=== PATIENT | female | born 1985 | race Caucasian/White ===

== ENCOUNTER 2018-01-10 09:37 | Emergency (ER) | payer BC ==
[~2018-01-10] VITALS: Ht 175.3 cm; Wt 72.5 kg
[~2018-01-10 09:37] MED LIST: FERR325T5 PO; PRENTAB26 PO
[2018-01-10 09:41] VITALS: TEMP 36.9; Ht 175.3 cm; Wt 72.5 kg
--- NOTE | 2018-01-10 10:13 | EMERGENCY ROOM VISIT NOTE ---
History Report prepared by Ayush: Sarkis Starr Under the Supervision of: Dr. Haile Rome D.O. First contact with patient: 09:57 Chief Complaint: HYPERTENSION Stated Complaint: HIGH BLOOD PRESSURE History of Present Illness The patient is a 32 year old female who presents to the Emergency Room with complaints of a persistent high blood pressure that was detected yesterday. She states that she went to [employer] yesterday thinking that she had strep throat , but her blood pressure was checked there, her blood pressure was noted to be elevated. The patient says that her blood pressure was measured 10 times there. 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 The patient says that she has never had this happen to her before. She does not take any daily medications other than control. The patient adds that she has had a headache but no other symptoms. She denies any chest pain, shortness of breath, trouble walking, nausea, vomiting, or leg swelling. She states that she has not been taking any other medications other than Ibuprofen 2 days ago, and cold medicine last night. The patient states that she has no family history of tumors that caused hypertension. The patient says that she has not had any recent travels. She notes no history of tobacco use, but does drink occasional alcohol. Source of History: patient Onset: Detected yesterday Position: other (global) Symptom Intensity: 170/130 Quality: other (high blood pressure) Timing: other (persistent) Associated Symptoms: + headache, + sorethroat, No chest pain, No SOB, No nausea, No vomiting Note: Denies trouble walking or leg swelling. Review of Systems See HPI for pertinent positives & negatives. A total of 10 systems reviewed and were otherwise negative. Past Medical & Surgical Medical Problems: (1) No chronic diseases present Family History Diabetes mellitus Heart disease Social History Smoking Status: Never Smoker Alcohol Use: occasionally Drug Use: none Marital Status: single Occupation Status: employed Current/Historical Medications Scheduled Amlodipine (Norvasc), 10 MG PO DAILY Enalapril Maleate (Vasotec), 1 TAB PO DAILY Ferrous Sulfate (Ferrous Sulfate), 325 MG PO DAILY Multivit/Min/Iron/Fol Ac/Pren ( Vitamin), 1 TAB PO DAILY Miscellaneous Medications Biotin (Biotin) Cyanocobalamin (Vitamin B12) Fish Oil (Otisco-3), 1 CAP PO Allergies Coded Allergies: No Known Allergies (Unverified , 01/10/18) Physical Exam Vital Signs Date Time Temp Pulse Resp B/P (MAP) Pulse Ox O2 Delivery O2 Flow Rate FiO2 01/10/18 14:18 86 16 196/137 99 01/10/18 13:46 68 20 168/109 99 Room Air 01/10/18 13:05 65 18 193/128 98 Room Air 01/10/18 11:50 67 16 199/129 97 Room Air 01/10/18 10:40 86 211/140 01/10/18 10:02 84 01/10/18 09:41 36.9 86 20 230/145 98 Room Air Physical Exam GENERAL: Patient is awake, alert, and in no acute distress. Patient is resting comfortably and showing no signs of anxiety. Patient has blood pressure of 181/ 139 in left arm and 211/140 in right arm. EYES: The conjunctivae are clear. The pupils are round and reactive. EARS, NOSE, MOUTH AND THROAT: The nose is without any evidence of any deformity. Mucous membranes are moist tongue is midline NECK: The neck is nontender and supple. RESPIRATORY: Normal respiratory effort is noted there is no evidence of wheezing rhonchi or rales CARDIOVASCULAR: Regular rate and rhythm noted there no murmurs rubs or gallops normal S1 normal S2 GASTROINTESTINAL: The abdomen is soft. Bowel sounds are present in all quadrants. Abdomen is nontender MUSCULOSKELETAL/EXTREMITIES: There is no evidence of gross deformity full range of motion is noted in the hips and shoulders SKIN: There is no obvious evidence of any rash. There are no petechiae, pallor or cyanosis noted. NEUROLOGIC: Patient is awake alert and oriented x3 strength is symmetric patellar reflexes are 2+ bilaterally Medical Decision & Procedures ER Provider Diagnostic Interpretation: Radiology results as stated below per my review and radiologist interpretation: HEAD WITHOUT CONTRAST (CT) CT DOSE: 537.48 mGy.cm HISTORY: Mental status change. Hypertension. SANDERS, elevated BP TECHNIQUE: Multiaxial CT images of the head were performed without the use of intravenous contrast. A dose lowering technique was utilized adhering to the principles of ALARA. Comparison: None. Findings: The paranasal sinuses and mastoid air cells are clear. The calvarium and skull base are intact. The ventricles and sulci are within normal limits. There is no mass, hematoma, midline shift, or acute infarct. Impression: No acute intracranial abnormality. The above report was generated using voice recognition software. It may contain grammatical, syntax or spelling errors. Electronically signed by: Sanchez Cardona M.D. 01/10/2018 10:53 AM Dictated Date/Time: 01/10/2018 10:52 AM CHEST ONE VIEW PORTABLE CLINICAL HISTORY: CHEST PAIN dyspnea COMPARISON STUDY: 06/17/2015 FINDINGS: The bones soft tissues and hemidiaphragms are normal. The cardiomediastinal silhouette is normal. The lungs are clear. The pulmonary vasculature is normal. IMPRESSION: Negative chest. The above report was generated using voice recognition software. It may contain grammatical, syntax or spelling errors. Electronically signed by: Sanchez Cardona M.D. 01/10/2018 10:46 AM Dictated Date/Time: 01/10/2018 10:43 AM Laboratory Results 01/10/18 09:50 Red Blood Count 5.17, Mean Corpuscular Volume 90.7, Mean Corpuscular Hemoglobin 32.9, Mean Corpuscular Hemoglobin Concent 36.2, Mean Platelet Volume 12.4, Neutrophils (%) (Auto) 66.9, Lymphocytes (%) (Auto) 23.8, Monocytes (%) (Auto) 6.2, Eosinophils (%) (Auto) 2.6, Basophils (%) (Auto) 0.4, Neutrophils # (Auto) 4.85, Lymphocytes # (Auto) 1.73, Monocytes # (Auto) 0.45, Eosinophils # (Auto) 0.19, Basophils # (Auto) 0.03 01/10/18 09:50 Test 01/10/18 09:50 White Blood Count 7.26 K/uL (4.8-10.8) Red Blood Count 5.17 M/uL (4.2-5.4) Hemoglobin 17.0 g/dL (12.0-16.0) Hematocrit 46.9 % (37-47) Mean Corpuscular Volume 90.7 fL (80-100) Mean Corpuscular Hemoglobin 32.9 pg (25-34) Mean Corpuscular Hemoglobin Concent 36.2 g/dl (32-36) Platelet Count 175 K/uL (130-400) Mean Platelet Volume 12.4 fL (7.4-10.4) Neutrophils (%) (Auto) 66.9 % Lymphocytes (%) (Auto) 23.8 % Monocytes (%) (Auto) 6.2 % Eosinophils (%) (Auto) 2.6 % Basophils (%) (Auto) 0.4 % Neutrophils # (Auto) 4.85 K/uL (1.4-6.5) Lymphocytes # (Auto) 1.73 K/uL (1.2-3.4) Monocytes # (Auto) 0.45 K/uL (0.11-0.59) Eosinophils # (Auto) 0.19 K/uL (0-0.5) Basophils # (Auto) 0.03 K/uL (0-0.2) RDW Standard Deviation 40.3 fL (36.4-46.3) RDW Coefficient of Variation 12.1 % (11.5-14.5) Immature Granulocyte % (Auto) 0.1 % Immature Granulocyte # (Auto) 0.01 K/uL (0.00-0.02) Prothrombin Time 9.5 SECONDS (9.0-12.0) Prothromb Time International Ratio 0.9 (0.9-1.1) Activated Partial Thromboplast Time 34.7 SECONDS (21.0-31.0) Partial Thromboplastin Ratio 1.3 Anion Gap 6.0 mmol/L (3-11) Est Creatinine Clear Calc Drug Dose 71.6 ml/min Estimated GFR () 70.4 Estimated GFR (Non- 60.8 BUN/Creatinine Ratio 10.5 (10-20) Calcium Level 9.4 mg/dl (8.5-10.1) Total Bilirubin 0.4 mg/dl (0.2-1) Direct Bilirubin 0.1 mg/dl (0-0.2) Aspartate Amino Transf (AST/SGOT) 23 U/L (15-37) Alanine Aminotransferase (ALT/SGPT) 29 U/L (12-78) Alkaline Phosphatase 73 U/L (45-117) Total Creatine Kinase 107 U/L (26-192) Creatine Kinase MB 0.8 ng/ml (0.5-3.6) Creatine Kinase MB Ratio 0.7 (0-3.0) Troponin I < 0.015 ng/ml (0-0.045) Total Protein 9.2 gm/dl (6.4-8.2) Albumin 4.3 gm/dl (3.4-5.0) Lipase 114 U/L (73-393) Human Chorionic Gonadotropin, Qual NEG (NEG) Laboratory results per my review. Medications Administered Medications (Trade) Dose Ordered Sig/Yury Route Start Time Stop Time Status Last Admin Dose Admin Amlodipine Besylate (Norvasc Tab) 10 mg NOW ONCE PO 01/10/18 11:00 01/10/18 11:01 DC 01/10/18 11:02 10 MG Enalapril Maleate (Vasotec Tab) 10 mg NOW ONCE PO 01/10/18 13:15 01/10/18 13:18 DC 01/10/18 13:39 10 MG ED Course 1004: The patient was evaluated in room B8. A complete history and physical examination were performed. 1100: Norvasc Tab 10 mg PO. 1200: I reevaluated and updated the patient. 1315: Vasotec Tab 10 mg PO. 1404: Upon reevaluation, the patient is resting and feeling good. I discussed the results and treatment plan with her. She verbalized agreement of the treatment plan. She was discharged home. Medical Decision Differential diagnosis: Etiologies such as benign hypertension, hypertensive emergency, cardiovascular pathology, pheochromocytoma, electrolyte abnormality, renal disease, endorgan damage, as well as others were entertained. Nursing notes reviewed. The patient is a 32-year-old female who presented to the emergency department for an evaluation of headache and not feeling well. She has been noticed to have an elevated blood pressure on 2 different occasions. She does not appear to have any focal neurologic deficit. She did not have meningismus. The patient's blood pressure appeared to be the primary issue. She does not have a primary care physician at this time. She was treated with antihypertensive medication and was reevaluated multiple times. On subsequent reevaluation she was feeling somewhat improved. I discussed her case with the emergency department pharmacist. He made some recommendations for blood pressure medication. She was encouraged to follow-up with a primary care physician this week. She was evaluated by the emergency department case operator and was set up with an appointment this week. I also discussed the possibility that she may need to change her control because it could be affecting her blood pressure. Otherwise she was encouraged to rest and avoid any strenuous activity. I also encouraged her to return to the emergency department immediately if symptoms change worsening the need arises. Medication Reconcilliation Current Medication List: was personally reviewed by me Blood Pressure Screening Patient's blood pressure: Elevated blood pressure Blood pressure disposition: Referred to PCP Impression Primary Impression: Hypertension Scribe Attestation The scribe's documentation has been prepared under my direction and personally reviewed by me in its entirety. I confirm that the note above accurately reflects all work, treatment, procedures, and medical decision making performed by me. Departure Information Dispostion Home / Self-Care Prescriptions Enalapril Maleate (VASOTEC) 10 Mg Tab 1 TAB PO DAILY for 30 Days, #30 TAB Prov: Haile Rome, DO 01/10/18 Amlodipine (Norvasc) 10 Mg Tab 10 MG PO DAILY, #30 TAB Prov: Haile Rome, DO 01/10/18 Referrals No Doctor, Assigned (PCP) Raul Loco M.D. (MEDICAL) Patient Instructions Hypertension Control, Hypertension Dc, My [facility] Additional Instructions Continue all medications as prescribed. Rest and avoid any strenuous activity. I would recommend switching to a progesterone only control. You may want to consider stopping her control after this cycle. Return to the emergency department immediately if symptoms change worsen or the need arises. Problem Qualifiers Primary Impression: Hypertension Hypertension type: unspecified Qualified Codes: I10 - Essential (primary) hypertension
[2018-01-10 10:22] LABS: BASO % 0.4 %; BASO ABS # 0.03 K/uL (0-0.2); EOS % 2.6 %; EOS ABS # 0.19 K/uL (0-0.5); HEMATOCRIT 46.9 % (37-47); IG# 0.01 K/uL (0.00-0.02); LYMPH % 23.8 %; LYMPH ABS # 1.73 K/uL (1.2-3.4); MEAN CELL VOLUME 90.7 fL (80-100); MEAN CORPUSCULAR HEMOGLOBIN 32.9 pg (25-34); MEAN CORPUSCULAR HGB CONC 36.2 g/dl (32-36); MEAN PLATELET VOLUME 12.4 fL (7.4-10.4); MONO % 6.2 %; MONO ABS # 0.45 K/uL (0.11-0.59); NEUT % 66.9 %; NEUT ABS # 4.85 K/uL (1.4-6.5); PLATELET COUNT 175 K/uL (130-400); RED CELL DISTRIBUTION WIDTH CV 12.1 % (11.5-14.5); RED CELL DISTRIBUTION WIDTH SD 40.3 fL (36.4-46.3); WHITE BLOOD COUNT 7.26 K/uL (4.8-10.8)
[2018-01-10 10:32] LABS: ALBUMIN 4.3 gm/dl (3.4-5.0); ALT/SGPT 29 U/L (12-78); BLOOD UREA NITROGEN 13 mg/dl (7-18); CALCIUM 9.4 mg/dl (8.5-10.1); CARBON DIOXIDE 30 mmol/L (21-32); CREATININE 1.19 mg/dl (0.60-1.20); GLUCOSE 74 mg/dl (70-99); LIPASE 114 U/L (73-393); POTASSIUM 3.3 mmol/L (3.5-5.1); SODIUM 137 mmol/L (136-145)
[2018-01-10 10:35] LABS: INR 0.9 (0.9-1.1); PTT PATIENT 34.7 SECONDS (21.0-31.0)
[2018-01-10 10:37] LABS: ALKALINE PHOSPHATASE 73 U/L (45-117); AST/SGOT 23 U/L (15-37); CKMB 0.8 ng/ml (0.5-3.6); TOTAL PROTEIN 9.2 gm/dl (6.4-8.2)
--- NOTE | 2018-01-10 10:47 | DIAGNOSTIC IMAGING REPORT ---
CHEST ONE VIEW PORTABLE CLINICAL HISTORY: CHEST PAIN dyspnea COMPARISON STUDY: 06/17/2015 FINDINGS: The bones soft tissues and hemidiaphragms are normal. The cardiomediastinal silhouette is normal. The lungs are clear. The pulmonary vasculature is normal. IMPRESSION: Negative chest. The above report was generated using voice recognition software. It may contain grammatical, syntax or spelling errors. Electronically signed by: Sanchez Cardona M.D. 01/10/2018 10:46 AM Dictated Date/Time: 01/10/2018 10:43 AM
--- NOTE | 2018-01-10 10:54 | DIAGNOSTIC IMAGING REPORT ---
HEAD WITHOUT CONTRAST (CT) CT DOSE: 537.48 mGy.cm HISTORY: Mental status change. Hypertension. SANDERS, elevated BP TECHNIQUE: Multiaxial CT images of the head were performed without the use of intravenous contrast. A dose lowering technique was utilized adhering to the principles of ALARA. Comparison: None. Findings: The paranasal sinuses and mastoid air cells are clear. The calvarium and skull base are intact. The ventricles and sulci are within normal limits. There is no mass, hematoma, midline shift, or acute infarct. Impression: No acute intracranial abnormality. The above report was generated using voice recognition software. It may contain grammatical, syntax or spelling errors. Electronically signed by: Sanchez Cardona M.D. 01/10/2018 10:53 AM Dictated Date/Time: 01/10/2018 10:52 AM
[2018-01-10] MEDS ORDERED: AMLODIPINE BESYLATE 5 MG TAB PO ONE (11:00)
[2018-01-10] MEDS ORDERED: OMEG10007 PO (11:38)
[2018-01-10] MEDS ORDERED: CYAN30003 (11:38)
[2018-01-10] MEDS ORDERED: MULT-506 PO (11:38)
[2018-01-10] MEDS ORDERED: FERR18TA2 (11:38)
[2018-01-10] MEDS ORDERED: BIOT1CAP8 (11:38)
[2018-01-10] MEDS ORDERED: AMLO-114 PO (11:53)
[2018-01-10] MEDS ORDERED: ENAL10TA PO (13:14)
[2018-01-10] MEDS ORDERED: ENALAPRIL MALEATE 10 MG TAB PO ONE (13:15)
[2018-01-10 14:18] VITALS: BP 196/137; PULSE 86; O2SAT 99
== END 2018-01-10 14:24 | disposition home or self-care (01) ==
LOC: C.EDB 09:41
DX: I10 Essential (primary) hypertension (principal); Z83.3 Family history of diabetes mellitus

== ENCOUNTER 2024-09-17 12:21 | Inpatient (IN) ==
[2024-09-17] MEDS ORDERED: OXYTOCIN 30 UNITS/NSS 30 UNITS/500 ML BAG IV PRN (13:10)
[2024-09-17] MEDS ORDERED: CALCIUM CARBONATE 500 MG CHEWABLE TAB PO PRN (13:10)
[2024-09-17] MEDS ORDERED: LIDOCAINE 1% LOCAL 20 ML VIAL INFIL PRN (13:10)
[2024-09-17] MEDS: LACTATED RINGER'S 1,000 ML IV SCH (13:36)
[2024-09-17] MEDS: LABETALOL HCL IV 5 MG/ML 20ML IV STA ×2 (13:40→13:50)
[2024-09-17] MEDS: hydrALAZINE HCL 20 MG/ML VIAL IV STA ×2 (14:01→14:24)
[2024-09-17 14:33] LABS: Creatinine Urine Random 42.4 mg/dl; Protein Creatinine Ratio Urine 0.2 (0-0.2); Total Protein Urine Random 9.3 mg/dl (0-11.9)
[2024-09-17 14:44] LABS: Hematocrit (blood only) 34.8 % (37.0-47.0); Hemoglobin 12.7 g/dl (12.0-16.0); Mean Corpuscular Hgb Conc 36.5 g/dL (32.0-36.0); Mean Corpuscular Volume 93.3 fL (80.0-100.0); Mean Platelet Volume 13.7 fL (9.4-12.4); Platelet Count 116 K/uL (130-400); RDW Coefficient of Variation 12.9 % (11.5-14.5); RDW Standard Deviation 44.3 fL (36.4-46.3); Red Blood Count 3.73 M/uL (4.20-5.40); White Blood Count 11.34 K/ul (4.8-10.8)
[2024-09-17] MEDS: miSOPROStoL 50 MCG TAB PO ONE ×2 (14:56→19:51)
[2024-09-17 14:57] LABS: Albumin Globulin Ratio 1.2 (0.9-2); Albumin Level 3.5 gm/dl (3.4-5.0); BUN Creatinine Ratio 20.7 (10-20); Bilirubin,Total 0.3 mg/dl (0.2-1.0); Calcium 8.9 mg/dl (8.6-10.3); Creatinine Clr Calc Pharmacy 105.6 ml/min; Potassium 4.1 mmol/L (3.5-5.1); Total Protein 6.5 gm/dl (6.0-8.3)
[2024-09-17] MEDS: ACETAMINOPHEN 325 MG TAB PO PRN (16:51)
[2024-09-17] MEDS: LABETALOL HCL IV 5 MG/ML 20ML IV ONE (17:00)
[2024-09-17] MEDS: hydrALAZINE HCL 20 MG/ML VIAL ONE ×2 (17:01→21:37)
[2024-09-17] MEDS: ONDANSETRON INJ 2 MG/ML 2 ML VIAL ONE (17:17)
--- NOTE | 2024-09-17 18:28 | History & Physical Report ---
Date of Service September 17, 2024 Assessment & Plan (1) Term : (2) Hypertension affecting in third trimester: (3) Head ache: Plan Control blood pressure with IV medications. Start induction with labetalol 50 mcg p.o. Admission and Anticipated Discharge Date Admission Date: September 17, 2024 History of Present Illness Chief Complaint: headache blood pressure 165/115 intrauterine 37 weeks 4 days Primary Care Provider: NO PCP Patient is a 39-year-old 2 para 1. Present has been complicated by elevated blood pressure. Which started at approximately 20 weeks gestation. This has been well dated with a first trimester ultrasound her due date is 10/04/2024. 2013 she had a live female 7 pounds 3 ounces via spontaneous vaginal delivery. Delivery was at 40 weeks and 6 days this was not complicated by elevated blood pressure. Patient's been on increasing doses of blood pressure medication. At the time of admission she was on 60 mg Procardia XL in the a.m. and 200 mg of labetalol twice daily. The was being monitored with NSTs twice a week. When she showed up for her NST she had a elevated blood pressure and headache. She was promptly sent to [facility]. When she arrived at [facility] her initial blood pressure was 165/115. IV was started and 10 mg of IV labetalol was given. 10 minutes later it had done nothing to decrease the blood pressure. Next dose was 20 mg of labetalol IV. 10 minutes later the blood pressure still had not dropped. We then switched to hydralazine 10 mg IV. 20 minutes later blood pressure still had not dropped. Second dose of of 10 mg of hydralazine was given. In about 10 to 15 minutes after the second dose her blood pressure dropped into an acceptable range of under 150 at and under 90. Once we had controlled her blood pressures. We gave her Cytotec 50 mcg p.o. to start the induction. Following this were monitoring her blood pressure every hour. For the first 2 to 3 hours they have been doing well. Allergies Allergy/AdvReac Type Severity Reaction Status Date / Time No Known Allergies Allergy Verified 09/17/24 12:46 Home Medications Medication Instructions Recorded Confirmed Type Multivit/Min/Iron/Fol Ac/Pren 1 tab PO DAILY #0 tabs 09/28/13 09/17/24 History ( Vitamin) FERROUS SULFATE 325 mg PO DAILY #60 tabs 10/01/13 09/17/24 Rx aspirin 81 mg chewable tablet 81 mg PO DAILY 09/17/24 09/17/24 History labetalol 100 mg tablet 100 mg PO BID 09/17/24 09/17/24 History nifedipine 60 mg tablet,extended 60 mg PO DAILY 09/17/24 09/17/24 History release Past Med/Surg History Problem List (Updated 09/17/24 @ 18:27 by Yossi Bourgeois MD) Head ache Hypertension affecting in third trimester Term Pneumonia (Acute) Rash (Acute) Dyspnea (Acute) Malaise (Acute) Ruptured, membranes, premature (Acute 09/28/13) Post-dates (Acute 09/28/13) Surgical History (Updated 09/17/24 @ 12:46 by Sandra Alvarez RN) No history of previous surgery Social History Smoking Status: Never smoker Hx Alcohol Use: No Hx Substance Use: No Preferred Language: Kazakh Communication Ability: Effective Bag Hanger Required: No Beliefs That Will Affect Care: None marital status: Current Living Situation: Spouse and Family Current Living Situation Comment: and daughter (11yo) Other Information That Helps Us Care for You: No Feels Safe at Home: Yes Safety Concerns: Feels Safe At This Time Physical Exam Physical Exam: Patient is a 39-year-old white female alert oriented x 3 complains of a headach e. And some nausea. Heart had a regular rhythm S1 and S2 were normal. Lungs are clear to auscultation and percussion. Trachea was midline there was no cervical adenopathy. Abdomen revealed a gravid uterus consistent with a 37 weeks gestational size . There was no CVA tenderness. There was no calf tenderness. Pelvic exam revealed the cervix to be posterior 1 cm open uneffaced vertex presentation floating. Results & Data Results & Data Vital Signs (Past 12 Hours) Vital Signs Temp Pulse Resp BP 09/17/24 17:43 82 09/17/24 17:43 133/82 09/17/24 16:32 87 09/17/24 16:32 134/92 09/17/24 15:34 86 09/17/24 15:34 142/80 H 09/17/24 14:37 85 09/17/24 14:37 138/92 09/17/24 14:18 83 09/17/24 14:18 155/110 H 09/17/24 14:06 80 09/17/24 14:06 160/108 H 09/17/24 13:56 79 09/17/24 13:56 168/111 H 09/17/24 13:46 81 09/17/24 13:46 160/111 H 09/17/24 13:40 79 164/109 H 09/17/24 13:40 79 09/17/24 13:40 164/109 H 09/17/24 12:57 80 09/17/24 12:57 163/115 H 09/17/24 12:30 36.6 C 20 09/17/24 12:28 85 165/111 H Code Status & VTE Plan VTE Prophylaxis Plan VTE Prophylaxis will be ordered: No
[2024-09-17] MEDS: hydrALAZINE HCL 20 MG/ML VIAL IV ONE (19:50)
[2024-09-17] MEDS: LABETALOL HCL 200 MG TAB PO SCH (20:47)
[2024-09-17] MEDS: ONDANSETRON INJ 2 MG/ML 2 ML VIAL IV PRN (22:19)
[2024-09-18] MEDS: miSOPROStoL 50 MCG TAB PO ONE (03:32)
--- OUTSIDE RECORDS SUMMARY | 2024-09-18 05:17 | External Medical Summary | Summary of Care ---
Author Name Unknown Organization [facility] Address [address] [place] [address] Phone [phone] Care Team Providers Care Sports Physiotherapist Name Role Phone Sanchez Pastor MD Primary Care Provider [phone] Reason for Visit * Reason Comments Outpatient Testing Encounter Details Date Type Department Care Team (Late st Contact Info) Description 09/16/2024 2:30 PM EST Laboratory Laboratory, [facility] [address] [place] [id number] [facility] [address] [place] [address] Chronic hypertension in Allergies No known active allergiesdocumented as of this encounter (statuses as of 09/16/2024) Medications 28-0.8 MG Oral Tablet Take by mouth. Active Aspirin 81 MG Oral Tablet ChewableIndicatio ns:High-risk in second trimester,Multigr avida of advanced maternal age in second trimester,Chronic hypertension in Take 1 Tablet by mouth in the morning. 100 Tablet 3 4 Active Iron-Vitamin C 65-125 MG Oral Tablet (Vitron C)Indications:Ant epartum anemia complicating Take 1 Tablet by mouth in the morning and 1 Tablet before bedtime. 60 Tablet 3 4 Active NIFEdipine ER 60 MG Oral Tablet Extended Release 24 Hour (Adalat CC)Indications:Hi gh-risk in third trimester,Chronic hypertension in Take 1 Tablet by mouth in the morning. 30 Tablet 6 4 Active Labetalol HCl 200 MG Oral Tablet (Normodyne)Indica tions:Chronic hypertension in Take 1 Tablet by mouth in the morning and 1 Tablet at noon and 1 Tablet before bedtime. 90 Tablet 1 4 Active documented as of this encounter (statuses as of 09/16/2024) Active Problems Problem Noted Date Diagnosed Date Poor growth affecting management of mother in third trimester 09/12/2024 Assessment & Plan (09/12/2024 3:38 PM EST): CONSIDERATIONS: We discussed the diagnosis of growth restriction (FGR) based on the finding of an estimated weight and/or abdominal circumference less than 10th percentile. Based on timing of initial diagnosis, FGR can be classified as early (less than 32 weeks) or late (greater than or equal to 32 weeks); severe FGR indicates EFW 3rd percentile. We discussed possible etiologies of FGR, which may include the following: Constitutional, viral infections, placental insufficiency, maternal medical conditions, smoking, aneuploidy, other genetic syndromes and incorrect dating. The increased risk of stillbirth was discussed, and the importance of daily kick counts was reinforced. RECOMMENDATIONS: Given the non-severe FGR (EFW greater than or equal to 3rd percentile) and normal Umbilical Artery (UA) Doppler velocimetry noted today we recommend: surveillance 1x per week with BPP or NST in the OB office (already in progress due to CHTN). Delivery at 38w0d to 39w0d. Encounter for medication administration 08/20/20 24 Thrombocytopenia affecting 08/13/2024 Overview (08/26/2024): CBC 08/13 showed PTL count 134. Previously WNL. BP at appointment 08/12 136/88 Repeat baseline PEC labs ordered 08/13. Per hem: Management of gestational thrombocytopenia includes weekly CBC in the final month of . As long as her platelet count remains above 75,000 no specific intervention is indicated. Decisions on epidural catheter placement we will be deferred to anesthesiology. Should there be a precipitous fall in the platelet count less than 50,000 prednisone about 1 milligram/kilogram would be appropriate. Should the platelet count falls significantly below this number IVIG can be considered along with prednisone. Finally, should bleeding be encountered with platelet count less than 20,000 platelet transfusions can be considered. Component Latest Ref Rng 08/12/2024 08/19/2024 08/26/2024 WBC 4.00 - 10.80 K/uL 10.41 Neutrophils % 40.0 - 75.0 % 79.9 (H) Lymphocytes % 18.0 - 42.0 % 11.5 (L) Monocytes % 1.0 - 11.0 % 6.3 Eosinophils % 0.0 - 6.0 % 1.3 Basophils % 0.0 - 2.0 % 0.3 Immature Granulocytes % 0.0 - 2.0 % 0.7 Absolute Neutrophils 1.80 - 7.70 K/uL 8.31 (H) Absolute Lymphocytes 1.00 - 4.80 K/ul 1.20 Absolute Monocytes 0.00 - 1.10 K/uL 0.66 Absolute Eosinophils 0.00 - 0.70 K/uL 0.14 Absolute Basophils 0.00 - 0.20 K/uL 0.03 Absolute Immature Granulocytes 0.00 - 0.20 K/uL 0.07 WBC 4.00 - 10.80 K/uL 10.41 10.11 RBC 3.85 - 5.15 M/uL 3.71 3.65 HGB 12.0 - 15.3 g/dL 12.6 12.2 HCT 36.0 - 45.2 % 36.2 35.1 (L) MCV 81.5 - 97.5 fL 97.6 96.2 MCH 27.0 - 34.0 pg 34.0 33.4 MCHC 32.0 - 36.0 g/dL 34.8 34.8 RDW 11.5 - 15.5 % 12.9 12.7 PLT 140 - 400 K/uL 134 (L) 104 (L) 110 (L) MPV 6.6 - 11.1 fL 14.2 13.9 nRBCs <=0 /100 WBCs 0 Legend: (H) High (L) Low A follow-up CBC in the convalescent phase should be completed to confirm normalization of platelet count. Antepartum anemia complicating 024 Overview (07/12/2024): Rx'd iron at 28 wks Rh negative status during 04/15/2024 Advanced maternal age in multigravida 04/10/2024 Overview (04/10/2024): Ms. Ron will be 39 years-old by BART (10/04/24). She had low-risk genetic screening. Assessment & Plan (05/17/2024 10:41 AM EDT): -low risk cffDNA Assessment & Plan (04/10/2024 2:18 PM EDT): CONSIDERATIONS: We reviewed the most pertinent aspects of the following: Advanced maternal age (AMA) refers to a woman with a nuñez who will be at the age of 35 or older at the estimated time of delivery and may be associated with increased morbidity. Prior to the appointment the patient has had genetic screening and it was reported as low-risk. Cell-free DNA (cffDNA) screening is a genetic screening option that analyzes maternal blood for DNA that is placental in origin and targets the following conditions: Trisomy 21 (Down syndrome), trisomy 18, trisomy 13, and sex chromosome abnormalities such as monosomy X (Gabriel syndrome), and sex chromosome trisomies (triple X, Klinefelter syndrome, XYY). It may also evaluate for other genetic alterations such as microdeletions, depending on the specific test. It reveals the sex of the fetus but should generally not be performed solely for this indication. The screening test can be performed after 10 weeks gestation. Results provided are NOT diagnostic, but provide a risk estimate. Offer MSAFP only (not Quad Screen) at 16-22 weeks if screening for open neural tube defects is desired. Amniocentesis for diagnosis of chromosomal abnormalities is also available. The risk of complications from the procedure and that risk is 1 in 500 (0.2%). In addition to the risk of chromosomal abnormalities, there is an increased risk of congenital/structural anomalies. RECOMMENDATIONS: Recommend MFM anatomy ultrasound at 19-20 weeks gestation. High-risk 04/10/2024 Chronic hypertension in 04/10/2024 Overview (07/11/2024): History of hypertension requiring lisinopril in the past. On 1. .Nifedipine 30 mg Extended release daily ASA 81 mg daily. BP Readings from Last 5 Encounters: 03/18/24 132/74 06/17/21 132/90 06/05/19 120/74 05/04/18 118/76 02/02/18 110/78 Baseline Preeclampsia Labs Lab Results Component Value Date/Time PLT 163 03/18/2024 10:42 AM CREATININE - [facility] 0.9 03/18/2024 10:42 AM AST - [facility] 20 03/18/2024 10:42 AM ALT - [facility] 17 03/18/2024 10:42 AM Assessment & Plan (09/12/2024 2:15 PM EST): BP Readings from Last 5 Encounters: 09/10/24 134/92 09/09/24 146/104 09/02/24 138/94 08/29/24 138/94 08/26/24 136/96 Please titrate medication to maintain goal BP < 140/90. Assessment & Plan (08/15/2024 9:09 AM EDT): BP Readings from Last 5 Encounters: 08/12/24 136/88 07/29/24 120/88 07/11/24 124/84 06/10/24 132/88 05/30/24 124/78 Please titrate medication to maintain goal BP < 140/90. Assessment & Plan (07/18/2024 1:43 PM EDT): She presents for follow-up of growth secondary to CHTN (on nifedipine) and AMA. Today's ultrasound notes the following: The estimated weight is appropriate for gestational age in the 16th percentile. The visualized anatomy is unremarkable in appearance. The YOLI is normal. Assessment & Plan (05/17/2024 11:35 AM EDT): BP Readings from Last 5 Encounters: 05/17/24 161/102 05/13/24 132/96 04/15/24 128/76 03/18/24 132/74 06/17/21 132/90 Considerations: Women with chronic hypertension during are at significantly increased risk for morbidity. Signs and symptoms of superimposed pre-eclampsia were reviewed; instructed patient to contact primary OB care provider if these symptoms occur. Pt with several elevated BP's in clinic including a severe range BP Pt sent to L&D for labs and initiation of PO anti-HTN therapy Recommendations: Daily home blood pressure monitoring, especially in the second half of the . Initiate or adjust antihypertensive medication if BP is 140/90 or greater on at least two occasions at least 4 hours apart and refer patient back to Maternal- Medicine. Titrate medication to maintain blood pressure in a goal range 120-140/70-90. Labetalol and Nifedipine are considered safe for use in and these agents are considered as first-line therapy when indicated. surveillance as follows: If being treated with anti-hypertensives: Maternal- Medicine ultrasound for growth every 4 weeks starting at 24-26 weeks surveillance weekly starting at 32 weeks gestation Delivery should be individualized based on blood pressure control and assessment of patient risk and is indicated as follows: For those with stable blood pressures not on anti-hypertensive medications: Between 38 0/7 and 39 6/7 weeks For those on anti-hypertensive medications: Between 37 0/7 and 39 6/7 weeks Assessment & Plan (04/10/2024 2:17 PM EDT): Considerations: Women with chronic hypertension during are at significantly increased risk for morbidity. Signs and symptoms of superimposed pre-eclampsia were reviewed; instructed patient to contact primary OB care provider if these symptoms occur. Recommendations: Obtain baseline lab work GELACIO (if not already done) with assessment of proteinuria (24-hour urine protein or ngdlgox-bx-idfqodktii ratio) and CBC, serum AST/ALT/creatinine. If patient has had hypertension for 10 years or more, obtain an EKG and eye exam (if not performed within the past year). Recommend initiation of aspirin (81mg) daily, from 13 weeks until delivery, to decrease the risk of superimposed preeclampsia. Daily home blood pressure monitoring, especially in the second half of the . It may be useful to have the patient validate their home device with their primary OB care provider's office. Patients with BP less than 140/90 maintained with antihypertensives should continue medication during . Discontinuation of FRANK inhibitors or angiotensin type II receptor antagonists under the guidance of the primary care physician prior to conception of or upon knowledge of . Initiate or adjust antihypertensive medication if BP is 140/90 or greater on at least two occasions at least 4 hours apart and refer patient back to Maternal- Medicine. Titrate medication to maintain blood pressure in a goal range 120-140/70-90. Labetalol and Nifedipine are considered safe for use in and these agents are considered as first-line therapy when indicated. Maternal Medicine ultrasound for anatomy at 19-20 weeks. surveillance as follows: If NOT being treated with anti-hypertensives: Maternal- Medicine ultrasound for growth between 28-30 weeks If being treated with anti-hypertensives: Maternal- Medicine ultrasound for growth every 4 weeks starting at 24-26 weeks surveillance weekly starting at 32 weeks gestation Delivery should be individualized based on blood pressure control and assessment of patient risk and is indicated as follows: For those with stable blood pressures not on anti-hypertensive medications: Between 38 0/7 and 39 6/7 weeks For those on anti-hypertensive medications: Between 37 0/7 and 39 6/7 weeks HTN, goal below 130/80 05/04/2018 Family history of thyroid disease 01/12/2018 Estimated Date of Delivery Comme nts Yes 10/04/2024 Based on Ultraso und documented as of this encounter (statuses as of 09/16/2024) Resolved Problems Problem Noted Date Diagnosed Date Resolved Date Essential hypertension with goal blood pressure less than 140/90 01/12/2018 05/04/2018 Rh negative, antepartum 03/06/201305/30 Overview (03/01/2016): Rhogam candidate- Given 07/05/2013 Suhas SINGH ICD-10 update of inactive term Supervision of normal first 02/28/2013 02/26/2016 Overview (07/18/2013): Patient received flu vaccine. 07/18/2013 Swati Josue RN 07/18/2013 Tdap Vaccine administered per clinic protocol. Pt given VIS(vaccine information sheet) Swati Josue RN documented as of this encounter (statuses as of 09/16/2024) Immunizations Name Administration Dates Next Due Seasonal Influenza, Trivalent, (IIV3), PF, (Fluz one) 07/29/2024 TDAP (age 10 and older)(Boostrix) 07/18/2013 TDAP, Age 7 and older, IM (Adacel) 07/29/2024 documented as of this encounter Social History Tobacco Use Types Packs/Day Years Used Date Smoking Tobacco: Never Smokeless Tobacco: Never Alcohol Use Standard Drinks/Week Comments Not Currently 0 (1 standard drink = 0.6 oz pur e alcohol) 1-2 drinks per week PHQ-2 Answer Date Recorded PHQ-2 Score 0 06/05/2019 Hunger Vital Sign Answer Date Recorded Within the past 12 months, y ou worried that your food would run out before you got the money to buy more. Never true 05/25/20 24 Within the past 12 months, t he food you bought just didn't last and you didn't have money to get more. Never true 05/25/2024 [place] Depression Scale Answer Date Recorded [place] Depression Scale Total 7 09/10/2024 The thought of harming myself has occurred to me . Never 09/10/2024 Childcare Answer Date Recorded Do you feel overwhelmed with taking care of a child, family member or friend? No 05/25/2024 Does your family need help f inding childcare? (Household - for ages 0-17 years) Not on file 05/25/2024 Clothing Answer Date Recorded Have you been unable to get clothing when it was really needed? No 05/25/2024 Is your family able to get c lothes or diapers when needed? (Household - for ages 0-17 years) Not on file 05/25/2024 Personal Safety Answer Date Recorded Do you feel unsafe or have concerns for your saf ety? No 05/25/2024 Do you have concerns for you r family's safety? (Household - for ages 0-17 years) Not on file 05/25/2024 Utilities Answer Date Recorded Do you have trouble paying y our heating, water, or electric bill? No 05/25/2024 Is your family able to pay t he heat, water, or electric bill? (Household - for ages 0-17 years) Not on file 05/25/2024 Does your family have access to good internet? (Household - for ages 0-17 years) Not on file 05/25/2024 Employment Status Answer Date Recorded Are you unemployed or without regular income? No 05/25/2024 Does the household have a re gular source of income? (Household - for ages 0-17 years) Not on file 05/25/2024 Social Connections Answer Date Recorded How often do you feel lonely or isolated from th ose around you? Never 05/25/2024 Financial Resource Strain Answer Date R ecorded Do you have any trouble payi ng for your medications, or do you think you might in the future? No 05/25/2024 Does your family have troubl e paying for medicine? (Household - for ages 0-17 years) Not on file 05/25/2024 Transportation Needs Answer Date Record ed READ ONLY Do you have troubl e getting a ride to medical visits or work? Never True 05/25/2024 Does your family have a hard time getting a ride to doctors visits? (Household - for ages 0-17 years) Not on file 05/25/2024 Has lack of transportation k ept you from medical appointments, meetings, work, or from getting things needed for daily living? Check all that apply. No 05/25/2024 Do you (or your family) have trouble finding or paying for a ride (transportation)? (Household - for ages 0-17 years) Not on file 05/25/2024 Housing Stability Answer Date Recorded Do you currently live in a s helter or have no steady place to sleep at night? No 05/25/2024 READ ONLY Do you think you a re at risk of becoming homeless? No 05/25/2024 Does your family worry about paying for your home or becoming homeless? (Household - for ages 0-17 years) Not on file 0 05/25/2024 Are you homeless or worried that you might be in the future? No 05/25/2024 Are you (or your family) tamika eless or worried that you might be in the future? (Household - for ages 0-17 years) Not on file Food Insecurity Answer Date Recorded Do you need food for this week? Yes 05/25/2024 Are you able to get enough f ood for your family? (Household - for ages 0-17 years) Not on file 05/25/2024 Does your family need food t his week? (Household - for ages 0-17 years) Not on file 05/25/2024 Do you always have enough fo od for your family? 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 on file Not on file Not on file documented as of this encounter Plan of Treatment Upcoming Encounters Date Type Department Care Team (Late st Contact Info) Description 09/19/2024 10:15 AM EST Office Visit Gynecology/Obstetrics [facility] [address] [place] [id number] Caity Corcoran CRNP [address] [place] [id number] [facility] [address] [place] [id number] Pending Results Name Type Priority Associated Diagnoses Date /Time AST Lab Routine Chronic hypertension in 09/16/2024 2:18 PM EST ALT Lab Routine Chronic hypertension in 09/16/2024 2:18 PM EST CREATININE Lab Routine Chronic hypertension in 09/16/2024 2:18 PM EST CBC Lab Routine Chronic hypertension in 09/16/2024 2:18 PM EST Health Maintenance Due Date Last Done Comments Hepatitis B Vaccine (1 of 3 - 19+ 3-dose series) 2005 Depression Screening 06/05/2020 06/05/2019 COVID-19 Vaccine ( season) 2024 GFR 09/09/2025 09/09/2024, 07/31, 08/19/2024, Additional history exists Pap Smear 03/18/2027 03/18/2024, 05/30, 04/25/2017, Additional history exists Diabetes Screening 08/19/2027 08/19/2024, 1 , 05/17/2024, Additional history exists Cervical Cancer Screening 03/18/2029 HPV/Co-Test 03/18/2029 03/18/2024 DTap/Tdap Vaccines (3 - Td or Tdap) 07/29/2034 07/29/2024, 07/18/2013 Influenza Vaccine (FLU shot) Completed 07/29/2024 HPV (Gardasil) Vaccine Aged Out No lo nger eligible based on patient's age to complete this topic MENINGOCOCCAL (MENACTRA/MENVEO) Aged Out No longer eligible based on patient's age to complete this topic Pneumococcal Vaccine: Pediatrics (0 to 5 Years) and At-Risk Patients (6 to 64 Years) Aged Out No longer eligible based on patient's age to complete this topic documented as of this encounter Medical Devices Not on filedocumented as of this encounter Visit Diagnoses Diagnosis Multigravida of advanced maternal age in second trimester- Primary Supervision of high-risk , second trimester Chronic hypertension in Benign essential hypertension complicating , childbirth, and the puerperium, unspecified as to episode of care Chronic hypertension in - Primary Benign essential hypertension complicating , childbirth, and the puerperium, unspecified as to episode of care Multigravida of advanced maternal age in second trimester High-risk in second trimester 20 weeks gestation of state, incidental Encounter for anatomic survey Chronic hypertension in - Primary Benign essential hypertension complicating , childbirth, and the puerperium, unspecified as to episode of care Antepartum anemia complicating Anemia, antepartum Chronic hypertension in - Primary Benign essential hypertension complicating , childbirth, and the puerperium, unspecified as to episode of care Multigravida of advanced maternal age in third trimester Ultrasound for screening for growth restriction screening for growth retardation using ultrasonics 32 weeks gestation of state, incidental Chronic hypertension in - Primary Benign essential hypertension complicating , childbirth, and the puerperium, unspecified as to episode of care Poor growth affecting management of mother in third trimester, single or unspecified fetus Ultrasound for screening for growth restriction screening for growth retardation using ultrasonics 36 weeks gestation of state, incidental Multigravida of advanced maternal age in third trimester Chronic hypertension in Benign essential hypertension complicating , childbirth, and the puerperium, unspecified as to episode of care documented in this encounter Care Teams Sports Physiotherapist Relationship Specialty Start Date End Date Sanchez Pastor MD [address] [place] [address] PCP - General Family Medicine 05/04/18 documented as of this encounter
--- OUTSIDE RECORDS SUMMARY | 2024-09-18 05:18 | External Medical Summary | Summary of Care ---
Author Name Unknown Organization [facility] Address [address] [facility] [place] [address] Phone [phone] Care Team Providers Care Consulting Business Developer Name Role Phone Sanchez Pastor MD Primary Care Provider [phone] Reason for Visit * Reason Comments Return Visit Encounter Details Date Type Department Care Team (Late st Contact Info) Description 09/10/2024 3:15 PM EST Office Visit Gynecology/Obstetric s [facility] [address] [place] [address] Ole Cruz MD [address] [place] [address] Multigravida of advanced maternal age in third trimester*; High-risk in third trimester; Chronic hypertension in ; Rh negative status during in third trimester; Antepartum anemia complicating ; Thrombocytopenia affecting (HCC) Allergies No known active allergiesdocumented as of this encounter (statuses as of 09/10/2024) Medications 28-0.8 MG Oral Tablet Take by [...] 30 Tablet 6 4 Active Labetalol HCl 100 MG Oral Tablet (Normodyne)Indica tions:Chronic hypertension in Take 1 Tablet by mouth in the morning and 1 Tablet before bedtime. 180 Tablet 1 4 Active documented as of this encounter (statuses as of 09/10/2024) Active Problems Problem Noted Date Diagnosed Date Encounter for medication administration 08/20/20 Thrombocytopenia affecting 08/13/2024 Overview (08/26/2024): CBC 08/13 [...] 17 03/18/2024 10:42 AM Assessment & Plan (08/15/2024 9:09 AM EDT): [...] assessment of proteinuria (24-hour urine protein or gfjmgmv-hh-ybeoegrvnm ratio) and CBC, serum AST/ALT/creatinine. If patient [...] as of this encounter (statuses as of 09/10/2024) Resolved Problems Problem Noted Date Diagnosed Date [...] as of this encounter (statuses as of 09/10/2024) Immunizations Name Administration Dates Next Due Seasonal [...] money to get more. Never true 05/25/2024 [place] Depression Scale Answer Date Recorded [place] Depression Scale Total 7 09/10/2024 The thought [...] No 05/25/2024 Does the household have a [facility] source [facility] income? 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 Not on file Not on file documented as of this encounter Last Filed Vital Signs Vital Sign Reading Time Taken Comments Blood Pressure 134/92 09/10/2024 3:10 PM EST Pulse - - Temperature - - Respiratory Rate - - Oxygen Saturation - - Inhaled Oxygen Concentration - - Weight - - Height 172.7 cm (5' 8") 09/10/2024 3:10 PM EST Body Mass Index - - documented in this encounter Progress Notes * Ole Cruz MD - 09/10/2024 3:42 PM EST Pt doing well Seen by AP yesterday Dong well On procardia XR 60mg and Labetalol BP stable today Seeing MFM tomorrow documented in this encounter Nursing Notes * Patricia Crowley LPN - 09/10/2024 3:10 PM EST 36w4d Pt is here for BP check documented in this encounter Plan of Treatment Upcoming Encounters Date Type Department Care Team (Late st Contact Info) Description 09/12/2024 1:00 PM EST Imaging Maternal Medicine Imaging, [facility] [address] [place] [address] 09/16/2024 1:00 PM EST Office Visit Gynecology/Obstetrics [facility] [address] [place] [address] Miesha Negro CRNP [address] [place] [address] Buck, Non Stress Tests Ronald [address] [place] [address] 09/19/2024 10:15 AM EST Office Visit Gynecology/Obstetrics [facility] [address] [place] [address] Caity Corcoran CRNP [address] [place] [address] Buck, Non Stress Tests Ronald [address] [place] [address] 09/23/2024 1:15 PM EST Office Visit Gynecology/Obstetrics [facility] [address] [place] [address] Miesha Negro CRNP [address] [place] [address] Buck, Non Stress Tests Ronald [address] [place] [address] 09/27/2024 11:00 AM EST Office Visit Gynecology/Obstetrics [facility] [address] [place] [address] BackerMiesha CRNP [address] [place] [address] Buck, Non Stress Tests Ronald [address] [place] [address] 09/30/2024 1:00 PM EST Office Visit Gynecology/Obstetrics [facility] [address] [place] [address] Backer, LEXX Sanchez [address] [place] [address] Buck Non Stress Tests Ronald [address] [place] [address] Health Maintenance Due Date Last Done Comments [...] ultrasonics 32 weeks gestation of state, incidental Multigravida of advanced maternal age in third trimester- Primary High-risk in third trimester Chronic hypertension in Benign essential hypertension complicating , childbirth, and the puerperium, unspecified as to episode of care Rh negative status during in third trimester Antepartum anemia complicating Anemia, antepartum Thrombocytopenia affecting (HCC) documented in this encounter Care Teams Consulting Business Developer Relationship Specialty Start Date End Date Sanchez Pastor MD [address] [place] [address] PCP - General Family Medicine 05/04/18 documented as of this encounter
--- OUTSIDE RECORDS SUMMARY | 2024-09-18 05:18 | External Medical Summary ---
Author Name Unknown Address Unknown Organization [id number] [address] [place] [address] Laboratory Report Ordering Provider Test Date Status DU MOSS 09/16/2024 14:18:03 Final Observation Date Value Abnormality Reference (Units ) Status ALT (Alanine aminotransferase) 09/16/2024 14:18:03 37 Above high normal 10-35 (U/L) Final Performing Location [facility] [address] [place] [address]
--- OUTSIDE RECORDS SUMMARY | 2024-09-18 05:18 | External Medical Summary | Summary of Care ---
Author Name Unknown Organization [facility] Address [address] [place] [facility] [place] [address] Phone [phone] Care Team Providers Care Mail Order Biller Name Role Phone Sanchez Pastor MD Primary Care Provider [phone] Reason for Visit * Reason Comments Outpatient Testing Encounter Details Date Type Department Care Team (Late st Contact Info) Description 09/09/2024 1:50 PM EST Laboratory Laboratory, [facility] [address] [place] [id number] [facility] [address] [place] [address] Chronic hypertension in ; Thrombocytopenia affecting (HCC) Allergies No known active allergiesdocumented as of this encounter (statuses as of 09/09/2024) Medications 28-0.8 MG Oral Tablet Take by [...] as of this encounter (statuses as of 09/09/2024) Active Problems Problem Noted Date Diagnosed Date Encounter for medication administration 08/20/20 24 Thrombocytopenia [...] assessment of proteinuria (24-hour urine protein or jngjbsy-my-rfpvvkbalj ratio) and CBC, serum AST/ALT/creatinine. If patient [...] as of this encounter (statuses as of 09/09/2024) Resolved Problems Problem Noted Date Diagnosed Date [...] as of this encounter (statuses as of 09/09/2024) Immunizations Name Administration Dates Next Due Seasonal [...] money to get more. 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 [address] [place] [phone] 09/16/2024 1:00 PM EST Office Visit Gynecology/Obstetrics [facility] [address] [place] [address] Miesha Negro CRNP [address] [place] [address] Jane, Non Stress Tests Ronald [address] [place] [address] 09/19/2024 10:15 AM EST Office Visit Gynecology/Obstetrics [facility] [address] [place] [address] Caity Corcoran CRNP [address] [place] [address] Jane, Non Stress Tests Ronald [address] [place] [address] 09/23/2024 1:15 PM EST Office Visit Gynecology/Obstetrics [facility] [address] [place] [address] BackerMiesha CRNP [address] [place] [address] Buck Non Stress Tests Ronald [address] [place] [address] 09/27/2024 11:00 AM EST Office Visit Gynecology/Obstetrics [facility] [address] [place] [address] BackerMiesha CRNP [address] [place] [address] Jane, Non Stress Tests Ronald [address] [place] [address] 09/30/2024 1:00 PM EST Office Visit Gynecology/Obstetrics [facility] [address] [place] [address] BackerMiesha CRNP [address] [place] [address] Jane, Non Stress Tests Ronald [address] [place] [address] Pending Results Name Type Priority Associated Diagnoses Date /Time AST Lab Routine Chronic hypertension in 09/09/2024 1:36 PM EST ALT Lab Routine Chronic hypertension in 09/09/2024 1:36 PM EST CREATININE Lab Routine Chronic hypertension in 09/09/2024 1:36 PM EST Health Maintenance Due Date Last Done Comments Hepatitis B Vaccine (1 of 3 - 19+ 3-dose series) 2005 Depression Screening 06/05/2020 06/05/2019 COVID-19 Vaccine ( season) 2024 GFR 08/26/2025 08/26/2024, 07/31, 08/16/2024, Additional history exists Pap Smear 03/18/2027 03/18/2024, [...] Not on filedocumented as of this encounter Procedures Procedure Name Priority Date/Time Associated Diagnosis Comments CBC Routine 09/09/2024 1:36 PM EST Chronic hypertension in Thrombocytopenia affecting (HCC) documented in this encounter Results * (ABNORMAL) CBC (09/09/2024 1:36 PM EST) WBC 11.97(H) 4.00 - 10.80 K/uL 09/09/2024 1:42 PM EST LAB[facility]ATORY [facility] [place] [facility]-10 RBC 3.81 3.85 - 5.15 M/uL 09/09/2024 1:42 PM EST LAB[facility]ORY [facility] [place] 57-10 HGB 12.9 12.0 - 15.3 g/dL 09/09/2024 1:42 PM EST LAB[facility]ORY [facility] [place] 57-10 HCT 36.7 36.0 - 45.2 % 09/09/2024 1:42 PM EST LAB[facility]ORY [facility] [place] 57-10 MCV 96.3 81.5 - 97.5 fL 09/09/2024 1:42 PM EST LAB[facility]ORY [facility] [place] 57-10 MCH 33.9 27.0 - 34.0 pg 09/09/2024 1:42 PM EST LAB[facility]ORY [facility] [place] 57-10 MCHC 35.1 32.0 - 36.0 g/dL 09/09/2024 1:42 PM EST LAB[facility]ORY [facility] [place] 57-10 RDW 12.7 11.5 - 15.5 % 09/09/2024 1:42 PM EST LAB[facility]ORY [facility] [place] 57-10 PLT 114(L) 140 - 400 K/uL 09/09/2024 1:42 PM EST [facility] [place] 57-10 MPV 13.5 6.6 - 11.1 fL 09/09/2024 1:42 PM EST [facility] [place] 57-10 Blood Venous blood specimen / Unknown Venipuncture / Unknown 09/09/2024 1:36 PM EST 09/09/2024 1:36 PM EST us Miesha HALLMAN LAB BLOOD ORDERABLE S Final Result [facility]ORY [facility] [place] [facility] [place] [address] documented in this encounter Visit Diagnoses Diagnosis Multigravida of [...] gestation of state, incidental Chronic hypertension in Benign essential hypertension complicating , childbirth, and the puerperium, unspecified as to episode of care Thrombocytopenia affecting (HCC) documented in this encounter Care Teams Mail Order Biller Relationship Specialty Start Date End Date Sanchez Pastor MD [address] [place] [address] PCP - General Family Medicine 05/04/18 documented as of this encounter
--- OUTSIDE RECORDS SUMMARY | 2024-09-18 05:18 | External Medical Summary ---
Author Name Unknown Address Unknown Organization [facility] [place] [facility] - [address] [place] [address] Laboratory Report Ordering Provider Test Date Status DU MOSS 09/16/2024 14:18:03 Final Observation Date Value Abnormality Reference (Units ) Status WBC, Total 09/16/2024 14:18:03 9.54 4.00-10.8 0 (K/uL) Final RBC 09/16/2024 14:18:03 3.66 3.85-5.15 (M/uL) Final Hemoglobin 09/16/2024 14:18:03 12.5 12.0-15.3 (g/dL) Final HCT 09/16/2024 14:18:03 35.7 Below low normal 36. 0-45.2 (%) Final MCV 09/16/2024 14:18:03 97.5 81.5-97.5 (fL) Final MCH 09/16/2024 14:18:03 34.2 27.0-34.0 (pg) Final MCHC 09/16/2024 14:18:03 35.0 32.0-36.0 (g/dL) Final RDW 09/16/2024 14:18:03 12.8 11.5-15.5 (%) Final Platelets 09/16/2024 14:18:03 100 Below low normal 140 -400 (K/uL) Final MPV 09/16/2024 14:18:03 13.9 6.6-11.1 ( fL) Final [facility]forming Location [facility] - [address] [place] [address]
--- OUTSIDE RECORDS SUMMARY | 2024-09-18 05:18 | External Medical Summary ---
Author Name Unknown Address Unknown Organization [facility] [address] [place] [address] Laboratory Report Ordering Provider Test Date Status DU MOSS 09/16/2024 14:18:03 Final Observation Date Value Abnormality Reference (Units ) Status AST (Aspartate aminotransferase) 09/16/2024 14:18:03 31 10-35 (U/L) Final Performing Location [facility] 0 - [address] [place] [address]
--- OUTSIDE RECORDS SUMMARY | 2024-09-18 05:18 | External Medical Summary ---
Author Name Unknown Address Unknown Organization [facility] [place] [address] Laboratory Report Ordering Provider Test Date Status AJAYBACKER 09/16/2024 13:55:00 Final Observation Date Value Abnormality Reference (Units ) Status Color of Urine by Auto 09/16/2024 13:55:00 Yellow Light Yellow, Yellow Final Clarity, Urine 09/16/2024 13:55:00 Clear Clear Final Glucose [Mass/volume] in Urine by Automated test strip 09/16/2024 13:55:00 Negative Negative (mg/dL) Final Bilirubin.total [Presence] in Urine by Automated test strip 09/16/2024 13:55:00 Negative Negative Final Ketones [Mass/volume] in Urine by Automated test strip 09/16/2024 13:55:00 Negative Negative (mg/dL) Final Specific gravity, Urine 09/16/2024 13:55:00 1.015 1.003-1.030 Final Hemoglobin [Presence] in Urine by Automated test strip 09/16/2024 13:55:00 Negative Negative Final pH, Urine 09/16/2024 13:55:00 7.0 5.0, 5.5, 6.0, 6.5, 7.0, 7.5 (units) Final Protein [Mass/volume] in Urine by Automated test strip 09/16/2024 13:55:00 Negative Negative (mg/dL) Final Urobilinogen, Urine 09/16/2024 13:55:00 0.2 0.2, 1.0 (mg/dL) Final Nitrite [Presence] in Urine by Automated test strip 09/16/2024 13:55:00 Negative Negative Final Leukocyte esterase [Presence] in Urine by Automated test strip 09/16/2024 13:55:00 Negative Negative Final Performing Location LAB[facility]ATORY [facility] [place] [address] 0 - [address] [place] [address]
--- OUTSIDE RECORDS SUMMARY | 2024-09-18 05:18 | External Medical Summary | Summary of Care ---
Author Name Unknown Organization [facility] Address [address] [facility] [address] Phone [phone] Care Team Providers Care Seismic Plotter Name Role Phone Sanchez Pastor MD Primary Care Provider [phone] Reason for Visit * Reason Comments Return Visit Non Stress Test Encounter Details Date Type Department Care Team (Late st Contact Info) Description 09/16/2024 1:00 PM EST Office Visit Gynecology/Obstetric s [facility] [address] [place] [address] Miesha Negro CRNP [address] [place] [address] Buck, Non Stress Tests Ronald [address] [place] [address] High-risk in third trimester*; Multigravida of advanced maternal age in third trimester; Chronic hypertension in ; Rh negative status during in third trimester; Antepartum anemia complicating ; Thrombocytopenia affecting (HCC); Poor growth affecting management of mother in third trimester, single or unspecified fetus Allergies No known active allergiesdocumented as of this encounter (statuses as of 09/16/2024) Medications 28-0.8 MG Oral Tablet Take by mouth. Active Aspirin 81 MG Oral Tablet ChewableIndicati ons:High-risk in second trimester,Multig ravida of advanced maternal age in second trimester,Chroni c hypertension in Take 1 Tablet by mouth in the morning. 100 Tablet 3 04/15/20 24 Active Iron-Vitamin C 65-125 MG Oral Tablet (Vitron C)Indications:An tepartum anemia complicating Take 1 Tablet by mouth in the morning and 1 Tablet before bedtime. 60 Tablet 3 07/12/20 24 Active NIFEdipine ER 60 MG Oral Tablet Extended Release 24 Hour (Adalat CC)Indications:H igh-risk in third trimester,Chroni c hypertension in Take 1 Tablet by mouth in the morning. 30 Tablet 6 08/26/20 24 Active Labetalol HCl 200 MG Oral Tablet (Normodyne)Indic ations:Chronic hypertension in Take 1 Tablet by mouth in the morning and 1 Tablet at noon and 1 Tablet before bedtime. 90 Tablet 1 09/16/20 24 Active Labetalol HCl 100 MG Oral Tablet (Normodyne)Indic ations:Chronic hypertension in Take 1 Tablet by mouth in the morning and 1 Tablet before bedtime. 180 Tablet 1 09/09/20 24 024 Discontinued Labetalol HCl 100 MG Oral Tablet (Normodyne)Indic ations:Chronic hypertension in Take 2 Tablets by mouth in the morning and 2 Tablets before bedtime. 180 Tablet 1 09/16/20 24 024 Discontinued documented as of this encounter (statuses as [...] to 39w0d. Encounter for medication administration 08/20/20 Thrombocytopenia affecting [...] assessment of proteinuria (24-hour urine protein or ubaearo-ki-hujuyxjzfl ratio) and CBC, serum AST/ALT/creatinine. If patient [...] money to get more. Never true 05/25/2024 [place] Depression Scale Answer Date Recorded [place] Depression Scale Total 7 09/10/2024 The thought [...] No 05/25/2024 Does the household have a [facility] source of income? 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 * Michaela Bergman CMA - 09/16/2024 1:11 PM EST 37w3d + contractions Requesting cervical check * Miesha Negro CRNP - 09/16/2024 12:54 PM EST 37w3d MFM following for newly diagnosed growth restriction; has an induction scheduled on Monday. Increased labetalol to 200 BID late last week; states home BPs are normal. Good movement. No leaking, bleeding, regular ctx. Discussed induction process. Requests cervical exam. FT/long. Reviewed importance of FKC, call with any concerns. BP up today in office; denies SANDERS, vision changes, swelling. Normal preE labs a week ago, recheck today. Labetalol increased to 200 mg TID, pt aware. Reviewed preE warning signs, call with these or with home BP systolic >/=140, diastolic >/=90. Fitness Director Documentation Provider requested janitor supervisor. Name of janitor supervisor: JULIANO Vale ASSESSMENT assessment with Non-stress Test completed on 09/16/2024 at 37.3 weeks gestation for indication of intrauterine growth restriction and chronic hypertension heart baseline: 130 bpm Variability: Moderate Decelerations: absent Accelerations: present Contractions: Present irregular NST start time: 1348 (time not changed to DST) NST stop time: 1430 NST strip reviewed, interpreted, and approved by OB provider, LEXX Hull . NST strip stored in clinic storage file LEXX Hull documented in this encounter Plan of Treatment Upcoming Encounters Date Type Department Care Team (Late st Contact Info) Description 09/16/2024 2:30 PM EST [facility] [address] [place] [phone] JaneKennedy hernandez [facility] [address] [facility] [place] [address] Chronic hypertension in 09/19/2024 10:15 AM EST Office Visit Gynecology/Obstetric s [facility] [address] [place] [address] Caity Corcoran CRNP [address] [place] [address] Jane, Non Stress Tests Ronald [address] [place] [address] Pending Results Name Type Priority Associated Diagnoses Date /Time AST Lab Routine Chronic hypertension in 09/16/2024 2:18 PM EST ALT Lab Routine Chronic hypertension in 09/16/2024 2:18 PM EST CREATININE Lab Routine Chronic hypertension in 09/16/2024 2:18 PM EST CBC Lab Routine Chronic hypertension in 09/16/2024 2:18 PM EST Scheduled Orders Name Type Priority Associated Diagnoses Orde r Schedule AST Lab Routine Chronic hypertension in Expected: 09/16/2024, Expires: 09/16/2025 ALT Lab Routine Chronic hypertension in Expected: 09/16/2024, Expires: 09/16/2025 CREATININE Lab Routine Chronic hypertension in Expected: 09/16/2024, Expires: 09/16/2025 CBC Lab Routine Chronic hypertension in Expected: 09/16/2024 (Approximate), Expires: 09/16/2025 Health Maintenance Due Date Last Done Comments [...] Procedure Name Priority Date/Time Associated Diagnosis Comments URINALYSIS OBSTETRICS, POINT OF CARE Routine 09/16/2024 1:55 PM EST High-risk in third trimester Chronic hypertension in documented in this encounter Results * URINALYSIS OBSTETRICS, POINT OF CARE (09/16/2024 1:55 PM EST) Color, Urine Yellow Light Yellow, Yellow 09/16/2024 1:58 PM EST [facility] [place] [facility] Clarity, Urine Clear Clear 09/16/2024 1:58 PM EST [facility] [place] [facility] Glucose, Urine Negative Negative mg/dL 09/16/2024 1:58 PM EST [facility] [place] [facility]10 Bilirubin, Urine Negative Negative 09/16/2024 1:58 PM EST [facility] [place] [facility]10 Ketone, Urine Negative Negative mg/dL 09/16/2024 1:58 PM EST [facility] [place] [facility]10 Specific [place], Urine 1.015 1.003 - 1.030 09/16/2024 1:58 PM EST [facility] [place] [facility] Blood, Urine Negative Negative 09/16/2024 1:58 PM EST [facility] [place] [facility] pH, Urine 7.0 5.0, 5.5, 6.0, 6.5, 7.0, 7.5 units 09/16/2024 1:58 PM EST [facility] [place] [facility]10 Protein, Urine Negative Negative mg/dL 09/16/2024 1:58 PM EST [facility] [place] [facility]10 Urobilinogen, Urine 0.2 0.2, 1.0 mg/dL 09/16/2024 1:58 PM EST [facility] [place] [facility]10 Nitrite, Urine Negative Negative 09/16/2024 1:58 PM EST [facility] [place] [facility]10 Esterase, Urine Negative Negative 09/16/2024 1:58 PM EST [facility] [place] [facility]10 Urine 09/16/2024 1:55 PM EST 09/16/2024 1:58 PM EST Miesha HALLMAN LAB POINT O F CARE TEST DOCKED DEVICE UNSOLICITED RESULTS Final Result [facility] [address] [facility] [place] [address] documented in this encounter Visit Diagnoses Diagnosis [...] of advanced maternal age in third trimester High-risk in third trimester- Primary Multigravida of advanced maternal age in third trimester Chronic hypertension in Benign essential hypertension complicating , childbirth, and the puerperium, unspecified as to episode of care Rh negative status during in third trimester Antepartum anemia complicating Anemia, antepartum Thrombocytopenia affecting (HCC) Poor growth affecting management of mother in third trimester, single or unspecified fetus Chronic hypertension in Benign essential hypertension complicating , childbirth, and the puerperium, unspecified as to episode of care documented in this encounter Care Teams Seismic Plotter Relationship Specialty Start Date End Date Sanchez Pastor MD [address] [place] [address] PCP - General Family Medicine 05/04/18 documented as of this encounter
--- OUTSIDE RECORDS SUMMARY | 2024-09-18 05:18 | External Medical Summary | Summary of Care ---
Author Name Unknown Organization [facility] Address [address] [place] [address] Phone [phone] Care Team Providers Care Mannequin Coloring Artist Name Role Phone Sanchez Pastor MD Primary Care Provider [phone] Encounter Details Date Type Department Care Team (Late st Contact Info) Description 09/12/2024 1:00 PM EST Office Visit Curriculum Development Specialist Obstetrics Maternal Medicine, [address] [place] [address] Jacqueline Fleming, DO [address] [place] [address] Chronic hypertension in *; Poor growth affecting management of mother in third trimester, single or unspecified fetus; Ultrasound for screening for growth restriction; 36 weeks gestation of ; Multigravida of advanced maternal age in third trimester Allergies No known active allergiesdocumented as of this encounter (statuses as of 09/12/2024) Medications 28-0.8 MG Oral Tablet Take by [...] as of this encounter (statuses as of 09/12/2024) Active Problems Problem Noted Date Diagnosed Date [...] assessment of proteinuria (24-hour urine protein or ulovtcx-wu-tdxfuuupkq ratio) and CBC, serum AST/ALT/creatinine. If patient [...] as of this encounter (statuses as of 09/12/2024) Resolved Problems Problem Noted Date Diagnosed Date [...] as of this encounter (statuses as of 09/12/2024) Immunizations Name Administration Dates Next Due Seasonal [...] money to get more. 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 I was not in a hospital or clinic location. After connecting through [employer], patient was verified with two unique identifiers. Patient (or authorized legal sales representative health insurance) was then informed that this was a Telemedicine visit and being conducted confidentially over secure lines. My office door was closed. No one else was in the room with me. Patient acknowledged consent and understanding of privacy and security of the Telemedicine visit, and gave permission to have atelemedicine presenter stay in the room in order to assist with the history and to conduct the examas needed. I informed the patient that I have reviewed their record in [facility] and presented the opportunity for them to ask any questions regarding the visit today. The patient agreed to participate. Vandana Ron presented today at 36w6d for an ultrasound and follow-up of her high risk . She was seen for the following indications: Problem List Items Addressed This Visit Advanced maternal age in multigravida Chronic hypertension in - Primary BP Readings from Last 5 Encounters: 09/10/24 134/92 09/09/24 146/104 09/02/24 138/94 08/29/24 138/94 08/26/24 136/96 Please titrate medication to maintain goal BP < 140/90. Poor growth affecting management of mother in third trimester CONSIDERATIONS: We discussed the diagnosis of growth [...] to CHTN). Delivery at 38w0d to 39w0d. Other Visit Diagnoses Ultrasound for screening for growth restriction 36 weeks gestation of We reviewed today's ultrasound findings. Patient presented at 36w 6d for growth assessment. Small AC noted at 6% with overall EFW of 2411 g at 7%. YOLI 16.4 cm. Umbilical artery Doppler normal. Cephalic presentation. BPP 06/06. (For full details, please refer to ultrasound report provided separately). Ms. Ron's questions were answered to her satisfaction. She was advised to contact our office or herOB provider for any additional questions regarding her . RECOMMENDATIONS: Follow up with M for ultrasound as clinically indicated. Thank you for allowing us to participate in the care of this patient. Please call with any questions. I spent a total of 25 minutes on the date of service in preparation, delivery, and documentation ofthe care provided to Vandana Ron excluding any time spent in the performance of separately billedservices. Jacqueline Fleming DO 09/12/2024 3:39 PM documented in this encounter Miscellaneous Notes * Assessment & Plan Note - Jacqueline Fleming DO - 09/12/2024 2:54 PM EST Associated Problem(s): Poor growth affecting management of mother in third trimester CONSIDERATIONS: We discussed the diagnosis of growth [...] to CHTN). Delivery at 38w0d to 39w0d. * Assessment & Plan Note - Jacqueline Fleming DO - 09/12/2024 2:15 PM EST Associated Problem(s): Chronic hypertension in BP Readings from Last 5 Encounters: 09/10/24 134/92 09/09/24 146/104 09/02/24 138/94 08/29/24 138/94 08/26/24 136/96 Please titrate medication to maintain goal BP < 140/90. documented in this encounter Plan of Treatment Upcoming Encounters Date Type Department Care Team (Late st Contact Info) Description 09/16/2024 1:00 PM EST [facility] [address] [address] Miesha Negro CRNP [address] [place] [address] Jane, Non Stress Tests Ronald [address] [place] [address] 09/19/2024 10:15 AM EST Office Visit Gynecology/Obstetrics [facility] [address] [place] [address] Caity Corcoran CRNP [address] [place] [address] Jane, Non Stress Tests Ronald [address] [place] [address] 09/23/2024 1:15 PM EST Office Visit Gynecology/Obstetrics [facility] [address] [place] [address] BackMiesha gonzales CRNP [address] [place] [address] Jane, Non Stress Tests Ronald [address] [place] [address] 09/27/2024 11:00 AM EST Office Visit Gynecology/Obstetrics [facility] [address] [place] [address] Miesha Negro CRNP [address] [place] [address] Jane, Non Stress Tests Ronald [address] [place] [address] 09/30/2024 1:00 PM EST Office Visit Gynecology/Obstetrics [facility] [address] [place] [address] BackerMiesha CRNP [address] [place] [address] Jane, Non Stress Tests Ronald [address] [place] [address] Health Maintenance Due Date Last Done Comments [...] of advanced maternal age in third trimester documented in this encounter Care Teams Mannequin Coloring Artist Relationship Specialty Start Date End Date Sanchez Pastor MD [address] [place] [address] PCP - General Family Medicine 05/04/18 documented as of this encounter
--- OUTSIDE RECORDS SUMMARY | 2024-09-18 05:18 | External Medical Summary ---
Author Name Unknown Address Unknown Organization [facility] [place] [address] [place] [id number] Laboratory Report Ordering Provider Test Date Status DU MOSS 09/16/2024 14:18:03 Final Observation Date Value Abnormality Reference (Units ) Status Creatinine 09/16/2024 14:18:03 1.0 0.5-1.0 (mg/dL) Final Glomerular filtration rate/1.73 sq M.predicted [Volume Rate/Area] in Serum, Plasma or Blood by Creatinine-based formula (CKD-EPI) 09/16/2024 14:18:03 72 >=60 (mL/min) Final eGFR is calculated based on the CKD-EPI 2020 equation. Performing Location [facility] [place] [address] [place] [id number]
--- OUTSIDE RECORDS SUMMARY | 2024-09-18 05:18 | External Medical Summary | Summary of Care ---
Author Name Unknown Organization [facility] Address [address] [place] [address] Phone [phone] Care Team Providers Care Slip Mixer Name Role Phone Sanchez Pastor MD Primary Care Provider [phone] Encounter Details Date Type Department Care Team (Late st Contact Info) Description 09/12/2024 1:00 PM EST Office Visit Associate Professor Of Archaeology Obstetrics Maternal Medicine, [address] [place] [address] Jacqueline Fleming, DO [address] [place] [address] Chronic hypertension in *; Poor growth affecting management of mother in third trimester, single or unspecified fetus; Ultrasound for screening for growth restriction; 36 weeks gestation of ; Multigravida of advanced maternal age in third trimester Allergies No known active allergiesdocumented as of this encounter (statuses as of 09/13/2024) Medications 28-0.8 MG Oral Tablet Take by [...] as of this encounter (statuses as of 09/13/2024) Active Problems Problem Noted Date Diagnosed Date [...] assessment of proteinuria (24-hour urine protein or uqmlnge-zw-qhuealntzc ratio) and CBC, serum AST/ALT/creatinine. If patient [...] as of this encounter (statuses as of 09/13/2024) Resolved Problems Problem Noted Date Diagnosed Date [...] as of this encounter (statuses as of 09/13/2024) Immunizations Name Administration Dates Next Due Seasonal [...] money to get more. 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 I was not in a hospital or clinic location. After connecting through [employer], patient was verified with two unique identifiers. Patient (or authorized legal resources representative) was then informed that this was a [...] that I have reviewed their record in [employer] and presented the opportunity for them to [...] 09/16/2024 1:00 PM EST [facility] [address] [address] Miesha Negro CRNP [address] [address] Jane, Non Stress Tests Ronald [address] [place] [address] 09/19/2024 10:15 AM EST Office Visit Gynecology/Obstetrics [facility] [address] [place] [address] Caity Corcoran CRNP [address] [place] [address] Jane, Non Stress Tests Ronald [address] [place] [address] 09/23/2024 1:15 PM EST Office Visit Gynecology/Obstetrics [facility] [address] [place] [address] BackMiesha gonzales CRNP [address] [place] [address] Jane, Non Stress Tests Ronald [address] [place] [address] 09/27/2024 11:00 AM EST Office Visit Gynecology/Obstetrics [facility] [address] [place] [address] Miesha Negro CRNP [address] [place] [address] Jane, Non Stress Tests Ronald [address] [place] [address] 09/30/2024 1:00 PM EST Office Visit Gynecology/Obstetrics [facility] [address] [place] [address] BackerMiesha CRNP [address] [place] [address] Jane, Non Stress Tests Ronald [address] [place] [address] Health Maintenance Due Date Last Done Comments [...] trimester documented in this encounter Care Teams Slip Mixer Relationship Specialty Start Date End Date Sanchez Pastor MD [address] [place] [address] PCP - General Family Medicine 05/04/18 documented as of this encounter
--- OUTSIDE RECORDS SUMMARY | 2024-09-18 05:19 | External Medical Summary ---
Author Name Unknown Address Unknown Organization [facility] [address] [place] [address] Laboratory Report Ordering Provider Test Date Status POPEYE JAUREGUI 09/02/2024 15:14:00 Final Observation Date Value Abnormality Reference (Units ) Status Color of Urine by Auto 09/02/2024 15:14:00 Yellow Light Yellow, Yellow Final Clarity, Urine 09/02/2024 15:14:00 Clear Clear Final Glucose [Mass/volume] in Urine by Automated test strip 09/02/2024 15:14:00 Negative Negative (mg/dL) Final Bilirubin.total [Presence] in Urine by Automated test strip 09/02/2024 15:14:00 Negative Negative Final Ketones [Mass/volume] in Urine by Automated test strip 09/02/2024 15:14:00 Negative Negative (mg/dL) Final Specific gravity, Urine 09/02/2024 15:14:00 1.015 1.003-1.030 Final Hemoglobin [Presence] in Urine by Automated test strip 09/02/2024 15:14:00 Negative Negative Final pH, Urine 09/02/2024 15:14:00 7.0 5.0, 5.5, 6.0, 6.5, 7.0, 7.5 (units) Final Protein [Mass/volume] in Urine by Automated test strip 09/02/2024 15:14:00 Negative Negative (mg/dL) Final Urobilinogen, Urine 09/02/2024 15:14:00 0.2 0.2, 1.0 (mg/dL) Final Nitrite [Presence] in Urine by Automated test strip 09/02/2024 15:14:00 Negative Negative Final Leukocyte esterase [Presence] in Urine by Automated test strip 09/02/2024 15:14:00 Negative Negative Final Performing Location [facility] [place] [address] [place] [address]
--- OUTSIDE RECORDS SUMMARY | 2024-09-18 05:19 | External Medical Summary ---
Author Name Unknown Address Unknown Organization K0[facility] [address] [place] [address] Laboratory Report Ordering Provider Test Date Status ROMMEL MUNROE 08/29/2024 13:26:00 Final Observation Date Value Abnormality Reference (Units ) Status Color of Urine by Auto 08/29/2024 13:26:00 Yellow Light Yellow, Yellow Final Clarity, Urine 08/29/2024 13:26:00 Clear Clear Final Glucose [Mass/volume] in Urine by Automated test strip 08/29/2024 13:26:00 Negative Negative (mg/dL) Final Bilirubin.total [Presence] in Urine by Automated test strip 08/29/2024 13:26:00 Negative Negative Final Ketones [Mass/volume] in Urine by Automated test strip 08/29/2024 13:26:00 Negative Negative (mg/dL) Final Specific gravity, Urine 08/29/2024 13:26:00 1.010 1.003-1.030 Final Hemoglobin [Presence] in Urine by Automated test strip 08/29/2024 13:26:00 Negative Negative Final pH, Urine 08/29/2024 13:26:00 7.0 5.0, 5.5, 6.0, 6.5, 7.0, 7.5 (units) Final Protein [Mass/volume] in Urine by Automated test strip 08/29/2024 13:26:00 Negative Negative (mg/dL) Final Urobilinogen, Urine 08/29/2024 13:26:00 0.2 0.2, 1.0 (mg/dL) Final Nitrite [Presence] in Urine by Automated test strip 08/29/2024 13:26:00 Negative Negative Final Leukocyte esterase [Presence] in Urine by Automated test strip 08/29/2024 13:26:00 Negative Negative Final Performing Location [facility] [place] [address]
--- OUTSIDE RECORDS SUMMARY | 2024-09-18 05:19 | External Medical Summary | Summary of Care ---
Author Name Unknown Organization [facility] Address [address] [facility] [address] Phone [phone] Care Team Providers Care Field Support Engineer Name Role Phone Sanchez Pastor MD Primary Care Provider [phone] Reason for Visit * Reason Comments Return Visit Non Stress Test Encounter Details Date Type Department Care Team (Late st Contact Info) Description 08/22/2024 10:15 AM EDT Office Visit Gynecology/Obstetric s [facility] [address] [place] [address] Caity Corcoran CRNP [address] [place] [address] Jane, Non Stress Tests Ronald [address] [place] [address] Multigravida of advanced maternal age in third trimester*; High-risk in third trimester; Chronic hypertension in ; Rh negative, antepartum; Antepartum anemia complicating ; Thrombocytopenia affecting (HCC) Allergies No known active allergiesdocumented as of this encounter (statuses as of 08/22/2024) Medications Medication Sig Dispensed Refills Start Date End Date Status 28-0.8 MG Oral Tablet Take by mouth. Active Aspirin 81 MG Oral Tablet ChewableIndications:H igh-risk in second trimester,Multigravid a of advanced maternal age in second trimester,Chronic hypertension in Take 1 Tablet by mouth in the morning. 100 Tablet 3 04/15/2024 Active NIFEdipine ER 30 MG Oral Tablet Extended Release 24 Hour (Adalat CC) Take 1 Tablet by mouth in the morning. on an empty stomach.. 30 Tablet 6 05/17/2024 Active Iron-Vitamin C 65-125 MG Oral Tablet (Vitron C)Indications:Antepar kalyan anemia complicating Take 1 Tablet by mouth in the morning and 1 Tablet before bedtime. 60 Tablet 3 07/12/2024 Active documented as of this encounter (statuses as of 08/22/2024) Active Problems Problem Noted Date Diagnosed Date Encounter for medication administration 08/20/20 Thrombocytopenia affecting 08/13/2024 Overview: CBC 08/13 showed PTL count 134. Previously WNL. BP at appointment 08/12 136/88 Repeat baseline PEC labs ordered 08/13. Antepartum anemia complicating 024 Overview: Rx'd iron at 28 wks Rh negative status during 04/15/2024 Advanced maternal age in multigravida 04/10/2024 Overview: Ms. Ron will be 39 years-old by BART (10/04/24). She had low-risk genetic screening. Last Assessment & Plan: -low risk cffDNA High-risk 04/10/2024 Chronic hypertension in 04/10/2024 Overview: History of hypertension requiring lisinopril in the past. On 1. .Nifedipine 30 mg Extended release daily ASA 81 mg daily. BP Readings from Last 5 Encounters: 03/18/24 132/74 06/17/21 132/90 06/05/19 120/74 05/04/18 118/76 02/02/18 110/78 Baseline Preeclampsia Labs Lab Results Component Value Date/Time PLT 163 03/18/2024 10:42 AM CREATININE - [facility] 0.9 03/18/2024 10:42 AM AST - [facility] 03/18/2024 10:42 AM ALT - [facility] 17 03/18/2024 10:42 AM Last Assessment & Plan: BP Readings from Last 5 Encounters: 08/12/24 136/88 07/29/24 120/88 07/11/24 124/84 06/10/24 132/88 05/30/24 124/78 Please titrate medication to maintain goal BP < 140/90. HTN, goal below 130/80 05/04/2018 Family history of thyroid disease 01/12/2018 Estimated Date of Delivery Comme nts Yes 10/04/2024 Based on Ultraso und documented as of this encounter (statuses as of 08/22/2024) Resolved Problems Problem Noted Date Diagnosed Date Resolved Date Essential hypertension with goal blood pressure less than 140/90 01/12/2018 05/04/2018 Rh negative, antepartum 03/06/201305/30 Overview: Rhogam candidate- Given 07/05/2013 Suhas SINGH ICD-10 update of inactive term Supervision of normal first 02/28/2013 02/26/2016 Overview: Patient received flu vaccine. 07/18/2013 Swati Josue RN 07/18/2013 Tdap Vaccine administered per clinic protocol. Pt given VIS(vaccine information sheet) Swati Josue RN documented as of this encounter (statuses as of 08/22/2024) Immunizations Name Administration Dates Next Due Seasonal [...] Assigned at Female 02/20/2024 8:57 AM EDT Gender Identity Female 02/20/2024 8:57 AM EDT Sexual Orientation Straight 02/20/2024 8: 57 AM EDT Job Start Date Occupation Industry Not on file Not on file Not on file documented as of this encounter Last Filed Vital Signs Vital Sign Reading Time Taken Comments Blood Pressure 138/82 08/22/2024 10:16 AM EDT Pulse - - Temperature - - Respiratory Rate - - Oxygen Saturation - - Inhaled Oxygen Concentration - - Weight 95.3 kg (210 lb 3.2 oz) 08/22/2024 10:16 AM EDT Height - - Body Mass Index 31.96 08/12/2024 10:13 AM EDT documented in this encounter Progress Notes * Caity Corcoran CRNP - 08/22/2024 10:17 AM EDT ASSESSMENT assessment with Non-stress Test completed on 08/22/2024 at 33.6weeks gestation for indicationof chronic hypertension heart baseline: 140 bpm Variability: Moderate Decelerations: absent Accelerations: present Contractions: None NST start time: 1011 NST stop time: 1037 NST strip reviewed, interpreted, and approved by OB providerCaity CRNP . NST strip stored in clinic storage file * iMchaela Bergman CMA - 08/22/2024 10:16 AM EDT 33w6d Denies any concerns. documented in this encounter Plan of Treatment Upcoming Encounters Date Type Department Care Team (Late st Contact Info) Description 08/26/2024 1:15 PM EDT Office Visit Gynecology/Obstetrics [facility] [address] [place] [address] Backer, LEXX Sanchez [address] [place] [address] Buck, Non Stress Tests Ronald [address] [place] [address] 08/29/2024 1:00 PM EDT Office Visit Gynecology/Obstetrics [facility] [address] [place] [address] Caity Corcoran CRNP [address] [place] [address] Jane, Non Stress Tests Ronald [address] [place] [address] 09/02/2024 2:30 PM EST Office Visit Gynecology/Obstetrics [facility] [address] [place] [address] Ole Cruz MD [address] [place] [address] Jane, Non Stress Tests Ronald [address] [place] [address] 09/05/2024 10:15 AM EST Office Visit Gynecology/Obstetrics [facility] [address] [place] [address] Rivka Powers PA-C [address] [place] [address] [place] [address] Jane, Non Stress Tests Ronald [address] [place] [address] 09/09/2024 1:00 PM EST Office Visit Gynecology/Obstetrics [facility] [address] [place] [address] Miesha Negro CRNP [address] [place] [address] Jane, Non Stress Tests Ronald [address] [place] [address] 09/12/2024 10:15 AM EST Office Visit Gynecology/Obstetrics [facility] [address] [place] [address] Caity Corcoran CRNP [address] [place] [address] Jane, Non Stress Tests Ronald [address] [place] [address] 09/12/2024 1:00 PM EST Imaging Maternal Medicine Imaging, [facility] [address] [place] [address] 09/16/2024 1:00 PM EST Office Visit Gynecology/Obstetrics [facility] [address] [place] [address] Miesha Negro CRNP [address] [place] [address] Buck Non Stress Tests Ronald [address] [place] [address] 09/19/2024 10:15 AM EST Office Visit Gynecology/Obstetrics [facility] [address] [place] [address] Caity Corcoran CRNP [address] [place] [address] Buck Non Stress Tests Ronald [address] [address] 09/23/2024 1:15 PM EST Office Visit Gynecology/Obstetrics [facility] [address] [place] [address] Miesha Negro CRNP [address] [place] [address] Buck Non Stress Tests Ronald [address] [place] [address] 09/27/2024 11:00 AM EST Office Visit Gynecology/Obstetrics [facility] [address] [place] [address] Miesha Negro CRNP [address] [place] [address] Buck, Non Stress Tests Ronald [address] [place] [address] 09/30/2024 1:00 PM EST Office Visit Gynecology/Obstetrics [facility] [address] [place] [address] Miesha Negro CRNP [address] [place] [address] Buck, Non Stress Tests Ronald [address] [place] [address] Health Maintenance Due Date Last Done Comments Hepatitis B Vaccine (1 of 3 - 19+ 3-dose series) 2005 Depression Screening 06/05/2020 06/05/2019 COVID-19 Vaccine (2023- season) 2024 GFR 08/19/2025 08/19/2024, 07/30, 07/11/2024, Additional history exists Pap Smear 03/18/2027 03/18/2024, [...] Diagnosis Multigravida of advanced maternal age in third trimester- Primary High-risk in third trimester Chronic hypertension in Benign essential hypertension complicating , childbirth, and the puerperium, unspecified as to episode of care Rh negative, antepartum Rhesus isoimmunization affecting management of mother, antepartum condition Antepartum anemia complicating Anemia, antepartum Thrombocytopenia affecting (HCC) documented in this encounter Care Teams Field Support Engineer Relationship Specialty Start Date End Date Sanchez Pastor MD [address] [place] [address] PCP - General Family Medicine 05/04/18 documented as of this encounter
--- OUTSIDE RECORDS SUMMARY | 2024-09-18 05:19 | External Medical Summary | Summary of Care ---
Author Name Unknown Organization [facility] Address [address] [facility] [address] Phone [phone] Care Team Providers Care Seaman Name Role Phone Sanchez Pastor MD Primary Care Provider [phone] Reason for Visit * Reason Comments Return Visit Non Stress Test Encounter Details Date Type Department Care Team (Late st Contact Info) Description 09/02/2024 2:30 PM EST Office Visit Gynecology/Obstetric s Angel'david Jane [address] [place] [address] Ole Cruz MD [address] [place] [address] Buck Non Stress Tests Ronald [address] [place] [address] Multigravida of advanced maternal age in third trimester*; High-risk in third trimester; Chronic hypertension in ; Rh negative status during in third trimester; Antepartum anemia complicating ; Thrombocytopenia affecting (HCC) Allergies No known active allergiesdocumented as of this encounter (statuses as of 09/02/2024) Medications Medication Sig Dispensed Refills Start Date End Date Status 28-0.8 MG Oral Tablet Take by mouth. Active Aspirin 81 MG Oral Tablet ChewableIndications:H igh-risk in second trimester,Multigravid a of advanced maternal age in second trimester,Chronic hypertension in Take 1 Tablet by mouth in the morning. 100 Tablet 3 04/15/2024 Active Iron-Vitamin C 65-125 MG Oral Tablet (Vitron C)Indications:Antepar kalyan anemia complicating Take 1 Tablet by mouth in the morning and 1 Tablet before bedtime. 60 Tablet 3 07/12/2024 Active NIFEdipine ER 60 MG Oral Tablet Extended Release 24 Hour (Adalat CC)Indications:High-r isk in third trimester,Chronic hypertension in Take 1 Tablet by mouth in the morning. 30 Tablet 6 08/26/2024 Active documented as of this encounter (statuses as of 09/02/2024) Active Problems Problem Noted Date Diagnosed Date [...] of platelet count. Antepartum anemia complicating 024 Overview: Rx'd iron [...] as of this encounter (statuses as of 09/02/2024) Resolved Problems Problem Noted Date Diagnosed Date [...] as of this encounter (statuses as of 09/02/2024) Immunizations Name Administration Dates Next Due Seasonal [...] Sign Reading Time Taken Comments Blood Pressure 138/94 09/02/2024 2:41 PM EST Pulse - - Temperature - - Respiratory Rate - - Oxygen Saturation - - Inhaled Oxygen Concentration - - Weight 94.3 kg (208 lb) 09/02/2024 2:41 PM EST Height 172.7 cm (5' 8") 09/02/2024 2:41 PM EST Body Mass Index 31.63 09/02/2024 2:41 PM EST documented in this encounter Progress Notes * Ole Cruz MD - 09/02/2024 3:53 PM EST ASSESSMENT assessment with Non-stress Test completed on 09/02/2024 at 35+ weeks gestation for indication of chronic hypertension heart baseline: 140 bpm Variability: Moderate Decelerations: absent Accelerations: present Contractions: None NST start time: 1548 NST stop time: 1610 NST strip reviewed, interpreted, and approved by OB provider, anya. NST strip stored in clinic storage file 32 documented in this encounter Plan of Treatment Upcoming Encounters Date Type Department Care Team (Late st Contact Info) Description 09/05/2024 10:15 AM EST Office Visit Gynecology/Obstetrics Tan Jane [address] [place] [address] Rivka Powers PA-C [address] [place] [address] Xuan Jane Stress Tests Ronald [address] [place] [address] 09/09/2024 1:00 PM EST Office Visit Gynecology/Obstetrics Tan Jane [address] [place] [address] Miesha Negro CRNP [address] [place] [address] Buck Non Stress Tests Ronald [address] [place] [address] 09/12/2024 1:00 PM EST Imaging Maternal Medicine Imaging, Ronald Jane [address] [place] [address] 09/16/2024 1:00 PM EST Office Visit Gynecology/Obstetrics Tan Tuckers [address] [place], [place] [address] Miesha Negro CRNP [address] [place] [address] Jane, Non Stress Tests Ronald [address] [place] [address] 09/19/2024 10:15 AM EST Office Visit Gynecology/Obstetrics Tan Tuckers [address] [place] [address] Caity Corcoran CRNP [address] [place] [address] Buck Non Stress Tests Ronald [address] [place] [address] 09/23/2024 1:15 PM EST Office Visit Gynecology/Obstetrics Tan Jane [address] [place] [address] Miesha Negro CRNP [address] [place] [address] Jane, Non Stress Tests Ronald [address] [place] [address] 09/27/2024 11:00 AM EST Office Visit Gynecology/Obstetrics Tan Tuckers [address] [place] [address] Miesha Negro CRNP [address] [place] [address] Buck, Non Stress Tests Ronald [address] [place] [address] 09/30/2024 1:00 PM EST Office Visit Gynecology/Obstetrics Tan Jane [address] [place] [address] Back[place], LEXX Sanchez [address] [place] [address] Buck, Non Stress Tests Ronald [address] [place] [address] Health Maintenance Due Date Last Done Comments [...] Diagnosis Comments URINALYSIS OBSTETRICS, POINT OF CARE GELACIO 09/02/2024 3:14 PM EST documented in this encounter Results * URINALYSIS OBSTETRICS, POINT OF CARE (09/02/2024 3:14 PM EST) Color, Urine Yellow Light Yellow, Yellow 09/02/2024 3:16 PM EST LAB[facility]ATORY [place] 57-10 Clarity, Urine Clear Clear 09/02/2024 3:16 PM EST LAB[facility] [place] 57-10 Glucose, Urine Negative Negative mg/dL 09/02/2024 3:16 PM EST LAB[facility] [place] 57-10 Bilirubin, Urine Negative Negative 09/02/2024 3:16 PM EST LAB[facility] [place] 57-10 Ketone, Urine Negative Negative mg/dL 09/02/2024 3:16 PM EST LAB[facility] [place] 57-10 Specific [place], Urine 1.015 1.003 - 1.030 09/02/2024 3:16 PM EST LAB[facility] [place] 57-10 Blood, Urine Negative Negative 09/02/2024 3:16 PM EST LAB[facility] [place] 57-10 pH, Urine 7.0 5.0, 5.5, 6.0, 6.5, 7.0, 7.5 units 09/02/2024 3:16 PM EST LAB[facility] [place] 57-10 Protein, Urine Negative Negative mg/dL 09/02/2024 3:16 PM EST LAB[facility] [place] 57-10 Urobilinogen, Urine 0.2 0.2, 1.0 mg/dL 09/02/2024 3:16 PM EST LAB[facility] [place] 57-10 Nitrite, Urine Negative Negative 09/02/2024 3:16 PM EST LAB[facility] [place] 57-10 Esterase, Urine Negative Negative 09/02/2024 3:16 PM EST [facility] [place] [facility]-10 Urine 09/02/2024 3:14 PM EST 09/02/2024 3:16 PM EST Ole Cruz MD LAB POINT OF CARE TE ST DOCKED DEVICE UNSOLICITED RESULTS LABORATORY [place] 57-10 [address] [place] [address] documented in this encounter Visit Diagnoses Diagnosis Multigravida of advanced maternal age in third trimester- Primary High-risk in third trimester Chronic hypertension in Benign essential hypertension complicating , childbirth, and the puerperium, unspecified as to episode of care Rh negative status during in third trimester Antepartum anemia complicating Anemia, antepartum Thrombocytopenia affecting (HCC) documented in this encounter Care Teams Seaman Relationship Specialty Start Date End Date Sanchez Pastor MD [address] [facility] [place] [address] PCP - General Family Medicine 05/04/18 documented as of this encounter
--- OUTSIDE RECORDS SUMMARY | 2024-09-18 05:19 | External Medical Summary ---
Author Name Unknown Address Unknown Organization K0G:[facility] [place] 57-10 - [address] [place] [address] Laboratory Report Ordering Provider Test Date Status DU MOSS 08/26/2024 13:56:41 Final Observation Date Value Abnormality Reference (Units ) Status AST (Aspartate aminotransferase) 08/26/2024 13:56:41 31 10-35 (U/L) Final Performing Location [facility] 0 - [address] [place] [address]
--- OUTSIDE RECORDS SUMMARY | 2024-09-18 05:19 | External Medical Summary ---
Author Name Unknown Address Unknown Organization [facility] [place] 57-10 - [address] [place] [address] Laboratory Report Ordering Provider Test Date Status DU MOSS 09/09/2024 13:36:41 Final Observation Date Value Abnormality Reference (Units ) Status AST (Aspartate aminotransferase) 09/09/2024 13:36:41 27 10-35 (U/L) Final Performing Location [facility] 0 - [address] [place] [address]
--- OUTSIDE RECORDS SUMMARY | 2024-09-18 05:19 | External Medical Summary ---
Author Name Unknown Address Unknown Organization [id number]ATORY [facility] [place] 57-10 - [address] [place] [address] Laboratory Report Ordering Provider Test Date Status DU MOSS 08/26/2024 13:56:41 Final Observation Date Value Abnormality Reference (Units ) Status Creatinine 08/26/2024 13:56:41 0.9 0.5-1.0 (mg/dL) Final Glomerular filtration rate/1.73 sq M.predicted [Volume Rate/Area] in Serum, Plasma or Blood by Creatinine-based formula (CKD-EPI) 08/26/2024 13:56:41 81 >=60 (mL/min) Final eGFR is calculated based on the CKD-EPI 2020 equation. Performing Location LABORATORY [facility] [place] 57-1 0 - [address] [place] [address]
--- OUTSIDE RECORDS SUMMARY | 2024-09-18 05:19 | External Medical Summary | Summary of Care ---
Author Name Unknown Organization [facility] Address [address] [facility] [place] [address] Phone [phone] Care Team Providers Care Tire Cord Weaver Name Role Phone Sanchez Pastor MD Primary Care Provider [phone] Reason for Visit * Reason Comments Outpatient Testing Encounter Details Date Type Department Care Team (Latest Contact Info) Description 08/26/2024 2:00 PM EDT Laboratory Laboratory, [facility] [address] [place] [id number] [facility] [address] [place] [address] Thrombocytopenia affecting (HCC); Chronic hypertension in Allergies No known active allergiesdocumented as of this encounter (statuses as of 08/26/2024) Medications Medication Sig Dispensed Refills Start Date [...] as of this encounter (statuses as of 08/26/2024) Active Problems Problem Noted Date Diagnosed Date [...] than 20,000 platelet transfusions can be considered. A follow-up CBC in the convalescent phase [...] as of this encounter (statuses as of 08/26/2024) Resolved Problems Problem Noted Date Diagnosed Date [...] as of this encounter (statuses as of 08/26/2024) Immunizations Name Administration Dates Next Due Seasonal [...] Care Team (Late st Contact Info) Description 08/29/2024 1:00 PM EDT Office Visit Gynecology/Obstetrics Tan Jane [address] [place] [address] Caity Corcoran CRNP [address] [place] [address] Xuan Jane Stress Tests Ronald [address] [place] [address] 09/02/2024 2:30 PM EST Office Visit Gynecology/Obstetrics Tan Buck [address] [place] [address] Ole Cruz MD [address] [place] [address] Xuan Jane Stress Tests Ronald [address] [place] [address] 09/05/2024 10:15 AM EST Office Visit Gynecology/Obstetrics Tan Buck [address] [place] [address] Rivka Powers PA-C [address] [place] [address] [place] [address] Xuan Jane Stress Tests Ronald [address] [place] [address] 09/09/2024 1:00 PM EST Office Visit Gynecology/Obstetrics Tan Buck [address] [place] [address] Miesha Negro CRNP [address] [place] [address] Xuan Jane Stress Tests Ronald [address] [place] [address] 09/12/2024 10:15 AM EST Office Visit Gynecology/Obstetrics Angel's Jane [address] [place] [address] Caity Corcoran CRNP [address] [place] [address] Jane, Non Stress Tests Ronald [address] [place] [address] 09/12/2024 1:00 PM EST Imaging Maternal Medicine Imaging, Ronald Jane [address] [place], [place] [id number] 09/16/2024 1:00 PM EST Office Visit Gynecology/Obstetrics Angel'david Tuckers [address] [place] [address] Miesha Negro CRNP [address] [place] [address] Jane, Non Stress Tests Ronald [address] [place] [address] 09/19/2024 10:15 AM EST Office Visit Gynecology/Obstetrics Angel's Jane [address] [place] [address] Caity Corcoran CRNP [address] [place] [address] Jane, Non Stress Tests Ronald [address] [place] [address] 09/23/2024 1:15 PM EST Office Visit Gynecology/Obstetrics Angel's Jane [address] [place] [address] BackMiesha gonzales CRNP [address] [place], [place] [address] Buck, Non Stress Tests Ronald [address] [place] [address] 09/27/2024 11:00 AM EST Office Visit Gynecology/Obstetrics Tan Jane [address] [place] [address] Miesha Negro CRNP [address] [place] [address] Jane Non Stress Tests Ronald [address] [place] [address] 09/30/2024 1:00 PM EST Office Visit Gynecology/Obstetrics Tan Jane [address] [place] [address] Miesha Negro CRNP [address] [place] [address] Jane Non Stress Tests Ronald [address] [place] [address] Pending Results Name Type Priority Associated Diagnoses Date /Time PLT Lab Routine Thrombocytopenia affecting (HCC) 08/26/2024 1:56 PM EDT CREATININE Lab Routine Chronic hypertension in 08/26/2024 1:56 PM EDT AST Lab Routine Chronic hypertension in 08/26/2024 1:56 PM EDT ALT Lab Routine Chronic hypertension in 08/26/2024 1:56 PM EDT Health Maintenance Due Date Last Done Comments [...] as of this encounter Visit Diagnoses Diagnosis Thrombocytopenia affecting (HCC) Chronic hypertension in Benign essential hypertension complicating , childbirth, and the puerperium, unspecified as to episode of care documented in this encounter Care Teams Tire Cord Weaver Relationship Specialty Start Date End Date Sanchez Pastor MD [address] [place] [address] PCP - General Family Medicine 05/04/18 documented as of this encounter
--- OUTSIDE RECORDS SUMMARY | 2024-09-18 05:19 | External Medical Summary | Summary of Care ---
Author Name Unknown Organization [facility] Address [address] [facility] [address] Phone [phone] Care Team Providers Care Second Class Welder Name Role Phone Sanchez Pastor MD Primary Care Provider [phone] Reason for Visit * Reason Comments Return Visit Non Stress Test Encounter Details Date Type Department Care Team (Late st Contact Info) Description 09/05/2024 10:15 AM EST Office Visit Gynecology/Obstetric s [facility] Buck [address] [place] [address] Rivka Powers PA-C [address] [place] [address] Buck Non Stress Tests Ronald [address] [place] [address] High-risk in third trimester*; Multigravida of advanced maternal age in third trimester; Chronic hypertension in ; Rh negative status during in third trimester; Antepartum anemia complicating ; Thrombocytopenia affecting (HCC) Allergies No known active allergiesdocumented as of this encounter (statuses as of 09/05/2024) Medications Medication Sig Dispensed Refills Start Date [...] as of this encounter (statuses as of 09/05/2024) Active Problems Problem Noted Date Diagnosed Date [...] as of this encounter (statuses as of 09/05/2024) Resolved Problems Problem Noted Date Diagnosed Date [...] as of this encounter (statuses as of 09/05/2024) Immunizations Name Administration Dates Next Due Seasonal [...] Sign Reading Time Taken Comments Blood Pressure - - Pulse - - Temperature - - Respiratory Rate - - Oxygen Saturation - - Inhaled Oxygen Concentration - - Weight 94.6 kg (208 lb 9.6 oz) 09/05/2024 10:16 AM EST Height - - Body Mass Index 31.72 09/02/2024 2:41 PM EST documented in this encounter Progress Notes * Rivka Powers PA-C - 09/05/2024 11:20 AM EST Vandana Ron is a 39 year old female here for NST at 35w6d Her Estimated Date of Delivery: 10/04/24 REVIEW OF SYSTEMS She affirms movement. Denies vaginal bleeding, LOF, regular contractions PHYSICAL EXAM Wt 94.6 kg (208 lb 9.6 oz) | LMP 01/08/2024 (Approximate) | BMI 31.72 kg/m | BSA 2.13 m ASSESSMENT assessment with Non-stress Test completed on 09/05/2024 at 35w6d weeks gestation for indication of Chronic HTN. heart baseline: 140 bpm Variability: Moderate Decelerations: absent Accelerations: present Contractions: None NST start time: 1112 NST stop time: 1140 NST strip reviewed, interpreted, and approved by OB provider, Rivka Powers PA-C. NST strip stored in clinic storage file ASSESSMENT/PLAN High-risk in third trimester (Primary) Multigravida of advanced maternal age in third trimester Chronic hypertension in Rh negative status during in third trimester Antepartum anemia complicating Thrombocytopenia affecting (HCC) Supervision of - discussed GBS and to expect swab to be complete at next visit - labor precautions and kick counts reviewed RTO 09/09 for scheduled JANIA/NST/GBS Rivka Powers PA-C 09/05/2024 * Michaela Bergman CMA - 09/05/2024 10:16 AM EST 35w6d + headache today but states has not have any caffeine yet. documented in this encounter Plan of Treatment Upcoming Encounters Date Type Department Care Team (Late st Contact Info) Description 09/09/2024 1:00 PM EST Office Visit Gynecology/Obstetrics Tan Jane [address] [place], [place] [address] Miesha Negro CRNP [address] [place] [address] Buck Non Stress Tests Ronald [place] [address] 09/12/2024 1:00 PM EST Imaging Maternal Medicine Imaging, Ronald Jane [address] [place] [address] 09/16/2024 1:00 PM EST Office Visit Gynecology/Obstetrics Tan Jane [address] [place] [address] Miesha Negro CRNP [address] [place] [address] Buck Non Stress Tests Ronald [address] [place] [address] 09/19/2024 10:15 AM EST Office Visit Gynecology/Obstetrics Tan Jane [address] [place] [address] Caity Corcoran CRNP [address] [place], [place] [address] Buck, Non Stress Tests Ronald [address] [place] [address] 09/23/2024 1:15 PM EST Office Visit Gynecology/Obstetrics Tan Jane [address] [place] [address] Miesha Negro CRNP [address] [place] [address] Xuan Jane Stress Tests Ronald [address] [place] [address] 09/27/2024 11:00 AM EST Office Visit Gynecology/Obstetrics Tan Tuckers [address] [place] [address] Miesha Negro CRNP [address] [place] [address] Xuan Jane Stress Tests Ronald [address] [place] [address] 09/30/2024 1:00 PM EST Office Visit Gynecology/Obstetrics [place] Buck [address] [place] [address] Miesha Negro CRNP [address] [place] [address] Xuan Jane Stress Tests Ronald [address] [place] [address] Health Maintenance Due Date Last Done Comments Hepatitis B Vaccine (1 of 3 - 19+ 3-dose series) 2005 Depression Screening 06/05/2020 06/05/2019 COVID-19 Vaccine (2023- season) 2024 GFR 08/26/2025 08/26/2024, 07/31, 08/16/2024, [...] as of this encounter Visit Diagnoses Diagnosis High-risk in third trimester- Primary Multigravida of advanced maternal age in third trimester Chronic hypertension in Benign essential hypertension complicating , childbirth, and the puerperium, unspecified as to episode of care Rh negative status during in third trimester Antepartum anemia complicating Anemia, antepartum Thrombocytopenia affecting (HCC) documented in this encounter Care Teams Second Class Welder Relationship Specialty Start Date End Date Sanchez Pastor MD [address] [place] [address] PCP - General Family Medicine 05/04/18 documented as of this encounter"
--- OUTSIDE RECORDS SUMMARY | 2024-09-18 05:19 | External Medical Summary ---
Author Name Unknown Address Unknown Organization [facility]:LAB[facility] [place] 57-10 - [address] [place] [address] Laboratory Report Ordering Provider Test Date Status DU MOSS 09/09/2024 13:36:41 Final Observation Date Value Abnormality Reference (Units ) Status ALT (Alanine aminotransferase) 09/09/2024 13:36:41 28 10-35 (U/L) Final Performing Location [facility] 0 - [address] [place] [address]
--- OUTSIDE RECORDS SUMMARY | 2024-09-18 05:19 | External Medical Summary ---
Author Name Unknown Address Unknown Organization K0[facility]ORY [facility] [place] 57-10 - [address] [place] [address] Laboratory Report Ordering Provider Test Date Status DU MOSS 08/26/2024 13:56:41 Final Observation Date Value Abnormality Reference (Units ) Status Platelets 08/26/2024 13:56:41 110 Below low normal 140 -400 (K/uL) Final Performing Location [facility] 0 - [address] [place] [address]
--- OUTSIDE RECORDS SUMMARY | 2024-09-18 05:19 | External Medical Summary ---
Author Name Unknown Address Unknown Organization K01:[facility]ATORY [place] [address] [place] [address] Laboratory Report Ordering Provider Test Date Status DU MOSS 09/09/2024 13:30:56 Final Observation Date Value Abnormality Reference (Units ) Status Streptococcus agalactiae DNA [Presence] in Specimen by LLOYD with probe detection 09/09/2024 13:30:56 Negative Negative Final No Group B Streptococcus det ected by culture-enhanced PCR (amplified probe). GBS GBSCT - [facility] 09/09/2024 13:30:56 0.0 Final GBS SPCCT - [facility] 09/09/2024 13:30:56 31.1 Final Performing Location [facility] [place] [address]
--- OUTSIDE RECORDS SUMMARY | 2024-09-18 05:19 | External Medical Summary ---
Author Name Unknown Address Unknown Organization [facility] - [address] [place] [address] Laboratory Report Ordering Provider Test Date Status DU MOSS 09/09/2024 13:36:41 Final Observation Date Value Abnormality Reference (Units ) Status WBC, Total 09/09/2024 13:36:41 11.97 Above high normal 4 .00-10.80 (K/uL) Final RBC 09/09/2024 13:36:41 3.81 3.85-5.15 (M/uL) Final Hemoglobin 09/09/2024 13:36:41 12.9 12.0-15.3 (g/dL) Final HCT 09/09/2024 13:36:41 36.7 36.0-45.2 (%) Final MCV 09/09/2024 13:36:41 96.3 81.5-97.5 (fL) Final MCH 09/09/2024 13:36:41 33.9 27.0-34.0 (pg) Final MCHC 09/09/2024 13:36:41 35.1 32.0-36.0 (g/dL) Final RDW 09/09/2024 13:36:41 12.7 11.5-15.5 (%) Final Platelets 09/09/2024 13:36:41 114 Below low normal 140 -400 (K/uL) Final MPV 09/09/2024 13:36:41 13.5 6.6-11.1 ( fL) Final Performing Location [facility]1 0 - [address] [place] [address]
--- OUTSIDE RECORDS SUMMARY | 2024-09-18 05:19 | External Medical Summary ---
Author Name Unknown Address Unknown Organization [facility]:LABORATORY [place] 57-[address] [place] [address] Laboratory Report Ordering Provider Test Date Status AJAYBACKER 08/26/2024 13:44:00 Final Observation Date Value Abnormality Reference (Units ) Status Color of Urine by Auto 08/26/2024 13:44:00 Yellow Light Yellow, Yellow Final Clarity, Urine 08/26/2024 13:44:00 Clear Clear Final Glucose [Mass/volume] in Urine by Automated test strip 08/26/2024 13:44:00 Negative Negative (mg/dL) Final Bilirubin.total [Presence] in Urine by Automated test strip 08/26/2024 13:44:00 Negative Negative Final Ketones [Mass/volume] in Urine by Automated test strip 08/26/2024 13:44:00 Negative Negative (mg/dL) Final Specific gravity, Urine 08/26/2024 13:44:00 1.010 1.003-1.030 Final Hemoglobin [Presence] in Urine by Automated test strip 08/26/2024 13:44:00 Negative Negative Final pH, Urine 08/26/2024 13:44:00 7.0 5.0, 5.5, 6.0, 6.5, 7.0, 7.5 (units) Final Protein [Mass/volume] in Urine by Automated test strip 08/26/2024 13:44:00 Negative Negative (mg/dL) Final Urobilinogen, Urine 08/26/2024 13:44:00 0.2 0.2, 1.0 (mg/dL) Final Nitrite [Presence] in Urine by Automated test strip 08/26/2024 13:44:00 Negative Negative Final Leukocyte esterase [Presence] in Urine by Automated test strip 08/26/2024 13:44:00 Negative Negative Final Performing Location LABORATORY [facility] [place] 57-[address] [place] [address]
--- OUTSIDE RECORDS SUMMARY | 2024-09-18 05:19 | External Medical Summary ---
Author Name Unknown Address Unknown Organization K0G:LABORATORY [place] 57-10 - [address] [place] [address] Laboratory Report Ordering Provider Test Date Status DU MOSS 08/26/2024 13:56:41 Final Observation Date Value Abnormality Reference (Units ) Status ALT (Alanine aminotransferase) 08/26/2024 13:56:41 34 10-35 (U/L) Final Performing Location [facility] 0 - [address] [place] [address]
--- OUTSIDE RECORDS SUMMARY | 2024-09-18 05:19 | External Medical Summary | Summary of Care ---
Author Name Unknown Organization [facility] Address [address] [facility] [place] [address] Phone [phone] Care Team Providers Care Cell Liner Name Role Phone Sanchez Pastor MD Primary Care Provider [phone] Reason for Visit * Reason Comments Non Stress Test Encounter Details Date Type Department Care Team (Late st Contact Info) Description 08/26/2024 1:15 PM EDT Office Visit Gynecology/Obstetric s [facility] [address] [place] [address] Miesha Negro CRNP [address] [place] [address] Jane, Non Stress Tests [facility] [address] [place] [address] High-risk in third trimester*; Multigravida of advanced [...] mouth. Active Aspirin 81 MG Oral Tablet ChewableIndication s:High-risk in second trimester,Multigra silke of advanced maternal age in second trimester,Chronic hypertension in Take 1 Tablet by mouth in the morning. 100 Tablet 3 04/15/2024 Active Iron-Vitamin C 65-125 MG Oral Tablet (Vitron C)Indications:Ante anemia complicating Take 1 Tablet by mouth in the morning and 1 Tablet before bedtime. 60 Tablet 3 07/12/2024 Active NIFEdipine ER 60 MG Oral Tablet Extended Release 24 Hour (Adalat CC)Indications:Hig h-risk in third trimester,Chronic hypertension in Take 1 Tablet by mouth in the morning. 30 Tablet 6 08/26/2024 Active NIFEdipine ER 30 MG Oral Tablet Extended Release 24 Hour (Adalat CC) Take 1 Tablet by mouth in the morning. on an empty stomach.. 30 Tablet 6 05/17/2024 4 Discontinued documented as of this encounter (statuses [...] Sign Reading Time Taken Comments Blood Pressure 136/96 08/26/2024 1:37 PM EDT Pulse - - Temperature - - Respiratory Rate - - Oxygen Saturation - - Inhaled Oxygen Concentration - - Weight 93.9 kg (207 lb) 08/26/2024 1:37 PM EDT Height - - Body Mass Index 31.47 08/12/2024 10:13 AM EDT documented in this encounter Progress Notes * Miesha Negro CRNP - 08/26/2024 1:27 PM EDT 34w3d Doing well. Good movement. No bleeding/regular ctx. No new SANDERS, vision changes, edema. Neg proteinuria. BP slightly elevated - increase nifedipine to 60 mg daily. Check BP at home, call office with persistent readings of >/=140 systolic, >/=90 diastolic. Will recheck preE labs today. U/S with MFM completed 08/15. Return in 1 week for NST. LEXX Hull ASSESSMENT assessment with Non-stress Test completed on 08/26/2024 at 34.3 weeks gestation for indication of chronic hypertension heart baseline: 140 bpm Variability: Moderate Decelerations: absent Accelerations: present Contractions: None NST start time: 1548 NST stop time: 1615 - time on monitor incorrect NST strip reviewed, interpreted, and approved by OB provider, LEXX Hull . NST strip stored in clinic storage file documented in this encounter Plan of Treatment Upcoming Encounters Date Type Department Care Team (Late st Contact Info) Description 08/29/2024 1:00 PM EDT Office Visit Gynecology/Obstetrics [facility] [address] [place] [address] Caity Corcoran CRNP [address] [place] [address] Xuan Jane Stress Tests [facility] [address] [place] [address] 09/02/2024 2:30 PM EST Office Visit Gynecology/Obstetrics [facility] [address] [place] [address] Ole Cruz MD [address] [place] [address] Xuan Jane Stress Tests [facility] [address] [place] [address] 09/05/2024 10:15 AM EST Office Visit Gynecology/Obstetrics [facility] [address] [place] [address] Rivka Powers PA-C [address] [place] [address] [place] [address] Xuan Jane Stress Tests [facility] [address] [place] [address] 09/09/2024 1:00 PM EST Office Visit Gynecology/Obstetrics [facility] [address] [place] [address] Miesha Negro CRNP [address] [place] [address] Xuan Jane Stress Tests [facility] [address] [place] [address] 09/12/2024 10:15 AM EST Office Visit Gynecology/Obstetrics [facility] [address] [place] [address] Caity Corcoran CRNP [address] [place] [address] Ajne, Non Stress Tests Ronald [address] [place] [address] 09/12/2024 1:00 PM EST Imaging Maternal Medicine Imaging, [facility] [address] [place] [address] 09/16/2024 1:00 PM EST Office Visit Gynecology/Obstetrics [facility] [address] [place] [address] Miesha Negro CRNP [address] [place] [address] Jane, Non Stress Tests Ronald [address] [place] [address] 09/19/2024 10:15 AM EST Office Visit Gynecology/Obstetrics [facility] [address] [place] [address] Caity Corcoran CRNP [address] [place] [address] Jane, Non Stress Tests Ronald [address] [place] [address] 09/23/2024 1:15 PM EST Office Visit Gynecology/Obstetrics [facility] [address] [place] [address] Miesha Negro CRNP [address] [place] [address] Buck, Non Stress Tests Ronald [address] [place] [address] 09/27/2024 11:00 AM EST Office Visit Gynecology/Obstetrics [facility] [address] [place] [address] Backer, LEXX Sanchez [address] [place] [address] Jane, Non Stress Tests Ronald [address] [place] [address] 09/30/2024 1:00 PM EST Office Visit Gynecology/Obstetrics [facility] [address] [place] [address] Backer, LEXX Sanchez [address] [place] [address] Jane Non Stress Tests [facility] [address] [place] [address] Pending Results Name Type Priority Associated Diagnoses Date /Time PLT Lab Routine Thrombocytopenia affecting (HCC) 08/26/2024 1:56 PM EDT CREATININE Lab Routine Chronic hypertension in 08/26/2024 1:56 PM EDT AST Lab Routine Chronic hypertension in 08/26/2024 1:56 PM EDT ALT Lab Routine Chronic hypertension in 08/26/2024 1:56 PM EDT Scheduled Orders Name Type Priority Associated Diagnoses Orde r Schedule PLT Lab Routine Thrombocytopenia affecting (HCC) Expected: 08/26/2024, Expires: 08/26/2025 CREATININE Lab Routine Chronic hypertension in Expected: 08/26/2024, Expires: 08/26/2025 AST Lab Routine Chronic hypertension in Expected: 08/26/2024, Expires: 08/26/2025 ALT Lab Routine Chronic hypertension in Expected: 08/26/2024, Expires: 08/26/2025 Health Maintenance Due Date Last Done Comments Hepatitis B Vaccine (1 of 3 - 19+ 3-dose series) 2005 Depression Screening 06/05/2020 06/05/2019 COVID-19 Vaccine ( season) 2024 GFR 08/19/2025 08/19/2024, 07/30, 07/11/2024, [...] Comments URINALYSIS OBSTETRICS, POINT OF CARE Routine 08/26/2024 1:44 PM EDT Multigravida of advanced maternal age in third trimester Chronic hypertension in documented in this encounter Results * URINALYSIS OBSTETRICS, POINT OF CARE (08/26/2024 1:44 PM EDT) Color, Urine Yellow Light Yellow, Yellow 08/26/2024 1:47 PM EDT [facility] [place] [facility] Clarity, Urine Clear Clear 08/26/2024 1:47 PM EDT [facility] [place] [facility] Glucose, Urine Negative Negative mg/dL 08/26/2024 1:47 PM EDT [facility] [place] [facility] Bilirubin, Urine Negative Negative 08/26/2024 1:47 PM EDT [facility] [place] [facility] Ketone, Urine Negative Negative mg/dL 08/26/2024 1:47 PM EDT [facility] [place] [facility] Specific [place], Urine 1.010 1.003 - 1.030 08/26/2024 1:47 PM EDT [facility] [place] [facility] Blood, Urine Negative Negative 08/26/2024 1:47 PM EDT [facility] [place] [facility] pH, Urine 7.0 5.0, 5.5, 6.0, 6.5, 7.0, 7.5 units 08/26/2024 1:47 PM EDT [facility] [place] [facility] Protein, Urine Negative Negative mg/dL 08/26/2024 1:47 PM EDT [facility] [place] [facility] Urobilinogen, Urine 0.2 0.2, 1.0 mg/dL 08/26/2024 1:47 PM EDT [facility] [place] [facility] Nitrite, Urine Negative Negative 08/26/2024 1:47 PM EDT [facility] [place] [facility] Esterase, Urine Negative Negative 08/26/2024 1:47 PM EDT [facility] [place] [facility] Urine 08/26/2024 1:44 PM EDT 08/26/2024 1:47 PM EDT Miesha Jung Backer LEXX LAB POINT O F CARE TEST DOCKED DEVICE UNSOLICITED RESULTS [facility] [place] [facility] [address] [place] [address] documented in this encounter Visit Diagnoses Diagnosis High-risk in third trimester- Primary Multigravida of advanced maternal age in third trimester Chronic hypertension in Benign essential hypertension complicating , childbirth, and the puerperium, unspecified as to episode of care Rh negative status during in third trimester Antepartum anemia complicating Anemia, antepartum Thrombocytopenia affecting (HCC) documented in this encounter Care Teams Cell Liner Relationship Specialty Start Date End Date Sanchez Pastor MD [address] [place] [address] PCP - General Family Medicine 05/04/18 documented as of this encounter
--- OUTSIDE RECORDS SUMMARY | 2024-09-18 05:19 | External Medical Summary ---
Author Name Unknown Address Unknown Organization [id number] [place] [facility] [place] [address] Laboratory Report Ordering Provider Test Date Status DU MOSS 09/09/2024 12:51:00 Final Observation Date Value Abnormality Reference (Units ) Status Color of Urine by Auto 09/09/2024 12:51:00 Yellow Light Yellow, Yellow Final Clarity, Urine 09/09/2024 12:51:00 Clear Clear Final Glucose [Mass/volume] in Urine by Automated test strip 09/09/2024 12:51:00 Negative Negative (mg/dL) Final Bilirubin.total [Presence] in Urine by Automated test strip 09/09/2024 12:51:00 Negative Negative Final Ketones [Mass/volume] in Urine by Automated test strip 09/09/2024 12:51:00 Negative Negative (mg/dL) Final Specific gravity, Urine 09/09/2024 12:51:00 1.015 1.003-1.030 Final Hemoglobin [Presence] in Urine by Automated test strip 09/09/2024 12:51:00 Negative Negative Final pH, Urine 09/09/2024 12:51:00 7.0 5.0, 5.5, 6.0, 6.5, 7.0, 7.5 (units) Final Protein [Mass/volume] in Urine by Automated test strip 09/09/2024 12:51:00 Negative Negative (mg/dL) Final Urobilinogen, Urine 09/09/2024 12:51:00 0.2 0.2, 1.0 (mg/dL) Final Nitrite [Presence] in Urine by Automated test strip 09/09/2024 12:51:00 Negative Negative Final Leukocyte esterase [Presence] in Urine by Automated test strip 09/09/2024 12:51:00 Negative Negative Final Performing Location [facility]ORY [facility] [place] [facility] 0 - [address] [place] [address]
--- OUTSIDE RECORDS SUMMARY | 2024-09-18 05:19 | External Medical Summary | Summary of Care ---
Author Name Unknown Organization [facility] Address [address] [facility] [address] Phone [phone] Care Team Providers Care Head Machinist Name Role Phone Sanchez Pastor MD Primary Care Provider [phone] Reason for Visit * Reason Comments Return Visit Non Stress Test Encounter Details Date Type Department Care Team (Late st Contact Info) Description 08/29/2024 1:00 PM EDT Office Visit Gynecology/Obstetric s [facility] [address] [place] [address] Caity Corcoran CRNP [address] [place] [address] Jane, Non Stress Tests Ronald [address] [place] [address] High-risk in third trimester*; Multigravida of advanced maternal age in third trimester; Chronic hypertension in ; Rh negative, antepartum; Antepartum anemia complicating ; Thrombocytopenia affecting (HCC) Allergies No known active allergiesdocumented as of this encounter (statuses as of 08/29/2024) Medications Medication Sig Dispensed Refills Start Date [...] as of this encounter (statuses as of 08/29/2024) Active Problems Problem Noted Date Diagnosed Date [...] as of this encounter (statuses as of 08/29/2024) Resolved Problems Problem Noted Date Diagnosed Date Resolved Date Essential hypertension with goal blood pressure less than 140/90 01/12/2018 05/04/2018 Rh negative, antepartum 03/06/2013 08/06/2021 Overview: Rhogam candidate- Given 07/05/2013 Suhas SINGH ICD-10 update of inactive term Supervision of normal first 02/28/2013 02/26/2016 Overview: Patient received flu vaccine. 07/18/2013 Swati Josue RN 07/18/2013 Tdap Vaccine administered per clinic protocol. Pt given VIS(vaccine information sheet) Swati Josue RN documented as of this encounter (statuses as of 08/29/2024) Immunizations Name Administration Dates Next Due Seasonal [...] Reading Time Taken Comments Blood Pressure 138/94 08/29/2024 12:51 PM EDT Pulse - - Temperature - - Respiratory Rate - - Oxygen Saturation - - Inhaled Oxygen Concentration - - Weight 94.8 kg (209 lb) 08/29/2024 12:51 PM EDT Height 172.7 cm (5' 8") 08/29/2024 12:51 PM EDT Body Mass Index 31.78 08/29/2024 12:51 PM EDT documented in this encounter Progress Notes * Caity Corcoran CRNP - 08/29/2024 1:10 PM EDT ASSESSMENT assessment with Non-stress Test completed on 08/29/2024 at 34.6weeks gestation for indicationof chronic hypertension heart baseline: 140 bpm Variability: Moderate Decelerations: absent Accelerations: present Contractions: None NST start time: 1250 NST stop time: 1312 NST strip reviewed, interpreted, and approved by OB Caity leiva CRNP. NST strip stored in clinic storage file documented in this encounter Plan of Treatment Upcoming Encounters Date Type Department Care Team (Late st Contact Info) Description 09/02/2024 2:30 PM EST Office Visit Gynecology/Obstetrics [facility] [address] [place] [address] Ole Cruz MD [address] [place] [address] Buck Non Stress Tests [facility] [place] [address] 09/05/2024 10:15 AM EST Office Visit Gynecology/Obstetrics [facility] [address] [place] [address] Rivka Powers PA-C [address] [place] [address] [place] [address] Buck Non Stress Tests Ronald [address] [place] [address] 09/09/2024 1:00 PM EST Office Visit Gynecology/Obstetrics [facility] [address] [place] [address] BackMiesha gonzales CRNP [address] [place] [address] Buck Non Stress Tests Ronald [address] [place] [address] 09/12/2024 10:15 AM EST Office Visit Gynecology/Obstetrics [facility] [address] [place] [address] Caity Corcoran CRNP [address] [place] [address] Buck Non Stress Tests Ronald [address] [place] [address] 09/12/2024 1:00 PM EST Imaging Maternal Medicine Imaging, Ronald Jane [address] [place] [address] 09/16/2024 1:00 PM EST Office Visit Gynecology/Obstetrics [facility] [address] [place] [address] Miesha Negro CRNP [address] [place] [address] Buck, Non Stress Tests Ronald [address] [place] [address] 09/19/2024 10:15 AM EST Office Visit Gynecology/Obstetrics [facility] [address] [place] [address] Caity Corcoran CRNP [address] [place] [address] Buck Non Stress Tests Ronald [address] [place] [address] 09/23/2024 1:15 PM EST Office Visit Gynecology/Obstetrics [facility] [address] [place] [address] Miesha Negro CRNP [address] [place] [address] Buck Non Stress Tests Ronald [address] [place] [address] 09/27/2024 11:00 AM EST Office Visit Gynecology/Obstetrics [facility] [address] [place] [address] Miesha Negro CRNP [address] [place] [address] Xuan Jane Stress Tests Ronald [address] [place] [address] 09/30/2024 1:00 PM EST Office Visit Gynecology/Obstetrics [facility] [address] [place] [address] Miesha Negro CRNP [address] [place] [address] Buck Non Stress Tests Ronald [address] [place] [address] Health Maintenance Due Date Last Done Comments Hepatitis B Vaccine (1 of 3 - 19+ 3-dose series) 2005 Depression Screening 06/05/2020 06/05/2019 COVID-19 Vaccine (2023-25 season) 2024 GFR 08/26/2025 08/26/2024, 07/31, 08/16/2024, [...] Comments URINALYSIS OBSTETRICS, POINT OF CARE Routine 08/29/2024 1:26 PM EDT Chronic hypertension in documented in this encounter Results * URINALYSIS OBSTETRICS, POINT OF CARE (08/29/2024 1:26 PM EDT) Color, Urine Yellow Light Yellow, Yellow 08/29/2024 1:28 PM EDT [facility] [place] [facility] Clarity, Urine Clear Clear 08/29/2024 1:28 PM EDT [facility] [place] [facility] Glucose, Urine Negative Negative mg/dL 08/29/2024 1:28 PM EDT [facility] [place] [facility] Bilirubin, Urine Negative Negative 08/29/2024 1:28 PM EDT [facility] [place] [facility] Ketone, Urine Negative Negative mg/dL 08/29/2024 1:28 PM EDT [facility] [place] [facility] Specific [place], Urine 1.010 1.003 - 1.030 08/29/2024 1:28 PM EDT [facility] [place] [facility] Blood, Urine Negative Negative 08/29/2024 1:28 PM EDT [facility] [place] [facility] pH, Urine 7.0 5.0, 5.5, 6.0, 6.5, 7.0, 7.5 units 08/29/2024 1:28 PM EDT [facility] [place] [facility] Protein, Urine Negative Negative mg/dL 08/29/2024 1:28 PM EDT [facility] [place] [facility] Urobilinogen, Urine 0.2 0.2, 1.0 mg/dL 08/29/2024 1:28 PM EDT [facility] [place] [facility] Nitrite, Urine Negative Negative 08/29/2024 1:28 PM EDT [facility] [place] [facility] Esterase, Urine Negative Negative 08/29/2024 1:28 PM EDT [facility] [place] [facility] Urine 08/29/2024 1:26 PM EDT 08/29/2024 1:28 PM EDT Caity Corcoran SWIMMING POOL CLEANER LAB POINT OF CARE TE ST DOCKED DEVICE UNSOLICITED RESULTS [facility] [place] [facility] [place] [address] documented in this encounter Visit Diagnoses Diagnosis High-risk in third trimester- Primary Multigravida of advanced maternal age in third trimester Chronic hypertension in Benign essential hypertension complicating , childbirth, and the puerperium, unspecified as to episode of care Rh negative, antepartum Rhesus isoimmunization affecting management of mother, antepartum condition Antepartum anemia complicating Anemia, antepartum Thrombocytopenia affecting (HCC) documented in this encounter Care Teams Head Machinist Relationship Specialty Start Date End Date Sanchez Pastor MD [address] [place] [address] PCP - General Family Medicine 05/04/18 documented as of this encounter
--- OUTSIDE RECORDS SUMMARY | 2024-09-18 05:19 | External Medical Summary | Summary of Care ---
Author Name Unknown Organization [facility] Address [address] [facility] [place] [address] Phone [phone] Care Team Providers Care Extension Clerk Name Role Phone Sanchez Pastor MD Primary Care Provider [phone] Reason for Visit * Reason Comments Return Visit Encounter Details Date Type Department Care Team (Late st Contact Info) Description 09/09/2024 1:00 PM EST Office Visit Gynecology/Obstetric s [facility] [address] [place] [address] Miesha Negro CRNP [address] [place] [address] Buck, Non Stress Tests Ronald [address] [place] [address] High-risk in third trimester*; Multigravida of advanced [...] assessment of proteinuria (24-hour urine protein or mapamdo-go-psbsmgiumt ratio) and CBC, serum AST/ALT/creatinine. If patient [...] No 05/25/2024 Does the household have a [facility] source of income? 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 Not on file Not on file Not on file documented as of this encounter Last Filed Vital Signs Vital Sign Reading Time Taken Comments Blood Pressure 146/104 09/09/2024 12:57 PM EST Pulse - - Temperature - - Respiratory Rate - - Oxygen Saturation - - Inhaled Oxygen Concentration - - Weight 94.8 kg (209 lb) 09/09/2024 12:57 PM EST Height - - Body Mass Index 31.78 09/02/2024 2:41 PM EST documented in this encounter Progress Notes * Miesha Negro CRNP - 09/09/2024 12:47 PM EST ASSESSMENT assessment with Non-stress Test completed on 09/09/2024 at 36.3 weeks gestation for indication of chronic hypertension heart baseline: 120 bpm Variability: Moderate Decelerations: absent Accelerations: present Contractions: Present occasionally NST start time: 1351 (time not reset for DST) NST stop time: 1422 NST strip reviewed, interpreted, and approved by OB provider, LEXX Hull . NST strip stored in clinic storage file + movement. No ctx, leaking, bleeding. GBS today. Scheduled for MFM growth scan later this week. BP elevated for last 2 visits and today. On nifedipine 60 mg daily. Neg proteinuria in office. No new SANDERS, vision changes, epigastric pain, swelling. Discussed w/Dr Cruz, who advises adding labetalolBID and rechecking preE labs today, return for BP check tomorrow. Appt made w/. Pt agreeable. Cook Chill Technician Documentation Provider requested vinyl dipper. Name of vinyl dipper: LEXX Bearden documented in this encounter Plan of Treatment Upcoming Encounters Date Type Department Care Team (Late st Contact Info) Description 09/09/2024 1:50 PM EST [facility] [address] [phone] Kennedy Jane [address] [place] [address] Chronic hypertension in ; Thrombocytopenia affecting (HCC) 09/10/2024 3:15 PM EST Office Visit Gynecology/Obstetric s [facility] [address] [place] [address] Ole Cruz MD [address] [place] [address] 09/12/2024 1:00 PM EST Imaging Maternal Medicine Imaging, [facility] [address] [place] [address] 09/16/2024 1:00 PM EST Office Visit Gynecology/Obstetric s [facility] [address] [place] [address] BackerMiesha CRNP [address] [place] [address] Jane, Non Stress Tests Ronald [address] [place] [address] 09/19/2024 10:15 AM EST Office Visit Gynecology/Obstetric s [facility] [address] [place] [address] Caity Corcoran CRNP [address] [place] [address] Jane, Non Stress Tests Ronald [address] [place] [address] 09/23/2024 1:15 PM EST Office Visit Gynecology/Obstetric s [facility] [address] [place] [address] Backer, LEXX Sanchez [address] [place] [address] Jane, Non Stress Tests Ronald [address] [place] [address] 09/27/2024 11:00 AM EST Office Visit Gynecology/Obstetric s [facility] [address] [place] [address] BackerMiesha CRNP [address] [place] [address] Jane, Non Stress Tests Ronald [address] [place] [address] 09/30/2024 1:00 PM EST Office Visit Gynecology/Obstetric s [facility] [address] [place] [address] Backer, LEXX Sanchez [address] [place] [address] Buck, Non Stress Tests Ronald [address] [place] [address] Pending Results Name Type Priority Associated Diagnoses Date /Time GROUP B STREP CULTURE/PCR Lab Routine High-risk in third trimester 09/09/2024 1:30 PM EST AST Lab Routine Chronic hypertension in 09/09/2024 1:36 PM EST ALT Lab Routine Chronic hypertension in 09/09/2024 1:36 PM EST CREATININE Lab Routine Chronic hypertension in 09/09/2024 1:36 PM EST Scheduled Orders Name Type Priority Associated Diagnoses Orde r Schedule GROUP B STREP CULTURE/PCR Lab Routine High-risk in third trimester Expected: 09/09/2024, Expires: 09/09/2025 AST Lab Routine Chronic hypertension in Expected: 09/09/2024, Expires: 09/09/2025 ALT Lab Routine Chronic hypertension in Expected: 09/09/2024, Expires: 09/09/2025 CREATININE Lab Routine Chronic hypertension in Expected: 09/09/2024, Expires: 09/09/2025 Health Maintenance Due Date Last Done Comments [...] Comments URINALYSIS OBSTETRICS, POINT OF CARE Routine 09/09/2024 12:51 PM EST High-risk in third trimester Chronic hypertension in documented in this encounter Results * (ABNORMAL) CBC (09/09/2024 1:36 PM EST) WBC 11.97(H) 4.00 - 10.80 K/uL 09/09/2024 1:42 PM EST [facility] [place] [facility] RBC 3.81 3.85 - 5.15 M/uL 09/09/2024 1:42 PM EST [facility] [place] [facility] HGB 12.9 12.0 - 15.3 g/dL 09/09/2024 1:42 PM EST [facility] [place] [facility] HCT 36.7 36.0 - 45.2 % 09/09/2024 1:42 PM EST [facility] [place] [facility] MCV 96.3 81.5 - 97.5 fL 09/09/2024 1:42 PM EST [facility] [place] [facility] MCH 33.9 27.0 - 34.0 pg 09/09/2024 1:42 PM EST [facility] [place] [facility] MCHC 35.1 32.0 - 36.0 g/dL 09/09/2024 1:42 PM EST [facility] [place] [facility] RDW 12.7 11.5 - 15.5 % 09/09/2024 1:42 PM EST [facility] [place] [facility] PLT 114(L) 140 - 400 K/uL 09/09/2024 1:42 PM EST [facility] [place] [facility] MPV 13.5 6.6 - 11.1 fL 09/09/2024 1:42 PM EST [facility] [place] [facility] Blood Venous blood specimen / Unknown Venipuncture / Unknown 09/09/2024 1:36 PM EST 09/09/2024 1:36 PM EST Miesha Jung Backer LEXX LAB BLOOD ORDERABLE S Final Result [facility] [place] [facility] [address] [facility] [address] * URINALYSIS OBSTETRICS, POINT OF CARE (09/09/2024 12:51 PM EST) Color, Urine Yellow Light Yellow, Yellow 09/09/2024 12:54 PM EST [facility] [place] [facility] Clarity, Urine Clear Clear 09/09/2024 12:54 PM EST [facility] [place] [facility] Glucose, Urine Negative Negative mg/dL 09/09/2024 12:54 PM EST [facility] [place] [facility] Bilirubin, Urine Negative Negative 09/09/2024 12:54 PM EST [facility] [place] [facility] Ketone, Urine Negative Negative mg/dL 09/09/2024 12:54 PM EST [facility] [place] [facility] Specific [place], Urine 1.015 1.003 - 1.030 09/09/2024 12:54 PM EST [facility] [place] [facility] Blood, Urine Negative Negative 09/09/2024 12:54 PM EST [facility] [place] [facility] pH, Urine 7.0 5.0, 5.5, 6.0, 6.5, 7.0, 7.5 units 09/09/2024 12:54 PM EST [facility] [place] [facility] Protein, Urine Negative Negative mg/dL 09/09/2024 12:54 PM EST [facility] [place] [facility] Urobilinogen, Urine 0.2 0.2, 1.0 mg/dL 09/09/2024 12:54 PM EST [facility] [place] [facility] Nitrite, Urine Negative Negative 09/09/2024 12:54 PM EST [facility] [place] [facility] Esterase, Urine Negative Negative 09/09/2024 12:54 PM EST [facility] [place] [facility] Urine 09/09/2024 12:5 1 PM EST 09/09/2024 12:54 PM EST Miesha Jung Backer LEXX LAB POINT O F CARE TEST DOCKED DEVICE UNSOLICITED RESULTS Final Result [facility] [place] [facility] [address] [place] [address] documented in this encounter Visit Diagnoses Diagnosis [...] ultrasonics 32 weeks gestation of state, incidental High-risk in third trimester- Primary Multigravida of advanced maternal age in third trimester Chronic hypertension in Benign essential hypertension complicating , childbirth, and the puerperium, unspecified as to episode of care Rh negative status during in third trimester Antepartum anemia complicating Anemia, antepartum Thrombocytopenia affecting (HCC) Chronic hypertension in Benign essential hypertension complicating , childbirth, and the puerperium, unspecified as to episode of care Thrombocytopenia affecting (HCC) documented in this encounter Care Teams Extension Clerk Relationship Specialty Start Date End Date Sanchez Pastor MD [address] [place] [phone] PCP - General Family Medicine 05/04/18 documented as of this encounter
--- OUTSIDE RECORDS SUMMARY | 2024-09-18 05:20 | External Medical Summary | Summary of Care ---
Author Name Unknown Organization [facility] Address [address] [facility] [facility] [address] Phone [phone] Care Team Providers Care Associate Loan Officer Name Role Phone Sanchez Pastor MD Primary Care Provider [phone] Reason for Visit * Reason Comments Outpatient Testing Encounter Details Date Type Department Care Team (Late st Contact Info) Description 08/19/2024 2:50 PM EDT Laboratory Laboratory, [facility] [address] [facility] [place] [id number] [facility] [address] [place] [address] Arrived Allergies No known active allergiesdocumented as of this encounter (statuses as of 08/19/2024) Medications Medication Sig Dispensed Refills Start Date [...] before bedtime. 60 Tablet 3 07/12/2024 Active Hospital, Clinic, or Other Facility Administered Medication Ordered Dose Route Frequency Start Date End Date Status betamethasone acet & sod phos ([facility]estone Soluspan) inj 12 mgIndications:Multigravida of advanced maternal age in third trimester,High-risk in third trimester,Chronic hypertension in 12 mg IM Q24H 08/19/2024 08/21/2024 Active documented as of this encounter (statuses as of 08/19/2024) Active Problems Problem Noted Date Diagnosed Date Thrombocytopenia affecting 08/13/2024 Overview: CBC 08/13 showed [...] as of this encounter (statuses as of 08/19/2024) Resolved Problems Problem Noted Date Diagnosed Date [...] as of this encounter (statuses as of 08/19/2024) Immunizations Name Administration Dates Next Due Seasonal [...] Care Team (Late st Contact Info) Description 08/20/2024 2:45 PM EDT Nurse Only Gynecology/Obstetrics [facility] [address] [place] [place] [address] Gw, Nurse Obgyn Injection [address] [address] 08/22/2024 10:15 AM EDT Office Visit Gynecology/Obstetrics [facility] [address] [place] [address] Caity Corcoran CRNP [address] [place] [address] Buck Non Stress Tests Ronald [address] [place] [address] 08/26/2024 1:15 PM EDT Office Visit Gynecology/Obstetrics [facility] [address] [place] [address] Miesha Negro CRNP [address] [place] [address] Buck Non Stress Tests Ronald [address] [place] [address] 08/29/2024 1:00 PM EDT Office Visit Gynecology/Obstetrics [facility] [address] [place] [address] Caity Corcoran CRNP [address] [place] [address] Buck Non Stress Tests Ronald [address] [place] [address] 09/02/2024 2:30 PM EST Office Visit Gynecology/Obstetrics [facility] [address] [place] [address] Ole Cruz MD [address] [place] [address] Buck Non Stress Tests Ronald [address] [place] [address] 09/05/2024 10:15 AM EST Office Visit Gynecology/Obstetrics [facility] [address] [place] [address] Rivka Powers PA-C [address] [place] [address] [address] [address] Jane, Non Stress Tests Ronald [address] [place], [place] [address] 09/09/2024 1:00 PM EST Office Visit Gynecology/Obstetrics [facility] [address] [place] [address] Miesha Negro CRNP [address] [place] [address] Buck Non Stress Tests Ronald [address] [place] [address] 09/12/2024 10:15 AM EST Office Visit Gynecology/Obstetrics [facility] [address] [place] [address] Caity Corcoran CRNP [address] [place] [address] Buck Non Stress Tests Ronald [address] [place] [address] 09/12/2024 1:00 PM EST Imaging Maternal Medicine Imaging, [facility] [address] [place] [id number] 09/16/2024 1:00 PM EST Office Visit Gynecology/Obstetrics [facility] [address] [place] [address] Miesha Negro CRNP [address] [place] [address] Jane, Non Stress Tests Ronald [address] [place] [address] 09/19/2024 10:15 AM EST Office Visit Gynecology/Obstetrics [facility] [address] [place] [address] Caity Corcoran CRNP [address] [place] [address] Jane, Non Stress Tests Ronald [address] [place] [address] 09/23/2024 1:15 PM EST Office Visit Gynecology/Obstetrics [facility] [address] [place] [address] Miesha Negro CRNP [address] [place] [address] Jane, Non Stress Tests Ronald [address] [place] [address] 09/27/2024 11:00 AM EST Office Visit Gynecology/Obstetrics [facility] [address] [place] [address] Miesha Negro CRNP [address] [place] [address] Jane, Non Stress Tests Ronald [address] [place] [address] 09/30/2024 1:00 PM EST Office Visit Gynecology/Obstetrics [facility] [address] [place] [address] Miesha Negro CRNP [address] [place] [address] Jane, Non Stress Tests Ronald [address] [place] [address] Health Maintenance Due Date Last Done Comments Hepatitis B Vaccine (1 of 3 - 19+ 3-dose series) 2005 Depression Screening 06/05/2020 06/05/2019 COVID-19 Vaccine (2023- season) 2024 GFR 08/16/2025 08/16/2024, 06/30, 05/17/2024, Additional history exists Pap Smear 03/18/2027 03/18/2024, 05/30, 04/25/2017, Additional history exists Diabetes Screening 08/16/2027 08/16/2024, 0 05/17/2024, 03/18/2024, Additional history exists Cervical Cancer Screening 03/18/2029 [...] Not on filedocumented as of this encounter Care Teams Associate Loan Officer Relationship Specialty Start Date End Date Sanchez Pastor MD [address] [place] [address] PCP - General Family Medicine 05/04/18 documented as of this encounter
--- OUTSIDE RECORDS SUMMARY | 2024-09-18 05:20 | External Medical Summary ---
Author Name Unknown Address Unknown Organization [facility] - [address] [place] [address] Laboratory Report Ordering Provider Test Date Status CRISTINO UMAÑA 08/19/2024 14:30:35 Final Observation Date Value Abnormality Reference (Units ) Status BUN 08/19/2024 14:30:35 8 6-20 (mg/dL) Final Creatinine 08/19/2024 14:30:35 0.9 0.5-1.0 (mg/dL) Final Glomerular filtration rate/1.73 sq M.predicted [Volume Rate/Area] in Serum, Plasma or Blood by Creatinine-based formula (CKD-EPI) 08/19/2024 14:30:35 84 >=60 (mL/min) Final eGFR is calculated based on the CKD-EPI 2020 equation. Sodium 08/19/2024 14:30:35 137 135-146 (m mol/L) Final Potassium 08/19/2024 14:30:35 4.0 3.5-5.1 (m mol/L) Final Cl 08/19/2024 14:30:35 104 98-107 (mm ol/L) Final CO2 08/19/2024 14:30:35 23 22-32 (mmo l/L) Final Anion gap 08/19/2024 14:30:35 10 7-15 (mmol /L) Final Glucose 08/19/2024 14:30:35 82 70-120 (mg /dL) Final Albumin 08/19/2024 14:30:35 3.5 Below low normal 3.8 -5.0 (g/dL) Final AST (Aspartate aminotransferase) 08/19/2024 14:30:35 35 10-35 (U/L) Fin al Alk Phos 08/19/2024 14:30:35 125 35-130 (U/ L) Final Bilirubin, Total 08/19/2024 14:30:35 0.2 <=1 .2 (mg/dL) Final Calcium 08/19/2024 14:30:35 9.1 8.4-10.2 ( mg/dL) Final Protein 08/19/2024 14:30:35 5.8 Below low normal 6.0 -8.3 (g/dL) Final ALT (Alanine aminotransferase) 08/19/2024 14:30:35 39 Above high normal 10-35 (U/L) Final Performing Location [facility] [place] [facility] - [address] [facility] [address]
--- OUTSIDE RECORDS SUMMARY | 2024-09-18 05:20 | External Medical Summary | Summary of Care ---
Author Name Unknown Organization [facility] Address [address] [facility] [place] [address] Phone [phone] Care Team Providers Care Property Claims Adjuster Name Role Phone Sanchez Pastor MD Primary Care Provider [phone] Reason for Visit * Reason Comments Return Visit Non Stress Test Encounter Details Date Type Department Care Team (Late st Contact Info) Description 08/19/2024 1:00 PM EDT Office Visit Gynecology/Obstetric s [facility] [address] [place] [address] Tamera Barrow PA-C [address] [place] [address] Buck, Non Stress Tests [facility] [address] [place] [address] Multigravida of advanced maternal age in third trimester*; High-risk in third trimester; Chronic hypertension in ; Rh negative status during in third trimester; Antepartum anemia complicating ; Thrombocytopenia affecting (HCC) Allergies No known active allergiesdocumented as of this encounter (statuses as of 08/21/2024) Medications Medication Sig Dispensed Refills Start Date [...] hypertension in 12 mg IM Q24H 08/19/2024 08/20/2024 Ended documented as of this encounter (statuses as of 08/21/2024) Active Problems Problem Noted Date Diagnosed Date Encounter for medication administration 08/20/20 24 Thrombocytopenia affecting 08/13/2024 Overview: CBC 08/13 showed [...] as of this encounter (statuses as of 08/21/2024) Resolved Problems Problem Noted Date Diagnosed Date [...] as of this encounter (statuses as of 08/21/2024) Immunizations Name Administration Dates Next Due Seasonal [...] Sign Reading Time Taken Comments Blood Pressure 138/88 08/19/2024 1:53 PM EDT Pulse - - Temperature - - Respiratory Rate - - Oxygen Saturation - - Inhaled Oxygen Concentration - - Weight 93.6 kg (206 lb 6.4 oz) 08/19/2024 1:01 P M EDT Height - - Body Mass Index 31.38 08/12/2024 10:13 AM EDT documented in this encounter Progress Notes * Michaela Bergman CMA - 08/19/2024 2:25 PM EDT Patient here for Betamethasone injection. Patient doing well no complaints. Injection given IM as ordered. Patient tolerated well. Patient to follow up as directed. Patient instructed to call if any complications. Patient verbalized understanding of instructions given and her follow up appt for tomorrow for 2nd injection. Injection site: Right Gluteus Medication Source: Dispensed stock medication * Tamera Barrow PA-C - 08/19/2024 1:47 PM EDT 33w3d First time seeing patient. CHTN on Nifedipine 30 mg takes every morning. Her BP was up last appointment. Patient without symptoms. PEC labs ordered. PLT low 134 K, ALT elevated 41. Both previously normal. AST normal. Pr-cr not completed. However UA in office negative. Upon presentation today BP 142/92, recheck 138/88. Patient reports increased swelling in legs, feels carpal tunnel a little worse. Denies headache, chest pain, SOB, RUQ pain, or epigastric pain. ASSESSMENT assessment with Non-stress Test completed on 08/19/2024 at 33.3 weeks gestation for indication of chronic hypertension on medication heart baseline: 130 bpm Variability: Moderate Decelerations: absent Accelerations: present, however no 2 15x15. She did have a second acceleration at end of strip after pt completing BPP. Contractions: None NST start time: 12:57 NST stop time: 13:39 NST strip reviewed, interpreted, and approved by OB provider, Tamera Barrow PA-C. NST strip stored in clinic storage file A/P: BPP following NST -- BPP 06/06 Repeat labs for PEC today including pr-cr ratio. Her UA was negative for proteins today. Last growth with MFM 08/15/2024. Growth 16th%ile, BPP 06/06 Reviewed labs and case and management with Dr. Cruz today in office. Advised repeat labs today. Continue NSTs, she is currently scheduled for twice weekly. Pre-eclampsia precautions reviewed with patient. He advised no needed dose change in medication at this time. He stated could offer betamethasone injection repeat in 24 hours. I discussed this with patient - she accepted steroid injection. First dose today. PEC precautions reviewed. Has BP cuff at home. Call or go to hospital if >/= 160/105 or greater or symptoms, or if persistently >/=140/90 call. Pt to return tomorrow second steroid injection Pt voiced understanding of plan Tamera Barrow PA-C * Michaela Bergman CMA - 08/19/2024 1:01 PM EDT 33w3d Denies any concerns BP elevated at beginning of appointment 142/92. Retaken before pt left, 138/88 documented in this encounter Plan of Treatment Upcoming Encounters Date Type Department Care Team (Late st Contact Info) Description 08/22/2024 10:15 AM EDT Office Visit Gynecology/Obstetrics [facility] [address] [place] [address] Caity Corcoran CRNP [address] [place] [address] Xuan Jane Stress Tests [facility] [address] [place] [address] 08/26/2024 1:15 PM EDT Office Visit Gynecology/[facility]s [facility] [address] [place] [address] Miesha Negro CRNP [address] [place] [address] Jane, Non Stress Tests [facility] [address] [place] [address] 08/29/2024 1:00 PM EDT Office Visit Gynecology/[facility]st[facility]s [facility] [address] [place] [address] Caity Corcoarn CRNP [address] [place] [address] Buck, Non Stress Tests [facility] [address] [place] [address] 09/02/2024 2:30 PM EST Office Visit Gynecology/[facility]s [facility] [address] [place] [address] Ole Cruz MD [address] [place] [address] Buck, Non Stress Tests [facility] [address] [place] [address] 09/05/2024 10:15 AM EST Office Visit Gynecology/[facility] [address] [place] [address] Rivka Powers PA-C [address] [place] [address] [place] [address] Jane, Non Stress Tests [facility] [address] [place] [address] 09/09/2024 1:00 PM EST Office Visit Gynecology/[facility] [address] [place] [address] Backer, LEXX Sanchez [address] [place] [address] Jane, Non Stress Tests [facility] [address] [place] [address] 09/12/2024 10:15 AM EST Office Visit Gynecology/[facility] [address] [place] [address] Caity Corcoran CRNP [address] [place] [address] Jane, Non Stress Tests [facility] [address] [place] [address] 09/12/2024 1:00 PM EST Imaging [facility]aternal [facility] Imaging, [facility] [address] [place] [address] 09/16/2024 1:00 PM EST Office Visit Gynecology/[facility]st[facility] [address] [place] [address] Backer, LEXX Sanchez [address] [place] [address] Jane, Non Stress Tests [facility] [address] [place] [address] 09/19/2024 10:15 AM EST Office Visit [facility]necology/[facility] [address] [place] [address] Caity Corcoran CRNP [address] [place] [address] Jane, Non Stress Tests [facility] [address] [place] [address] 09/23/2024 1:15 PM EST Office Visit Gynecology/Obstetrics [facility] [address] [place], [place] [address] BackMiesha gonzales CRNP [address] [place], [place] [address] Xuan Jane Stress Tests [facility] [address] [place] [address] 09/27/2024 11:00 AM EST Office Visit Gynecology/Obstetrics [facility] [address] [place] [address] BackMiesha gonzales CRNP [address] [place] [address] Xuan Jane Stress Tests [facility] [address] [place] [address] 09/30/2024 1:00 PM EST Office Visit Gynecology/Obstetrics [facility] [address] [place] [address] Miesha Negro CRNP [address] [place] [address] Xuan Jane Stress Tests [facility] [address] [place] [address] Health Maintenance Due Date Last Done Comments Hepatitis B Vaccine (1 of 3 - 19+ 3-dose series) 2005 Depression Screening 06/05/2020 06/05/2019 COVID-19 Vaccine ( - 2023-25 season) 2024 GFR 08/19/2025 08/19/2024, 07/30, 07/11/2024, [...] Procedure Name Priority Date/Time Associated Diagnosis Comments COMPREHENSIVE METABOLIC PANEL Routine 08/19/2024 2:30 PM EDT Chronic hypertension in CBC Routine 08/19/2024 2:30 PM EDT Chronic hypertension in PROTEIN/ CREATININE RATIO, URINE Routine 08/19/2024 2:14 PM EDT Chronic hypertension in URINALYSIS OBSTETRICS, POINT OF CARE Routine 08/19/2024 1:56 PM EDT Multigravida of advanced maternal age in third trimester Chronic hypertension in documented in this encounter Results * (ABNORMAL) COMPREHENSIVE METABOLIC PANEL (08/19/2024 2:30 PM EDT) BUN 8 6 - 20 mg/dL 08/19/2024 3:47 PM EDT [facility] [place] [facility] CREATININE 0.9 0.5 - 1.0 mg/dL 08/19/2024 3:47 PM EDT [facility] [place] [facility] EGFR 84 >=60 mL/min 08/19/2024 3:47 PM EDT [facility] [place] [facility] Comment:eGFR is calculated b ased on the CKD-EPI 2020 equation. SODIUM 137 135 - 146 mmol/L 08/19/2024 3:47 PM EDT [facility] [place] [facility] POTASSIUM 4.0 3.5 - 5.1 mmol/L 08/19/2024 3:47 PM EDT [facility] [place] [facility] CHLORIDE 104 98 - 107 mmol/L 08/19/2024 3:47 PM EDT [facility] [place] [facility] CO2 23 22 - 32 mmol/L 08/19/2024 3:47 PM EDT [facility] [place] [facility] ANION GAP 10 7 - 15 mmol/L 08/19/2024 3:47 PM EDT [facility] [place] [facility] GLUCOSE 82 70 - 120 mg/dL 08/19/2024 3:47 PM EDT [facility] [place] [facility] Albumin 3.5(L) 3.8 - 5.0 g/dL 08/19/2024 3:47 PM EDT [facility] [place] [facility] AST 35 10 - 35 U/L 08/19/2024 3:47 PM EDT [facility] [place] [facility] Alkaline Phosphatase 125 35 - 130 U/L 08/19/2024 3:47 PM EDT [facility] [place] [facility] Bilirubin, Total 0.2 <=1.2 mg/dL 08/19/2024 3:47 PM EDT [facility] [place] [facility] CALCIUM 9.1 8.4 - 10.2 mg/dL 08/19/2024 3:47 PM EDT [facility] [place] [facility] Protein 5.8(L) 6.0 - 8.3 g/dL 08/19/2024 3:47 PM EDT [facility] [place] [facility] ALT 39(H) 10 - 35 U/L 08/19/2024 3:47 PM EDT [facility] [place] [facility] Blood Venous blood specimen / Unknown Venipuncture / Unknown 08/19/2024 2:30 PM EDT 08/19/2024 2:30 PM EDT Tamera Barrow PA-C LAB BLOOD ORDERABLES [facility] [place] [facility] [address] [place] [address] * (ABNORMAL) CBC (08/19/2024 2:30 PM EDT) WBC 10.11 4.00 - 10.80 K/uL 08/19/2024 3:06 PM EDT [facility] [place] [facility] RBC 3.65 3.85 - 5.15 M/uL 08/19/2024 3:06 PM EDT [facility] [place] [facility] HGB 12.2 12.0 - 15.3 g/dL 08/19/2024 3:06 PM EDT [facility] [place] [facility] HCT 35.1(L) 36.0 - 45.2 % 08/19/2024 3:06 PM EDT [facility] [place] [facility] MCV 96.2 81.5 - 97.5 fL 08/19/2024 3:06 PM EDT [facility] [place] [facility] MCH 33.4 27.0 - 34.0 pg 08/19/2024 3:06 PM EDT [facility] [place] [facility] MCHC 34.8 32.0 - 36.0 g/dL 08/19/2024 3:06 PM EDT [facility] [place] [facility] RDW 12.7 11.5 - 15.5 % 08/19/2024 3:06 PM EDT [facility] [place] [facility] PLT 104(L) 140 - 400 K/uL 08/19/2024 3:06 PM EDT [facility] [place] [facility] MPV 13.9 6.6 - 11.1 fL 08/19/2024 3:06 PM EDT [facility] [place] [facility] Blood Venous blood specimen / Unknown Venipuncture / Unknown 08/19/2024 2:30 PM EDT 08/19/2024 2:30 PM EDT Tamera Barrow PA-C LAB BLOOD ORDERABLES [facility] [place] [facility] [address] [facility] [place] [address] * (ABNORMAL) PROTEIN/ CREATININE RATIO, URINE (08/19/2024 2:14 PM EDT) Protein/ Creatinine Ratio, Urine <158(H) <150 mg/g 08/19/2024 11:02 PM EDT [facility] Protein, Random Urine <6 mg/dL 08/19/2024 11:02 PM EDT [facility] Creatinine, Random Urine 38 mg/dL 08/19/2024 11:02 PM EDT [facility] Urine Non-blood Collection / Unknown 08/19/2024 2:14 PM EDT 08/19/2024 2:14 PM EDT Narrative [facility] - 08/19/2024 11:02 PM EDT Normal: <150 mg/g creatinine High: 150-500 mg/g creatinine Very High: >500 mg/g creatinine Nephrotic: >3000 mg/g creatinine Tamera Barrow PA-C LAB URINE ORDERABLES [facility] [address] [facility] [place] [address] * US BPP W/O NON-STRESS TEST (08/19/2024 2:09 PM EDT) Anatomical Region Laterality Modality Abdomen, Body Ultrasound 08/19/2024 2:26 PM EDT Impressions 08/19/2024 2:59 PM EDT IMPRESSION: 1. BPP score: 8 of 8. 2. Normal YOLI. 3. Vertex presentation. I have personally reviewed this examination and agree with the resident/fellow physician's interpretation. Narrative 08/19/2024 2:59 PM EDT EXAM: US BPP W/O NON-STRESS TEST - 08/19/2024 2:09 pm HISTORY: non-reactive nst TECHNIQUE: Sonographic examination performed. COMPARISON: Multiple prior pelvic ultrasounds. The most recent is dated 08/15/2024. FINDINGS: GENERAL : [place] Presentation: Vertex heart rate: 155 bpm YOLI: 21.3 cm which is between the 50th and 95th percentiles for this stage of . BIOPHYSICAL PROFILE breathing movement: 2 Gross body movement: 2 tone: 2 Qualitative AFV: 2 Total BPP score: 8 of 8. Procedure Note Stephon Yuan II, MD - 08/19/2024 EXAM: US BPP W/O NON-STRESS TEST - 08/19/2024 2:09 pm HISTORY: non-reactive nst TECHNIQUE: Sonographic examination performed. COMPARISON: Multiple prior pelvic ultrasounds. The most recent is dated 08/15/2024. FINDINGS: GENERAL : [place] Presentation: Vertex heart rate: 155 bpm YOLI: 21.3 cm which is between the 50th and 95th percentiles for this stageof . BIOPHYSICAL PROFILE breathing movement: 2 Gross body movement: 2 tone: 2 Qualitative AFV: 2 Total BPP score: 8 of 8. IMPRESSION IMPRESSION: 1. BPP score: 8 of 8. 2. Normal YOLI. 3. Vertex presentation. I have personally reviewed this examination and agree with the resident/fellow physician's interpretation. Tamera Barrow PA-C RAD ULTRASOUND * (ABNORMAL) URINALYSIS OBSTETRICS, POINT OF CARE (08/19/2024 1:56 PM EDT) Color, Urine Yellow Light Yellow, Yellow 08/19/2024 1:59 PM EDT [facility] [place] [facility] Clarity, Urine Clear Clear 08/19/2024 1:59 PM EDT [facility] [place] [facility] Glucose, Urine Negative Negative mg/dL 08/19/2024 1:59 PM EDT [facility] [place] [facility] Bilirubin, Urine Negative Negative 08/19/2024 1:59 PM EDT [facility] [place] [facility] Ketone, Urine Negative Negative mg/dL 08/19/2024 1:59 PM EDT [facility] [place] [facility] Specific [place], Urine 1.010 1.003 - 1.030 08/19/2024 1:59 PM EDT [facility] [place] [facility] Blood, Urine Negative Negative 08/19/2024 1:59 PM EDT [facility] [place] [facility] pH, Urine 7.0 5.0, 5.5, 6.0, 6.5, 7.0, 7.5 units 08/19/2024 1:59 PM EDT [facility] [place] [facility] Protein, Urine Negative Negative mg/dL 08/19/2024 1:59 PM EDT [facility] [place] [facility] Urobilinogen, Urine 0.2 0.2, 1.0 mg/dL 08/19/2024 1:59 PM EDT [facility] [place] [facility] Nitrite, Urine Negative Negative 08/19/2024 1:59 PM EDT [facility] [place] [facility] Esterase, Urine Trace(A) Negative 08/19/2024 1:59 PM EDT [facility] [place] [facility] Urine 08/19/2024 1:56 PM EDT 08/19/2024 1:59 PM EDT Tamera Barrow PA-C LAB POINT OF CARE TE ST DOCKED DEVICE UNSOLICITED RESULTS [facility] [place] [facility] [address] [facility] [place] [address] documented in this encounter Visit Diagnoses Diagnosis Multigravida of advanced maternal age in third trimester- Primary High-risk in third trimester Chronic hypertension in Benign essential hypertension complicating , childbirth, and the puerperium, unspecified as to episode of care Rh negative status during in third trimester Antepartum anemia complicating Anemia, antepartum Thrombocytopenia affecting (HCC) Advanced maternal age in multigravida Chronic hypertension in Benign essential hypertension complicating , childbirth, and the puerperium, unspecified as to episode of care documented in this encounter Administered Medications Inactive Administered Medications - up to 3 most recent administrations Medication Order MAR Action Action Date Dose Rate Site betamethasone acet & sod phos (Celestone Soluspan) inj 12 mg 12 mg, Intramuscular, Q24H, First dose on Mon08/19/24 at 1445, Last dose on Mon08/20/24 at 1445, For 2 doses Given 08/20/2024 2:44 PM EDT 12 mg Ventrogluteal Left Given 08/19/2024 2:17 PM EDT 12 mg Ve ntrogluteal Right documented in this encounter Care Teams Property Claims Adjuster Relationship Specialty Start Date End Date Sanchez Pastor MD [address] [place] [address] PCP - General Family Medicine 05/04/18 documented as of this encounter
--- OUTSIDE RECORDS SUMMARY | 2024-09-18 05:20 | External Medical Summary ---
Author Name Unknown Address Unknown Organization [facility] [place] [address] Laboratory Report Ordering Provider Test Date Status CRISTINO UMAÑA 08/19/2024 13:56:00 Final Observation Date Value Abnormality Reference (Units ) Status Color of Urine by Auto 08/19/2024 13:56:00 Yellow Light Yellow, Yellow Final Clarity, Urine 08/19/2024 13:56:00 Clear Clear Final Glucose [Mass/volume] in Urine by Automated test strip 08/19/2024 13:56:00 Negative Negative (mg/dL) Final Bilirubin.total [Presence] in Urine by Automated test strip 08/19/2024 13:56:00 Negative Negative Final Ketones [Mass/volume] in Urine by Automated test strip 08/19/2024 13:56:00 Negative Negative (mg/dL) Final Specific gravity, Urine 08/19/2024 13:56:00 1.010 1.003-1.030 Final Hemoglobin [Presence] in Urine by Automated test strip 08/19/2024 13:56:00 Negative Negative Final pH, Urine 08/19/2024 13:56:00 7.0 5.0, 5.5, 6.0, 6.5, 7.0, 7.5 (units) Final Protein [Mass/volume] in Urine by Automated test strip 08/19/2024 13:56:00 Negative Negative (mg/dL) Final Urobilinogen, Urine 08/19/2024 13:56:00 0.2 0.2, 1.0 (mg/dL) Final Nitrite [Presence] in Urine by Automated test strip 08/19/2024 13:56:00 Negative Negative Final Leukocyte esterase [Presence] in Urine by Automated test strip 08/19/2024 13:56:00 Trace Abnormal Negative Final Performing Location [facility] [address] - [address] [place] [address]
--- OUTSIDE RECORDS SUMMARY | 2024-09-18 05:20 | External Medical Summary | Summary of Care ---
Author Name Unknown Organization [facility] Address [address] [facility] [place] [address] Phone [phone] Care Team Providers Care Irrigating Pump Operator Name Role Phone Sanchez Pastor MD Primary Care Provider Reason for Visit * Reason Comments Medication Administration Encounter Details Date Type Department Care Team (Late st Contact Info) Description 08/20/2024 2:45 PM EDT Nurse Only Gynecology/Obstetric s [facility] [address] [place] [address] Gw, Nurse Obgyn Injection [address] [facility] [place] [address] Medication Administration Allergies No known active allergiesdocumented as of this encounter (statuses as of 08/20/2024) Medications Medication Sig Dispensed Refills Start Date [...] as of this encounter (statuses as of 08/20/2024) Active Problems Problem Noted Date Diagnosed Date [...] as of this encounter (statuses as of 08/20/2024) Resolved Problems Problem Noted Date Diagnosed Date [...] as of this encounter (statuses as of 08/20/2024) Immunizations Name Administration Dates Next Due Seasonal [...] No 05/25/2024 Does the household have a veterans affairs ann [facility] healthcare systemr source of income? (Household - for ages [...] as of this encounter Progress Notes * Michaela Bergman CMA - 08/20/2024 2:43 PM EDT Patient here for Betamethasone injection. Patient doing well no complaints. Injection given IM as ordered. Patient tolerated well. Patient to follow up as directed. Patient instructed to call if any complications. Patient verbalized understanding of instructions given and her follow up appt for JANIA Injection site: Left Gluteus Medication Source: Dispensed stock medication documented in this encounter Plan of Treatment Upcoming Encounters Date Type Department Care Team (Late st Contact Info) Description 08/22/2024 10:15 AM EDT Office Visit Gynecology/Obstetrics [facility] [address] [place] [address] Caity Corcoran CRNP [address] [place] [address] Jane, Non Stress Tests Ronald [address] [place] [address] 08/26/2024 1:15 PM EDT Office Visit Gynecology/Obstetrics [facility] [address] [place] [address] Miesha Negro CRNP [address] [place] [address] Jane, Non Stress Tests [facility] [address] [place] [address] 08/29/2024 1:00 PM EDT Office Visit Gynecology/Obst[facility]s [facility] [address] [place] [address] Caity Corcoran CRNP [address] [place] [address] Jane, Non Stress Tests Ronald [address] [place] [address] 09/02/2024 2:30 PM EST Office Visit Gynecology/Obstetrics [facility] [address] [place] [address] Ole Cruz MD [address] [place] [address] Jane, Non Stress Tests [facility] [address] [place] [address] 09/05/2024 10:15 AM EST Office Visit Gynecology/Obst[facility]s [facility] [address] [place] [address] Rivka Powers PA-C [address] [place] [address] [place] [address] Jane, Non Stress Tests [facility] [address] [place] [address] 09/09/2024 1:00 PM EST Office Visit Gynecology/Obstetrics [facility] [address] [place] [address] Miesha Negro CRNP [address] [place], [place] [address] Jane, Non Stress Tests [facility] [address] [place] [address] 09/12/2024 10:15 AM EST Office Visit Gynecology/Obstetrics [facility] [address] [place] [address] Caity Corcoran CRNP [address] [place] [address] Jane, Non Stress Tests Ronald [address] [place] [address] 09/12/2024 1:00 PM EST Imaging Maternal Medicine Imaging, Ronald Jane [address] [place] [id number] 09/16/2024 1:00 PM EST Office Visit Gynecology/Obstetrics [facility] [address] [place] [address] Miesha Negro CRNP [address] [place] [address] Jane, Non Stress Tests Ronald [address] [place] [address] 09/19/2024 10:15 AM EST Office Visit Gynecology/[facility]s [facility] [address] [place] [address] Caity Corcoran CRNP [address] [place] [address] Jane, Non Stress Tests Ronald [address] [place] [address] 09/23/2024 1:15 PM EST Office Visit Gynecology/[facility]st[facility] [address] [place] [address] Backer, LEXX Sanchez [address] [place] [address] Jane, Non Stress Tests Ronald [address] [place] [address] 09/27/2024 11:00 AM EST Office Visit Gynecology/Obstetrics [facility] [address] [place] [address] BackerMiesha CRNP [address] [place] [address] Jane, Non Stress Tests Ronald [address] [place] [address] 09/30/2024 1:00 PM EST Office Visit Gynecology/Obstetrics [facility] [address] [place] [address] Backer, LEXX Sanchez [address] [place] [address] Jane, Non Stress Tests Ronald [address] [place] [address] Health Maintenance Due Date Last Done Comments [...] as of this encounter Visit Diagnoses Diagnosis Encounter for medication administration- Primary documented in this encounter Administered Medications Inactive Administered Medications - up to 3 most recent administrations Medication Order MAR Action Action Date Dose Rate Site betamethasone acet & sod phos (Celestone Soluspan) inj 12 mg 12 mg, Intramuscular, Q24H, First dose on 08/19/24 at 1445, Last dose on Mon08/20/24 at 1445, For 2 doses Given 08/20/2024 2:44 PM EDT 12 mg Ventrogluteal Left Given 08/19/2024 2:17 PM EDT 12 mg Ve ntrogluteal Right documented in this encounter Care Teams Irrigating Pump Operator Relationship Specialty Start Date End Date Sanchez Pastor MD [address] [place] [address] PCP - General Family Medicine 05/04/18 documented as of this encounter
--- OUTSIDE RECORDS SUMMARY | 2024-09-18 05:20 | External Medical Summary | Summary of Care ---
Author Name Unknown Organization [facility] Address [address] [facility] [place] [address] Phone [phone] Care Team Providers Care Faculty Administrator Name Role Phone Sanchez Pastor MD Primary Care Provider [phone] Reason for Visit * Reason Comments Return Visit Non Stress Test Encounter Details Date Type Department Care Team (Late st Contact Info) Description 08/19/2024 1:00 PM EDT Office Visit Gynecology/Obstetric s [facility] [address] [place] [address] Tamera Barrow PA-C [address] [place] [address] Buck, Non Stress Tests Ronald [address] [place] [address] Multigravida of advanced maternal age in third [...] pain, SOB, RUQ pain, or epigastric pain. UA negative for proteins today. ASSESSMENT assessment with Non-stress Test completed on [...] in office. Advised repeat labs today. Continue weekly NST. Pre-eclampsia precautions. No dose change in medication at this time. Offer betamethasone injection repeat in 24 hours. Patient accepts steroid injection. First dose today. PEC precautions reviewed. Has BP cuff at home. Call or go to hospital if 160/105 or greater, or if persistently 140/90 call. Pt to return tomorrow second steroid injection RTC in 1 week for NST/JANIA * Michaela Bergman CMA - 08/19/2024 1:01 PM EDT 33w3d Denies any concerns BP elevated at beginning of appointment 142/92. Retaken before pt left, 138/88 documented in this encounter Plan of Treatment Upcoming Encounters Date Type Department Care Team (Late st Contact Info) Description 08/20/2024 2:45 PM EDT Nurse Only Gynecology/Obstetrics [facility] [address] [place] [address] Gw, Nurse Obgyn Injection [address] [place] [address] 08/22/2024 10:15 AM EDT Office Visit Gynecology/Obstetrics [facility] [address] [place] [address] Caity Corcoran CRNP [address] [place] [address] Xuan Jane Stress Tests Ronald [address] [place] [address] 08/26/2024 1:15 PM EDT Office Visit Gynecology/Obstetrics [facility] [address] [place] [address] Miesha Negro CRNP [address] [place] [address] Buck Non Stress Tests Ronald [address] [place] [address] 08/29/2024 1:00 PM EDT Office Visit Gynecology/Obstetrics [facility] [address] [place] [address] Caity Corcoran CRNP [address] [place] [address] Buck Non Stress Tests Ronald [address] [place] [address] 09/02/2024 2:30 PM EST Office Visit Gynecology/Obstetrics [facility] [address] [place] [address] Ole Cruz MD [address] [place] [address] Buck Non Stress Tests Ronald [address] [place] [address] 09/05/2024 10:15 AM EST Office Visit Gynecology/Obstetrics [facility] [address] [place] [address] Rivka Powers PA-C [address] [place] [address] [place] [address] Buck Non Stress Tests Ronald [address] [place] [address] 09/09/2024 1:00 PM EST Office Visit Gynecology/Obstetrics [facility] [address] [place], [place] [address] Miesha Negro CRNP [address] [place] [address] Jane, Non Stress Tests Ronald [address] [place] [address] 09/12/2024 10:15 AM EST Office Visit Gynecology/Obstetrics Angel[facility] Tuckers [address] [place] [address] Caity Corcoran CRNP [address] [place], [place] [address] Jane, Non Stress Tests Ronald [address] [place], [place] [address] 09/12/2024 1:00 PM EST Imaging Maternal Medicine Imaging, Ronald Jane [address] [place] [address] 09/16/2024 1:00 PM EST Office Visit Gynecology/Obstetrics [facility] [address] [place] [address] Miesha Negro CRNP [address] [place] [address] Jane, Non Stress Tests Ronald [address] [place] [address] 09/19/2024 10:15 AM EST Office Visit Gynecology/Obstetrics [facility] [address] [place], [place] [address] Caity Corcoran CRNP [address] [place] [address] Buck, Non Stress Tests Ronald [address] [place], [place] [address] 09/23/2024 1:15 PM EST Office Visit Gynecology/Obstetrics [facility] [address] [place], [place] [address] Miesha Negro CRNP [address] [place] [address] Buck, Non Stress Tests Ronald [address] [place], [place] [address] 09/27/2024 11:00 AM EST Office Visit Gynecology/Obstetrics [facility] [address] [place] [address] Miesha Negro CRNP [address] [place] [address] Buck Non Stress Tests Ronald [address] [place] [address] 09/30/2024 1:00 PM EST Office Visit Gynecology/Obstetrics [facility] [address] [place] [address] Miesha Negro CRNP [address] [place] [address] Buck, Non Stress Tests Ronald [address] [place] [address] Pending Results Name Type Priority Associated Diagnoses Date /Time CBC Lab Routine Chronic hypertension in 08/19/2024 2:30 PM EDT COMPREHENSIVE METABOLIC PANEL Lab Routine Chronic hypertension in 08/19/2024 2:30 PM EDT PROTEIN/ CREATININE RATIO, URINE Lab Routine Chronic hypertension in 08/19/2024 2:14 PM EDT Health Maintenance Due Date Last Done Comments Hepatitis B Vaccine (1 of 3 - 19+ 3-dose series) 2005 Depression Screening 06/05/2020 06/05/2019 COVID-19 Vaccine ( - season) 2024 GFR 08/16/2025 08/16/2024, 06/30, 05/17/2024, [...] Comments URINALYSIS OBSTETRICS, POINT OF CARE Routine 08/19/2024 1:56 PM EDT Multigravida of advanced maternal age in third trimester Chronic hypertension in documented in this encounter Results * US BPP W/O NON-STRESS TEST (08/19/2024 [...] PM EDT LAB[facility]AT[facility] [place] [facility]10 Specific [place], Urine 1.010 1.003 - 1.030 08/19/2024 1:59 [...] UNSOLICITED RESULTS [facility] [place] [facility] [place] [address] documented in this encounter Visit Diagnoses Diagnosis [...] care documented in this encounter Administered Medications Active Administered Medications - up to 3 most recent administrations Medication Order MAR Action Action Date Dose Rate Site betamethasone acet & sod phos (Celestone Soluspan) inj 12 mg 12 mg, Intramuscular, Q24H, First dose on Mon08/19/24 at 1445, Last dose on Mon08/20/24 at 1445, For 2 doses Given 08/19/2024 2:17 PM EDT 12 mg Ventrogluteal Right documented in this encounter Care Teams Faculty Administrator Relationship Specialty Start Date End Date Sanchez Pastor MD [address] [place], [place] [id number] PCP - General Family Medicine 05/04/18 documented as of this encounter
--- OUTSIDE RECORDS SUMMARY | 2024-09-18 05:20 | External Medical Summary ---
Author Name Unknown Address Unknown Organization [id number][place] [place] [facility] [place] [address] Laboratory Report Ordering Provider Test Date Status CHASIDYCRISTINO 08/19/2024 14:14:33 Final Normal: <150 mg/ g creatinine
High: 150-500 mg/g creatinine
Very High: >500 mg/g creatinine
Nephrotic: >3000 mg/g creatinine Observation Date Value Abnormality Reference (Units ) Status Protein/Creatinine [Ratio] in Urine 08/19/2024 14:14:33 <158 Above high normal <150 (mg/g ) Final Protein, Urine 08/19/2024 14:14:33 <6 (mg/dL) Final Creatinine, Urine 08/19/2024 14:14:33 38 (mg/dL) Final Performing Location [facility] [place] [address] [place] [address]
--- OUTSIDE RECORDS SUMMARY | 2024-09-18 05:20 | External Medical Summary | Summary of Care ---
Author Name Unknown Organization [facility] Address [address] [facility] [place] [address] Phone [phone] Care Team Providers Care Senior Contracts Manager Name Role Phone Sanchez Pastor MD Primary Care Provider [phone] Reason for Visit * Reason Comments Return Visit Non Stress Test Encounter Details Date Type Department Care Team (Late st Contact Info) Description 08/19/2024 1:00 PM EDT Office Visit Gynecology/Obstetric s [facility] [address] [place] [address] Tamera Barrow PA-C [address] [place] [address] Buck, Non Stress Tests Ronald [address] [place] [address] Multigravida of advanced maternal age in third [...] Gynecology/Obstetrics [facility] [address] [place] [address] Gw, Nurse Obgyn Injection [address] [place] [address] 08/22/2024 10:15 AM EDT Office Visit Gynecology/Obstetrics [facility] [address] [place] [address] Caity Corcoran CRNP [address] [place] [address] Xuan Jane Stress Tests Ronald [address] [place] [address] 08/26/2024 1:15 PM EDT Office Visit Gynecology/Obstetrics [facility] [address] [place] [address] Miesha Negro CRNP [address] [place] [address] Buck Non Stress Tests Ronald [address] [place] [address] 08/29/2024 1:00 PM EDT Office Visit Gynecology/Obstetrics [facility] [address] [place] [address] Caity Corcoran CRNP [address] [place] [address] Buck Non Stress Tests Ronald [address] [place] [address] 09/02/2024 2:30 PM EST Office Visit Gynecology/Obstetrics [facility] [address] [place] [address] Ole Cruz MD [address] [place] [address] Buck Non Stress Tests Ronald [address] [place] [address] 09/05/2024 10:15 AM EST Office Visit Gynecology/Obstetrics [facility] [address] [place] [address] Rivka Powers PA-C [address] [place] [address] [place] [address] Buck Non Stress Tests Ronald [address] [place] [address] 09/09/2024 1:00 PM EST Office Visit Gynecology/Obstetrics [facility] [address] [place], [place] [address] Miesha Negro CRNP [address] [place] [address] Jane, Non Stress Tests Ronald [address] [place] [address] 09/12/2024 10:15 AM EST Office Visit Gynecology/Obstetrics [facility] Tuckers [address] [place] [address] Caity Corcoran CRNP [address] [place], [place] [address] Jane, Non Stress Tests Ronald [address] [place], [place] [address] 09/12/2024 1:00 PM EST Imaging Maternal Medicine Imaging, Ronald Jane [address] [place] [id number] 09/16/2024 1:00 PM EST Office Visit Gynecology/Obstetrics [facility] [address] [place] [address] Miesha Negro CRNP [address] [place] [address] Jane, Non Stress Tests Ronald [address] [place] [address] 09/19/2024 10:15 AM EST Office Visit Gynecology/Obstetrics [facility] [address] [place], [place] [address] Caity Corcoran CRNP [address] [place] [address] Buck, Non Stress Tests Ronald [address] [place], [place] [address] 09/23/2024 1:15 PM EST Office Visit Gynecology/Obstetrics [facility] [address] [place] [address] Miesha Negro CRNP [address] [place] [address] Buck Non Stress Tests Ronald [address] [place] [address] 09/27/2024 11:00 AM EST Office Visit Gynecology/Obstetrics [facility] Jane [address] [place] [address] Miesha Negro CRNP [address] [place] [address] Buck Non Stress Tests Ronald [address] [place] [address] 09/30/2024 1:00 PM EST Office Visit Gynecology/Obstetrics Tan Jane [address] [place] [address] Miesha Negro CRNP [address] [place] [address] Buck Non Stress Tests Ronald [address] [place] [address] Pending Results Name Type Priority Associated Diagnoses Date /Time COMPREHENSIVE METABOLIC PANEL Lab Routine Chronic hypertension [...] Priority Date/Time Associated Diagnosis Comments CBC Routine 08/19/2024 2:30 PM EDT Chronic hypertension in URINALYSIS OBSTETRICS, POINT OF CARE Routine 08/19/2024 1:56 PM EDT Multigravida of advanced maternal age in third trimester Chronic hypertension in documented in this encounter Results * (ABNORMAL) CBC (08/19/2024 2:30 PM EDT) [...] Tamera Barrow PA-C LAB BLOOD ORDERABLES [facility] [place] [facility]10 [address] [place] [address] * US BPP W/O NON-STRESS TEST (08/19/2024 [...] PM EDT LABORATORY [place] [facility]-10 Specific [place], Urine 1.010 1.003 - 1.030 08/19/2024 1:59 [...] DEVICE UNSOLICITED RESULTS [facility] [place] [address] [place] [address] [place] [address] documented in this encounter Visit Diagnoses Diagnosis [...] Right documented in this encounter Care Teams Senior Contracts Manager Relationship Specialty Start Date End Date Sanchez Pastor MD [address] [place] [address] PCP - General Family Medicine 05/04/18 documented as of this encounter
--- OUTSIDE RECORDS SUMMARY | 2024-09-18 05:20 | External Medical Summary ---
Author Name Unknown Address Unknown Organization [id number]:LAB[facility]ATORY [place] [facility] - [address] [place] [address] Laboratory Report Ordering Provider Test Date Status CRIST[place] UMAÑA 08/19/2024 14:30:35 Final Observation Date Value Abnormality Reference (Units ) Status WBC, Total 08/19/2024 14:30:35 10.11 4.00-10.8 0 (K/uL) Final RBC 08/19/2024 14:30:35 3.65 3.85-5.15 (M/uL) Final Hemoglobin 08/19/2024 14:30:35 12.2 12.0-15.3 (g/dL) Final HCT 08/19/2024 14:30:35 35.1 Below low normal 36. 0-45.2 (%) Final MCV 08/19/2024 14:30:35 96.2 81.5-97.5 (fL) Final MCH 08/19/2024 14:30:35 33.4 27.0-34.0 (pg) Final MCHC 08/19/2024 14:30:35 34.8 32.0-36.0 (g/dL) Final RDW 08/19/2024 14:30:35 12.7 11.5-15.5 (%) Final Platelets 08/19/2024 14:30:35 104 Below low normal 140 -400 (K/uL) Final MPV 08/19/2024 14:30:35 13.9 6.6-11.1 ( fL) Final Per[facility] [address] [place] [address]
--- OUTSIDE RECORDS SUMMARY | 2024-09-18 05:21 | External Medical Summary | Summary of Care ---
Author Name Unknown Organization [facility] Address [address] [facility] [place] [address] Phone [phone] Care Team Providers Care Cement Handler Name Role Phone Sanchez Pastor MD Primary Care Provider [phone] Encounter Details Date Type Department Care Team (Late st Contact Info) Description 08/13/2024 Orders Only Laboratory, [facility] [address] [facility] [place] [address] Rivka Powers PA-C [address] [facility] [place] [address] Thrombocytopenia affecting (HCC)* Allergies No known active allergiesdocumented as of this encounter (statuses as of 08/13/2024) Medications Medication Sig Dispensed Refills Start Date [...] as of this encounter (statuses as of 08/13/2024) Active Problems Problem Noted Date Diagnosed Date Thrombocytopenia affecting 08/13/2024 Overview: CBC 08/13 showed PTL count 134. Previously WNL. BP at appointment 08/12 136/88 Repeat baseline PEC labs ordered 08/13. Antepartum anemia complicating 024 Overview: Rx'd iron at 28 wks Rh negative status during 04/15/2024 Elderly multigravida 04/10/2024 Overview: Ms. Ron will be [...] 03/18/2024 10:42 AM Last Assessment & Plan: She presents for follow-up of growth secondary to CHTN (on nifedipine) and AMA. Today's ultrasound notes the following: The estimated weight is appropriate for gestational age in the 16th percentile. The visualized anatomy is unremarkable in appearance. The YOLI is normal. HTN, goal below 130/80 05/04/2018 Family history of thyroid disease 01/12/2018 Estimated Date of Delivery Comme nts Yes 10/04/2024 Based on Ultraso und documented as of this encounter (statuses as of 08/13/2024) Resolved Problems Problem Noted Date Diagnosed Date [...] as of this encounter (statuses as of 08/13/2024) Immunizations Name Administration Dates Next Due Seasonal [...] No 05/25/2024 Does the household have a [facility] hospital[facility] source of income? (Household - for [...] Care Team (Late st Contact Info) Description 08/15/2024 1:00 PM EDT Imaging Maternal Medicine Imaging, Ronald Frag[address] [place] [phone] 08/15/2024 1:00 PM EDT Office Visit Agile [employer] Developer Obstetrics Maternal Medicine, Ronald Richtergail [place] [address] Jacqueline Fleming, DO [address] [place] [address] 08/19/2024 1:00 PM EDT Office Visit Gynecology/Obstetrics [facility] [address] [place] [address] Tamera Barrow PA-C [address] [place] [address] Jane, Non Stress Tests Ronald [address] [place] [address] 08/22/2024 10:15 AM EDT Office Visit Gynecology/Obstetrics [facility] [address] [place] [address] Caity Corcoran CRNP [address] [place] [address] Buck Non Stress Tests Ronald [address] [place] [address] 08/26/2024 1:15 PM EDT Office Visit Gynecology/Obstetrics [facility] [address] [place] [address] Miesha Negro CRNP [address] [place] [address] Buck Non Stress Tests Ronald [address] [place] [address] 08/29/2024 1:00 PM EDT Office Visit Gynecology/Obstetrics [facility] [address] [place] [address] Caity Corcoran CRNP [address] [place] [address] Buck, Non Stress Tests Ronald [address] [place] [address] 09/02/2024 2:30 PM EST Office Visit Gynecology/Obstetrics [facility] [address] [place] [address] Ole Cruz MD [address] [place] [address] Jane, Non Stress Tests Ronald [address] [place] [address] 09/05/2024 10:15 AM EST Office Visit Gynecology/Obstetrics [facility] [address] [place] [address] Rivka Powers PA-C [address] [place] [address] [place] [address] Buck, Non Stress Tests Ronald [address] [place] [address] 09/09/2024 1:00 PM EST Office Visit Gynecology/Obstetrics [facility] [address] [place] [address] Miesha Negro CRNP [address] [place] [address] Buck, Non Stress Tests Ronald [address] [place] [address] 09/12/2024 10:15 AM EST Office Visit Gynecology/Obstetrics [facility] [address] [place] [address] Caity Corcoran CRNP [address] [place] [address] Jane, Non Stress Tests Ronald [address] [place] [address] 09/12/2024 1:00 PM EST Imaging Maternal Medicine Imaging, Ronald Jane [address] [place] [address] 09/16/2024 1:00 PM EST Office Visit Gynecology/Obstetrics [facility] [address] [place] [address] Miesha Negro CRNP [address] [place] [address] Buck, Non Stress Tests Ronald [address] [place] [address] 09/19/2024 10:15 AM EST Office Visit Gynecology/Obstetrics [facility] Tuckers [address] [place] [address] Caity Corcoran CRNP [address] [place] [address] Buck Non Stress Tests Ronald [address] [place] [address] 09/23/2024 1:15 PM EST Office Visit Gynecology/Obstetrics Tan Tuckers [address] [place] [address] Miesha Negro CRNP [address] [place] [address] Buck Non Stress Tests Ronald [address] [place] [address] 09/27/2024 11:00 AM EST Office Visit Gynecology/Obstetrics [facility] [address] [place] [address] Miesha Negro CRNP [address] [place] [address] Buck Non Stress Tests Ronald [address] [place] [address] 09/30/2024 1:00 PM EST Office Visit Gynecology/Obstetrics Tan Jane [address] [place] [address] [place], MieshaLEXX Tid[place] [address] [place] [address] Buck, Non Stress Tests Ronald [address] [place] [address] Scheduled Orders Name Type Priority Associated Diagnoses Orde r Schedule COMPREHENSIVE METABOLIC PANEL Lab Routine Thrombocytopenia affecting (HCC) Expected: 08/13/2024, Expires: 08/13/2025 PROTEIN/ CREATININE RATIO, URINE Lab Routine Thrombocytopenia affecting (HCC) Expected: 08/13/2024 (Approximate), Expires: 08/13/2025 Health Maintenance Due Date Last Done Comments Hepatitis B Vaccine (1 of 3 - 19+ 3-dose series) 2005 Depression Screening 06/05/2020 06/05/2019 COVID-19 Vaccine ( season) 2024 GFR 07/11/2025 07/11/2024, 04/29, 03/18/2024, Additional history exists Pap Smear 03/18/2027 03/18/2024, 05/30, 04/25/2017, Additional history exists Diabetes Screening 05/17/2027 05/17/2024, 0 03/18/2024, 01/13/2018, Additional history exists Cervical Cancer Screening 03/18/2029 [...] this encounter Visit Diagnoses Diagnosis Thrombocytopenia affecting (HCC)- Primary documented in this encounter Care Teams Cement Handler Relationship Specialty Start Date End Date Sanchez Pastor MD [address] [place] [address] PCP - General Family Medicine 05/04/18 documented as of this encounter
--- OUTSIDE RECORDS SUMMARY | 2024-09-18 05:21 | External Medical Summary | Summary of Care ---
Author Name Unknown Organization [facility] Address [address] [facility] [place] [address] Phone [phone] Care Team Providers Care Press Set Up Person Name Role Phone Sanchez Pastor MD Primary Care Provider [phone] Reason for Visit * Reason Comments Return Visit Encounter Details Date Type Department Care Team (Late st Contact Info) Description 07/29/2024 10:15 AM EDT Office Visit Gynecology/Obstetric s Tan Jane [address] [place] [address] Caity Corcoran CRNP [address] [place] [address] Multigravida of advanced maternal age in third trimester*; High-risk in third trimester; Chronic hypertension in ; Rh negative, antepartum; Antepartum anemia complicating ; Need for prophylactic vaccination and inoculation against influenza; Need for prophylactic vaccination with combined ualfcaktmy-uxtglxx-jf rtussis (DTP) vaccine Allergies No known active allergiesdocumented as of this encounter (statuses as of 07/29/2024) Medications Medication Sig Dispensed Refills Start Date [...] Route Frequency Start Date End Date Status Rho D Immune Globulin (Rhophylac) inj 300 mcgIndications:Rh negative, antepartum 300 mcg IM ONCE 07/29/2024 07/29/2024 Ended documented as of this encounter (statuses as of 07/29/2024) Active Problems Problem Noted Date Diagnosed Date Antepartum anemia complicating 024 Overview: Rx'd iron [...] [facility] 03/18/2024 10:42 AM ALT - [facility] 03/18/2024 10:42 AM Last Assessment & Plan: [...] as of this encounter (statuses as of 07/29/2024) Resolved Problems Problem Noted Date Diagnosed Date [...] as of this encounter (statuses as of 07/29/2024) Immunizations Name Administration Dates Next Due Seasonal [...] No 05/25/2024 Does the household have a [facility] source of income? (Household - for ages [...] Sign Reading Time Taken Comments Blood Pressure 120/88 07/29/2024 11:52 AM EDT Pulse - - Temperature - - Respiratory Rate - - Oxygen Saturation - - Inhaled Oxygen Concentration - - Weight 90.5 kg (199 lb 9.6 oz) 07/29/2024 10:22 AM EDT Height - - Body Mass Index 30.35 06/10/2024 2:02 PM EDT documented in this encounter Progress Notes * Caity Corcoran CRNP - 07/29/2024 10:52 AM EDT 30w3d Having some numbness in fingers in the morning, hard to grasp things. Discussed carpal tunnel. BP elevated upon arrival, but rushed to get here. Repeat is at her baseline. To begin NSTs with next visit. Rhogam, TDAP, influenza vaccines today. LEXX Lemus * Michaela Bergman CMA - 07/29/2024 10:47 AM EDT Patient here for FLU vaccine injection. Patient doing well no complaints. Injection given IM as ordered. Patient tolerated well. Patient to follow up as directed. Patient instructed to call if any complications. Patient verbalized understanding of instructions given and her follow up appt for JANIA Injection site: Left Deltoid Medication Source: Dispensed stock medication Patient here for Rhogam injection. Patient doing well no complaints. Injection given IM as ordered.Patient tolerated well. Patient to follow up as directed. Patient instructed to call if any complications. Patient verbalized understanding of instructions given and her follow up appt for JANIA Injection site: Left Gluteus Medication Source: Dispensed stock medication Patient here for TDAP injection. Patient doing well no complaints. Injection given IM as ordered. Patient tolerated well. Patient to follow up as directed. Patient instructed to call if any complications. Patient verbalized understanding of instructions given and her follow up appt for JANIA Injection site: Right Deltoid Medication Source: Dispensed stock medication * Michaela Bergman CMA - 07/29/2024 10:22 AM EDT 30w3d Both hands tingling/numb when laying down at night. Hard to move in the morning when waking up. Started about 2 week ago. documented in this encounter Plan of Treatment Upcoming Encounters Date Type Department Care Team (Late st Contact Info) Description 08/12/2024 10:15 AM EDT Office Visit Gynecology/Obstetrics Tan Tuckers [address] [place] [address] Rivka Powers PA-C [address] [place] [address] [place] [address] Jane, Non Stress Tests Ronald [address] [place] [address] 08/15/2024 1:00 PM EDT Imaging Maternal Medicine Imaging, Ronald Jane [address] [place] [phone] 08/19/2024 1:00 PM EDT Office Visit Gynecology/Obstetrics Tan Tuckers [address] [place] [address] Miesha Negro CRNP [address] [place] [address] Buck, Non Stress Tests Ronald [address] [place] [address] 08/22/2024 10:15 AM EDT Office Visit Gynecology/Obstetrics Tan Tuckers [address] [place] [address] Caity Corcoran CRNP [address] [place] [address] Jane, Non Stress Tests Ronald [address] [place] [address] 08/26/2024 1:15 PM EDT Office Visit Gynecology/Obstetrics Tan Tuckers [address] [place] [address] Miesha Negro CRNP [address] [place] [address] Buck Non Stress Tests Ronald [address] [place] [address] 08/29/2024 1:00 PM EDT Office Visit Gynecology/Obstetrics Angel[facility] Jane [address] [place] [address] Caity Corcoran CRNP [address] [place] [address] Buck Non Stress Tests Ronald [address] [place] [address] 09/02/2024 2:30 PM EST Office Visit Gynecology/Obstetrics Tan T[facility]ers [address] [place] [address] Ole Cruz MD [address] [place] [address] Buck Non Stress Tests Ronald [address] [place] [address] 09/05/2024 10:15 AM EST Office Visit Gynecology/Obstetrics Tan Tuckers [address] [place] [address] Rivka Powers PA-C [address] [place] [address] [place] [address] Buck Non Stress Tests Ronald [address] [place] [address] 09/09/2024 1:00 PM EST Office Visit Gynecology/Obstetrics [facility] Jane [address] [place] [address] Miesha Negro CRNP [address] [place] [address] Jane, Non Stress Tests Ronald [address] [place] [address] 09/12/2024 10:15 AM EST Office Visit Gynecology/Obstetrics [facility] Jane [address] [place] [address] Caity Corcoran CRNP [address] [place] [address] Jane, Non Stress Tests Ronald [address] [place] [address] 09/12/2024 1:00 PM EST Imaging Maternal Medicine Imaging, Ronald Tuckers [address] [place] [address] 09/16/2024 1:00 PM EST Office Visit Gynecology/Obstetrics [facility] Jane [address] [place] [address] Miesha Negro CRNP [address] [place] [address] Jane, Non Stress Tests Ronald [address] [place] [address] 09/19/2024 10:15 AM EST Office Visit Gynecology/Obstetrics [facility] Jane [address] [place] [address] Caity Corcoran CRNP [address] [place] [address] Jane, Non Stress Tests Ronald [address] [place] [address] 09/23/2024 1:15 PM EST Office Visit Gynecology/Obstetrics [facility] [address] [place] [address] Miesha Negro CRNP [address] [place] [address] Buck Non Stress Tests Ronald [address] [place] [address] 09/27/2024 11:00 AM EST Office Visit Gynecology/Obstetrics [facility] Tuckers [address] [place] [address] Miesha Negro CRNP [address] [place] [address] Xuan Jane Stress Tests Ronald [address] [place] [address] 09/30/2024 1:00 PM EST Office Visit Gynecology/Obstetrics [facility] Buck [address] [place] [address] Miesha Negro CRNP [address] [place] [address] Xuan Jane Stress Tests Ronald [address] [place] [address] Health Maintenance Due Date Last Done Comments Hepatitis B Vaccine (1 of 3 - 19+ 3-dose series) 2005 Depression Screening 06/05/2020 06/05/2019 COVID-19 Vaccine (2023- season) 2024 GFR 07/11/2025 07/11/2024, 04/29, 03/18/2024, [...] antepartum condition Antepartum anemia complicating Anemia, antepartum Need for prophylactic vaccination and inoculation against influenza Need for prophylactic vaccination with combined ttenriupzd-okrvijr-qksnrgjnp (DTP) vaccine documented in this encounter Administered Medications Inactive Administered Medications - up to 3 most recent administrations Medication Order MAR Action Action Date Dose Rate Site Rho D Immune Globulin (Rhophylac) inj 300 mcg 300 mcg, Intramuscular, ONCE, On 07/29/24 at 1130, For 1 dose, Do not administer until type and screen has been collected! 1 MCG = 5 INTERNATIONAL UNITS Given 07/29/2024 11:01 AM EDT 300 mcg Ventrogluteal Left documented in this encounter Care Teams Press Set Up Person Relationship Specialty Start Date End Date Sanchez Pastor MD [address], [place] [id number] PCP - General Family Medicine 05/04/18 documented as of this encounter
--- OUTSIDE RECORDS SUMMARY | 2024-09-18 05:21 | External Medical Summary ---
Author Name Unknown Address Unknown Organization K0G:[facility] [place] [address] Laboratory Report Ordering Provider Test Date Status MARY KAY SIMPSON 08/12/2024 10:58:00 Final Observation Date Value Abnormality Reference (Units ) Status Color of Urine by Auto 08/12/2024 10:58:00 Yellow Light Yellow, Yellow Final Clarity, Urine 08/12/2024 10:58:00 Clear Clear Final Glucose [Mass/volume] in Urine by Automated test strip 08/12/2024 10:58:00 Negative Negative (mg/dL) Final Bilirubin.total [Presence] in Urine by Automated test strip 08/12/2024 10:58:00 Negative Negative Final Ketones [Mass/volume] in Urine by Automated test strip 08/12/2024 10:58:00 Negative Negative (mg/dL) Final Specific gravity, Urine 08/12/2024 10:58:00 1.015 1.003-1.030 Final Hemoglobin [Presence] in Urine by Automated test strip 08/12/2024 10:58:00 Negative Negative Final pH, Urine 08/12/2024 10:58:00 7.0 5.0, 5.5, 6.0, 6.5, 7.0, 7.5 (units) Final Protein [Mass/volume] in Urine by Automated test strip 08/12/2024 10:58:00 Negative Negative (mg/dL) Final Urobilinogen, Urine 08/12/2024 10:58:00 0.2 0.2, 1.0 (mg/dL) Final Nitrite [Presence] in Urine by Automated test strip 08/12/2024 10:58:00 Negative Negative Final Leukocyte esterase [Presence] in Urine by Automated test strip 08/12/2024 10:58:00 Trace Abnormal Negative Final Performing Location [facility] 0 - [address] [place] [address]
--- OUTSIDE RECORDS SUMMARY | 2024-09-18 05:21 | External Medical Summary ---
Author Name Unknown Address Unknown Organization K01:[facility] - [address] [facility] [place] [address] Laboratory Report Ordering Provider Test Date Status MARIAN STEVENS 08/12/2024 11:21:47 Final Observation Date Value Abnormality Reference (Units ) Status MYCODE SPECIMEN-SST 08/12/2024 11:21:47 Freezing of extracted DNA, whole blood and/or serum. Final Performing Location [facility] - [address] [facility] [address]
--- OUTSIDE RECORDS SUMMARY | 2024-09-18 05:21 | External Medical Summary ---
Author Name Unknown Address Unknown Organization K01:[facility] [place] - [address] [facility] [place] [address] Laboratory Report Ordering Provider Test Date Status MARIAN STEVENS 08/12/2024 11:21:47 Final Observation Date Value Abnormality Reference (Units ) Status MYCODE SPECIMEN-SST 08/12/2024 11:21:47 Freezing of extracted DNA, whole blood and/or serum. Final Performing Location [facility] [place] - [address] [facility] [address]
--- OUTSIDE RECORDS SUMMARY | 2024-09-18 05:21 | External Medical Summary ---
Author Name Unknown Address Unknown Organization K0G:[facility] [place] [address] - [address] [place] [address] Laboratory Report Ordering Provider Test Date Status MARY KAY SIMPSON 08/16/2024 11:17:56 Final Observation Date Value Abnormality Reference (Units ) Status BUN 08/16/2024 11:17:56 11 6-20 (mg/dL) Final Creatinine 08/16/2024 11:17:56 0.9 0.5-1.0 (mg/dL) Final Glomerular filtration rate/1.73 sq M.predicted [Volume Rate/Area] in Serum, Plasma or Blood by Creatinine-based formula (CKD-EPI) 08/16/2024 11:17:56 83 >=60 (mL/min) Final eGFR is calculated based on the CKD-EPI 2020 equation. Sodium 08/16/2024 11:17:56 137 135-146 (m mol/L) Final Potassium 08/16/2024 11:17:56 4.1 3.5-5.1 (m mol/L) Final Cl 08/16/2024 11:17:56 103 98-107 (mm ol/L) Final CO2 08/16/2024 11:17:56 24 22-32 (mmo l/L) Final Anion gap 08/16/2024 11:17:56 10 7-15 (mmol /L) Final Glucose 08/16/2024 11:17:56 77 70-120 (mg /dL) Final Albumin 08/16/2024 11:17:56 3.5 Below low normal 3.8 -5.0 (g/dL) Final AST (Aspartate aminotransferase) 08/16/2024 11:17:56 34 10-35 (U/L) Fin al Alk Phos 08/16/2024 11:17:56 119 35-130 (U/ L) Final Bilirubin, Total 08/16/2024 11:17:56 0.2 <=1 .2 (mg/dL) Final Calcium 08/16/2024 11:17:56 9.4 8.4-10.2 ( mg/dL) Final Protein 08/16/2024 11:17:56 5.8 Below low normal 6.0 -8.3 (g/dL) Final ALT (Alanine aminotransferase) 08/16/2024 11:17:56 41 Above high normal 10-35 (U/L) Final Performing Location [facility] [address] - [address] [facility] [place] [address]
--- OUTSIDE RECORDS SUMMARY | 2024-09-18 05:21 | External Medical Summary | Summary of Care ---
Author Name Unknown Organization [facility] Address [address] [facility] [place] [address] Phone [phone] Care Team Providers Care Wool Puller Name Role Phone Sanchez Pastor MD Primary Care Provider [phone] Encounter Details Date Type Department Care Team (Late st Contact Info) Description 05/14/2024 Telephone Gynecology/Obstetrics [facility] [address] [place] [address] Rivka Powers PA-C [address] [place] [address] Allergies No known active allergiesdocumented as of this encounter (statuses as of 08/13/2024) Medications Medication Sig Dispensed Refills Start Date End Date Status 28-0.8 MG Oral Tablet Take by mouth. Active Aspirin 81 MG Oral Tablet ChewableIndications:Hi gh-risk in second trimester,Multigravida of advanced maternal age in second trimester,Chronic hypertension in Take 1 Tablet by mouth in the morning. 100 Tablet 3 04/15/2024 Active documented as of this encounter (statuses [...] 08/13/2024) Immunizations Name Administration Dates Next Due TDAP (age 10 and older)(Boostrix) 07/18/2013 documented as of this encounter Social History [...] on file documented as of this encounter Miscellaneous Notes * Telephone Encounter - Patricia Crowley LPN - 05/14/2024 9:40 AM EDT Called pt lm to return call * Telephone Encounter - Patricia Crowley LPN - 05/14/2024 9:40 AM EDT ----- Message from Rivka Powers sent at 05/14/2024 8:22 AM EDT ----- Please let patient know her PCR was normal. Thanks! Rivka Powers PA-C documented in this encounter Plan of Treatment Upcoming Encounters Date Type Department Care Team (Late st Contact Info) Description 08/15/2024 1:00 PM EDT Imaging Maternal Medicine Imaging, [place] [address] [address] [place] [phone] 08/15/2024 1:00 PM EDT Office Visit [facility] Obstetrics Maternal Medicine, [address] [place] [address] Jacqueline Fleming, DO [address] [place], [place] [address] 08/19/2024 1:00 PM EDT Office Visit Gynecology/Obstetrics [facility] [address] [place] [address] Tamera Barrow PA-C [address] [place] [address] Buck Non Stress Tests Ronald [address] [place] [address] 08/22/2024 10:15 AM EDT Office Visit Gynecology/Obstetrics [facility] [address] [place] [address] Caity Corcoran CRNP [address] [place] [address] Buck Non Stress Tests Ronald [address] [place] [address] 08/26/2024 1:15 PM EDT Office Visit Gynecology/Obstetrics [facility] [address] [place] [address] Miesha Negro CRNP [address] [place] [address] Buck Non Stress Tests Ronald [address] [place] [address] 08/29/2024 1:00 PM EDT Office Visit Gynecology/Obstetrics [facility] [address] [place] [address] Caity Corcoran CRNP [address] [place] [address] Buck Non Stress Tests Ronald [address] [place] [address] 09/02/2024 2:30 PM EST Office Visit Gynecology/Obstetrics Tan Jane [address] [place] [address] Ole Cruz MD [address] [place] [address] Jane, Non Stress Tests Ronald [address] [place] [address] 09/05/2024 10:15 AM EST Office Visit Gynecology/Obstetrics Tan Jane [address] [place] [address] Rivka Powers PA-C [address] [place] [address] [place] [address] Xuan Jane Stress Tests Ronald [address] [place] [address] 09/09/2024 1:00 PM EST Office Visit Gynecology/Obstetrics Tan Jane [address] [place] [address] Miesha Negro CRNP [address] [place] [address] Buck Non Stress Tests Ronald [address] [place] [address] 09/12/2024 10:15 AM EST Office Visit Gynecology/Obstetrics Tan Jane [address] [place] [address] Caity Corcoran CRNP [address] [place] [address] Buck Non Stress Tests Ronald [address] [place] [address] 09/12/2024 1:00 PM EST Imaging Maternal Medicine Imaging, Ronald Jane [address] [place] [address] 09/16/2024 1:00 PM EST Office Visit Gynecology/Obstetrics Tan Jane [address] [place] [address] Miesha Negro CRNP [address] [place] [address] Buck Non Stress Tests Ronald [address] [place] [address] 09/19/2024 10:15 AM EST Office Visit Gynecology/Obstetrics Tan Jane [address] [place] [address] Caity Corcoran CRNP [address] [place] [address] Buck Non Stress Tests Ronald [address] [place] [address] 09/23/2024 1:15 PM EST Office Visit Gynecology/Obstetrics Tan Jane [address] [place] [address] Miesha Negro CRNP [address] [place] [address] Buck Non Stress Tests Ronald [address] [place] [address] 09/27/2024 11:00 AM EST Office Visit Gynecology/Obstetrics Tan Jane [address] [place] [address] Miesha Negro CRNP [address] [place] [address] Buck, Non Stress Tests Ronald [address] [place] [address] 09/30/2024 1:00 PM EST Office Visit Gynecology/Obstetrics Tan Jane [address] [place] [address] [place], LEXX Sanchez [address] [place] [address] Buck, Non Stress Tests Ronald [address] [place] [address] Health Maintenance Due Date Last Done Comments Hepatitis B Vaccine (1 of 3 - 19+ 3-dose series) 2005 Depression Screening 06/05/2020 06/05/2019 COVID-19 Vaccine (2023-25 season) 2024 GFR 07/11/2025 07/11/2024, 04/29, 03/18/2024, [...] filedocumented as of this encounter Care Teams Wool Puller Relationship Specialty Start Date End Date Sanchez Pastor MD [address] [place] [address] PCP - General Family Medicine 05/04/18 documented as of this encounter
--- OUTSIDE RECORDS SUMMARY | 2024-09-18 05:21 | External Medical Summary | Summary of Care ---
Author Name Unknown Organization [facility] Address [address] [facility] [place] [address] Phone [phone] Care Team Providers Care Brick Washer Name Role Phone Sanchez Pastor MD Primary Care Provider [phone] Encounter Details Date Type Department Care Team (Late st Contact Info) Description 08/15/2024 Orders Only PATIENT PORTAL DO NOT DELETE THIS DEPT USED BY [place] MULT[place] [id number] Allergies No known active allergiesdocumented as of this encounter (statuses as of 08/15/2024) Medications Medication Sig Dispensed Refills Start Date [...] as of this encounter (statuses as of 08/15/2024) Active Problems Problem Noted Date Diagnosed Date [...] as of this encounter (statuses as of 08/15/2024) Resolved Problems Problem Noted Date Diagnosed Date [...] as of this encounter (statuses as of 08/15/2024) Immunizations Name Administration Dates Next Due Seasonal [...] 05/25/2024 Does the household have a re lar source of income? (Household - for ages [...] 1:00 PM EDT Imaging Maternal Medicine Imaging, [address] [place] [phone] 08/15/2024 1:00 PM EDT Office Visit [facility] Obstetrics Maternal Medicine, [address] [place] [address] Jacqueline Fleming, DO [address] [place] [address] 08/19/2024 1:00 PM EDT [facility] [place] [address] Tamera Barrow PA-C [address] [place] [address] Jane, Non Stress Tests Ronald [address] [place] [address] 08/22/2024 10:15 AM EDT Office Visit Gynecology/Obstetrics [facility] [address] [place] [address] Caity Corcoran CRNP [address] [place] [address] Jane, Non Stress Tests Ronald [address] [place] [address] 08/26/2024 1:15 PM EDT Office Visit Gynecology/Obstetrics [facility] [address] [place] [address] Miesha Negro CRNP [address] [place] [address] Jane Non Stress Tests Ronald [address] [place] [address] 08/29/2024 1:00 PM EDT Office Visit Gynecology/Obstetrics [facility] [address] [place] [address] Caity Corcoran CRNP [address] [place] [address] Jane, Non Stress Tests Ronald [address] [place] [address] 09/02/2024 2:30 PM EST Office Visit Gynecology/Obstetrics [facility] [address] [place] [address] Ole Cruz MD [address] [place] [address] Jane, Non Stress Tests Ronald [address] [place] [address] 09/05/2024 10:15 AM EST Office Visit Gynecology/Obstetrics Tan Tuckers [address] [place] [address] Rivka Powers PA-C [address] [place] [address] [place] [address] Jane, Non Stress Tests Ronald [address] [place] [address] 09/09/2024 1:00 PM EST Office Visit Gynecology/Obstetrics Tan Jane [address] [place] [address] Miesha Negro CRNP [address] [place] [address] Buck Non Stress Tests Ronald [address] [place] [address] 09/12/2024 10:15 AM EST Office Visit Gynecology/Obstetrics Tan Jane [address] [place] [address] Caity Corcoran CRNP [address] [place] [address] Jane, Non Stress Tests Ronald [address] [place] [address] 09/12/2024 1:00 PM EST Imaging Maternal Medicine Imaging, Ronald Jane [address] [place] [phone] 09/16/2024 1:00 PM EST Office Visit Gynecology/Obstetrics Tan Jane [address] [place] [address] Miesha Negro CRNP [address] [place] [address] Buck, Non Stress Tests Ronald [address] [place] [address] 09/19/2024 10:15 AM EST Office Visit Gynecology/Obstetrics [facility] [address] [place] [address] Caity Corcoran CRNP [address] [place] [address] Buck Non Stress Tests Ronald [address] [place] [address] 09/23/2024 1:15 PM EST Office Visit Gynecology/Obstetrics [facility] [address] [place] [address] Miesha Negro CRNP [address] [place] [address] Buck Non Stress Tests Ronald [address] [place] [address] 09/27/2024 11:00 AM EST Office Visit Gynecology/Obstetrics [facility] [address] [place] [address] Miesha Negro CRNP [address] [place] [address] Buck, Non Stress Tests Ronald [address] [place] [address] 09/30/2024 1:00 PM EST Office Visit Gynecology/Obstetrics [facility] [address] [place] [address] Miesha Negro CRNP [address] [place] [address] Jane, Non Stress Tests Ronald [address] [place] [address] Health Maintenance Due Date Last Done Comments [...] filedocumented as of this encounter Care Teams Brick Washer Relationship Specialty Start Date End Date Sanchez Pastor MD [address] [facility] [place] [address] PCP - General Family Medicine 05/04/18 documented as of this encounter
--- OUTSIDE RECORDS SUMMARY | 2024-09-18 05:21 | External Medical Summary | Summary of Care ---
Author Name Unknown Organization [facility] Address [address] [place] [facility] [place] [facility] [place] [address] Phone [phone] Care Team Providers Care Telecommunication Systems Designer Name Role Phone Sanchez Pastor MD Primary Care Provider [phone] Reason for Visit * Reason Comments Return Visit Non Stress Test Encounter Details Date Type Department Care Team (Late st Contact Info) Description 08/12/2024 10:15 AM EDT Office Visit Gynecology/Obstetric s [facility] [address] [place] [address] Rivka Powers PA-C [address] [place] [address] [place], [place] [id number] Buck, Non Stress Tests Ronald [address] [place] [address] High-risk in third trimester*; Multigravida of advanced maternal age in third trimester; Chronic hypertension in ; Antepartum anemia complicating ; Rh negative, antepartum Allergies No known active allergiesdocumented as of this encounter (statuses as of 08/12/2024) Medications Medication Sig Dispensed Refills Start Date [...] as of this encounter (statuses as of 08/12/2024) Active Problems Problem Noted Date Diagnosed Date [...] as of this encounter (statuses as of 08/12/2024) Resolved Problems Problem Noted Date Diagnosed Date [...] as of this encounter (statuses as of 08/12/2024) Immunizations Name Administration Dates Next Due Seasonal [...] No 05/25/2024 Does the household have a lovelace rehabilitation hospitallar source of income? (Household - for ages [...] Sign Reading Time Taken Comments Blood Pressure 136/88 08/12/2024 10:13 AM EDT Pulse - - Temperature - - Respiratory Rate - - Oxygen Saturation - - Inhaled Oxygen Concentration - - Weight 93 kg (205 lb) 08/12/2024 10:13 AM EDT Height 172.7 cm (5' 8") 08/12/2024 10:13 AM EDT Body Mass Index 31.17 08/12/2024 10:13 AM EDT documented in this encounter Progress Notes * Rivka Powers PA-C - 08/12/2024 10:32 AM EDT Vandana Ron is a 39 year old female here for her routine OB appointment at 32w3d Her Estimated Date of Delivery: 10/04/24 She is reporting some intermittent BH contractions, but nothing regular. REVIEW OF SYSTEMS She affirms movement. Denies vaginal bleeding, LOF, regular contractions, N/V, headaches, vision changes, chest pain, RUQpain. PHYSICAL EXAM Filed Vitals: 08/12/24 1013 BP: 136/88 Weight: 93 kg (205 lb) Height: 1.727 m (5' 8") ASSESSMENT assessment with Non-stress Test completed on 08/12/2024 at 32w3d weeks gestation for indication of chronic hypertension heart baseline: 140s bpm Variability: Moderate Decelerations: absent Accelerations: present Contractions: None NST start time: 1030 NST stop time: 1107 NST strip reviewed, interpreted, and approved by OB provider, Rivka Powers PA-C. NST strip stored in clinic storage file ASSESSMENT/PLAN High-risk in third trimester (Primary) Multigravida of advanced maternal age in third trimester Chronic hypertension in - URINALYSIS OBSTETRICS, POINT OF CARE - Of note, BP today 136/88. To continue monitoring BP at home. To call with any readings > 140/90. ED/preeclampsia warning signs given. Antepartum anemia complicating - CBC WITH WBC DIFFERENTIAL AND ANEMIA REFLEX WORKUP; Future; Expected date: 08/12/2024 Rh negative, antepartum - Received Rhogam 07/29 Supervision of - recommended flu vaccine - patient received prior. - discussed RSV vaccine and patient is interested. Information given and patient to check with insurance regarding coverage. - labor precautions and kick counts reviewed RTO in 1 week for NST and in 2 weeks for JANIA/NST Rivka Powers PA-C 08/12/2024 documented in this encounter Nursing Notes * Loan Maharaj LPN - 08/12/2024 10:35 AM EDT 32w3d NST, JANIA documented in this encounter Plan of Treatment Upcoming Encounters Date Type Department Care Team (Late st Contact Info) Description 08/12/2024 11:40 AM EDT [facility] [address] [place] [phone] [facility] [place] [address] [employer] Other*[id number]; Antepartum anemia complicating 08/15/2024 1:00 PM EDT Imaging Maternal Medicine Imaging, [facility] [address] [place] [phone] 08/15/2024 1:00 PM EDT Office Visit Security Officer Supervisor Obstetrics Maternal Medicine, [facility] [address] [place] [address] Jacqueline Fleming, DO [address] [place] [address] 08/19/2024 1:00 PM EDT Office Visit Gynecology/Obstetric s [facility] [address] [facility] [place] [address] Tamera Barrow PA-C [address] [place] [address] Buck Non Stress Tests Ronald [address] [place] [address] 08/22/2024 10:15 AM EDT Office Visit Gynecology/Obstetric s [facility] [address] [place] [address] Caity Corcoran CRNP [address] [place] [address] Buck Non Stress Tests Ronald [address] [place] [address] 08/26/2024 1:15 PM EDT Office Visit Gynecology/Obstetric s [facility] [address] [place] [address] Miesha Negro CRNP [address] [place] [address] Buck Non Stress Tests Ronald [address] [place] [address] 08/29/2024 1:00 PM EDT Office Visit Gynecology/Obstetric s [facility] [address] [place] [address] Caity Corcoran CRNP [address] [place] [address] Buck Non Stress Tests Ronald [address] [place] [address] 09/02/2024 2:30 PM EST Office Visit Gynecology/Obstetric s [facility] [address] [place] [address] Ole Cruz MD [address] [place] [address] Buck Non Stress Tests Ronald [address] [place] [address] 09/05/2024 10:15 AM EST Office Visit Gynecology/Obstetric s [facility] [address] [place] [address] Rivka Powers PA-C [address] [place] [address] [place] [address] Jane, Non Stress Tests Ronald [address] [place] [address] 09/09/2024 1:00 PM EST Office Visit Gynecology/Obstetric s [facility] [address] [place] [address] Backer, LEXX Sanchez [address] [place] [address] Jane, Non Stress Tests [facility] [address] [place] [address] 09/12/2024 10:15 AM EST Office Visit Gynecology/Obstetric s [facility] [address] [place] [address] Caity Corcoran CRNP [address] [place] [address] Jane, Non Stress Tests [facility] [address] [place] [address] 09/12/2024 1:00 PM EST Imaging Maternal Medicine Imaging, [facility] [address] [place] [address] 09/16/2024 1:00 PM EST Office Visit Gynecology/Obstetric s [facility] [address] [place] [address] Backer, LEXX Sanchez [address] [place] [address] Jane, Non Stress Tests [facility] [address] [place] [address] 09/19/2024 10:15 AM EST Office Visit Gynecology/Obstetric s [facility] [address] [place] [address] Caity Corcoran CRNP [address] [place] [address] Buck Non Stress Tests Ronald [address] [place] [address] 09/23/2024 1:15 PM EST Office Visit Gynecology/Obstetric s [facility] [address] [place] [address] Miesha Negro CRNP [address] [place] [address] Buck Non Stress Tests Ronald [address] [place] [address] 09/27/2024 11:00 AM EST Office Visit Gynecology/Obstetric s [facility] [address] [place] [address] Miesha Negro CRNP [address] [place] [address] Buck Non Stress Tests Ronald [address] [place] [address] 09/30/2024 1:00 PM EST Office Visit Gynecology/Obstetric s [facility] [address] [place] [address] Miesha Negro CRNP [address] [place] [address] Buck Non Stress Tests Ronald [address] [place] [address] Pending Results Name Type Priority Associated Diagnoses Date /Time CBC WITH WBC DIFFERENTIAL AND ANEMIA REFLEX WORKUP Lab Routine Antepartum anemia complicating 08/12/2024 11:21 AM EDT Scheduled Orders Name Type Priority Associated Diagnoses Orde r Schedule CBC WITH WBC DIFFERENTIAL AND ANEMIA REFLEX WORKUP Lab Routine Antepartum anemia complicating Expected: 08/12/2024, Expires: 08/12/2025 Health Maintenance Due Date Last Done Comments [...] Comments URINALYSIS OBSTETRICS, POINT OF CARE Routine 08/12/2024 10:58 AM EDT Chronic hypertension in documented in this encounter Results * (ABNORMAL) URINALYSIS OBSTETRICS, POINT OF CARE (08/12/2024 10:58 AM EDT) Color, Urine Yellow Light Yellow, Yellow 08/12/2024 11:01 AM EDT [facility] [place] [facility] Clarity, Urine Clear Clear 08/12/2024 11:01 AM EDT [facility] [place] [facility] Glucose, Urine Negative Negative mg/dL 08/12/2024 11:01 AM EDT [facility] [place] [facility] Bilirubin, Urine Negative Negative 08/12/2024 11:01 AM EDT [facility] [place] [facility] Ketone, Urine Negative Negative mg/dL 08/12/2024 11:01 AM EDT [facility] [place] [facility] Specific Crescent, Urine 1.015 1.003 - 1.030 08/12/2024 11:01 AM EDT [facility] [place] [facility] Blood, Urine Negative Negative 08/12/2024 11:01 AM EDT [facility] [place] [facility] pH, Urine 7.0 5.0, 5.5, 6.0, 6.5, 7.0, 7.5 units 08/12/2024 11:01 AM EDT [facility] [place] [facility] Protein, Urine Negative Negative mg/dL 08/12/2024 11:01 AM EDT [facility] [place] [facility] Urobilinogen, Urine 0.2 0.2, 1.0 mg/dL 08/12/2024 11:01 AM EDT [facility] [place] [facility] Nitrite, Urine Negative Negative 08/12/2024 11:01 AM EDT [facility] [place] [facility] Esterase, Urine Trace(A) Negative 08/12/2024 11:01 AM EDT [facility] [place] [facility] Urine 08/12/2024 10:5 8 AM EDT 08/12/2024 11:01 AM EDT Rivka Powers PA-C LAB POINT OF CARE TEST DOCKED DEVICE UNSOLICITED RESULTS [facility] [place] [facility] [address] [place] [address] documented in this encounter Visit Diagnoses Diagnosis High-risk in third trimester- Primary Multigravida of advanced maternal age in third trimester Chronic hypertension in Benign essential hypertension complicating , childbirth, and the puerperium, unspecified as to episode of care Antepartum anemia complicating Anemia, antepartum Rh negative, antepartum Rhesus isoimmunization affecting management of mother, antepartum condition [employer] Other*[id number] Antepartum anemia complicating Anemia, antepartum documented in this encounter Care Teams Telecommunication Systems Designer Relationship Specialty Start Date End Date Sanchez Pastor MD [address] [place] [address] PCP - General Family Medicine 05/04/18 documented as of this encounter
--- OUTSIDE RECORDS SUMMARY | 2024-09-18 05:21 | External Medical Summary ---
Author Name Unknown Address Unknown Organization K01:[facility] [place] [address] [place] [address] Laboratory Report Ordering Provider Test Date Status MARY KAY SIMPSON 08/12/2024 11:21:47 Final Observation Date Value Abnormality Reference (Units ) Status WBC, Total 08/12/2024 11:21:47 10.41 4.00-10.8 0 (K/uL) Final RBC 08/12/2024 11:21:47 3.71 3.85-5.15 (M/uL) Final Hemoglobin 08/12/2024 11:21:47 12.6 12.0-15.3 (g/dL) Final Anemia reflex testing trigge rs on a HGB < 12.0 for Females and HGB < 13.0 for Males in accordance with the WHO Anemia Guidelines HCT 08/12/2024 11:21:47 36.2 36.0-45.2 (%) Final MCV 08/12/2024 11:21:47 97.6 81.5-97.5 (fL) Final MCH 08/12/2024 11:21:47 34.0 27.0-34.0 (pg) Final MCHC 08/12/2024 11:21:47 34.8 32.0-36.0 (g/dL) Final RDW 08/12/2024 11:21:47 12.9 11.5-15.5 (%) Final Platelets 08/12/2024 11:21:47 134 Below low normal 140 -400 (K/uL) Final MPV 08/12/2024 11:21:47 14.2 6.6-11.1 ( fL) Final Nucleated erythrocytes/100 leukocytes [Ratio] in Blood by Automated count 08/12/2024 11:21:47 0 <=0 (/100 WBCs) Final Performing Location [facility] [place] [address] [place] [address]
--- OUTSIDE RECORDS SUMMARY | 2024-09-18 05:21 | External Medical Summary | Summary of Care ---
Author Name Unknown Organization [facility] Address [address] [facility] [place] [address] Phone [phone] Care Team Providers Care Buyer Agent Name Role Phone Sanchez Pastor MD Primary Care Provider [phone] Reason for Visit * Reason Onset Date Comments Test Results 08/13/2024 Encounter Details Date Type Department Care Team (Late st Contact Info) Description 08/13/2024 Telephone Gynecology/Obstetrics [facility] [address] [facility] [place] [phone] Rivka Powers PA-C [address] [facility] [place] [address] Test Results Allergies No known active allergiesdocumented as of [...] No 05/25/2024 Does the household have a hawthorn centerr source of income? (Household - for ages [...] encounter Miscellaneous Notes * Telephone Encounter - Machelle Sharpe LPN - 08/13/2024 8:52 AM EDT Patient notified, she will have it done when she is in for her NST * Telephone Encounter - Regina Sherman RN - 08/13/2024 8:16 AM EDT left message for patient to call office * Telephone Encounter - Machelle Sharpe LPN - 08/13/2024 8:05 AM EDT ----- Message from Rivka Powers sent at 08/13/2024 8:04 AM EDT ----- Please inform patient her recent CBC shows her anemia has improved. Please have her continue takingPNV and iron as she has been. Her CBC did show low platelets. I would like to follow-up on this with additional lab work. I have placed the orders and she may complete these at her earliest convenience. Please encourage her to complete today or tomorrow if she can. Thanks! Rivka Powers PA-C documented in this encounter Plan of Treatment Upcoming Encounters Date Type Department Care Team (Late st Contact Info) Description 08/15/2024 1:00 PM EDT Imaging Maternal Medicine Imaging, [facility] [address] [place] [phone] 08/15/2024 1:00 PM EDT Office Visit Research Specialist Obstetrics Maternal Medicine, Ronald [facility] [address] [place] [address] Jacqueline Fleming, DO [address] [facility] [address] 08/19/2024 1:00 PM EDT Office Visit Gynecology/Obstetrics [facility] [address] [place] [address] Tamera Barrow PA-C [address] [place] [address] Buck Non Stress Tests Ronald [address] [place] [address] 08/22/2024 10:15 AM EDT Office Visit Gynecology/Obstetrics [facility] [address] [place] [address] Caity Corcoran CRNP [address] [place] [address] Buck Non Stress Tests Ronald [address] [place] [address] 08/26/2024 1:15 PM EDT Office Visit Gynecology/Obstetrics [facility] [address] [place] [address] Miesha Negro CRNP [address] [place] [address] Buck Non Stress Tests Ronald [address] [place] [address] 08/29/2024 1:00 PM EDT Office Visit Gynecology/Obstetrics [facility] [address] [place] [address] Caity Corcoran CRNP [address] [place] [address] Buck Non Stress Tests Ronald [address] [place] [address] 09/02/2024 2:30 PM EST Office Visit Gynecology/Obstetrics [facility] [address] [place] [address] Ole Cruz MD [address] [place] [address] Buck Non Stress Tests Ronald [address] [place] [address] 09/05/2024 10:15 AM EST Office Visit Gynecology/Obstetrics [facility] [address] [place] [address] Rivka Powers PA-C [address] [place] [address] Jane, Non Stress Tests Ronald [address] [place], [place] [address] 09/09/2024 1:00 PM EST Office Visit Gynecology/Obstetrics [facility] [address] [place], [place] [address] Miesha Negro CRNP [address] [place] [address] Buck, Non Stress Tests Ronald [address] [place] [address] 09/12/2024 10:15 AM EST Office Visit Gynecology/Obstetrics [facility] [address] [place] [address] Caity Corcoran CRNP [address] [place], [place] [address] Buck, Non Stress Tests Ronald [address] [place], [place] [address] 09/12/2024 1:00 PM EST Imaging Maternal Medicine Imaging, Ronald [address] [place] [address] 09/16/2024 1:00 PM EST Office Visit Gynecology/Obstetrics [facility] [address] [place] [address] Miesha Negro CRNP [address] [place] [address] Buck, Non Stress Tests Ronald [address] [place] [address] 09/19/2024 10:15 AM EST Office Visit Gynecology/Obstetrics [facility] [address] [place] [address] Caity Corcoran CRNP [address] [place] [address] Jane, Non Stress Tests Ronald [address] [place] [address] 09/23/2024 1:15 PM EST Office Visit Gynecology/Obstetrics [facility] [address] [place] [address] Miesha Negro CRNP [address] [place] [address] Buck, Non Stress Tests Ronald [address] [place] [address] 09/27/2024 11:00 AM EST Office Visit Gynecology/Obstetrics [facility] [address] [place] [address] Miesha Negro CRNP [address] [place] [address] Jane, Non Stress Tests Ronald [address] [place] [address] 09/30/2024 1:00 PM EST Office Visit Gynecology/Obstetrics [facility] [address] [place] [address] BackerMiesha CRNP [address] [place] [address] Jane, Non Stress Tests Ronald [address] [place] [address] Health Maintenance Due Date Last Done Comments Hepatitis B Vaccine (1 of 3 - 19+ 3-dose series) 2005 Depression Screening 06/05/2020 06/05/2019 COVID-19 Vaccine ( - 2023- season) 2024 GFR 07/11/2025 07/11/2024, 04/29, 03/18/2024, [...] filedocumented as of this encounter Care Teams Buyer Agent Relationship Specialty Start Date End Date Sanchez Pastor MD [address] [place] [address] PCP - General Family Medicine 05/04/18 documented as of this encounter
--- OUTSIDE RECORDS SUMMARY | 2024-09-18 05:21 | External Medical Summary | Summary of Care ---
Author Name Unknown Organization [facility] Address [address] [facility] [address] Phone [phone] Care Team Providers Care Medical Office Technology Instructor Name Role Phone Sanchez Pastor MD Primary Care Provider [phone] Reason for Visit * Reason Comments Outpatient Testing Encounter Details Date Type Department Care Team (Late st Contact Info) Description 08/12/2024 11:40 AM EDT Laboratory Laboratory, [facility] [address] [place] [id number] [facility] [address] [place] [address] [employer] Other*[id number]; Antepartum anemia complicating Allergies No known active allergiesdocumented as of [...] Imaging, [facility] [address] [place] [phone] 08/15/2024 1:00 PM EDT Office Visit Business Liaison Officer Obstetrics Maternal Medicine, Ronald Jane [address] [place] [address] Jacqueline Fleming, DO [address] [facility] [place] [address] 08/19/2024 1:00 PM EDT Office Visit Gynecology/Obstetrics [facility] Buck [address] [place] [address] Tamera Barrow PA-C [address] [place] [address] Jane, Non Stress Tests Ronald [address] [place] [address] 08/22/2024 10:15 AM EDT Office Visit Gynecology/Obstetrics [facility] [address] [place] [address] Caity Corcoran CRNP [address] [place] [address] Buck Non Stress Tests Ronald [address] [place] [address] 08/26/2024 1:15 PM EDT Office Visit Gynecology/Obstetrics [facility] [address] [place] [address] Miesha Negro CRNP [address] [place] [address] Buck Non Stress Tests Ronald [address] [place] [address] 08/29/2024 1:00 PM EDT Office Visit Gynecology/Obstetrics [facility] [address] [place] [address] Caity Corcoran CRNP [address] [place] [address] Jane, Non Stress Tests Ronald [address] [place] [address] 09/02/2024 2:30 PM EST Office Visit Gynecology/Obstetrics [facility] [address] [place] [address] Ole Cruz MD [address] [place] [address] Jane, Non Stress Tests Ronald [address] [place] [address] 09/05/2024 10:15 AM EST Office Visit Gynecology/Obstetrics [facility] [address] [place] [address] Rivka Powers PA-C [address] [place] [address] [place] [address] Jane, Non Stress Tests Ronald [address] [place] [address] 09/09/2024 1:00 PM EST Office Visit Gynecology/Obstetrics [facility] [address] [place] [address] Miesha Negro CRNP [address] [place] [address] Jane, Non Stress Tests Ronald [address] [place] [address] 09/12/2024 10:15 AM EST Office Visit Gynecology/Obstetrics [facility] [address] [place] [address] Caity Corcoran CRNP [address] [place] [address] Jane, Non Stress Tests Ronald [address] [place] [address] 09/12/2024 1:00 PM EST Imaging Maternal Medicine Imaging, Ronald Jane [address] [place] [address] 09/16/2024 1:00 PM EST Office Visit Gynecology/Obstetrics [facility] [address] [place] [address] BackerMiesha CRNP [address] [place] [address] Jane, Non Stress Tests Ronald [address] [place] [address] 09/19/2024 10:15 AM EST Office Visit Gynecology/Obstetrics [facility] [address] [place] [address] Caity Corcoran CRNP [address] [place] [address] Jane, Non Stress Tests Ronald [address] [place] [address] 09/23/2024 1:15 PM EST Office Visit Gynecology/Obstetrics [facility] [address] [place] [address] Backer, LEXX Snachez [address] [place] [address] Jane, Non Stress Tests Ronald [address] [place] [address] 09/27/2024 11:00 AM EST Office Visit Gynecology/Obstetrics [facility] [address] [place] [address] Backer, LEXX Sanchez [address] [place] [address] Jane, Non Stress Tests Ronald [address] [place] [address] 09/30/2024 1:00 PM EST Office Visit Gynecology/Obstetrics [facility] [address] [place] [address] Backer, Miesha Jung, PIPE FOREMAN [address] [place] [address] Jane, Non Stress Tests Ronald [address] [place] [address] Pending Results Name Type Priority Associated Diagnoses Date /Time MYCODE SUBSEQUENT ADULT Lab Routine [employer] Other*[id number] 08/12/2024 11:21 AM EDT CBC WITH WBC DIFFERENTIAL AND ANEMIA REFLEX WORKUP Lab Routine Antepartum anemia complicating 08/12/2024 11:21 AM EDT MYCODE SST1 Lab Routine [employer] Other*[id number] 08/12/2024 11:21 AM EDT MYCODE SST2 Lab Routine [employer] Other*[id number] 08/12/2024 11:21 AM EDT ANEMIA CBC Lab Routine Antepartum anemia complicating 08/12/2024 11:21 AM EDT DIFFERENTIAL, AUTOMATED Lab Routine Antepartum anemia complicating 08/12/2024 11:21 AM EDT ANEMIA REFLEX CHEMISTRY HOLD Lab Routine Antepartum anemia complicating 08/12/2024 11:21 AM EDT Health Maintenance Due Date Last Done [...] as of this encounter Visit Diagnoses Diagnosis [employer] Other*[id number] Antepartum anemia complicating Anemia, antepartum documented in this encounter Care Teams Medical Office Technology Instructor Relationship Specialty Start Date End Date Sanchez Pastor MD [address] [place] [address] PCP - General Family Medicine 05/04/18 documented as of this encounter
--- OUTSIDE RECORDS SUMMARY | 2024-09-18 05:21 | External Medical Summary | Summary of Care ---
Author Name Unknown Organization [facility] Address [address] [place] [address] Phone [phone] Care Team Providers Care Adult Education Teacher Name Role Phone Sanchez Pastor MD Primary Care Provider [phone] Encounter Details Date Type Department Care Team (Late st Contact Info) Description 08/15/2024 1:00 PM EDT Office Visit Log [facility] Obstetrics Maternal Medicine, [address] [place] [address] Jacqueline Fleming, DO [address] [place] [address] Chronic hypertension in *; Multigravida of advanced maternal age in third trimester; Ultrasound for screening for growth restriction; 32 weeks gestation of Allergies No known active allergiesdocumented as of this encounter (statuses as of 08/16/2024) Medications Medication Sig Dispensed Refills Start Date [...] as of this encounter (statuses as of 08/16/2024) Active Problems Problem Noted Date Diagnosed Date [...] as of this encounter (statuses as of 08/16/2024) Resolved Problems Problem Noted Date Diagnosed Date [...] as of this encounter (statuses as of 08/16/2024) Immunizations Name Administration Dates Next Due Seasonal [...] No 05/25/2024 Does the household have a [facility] source of income? (Household - for ages [...] as of this encounter Progress Notes * Jacqueline Fleming, DO - 08/15/2024 3:20 PM EDT Vandana presented today at 32w6d for an ultrasound for the following indications: Chronic hypertension in Assessment & Plan: BP Readings from Last 5 Encounters: 08/12/24 136/88 07/29/24 120/88 07/11/24 124/84 06/10/24 132/88 05/30/24 124/78 Please titrate medication to maintain goal BP < 140/90. Multigravida of advanced maternal age in third trimester Ultrasound for screening for growth restriction 32 weeks gestation of Ultrasound summary: Patient presented at 32w 6d for growth assessment. Normal growth with EFW 1845 g at 16%ile. Normal YOLI at 14.7 cm. Cephalic presentation. BPP /. I reviewed the ultrasound images. Vandana was given the opportunity to meet with me if she had any questions. Please refer to the ultrasound report for additional details about today's ultrasound examination. RECOMMENDATIONS: Recommend follow up ultrasound with MFM in 4-6 weeks for growth secondary to above indications. See prior formal MFM consultation note. Thank you for allowing us to participate in the care of this patient. Please call with any questions. Jacqueline Fleming DO 08/15/2024 3:20 PM documented in this encounter Miscellaneous Notes * Assessment & Plan Note - Jacqueline Fleming DO - 08/15/2024 9:09 AM EDT Associated Problem(s): Chronic hypertension in BP Readings from Last 5 Encounters: 08/12/24 136/88 07/29/24 120/88 07/11/24 124/84 06/10/24 132/88 05/30/24 124/78 Please titrate medication to maintain goal BP < 140/90. documented in this encounter Plan of Treatment Upcoming Encounters Date Type Department Care Team (Late st Contact Info) Description 08/19/2024 1:00 PM EDT Office Visit Gynecology/Obstetrics Tan Jane [address] [place] [address] Tamera Barrow PA-C [address] [place] [address] Xuan Jane Stress Tests Ronald [address] [place] [address] 08/22/2024 10:15 AM EDT Office Visit Gynecology/Obstetrics [facility] Jane [address] [place] [address] Caity Corcoran CRNP [address] [place] [address] Jane, Non Stress Tests Ronald [address] [place] [address] 08/26/2024 1:15 PM EDT Office Visit Gynecology/Obstetrics [facility] [address] [place] [address] Miesha Negro CRNP [address] [place] [address] Jane, Non Stress Tests Ronald [address] [place] [address] 08/29/2024 1:00 PM EDT Office Visit Gynecology/Obstetrics [facility] [address] [place] [address] Caity Corcoran CRNP [address] [place] [address] Jane, Non Stress Tests Ronald [address] [place] [address] 09/02/2024 2:30 PM EST Office Visit Gynecology/Obstetrics [facility] [address] [place] [address] Ole Cruz MD [address] [place] [address] Jane, Non Stress Tests Ronald [address] [place] [address] 09/05/2024 10:15 AM EST Office Visit Gynecology/Obstetrics [facility] [address] [place] [address] Rivka Powers PA-C [address] [place] [address] [place] [address] Jane, Non Stress Tests Ronald [address] [place] [address] 09/09/2024 1:00 PM EST Office Visit Gynecology/Obstetrics Angel's Jane [address] [place] [address] Miesha Negro CRNP [address] [place] [address] Jane, Non Stress Tests Ronald [place] [address] 09/12/2024 10:15 AM EST Office Visit Gynecology/Obstetrics Tan Jane [address] [place] [address] Caity Corcoran CRNP [address] [place] [address] Jane, Non Stress Tests [place] [address] 09/12/2024 1:00 PM EST Imaging Maternal Medicine Imaging, Ronald Jane [address] [place] [address] 09/16/2024 1:00 PM EST Office Visit Gynecology/Obstetrics [facility] Jane [address] [place] [address] Miesha Negro CRNP [address] [place] [address] Jane, Non Stress Tests Ronald [address] [place] [address] 09/19/2024 10:15 AM EST Office Visit Gynecology/Obstetrics Angel[facility] Jane [address] [place] [address] Caity Corcoran CRNP [address] [place] [address] Buck Non Stress Tests Ronald [address] [place] [address] 09/23/2024 1:15 PM EST Office Visit Gynecology/Obstetrics Tan Tuckers [address] [place], [place] [address] Miesha Negro CRNP [address] [place], [place] [address] Buck Non Stress Tests Ronald [address] [place] [address] 09/27/2024 11:00 AM EST Office Visit Gynecology/Obstetrics Tan Tuckers [address] [place], [place] [address] Miesha Negro CRNP [address] [place] [address] Buck Non Stress Tests Ronald [address] [place] [address] 09/30/2024 1:00 PM EST Office Visit Gynecology/Obstetrics [facility] Jane [address] [place] [address] Miesha Negro CRNP [address] [place], [place] [address] Buck Non Stress Tests Ronald [address] [place] [address] Health Maintenance Due Date Last Done Comments Hepatitis B Vaccine (1 of 3 - 19+ 3-dose series) 2005 Depression Screening 06/05/2020 06/05/2019 COVID-19 Vaccine ( - 2023- season) 2024 GFR 08/16/2025 08/16/2024, 06/30, 05/17/2024, [...] as of this encounter Visit Diagnoses Diagnosis Chronic hypertension in - Primary Benign essential hypertension complicating , childbirth, and the puerperium, unspecified as to episode of care Multigravida of advanced maternal age in third trimester Ultrasound for screening for growth restriction screening for growth retardation using ultrasonics 32 weeks gestation of state, incidental documented in this encounter Care Teams Adult Education Teacher Relationship Specialty Start Date End Date Sanchez Pastor MD [address] [place] [address] PCP - General Family Medicine 05/04/18 documented as of this encounter
--- OUTSIDE RECORDS SUMMARY | 2024-09-18 05:21 | External Medical Summary | Summary of Care ---
Author Name Unknown Organization [facility] Address [address] [place] [facility] [place] [address] Phone [phone] Care Team Providers Care Gardener Name Role Phone Sanchez Pastor MD Primary Care Provider [phone] Reason for Visit * Reason Comments Outpatient Testing Encounter Details Date Type Department Care Team (Latest Contact Info) Description 08/16/2024 11:20 AM EDT Laboratory Laboratory, [facility] [address] [facility] [place] [phone] [facility] [address] [facility] [place] [address] Thrombocytopenia affecting (HCC) Allergies No known active [...] C 65-125 MG Oral Tablet (Vitron C)Indications:Antepar klayan anemia complicating Take 1 Tablet by mouth [...] No 05/25/2024 Does the [facility] have a [facility] source [facility]? (Household - for [...] Gynecology/Obstetrics Tan Jane [address] [place] [address] Tamera Barrow PA-C [address] [place] [address] Xuan Jane Stress Tests Ronald [address] [place] [address] 08/22/2024 10:15 AM EDT Office Visit Gynecology/Obstetrics [facility] [address] [place] [address] Caity Corcoran CRNP [address] [place] [address] Jane, Non Stress Tests Ronald [address] [place] [address] 08/26/2024 1:15 PM EDT Office Visit Gynecology/Obstetrics [facility] [address] [place] [address] Miesha Negro CRNP [address] [place] [address] Jane, Non Stress Tests Ronald [address] [place] [address] 08/29/2024 1:00 PM EDT Office Visit Gynecology/Obstetrics [facility] Jane [address] [place] [address] Caity Corcoran CRNP [address] [place] [address] Jane, Non Stress Tests Ronald [address] [place] [address] 09/02/2024 2:30 PM EST Office Visit Gynecology/Obstetrics [facility] [address] [place] [address] Ole Cruz MD [address] [place] [address] Jane, Non Stress Tests Ronald [address] [place] [address] 09/05/2024 10:15 AM EST Office Visit Gynecology/Obstetrics [facility] [address] [place] [address] Rivka Powers PA-C [address] [place] [address] [place] [address] Jane, Non Stress Tests Ronald [address] [place] [address] 09/09/2024 1:00 PM EST Office Visit Gynecology/Obstetrics Angel[facility] Jane [address] [place] [address] Miesha Negro CRNP [address] [place] [address] Jane, Non Stress Tests Ronald [address] [place] [address] 09/12/2024 10:15 AM EST Office Visit Gynecology/Obstetrics Rogers Jane [address] [place] [address] Caity Corcoran CRNP [address] [place] [address] Jane, Non Stress Tests Ronald [address] [place] [address] 09/12/2024 1:00 PM EST Imaging Maternal Medicine Imaging, Ronald Jane [address] [place] [address] 09/16/2024 1:00 PM EST Office Visit Gynecology/Obstetrics Angel[facility] Jane [address] [place] [address] Miesha Negro CRNP [address] [place] [address] Jane, Non Stress Tests Ronald [address] [place] [address] 09/19/2024 10:15 AM EST Office Visit Gynecology/Obstetrics Angel[facility] Jane [address] [place] [address] Caity Corcoran CRNP [address] [place] [address] Buck Non Stress Tests Ronald [address] [place] [address] 09/23/2024 1:15 PM EST Office Visit Gynecology/Obstetrics Angel[facility] Jane [address] [place] [address] BackerMiesha CRNP [address] [place] [address] Buck Non Stress Tests Ronald [address] [place] [address] 09/27/2024 11:00 AM EST Office Visit Gynecology/Obstetrics Rogers Jane [address] [place] [address] BackerMiesha CRNP [address] [place] [address] Buck Non Stress Tests Ronald [address] [place] [address] 09/30/2024 1:00 PM EST Office Visit Gynecology/Obstetrics Angel[facility] Jane [address] [place] [address] BackerMiesha CRNP [address] [place] [address] Buck Non Stress Tests Ronald [address] [place] [address] Pending Results Name Type Priority Associated Diagnoses Date /Time COMPREHENSIVE METABOLIC PANEL Lab Routine Thrombocytopenia affecting (HCC) 08/16/2024 11:17 AM EDT Health Maintenance Due Date Last [...] encounter Visit Diagnoses Diagnosis Thrombocytopenia affecting (HCC) documented in this encounter Care Teams Gardener Relationship Specialty Start Date End Date Sanchez Pastor MD [address] [place] [address] PCP - General Family Medicine 05/04/18 documented as of this encounter
--- OUTSIDE RECORDS SUMMARY | 2024-09-18 05:21 | External Medical Summary ---
Author Name Unknown Address Unknown Organization K01:[facility] [place] [address] [place] [address] Laboratory Report Ordering Provider Test Date Status MARY KAY SIMPSON 08/12/2024 11:21:47 Final Observation Date Value Abnormality Reference (Units ) Status SYNC LEUKOCYTES IN BLOOD BY AUTOMATED COUNT 08/12/2024 11:21:47 10.41 4.00-10.80 (K/uL) Final Segs 08/12/2024 11:21:47 79.9 Above high normal 40.0-75.0 (%) Final Lymphs % 08/12/2024 11:21:47 11.5 Below low normal 18.0-42.0 (%) Final Monos 08/12/2024 11:21:47 6.3 1.0-11.0 (%) Final Eosinophils 08/12/2024 11:21:47 1.3 0.0-6.0 (%) Final Basos 08/12/2024 11:21:47 0.3 0.0-2.0 (%) Final Immature Granulocyte, Percent 08/12/2024 11:21:47 0.7 0.0-2.0 (%) Final Absolute Segs 08/12/2024 11:21:47 8.31 Above high normal 1.80-7.70 (K/uL) Final Lymphs, absolute 08/12/2024 11:21:47 1.20 1.00-4.80 (K/ul) Final Monos, Abs 08/12/2024 11:21:47 0.66 0.00-1.10 (K/uL) Final Eos, Abs 08/12/2024 11:21:47 0.14 0.00-0.70 (K/uL) Final Basos, Abs 08/12/2024 11:21:47 0.03 0.00-0.20 (K/uL) Final Immature Granulocytes, Number 08/12/2024 11:21:47 0.07 0.00-0.20 (K/uL) Final Performing Location [facility] [address] [facility] [address]
--- OUTSIDE RECORDS SUMMARY | 2024-09-18 05:21 | External Medical Summary | Summary of Care ---
Author Name Unknown Organization [facility] Address [address] [place] [address] Phone [phone] Care Team Providers Care Showroom Sales Assistant Name Role Phone Sanchez Pastor MD Primary Care Provider [phone] Encounter Details Date Type Department Care Team (Late st Contact Info) Description 08/15/2024 1:00 PM EDT Office Visit Medical Records Technician Obstetrics Maternal Medicine, [address] [place] [address] Jacqueline Fleming, DO [address] [place] [address] Chronic hypertension in *; Multigravida [...] No 05/25/2024 Does the household have a [facility] source of income? (Household - for [...] YOLI at 14.7 cm. Cephalic presentation. BPP 06/06. I reviewed the ultrasound images. Vandana was [...] Care Team (Late st Contact Info) Description 08/16/2024 11:20 AM EDT Laboratory Laboratory, [facility] [address] [place] [phone] JaneKennedy hernandezs [address] [place] [address] 08/19/2024 1:00 PM EDT Office Visit Gynecology/Obstetrics Tan Tuckers [address] [place] [address] Tamera Barrow PA-C [address] [place] [address] Jane, Non Stress Tests Ronald [address] [place] [address] 08/22/2024 10:15 AM EDT Office Visit Gynecology/Obstetrics [facility] Jane [address] [place] [address] Caity Corcoran CRNP [address] [place] [address] Buck Non Stress Tests Ronald [address] [place] [address] 08/26/2024 1:15 PM EDT Office Visit Gynecology/Obstetrics [facility] Jane [address] [place] [address] Miesha Negro CRNP [address] [place] [address] Buck Non Stress Tests Ronald [address] [place] [address] 08/29/2024 1:00 PM EDT Office Visit Gynecology/Obstetrics Angel's Jane [address] [place] [address] Caity Corcoran CRNP [address] [place] [address] Jane, Non Stress Tests Ronald [address] [place] [address] 09/02/2024 2:30 PM EST Office Visit Gynecology/Obstetrics [facility] Jane [address] [place] [address] Ole Cruz MD [address] [place] [address] Jane, Non Stress Tests Ronald [address] [place] [address] 09/05/2024 10:15 AM EST Office Visit Gynecology/Obstetrics Angel's Jane [address] [place] [address] Rivka Powers PA-C [address] [place] [address] [place] [address] Jane, Non Stress Tests Ronald [address] [place] [address] 09/09/2024 1:00 PM EST Office Visit Gynecology/Obstetrics Angel's Jane [address] [place] [address] Miesha Negro CRNP [address] [place] [address] Jane, Non Stress Tests Ronald [address] [place] [address] 09/12/2024 10:15 AM EST Office Visit Gynecology/Obstetrics Angel's Jane [address] [place] [address] Caity Corcoran CRNP [address] [place] [address] Jane, Non Stress Tests Ronald [address] [place] [address] 09/12/2024 1:00 PM EST Imaging Maternal Medicine Imaging, Ronald Jane [address] [place] [phone] 09/16/2024 1:00 PM EST Office Visit Gynecology/Obstetrics [facility] Jane [address] [place] [address] Backer, LEXX Sanchez [address] [place] [address] Jane, Non Stress Tests Ronald [address] [place] [address] 09/19/2024 10:15 AM EST Office Visit Gynecology/Obstetrics [facility] Jane [address] [place] [address] Caity Corcoran CRNP [address] [place] [address] Jane, Non Stress Tests Ronald [address] [place] [address] 09/23/2024 1:15 PM EST Office Visit Gynecology/Obstetrics [facility]iz[facility] Jane [address] [place] [address] Backer, LEXX Sanchez [address] [place] [address] Jane, Non Stress Tests Ronald [address] [place] [address] 09/27/2024 11:00 AM EST Office Visit Gynecology/Obstetrics [facility] Jane [address] [place] [address] BackerMiesha CRNP [address] [place] [address] Jane, Non Stress Tests Ronald [address] [place] [address] 09/30/2024 1:00 PM EST Office Visit Gynecology/Obstetrics [facility] Jane [address] [place] [address] Backer, Miesha Jung, SUPERVISOR BOILER REPAIR [address] [place] [address] Jane, Non Stress Tests Ronald [address] [place] [address] Health Maintenance Due Date Last Done Comments [...] incidental documented in this encounter Care Teams Showroom Sales Assistant Relationship Specialty Start Date End Date Sanchez Pastor MD [address] [place] [place] [address] PCP - General Family Medicine 05/04/18 documented as of this encounter
--- OUTSIDE RECORDS SUMMARY | 2024-09-18 05:22 | External Medical Summary ---
Author Name Unknown Address Unknown Organization K01:[facility] [place] [address] [place] [address] Laboratory Report Ordering Provider Test Date Status DANY MOSSCARLOS 07/11/2024 14:34:44 Final Observation Date Value Abnormality Reference (Units ) Status Ferritin 07/11/2024 14:34:44 33 13-150 (ng /mL) Final Performing Location LABORATORY [facility] - [address] [place] [address]
--- OUTSIDE RECORDS SUMMARY | 2024-09-18 05:22 | External Medical Summary | Summary of Care ---
Author Name Unknown Organization [facility] Address [address] [place] [address] Phone [phone] Care Team Providers Care Office Messenger Helper Name Role Phone Sanchez Pastor MD Primary Care Provider [phone] Encounter Details Date Type Department Care Team (Late st Contact Info) Description 05/21/2024 Telephone [employer] Farmworker Obstetrics Maternal Medicine, [place] [address], [place] [id number] [place], Nurse [employer] Ii Farmworker [facility] [address] [place] [address] Allergies No known active allergiesdocumented as of this encounter (statuses as of 06/28/2024) Medications Medication Sig Dispensed Refills Start Date [...] empty stomach.. 30 Tablet 6 05/17/2024 Active documented as of this encounter (statuses as of 06/28/2024) Active Problems Problem Noted Date Diagnosed Date Rh negative status during 04/15/2024 Elderly multigravida 04/10/2024 Overview: Ms. Ron will be 39 years-old by BART (10/04/24). She had low-risk genetic screening. Last Assessment & Plan: -low risk cffDNA High-risk 04/10/2024 Chronic hypertension in 04/10/2024 Overview: History of hypertension requiring lisinopril in the past. Currently stable without medication. Recommend bASA 81 mg daily. BP Readings from Last 5 Encounters: 03/18/24 132/74 06/17/21 132/90 06/05/19 120/74 05/04/18 118/76 02/02/18 110/78 Baseline Preeclampsia Labs Lab Results Component Value Date/Time PLT 163 03/18/2024 10:42 AM CREATININE - [facility] 0.9 03/18/2024 10:42 AM AST - [facility] 20 03/18/2024 10:42 AM ALT - [facility] 17 03/18/2024 10:42 AM Last Assessment & Plan: BP Readings from Last 5 Encounters: 05/17/24 [...] as of this encounter (statuses as of 06/28/2024) Resolved Problems Problem Noted Date Diagnosed Date [...] as of this encounter (statuses as of 06/28/2024) Immunizations Name Administration Dates Next Due TDAP [...] 05/25/2024 Does the household have a [facility] source of income? (Household - for [...] encounter Miscellaneous Notes * Telephone Encounter - Lauryn Chase OSA - 05/23/2024 8:24 AM EDT Phone call to patient. Left message on [employer]'s voice mail. Encouraged patient to return call to [facility] to assist with scheduling. * Telephone Encounter - Lauryn Chase OSA - 05/21/2024 12:31 PM EDT Phone call to patient. Left message on [employer] voice mail. Encouraged patient to return call to [facility] to assist with scheduling. Sent MyG * Telephone Encounter - Lauryn Chase OSA - 05/21/2024 12:31 PM EDT ----- Message from Maurizio Seay DO sent at 05/21/2024 11:34 AM EDT ----- Regarding: RE: Follow-up scans It looks like she did get started on meds, so she will need more frequent follow-up. Ideally every 4 weeks or so, but if we have to fudge by a week to get her into [facility] I'd be OK with that. Thanks! Maurizio ----- Message ----- From: Lauryn Chase OSA Sent: 05/17/2024 1:08 PM EDT To: Maurizio Seay DO Subject: RE: Follow-up scans Vanda Seay, This patient is still in L&D. Please let us know if/or she will need a follow up in 4 weeks andwe will reach out to the patient to schedule. Thank you, Lauryn Chase ----- Message ----- From: Maurizio Seay DO Sent: 05/17/2024 1:04 PM EDT To: [facility] Referral Scheduling Pool/Class Subject: Follow-up scans Vanda, This patient went to L&D following her visit on 05/17. If she gets started on meds for BP, she will need serial growth checks every 4 weeks or so. I think when she left she scheduled a 10 week follow-up (based on not being on meds), but it is likely she'll be started on something. Happy to review, just didn't want it to get missed. Thanks! Maurizio documented in this encounter Plan of Treatment Upcoming Encounters Date Type Department Care Team (Late st Contact Info) Description 07/08/2024 11:30 AM EDT Office Visit Gynecology/Obstetrics Tan Jane [address] [place] [address] Tamera Barrow PA-C [address] [place] [address] 07/08/2024 11:30 AM EDT Laboratory Laboratory, [place] [address] [address] [place] [phone] [facility] [place] [address] 07/18/2024 1:00 PM EDT Office Visit D[employer] Ii Farmworker Obstetrics Maternal Medicine, [address] [place] [address] Bakari Sanchez MD [address] [place] [address] 07/18/2024 1:00 PM EDT Imaging Maternal Medicine Imaging, Ronald [place] [phone] 07/18/2024 1:45 PM EDT Office Visit [employer] Ii Farmworker Obstetrics Maternal Medicine, [place] [address] [place] [address] Maurizio Seay DO [address] [place] [address] 07/18/2024 1:45 PM EDT Imaging Radiology [facility] [address] [place] [address] 08/15/2024 1:00 PM EDT Imaging Maternal Medicine Imaging, Ronald [address] [place] [phone] 09/12/2024 1:00 PM EST Imaging Maternal Medicine Imaging, Ronald [address] [place] [phone] Health Maintenance Due Date Last Done Comments Hepatitis B Vaccine (1 of 3 - 19+ 3-dose series) 2005 Depression Screening 06/05/2020 06/05/2019 COVID-19 Vaccine (1 - 2022-24 season) 2023 DTap/Tdap Vaccines (2 - Td or Tdap) 07/18/2023 07/18/2013 Influenza Vaccine (FLU shot) (#1) 2024 GFR 05/17/2025 05/17/2024, 02/28, 01/13/2018, Additional history exists Pap Smear 03/18/2027 03/18/2024, 05/30, 04/25/2017, Additional history exists Diabetes Screening 05/17/2027 05/17/2024, 0 03/18/2024, 01/13/2018, Additional history exists Cervical Cancer Screening 03/18/2029 HPV/Co-Test 03/18/2029 03/18/2024 HPV (Gardasil) Vaccine Aged Out No lo [...] filedocumented as of this encounter Care Teams Office Messenger Helper Relationship Specialty Start Date End Date Sanchez Pastor MD [address] [place] [address] PCP - General Family Medicine 05/04/18 documented as of this encounter
--- OUTSIDE RECORDS SUMMARY | 2024-09-18 05:22 | External Medical Summary | Summary of Care ---
Author Name Unknown Organization [facility] Address [address] [place] [address] Phone [phone] Care Team Providers Care Naphthalene Still Operator Name Role Phone Sanchez Pastor MD Primary Care Provider [phone] Encounter Details Date Type Department Care Team (Late st Contact Info) Description 06/20/2024 1:00 PM EDT Office Visit Hall Coordinator Obstetrics Maternal Medicine, [address] [place] [address] Jacqueline Fleming, DO [address] [place] [address] Chronic hypertension in *; Ultrasound for screening for growth restriction; 24 weeks gestation of Allergies No known active allergiesdocumented as of this encounter (statuses as of 06/20/2024) Medications Medication Sig Dispensed Refills Start Date [...] as of this encounter (statuses as of 06/20/2024) Active Problems Problem Noted Date Diagnosed Date [...] as of this encounter (statuses as of 06/20/2024) Resolved Problems Problem Noted Date Diagnosed Date [...] as of this encounter (statuses as of 06/20/2024) Immunizations Name Administration Dates Next Due TDAP [...] this encounter Progress Notes * Jacqueline Fleming, - 06/20/2024 1:59 PM EDT Vandana presented today at 24w6d for an ultrasound for the following indications: Chronic hypertension in Ultrasound for screening for growth restriction 24 weeks gestation of Ultrasound summary: Patient presented at 24w 6d for growth assessment. Normal growth with EFW 673 g at 17%ile. Normal YOLI at 13.4 cm. Breech presentation. I reviewed the ultrasound images. Vandana was [...] call with any questions. Jacqueline Fleming DO 06/20/2024 1:59 PM documented in this encounter Plan of Treatment Upcoming Encounters Date Type Department Care Team (Late st Contact Info) Description 07/08/2024 11:30 AM EDT Office Visit Gynecology/Obstetrics [facility] [address] [facility] [place] [address] Tamera Barrow PA-C 132 [facility] [place] [address] 07/08/2024 11:30 AM EDT Laboratory Laboratory, [facility] [address] [facility] [place] [phone] [facility] [address] [facility] [place] [address] 07/18/2024 1:00 PM EDT Office Visit Hall Coordinator Obstetrics Maternal Medicine, [facility] [address] [facility] [place] [address] Bakari Sanchez MD [address] [place], [place] [id number] 07/18/2024 1:00 PM EDT Imaging Maternal Medicine Imaging, [facility] [address] [facility] [place] [address] 07/18/2024 1:45 PM EDT Office Visit Hall Coordinator Obstetrics Maternal Medicine, [place] [address] [place] [address] Maurizio Seay, DO [address] [place] [address] 07/18/2024 1:45 PM EDT Imaging Radiology [facility] [address] [place] [address] 08/15/2024 1:00 PM EDT Imaging Maternal Medicine Imaging, Ronald Jane [address] [facility] [place] [address] 09/12/2024 1:00 PM EST Imaging Maternal Medicine Imaging, [facility] [address] [place] [phone] Health Maintenance Due Date Last Done Comments Hepatitis B Vaccine (1 of 3 - 19+ 3-dose series) 2005 Depression Screening 06/05/2020 06/05/2019 COVID-19 Vaccine (2022- season) 2023 DTaP,Tdap,and Td Vaccines (2 - Td or Tdap) 07/18/2023 [...] puerperium, unspecified as to episode of care Ultrasound for screening for growth restriction screening for growth retardation using ultrasonics 24 weeks gestation of state, incidental documented in this encounter Care Teams Naphthalene Still Operator Relationship Specialty Start Date End Date Sanchez Pastor MD [address] [place] [address] PCP - General Family Medicine 05/04/18 documented as of this encounter
--- OUTSIDE RECORDS SUMMARY | 2024-09-18 05:22 | External Medical Summary ---
Author Name Unknown Address Unknown Organization [id number]:LABORATORY [facility] [place] - [address] [facility] [address] Laboratory Report Ordering Provider Test Date Status DU MOSS 07/11/2024 14:34:44 Final Observation Date Value Abnormality Reference (Units ) Status SYNC LEUKOCYTES IN BLOOD BY AUTOMATED COUNT 07/11/2024 14:34:44 12.58 Above high normal 4.00-10.80 (K/uL) Final Segs 07/11/2024 14:34:44 80.2 Above high normal 40.0-75.0 (%) Final Lymphs % 07/11/2024 14:34:44 12.1 Below low normal 18.0-42.0 (%) Final Monos 07/11/2024 14:34:44 5.6 1.0-11.0 (%) Final Eosinophils 07/11/2024 14:34:44 1.3 0.0-6.0 (%) Final Basos 07/11/2024 14:34:44 0.2 0.0-2.0 (%) Final Immature Granulocyte, Percent 07/11/2024 14:34:44 0.6 0.0-2.0 (%) Final Absolute Segs 07/11/2024 14:34:44 10.11 Above high normal 1.80-7.70 (K/uL) Final Lymphs, absolute 07/11/2024 14:34:44 1.52 1.00-4.80 (K/ul) Final Monos, Abs 07/11/2024 14:34:44 0.70 0.00-1.10 (K/uL) Final Eos, Abs 07/11/2024 14:34:44 0.16 0.00-0.70 (K/uL) Final Basos, Abs 07/11/2024 14:34:44 0.02 0.00-0.20 (K/uL) Final Immature Granulocytes, Number 07/11/2024 14:34:44 0.07 0.00-0.20 (K/uL) Final Performing Location LABORATORY [facility] - [facility] [place][note 2] [place] [address]
--- OUTSIDE RECORDS SUMMARY | 2024-09-18 05:22 | External Medical Summary | Summary of Care ---
Author Name Unknown Organization [facility] Address [address] [facility] [place] [address] Phone [phone] Care Team Providers Care Icing Coater Name Role Phone Sanchez Pastor MD Primary Care Provider [phone] Reason for Visit * Reason Comments Outpatient Testing Encounter Details Date Type Department Care Team (Late st Contact Info) Description 07/11/2024 1:40 PM EDT Laboratory Laboratory, [facility] [address] [place] [phone] [facility] [address] [place] [address] High-risk in second trimester Allergies No known active allergiesdocumented as of this encounter (statuses as of 07/11/2024) Medications Medication Sig Dispensed Refills Start Date [...] as of this encounter (statuses as of 07/11/2024) Active Problems Problem Noted Date Diagnosed Date [...] as of this encounter (statuses as of 07/11/2024) Resolved Problems Problem Noted Date Diagnosed Date [...] as of this encounter (statuses as of 07/11/2024) Immunizations Name Administration Dates Next Due TDAP [...] Care Team (Late st Contact Info) Description 07/18/2024 1:00 PM EDT Office Visit Concrete Engineering Technician Obstetrics Maternal Medicine, [facility] 132 [facility] [place] [address] Bakari Sanchez MD [address] [facility] [place] [address] 07/18/2024 1:00 PM EDT Imaging Maternal Medicine Imaging, Ronald Shahid [place] [phone] 07/24/2024 1:45 PM EDT Office Visit Gynecology/Obstetrics Tan SHAHID [place] [address] [address], LEXX Sanchez [address] [place] [address] 08/15/2024 1:00 PM EDT Imaging Maternal Medicine Imaging, Ronald Davis [place] [phone] 09/12/2024 1:00 PM EST Imaging Maternal Medicine Imaging, Ronald Shahid [place] [phone] Pending Results Name Type Priority Associated Diagnoses Date /Time 50-G GESTATIONAL GLUCOSE, 1 HOUR Lab Routine High-risk in second trimester 07/11/2024 2:34 PM EDT CBC WITH WBC DIFFERENTIAL AND ANEMIA REFLEX WORKUP Lab Routine High-risk in second trimester 07/11/2024 2:34 PM EDT SYPHILIS ANTIBODY SCREEN WITH REFLEX TO RPR Lab Routine High-risk in second trimester 07/11/2024 2:34 PM EDT TYPE AND SCREEN Lab Routine High-risk in second trimester 07/11/2024 2:34 PM EDT ANEMIA CBC Lab Routine High-risk in second trimester 07/11/2024 2:34 PM EDT DIFFERENTIAL, AUTOMATED Lab Routine High-risk in second trimester 07/11/2024 2:34 PM EDT ANEMIA REFLEX CHEMISTRY HOLD Lab Routine High-risk in second trimester 07/11/2024 2:34 PM EDT SYPHILIS ANTIBODY SCREEN Lab Routine High-risk in second trimester 07/11/2024 2:34 PM EDT Health Maintenance Due Date Last Done Comments Hepatitis B Vaccine (1 of 3 - 19+ 3-dose series) 2005 Depression Screening 06/05/2020 06/05/2019 DTap/Tdap Vaccines (2 - Td or Tdap) 07/18/2023 07/18/2013 COVID-19 Vaccine ( season) 2024 Influenza Vaccine (FLU shot) (#1) 2024 GFR [...] this encounter Visit Diagnoses Diagnosis High-risk in second trimester documented in this encounter Care Teams Icing Coater Relationship Specialty Start Date End Date Sanchez Pastor MD [address] [place] [address] PCP - General Family Medicine 05/04/18 documented as of this encounter
--- OUTSIDE RECORDS SUMMARY | 2024-09-18 05:22 | External Medical Summary | Summary of Care ---
Author Name Unknown Organization [facility] Address [address] [facility] [address] Phone [phone] Care Team Providers Care Store Administrator Name Role Phone Sanchez Pastor MD Primary Care Provider [phone] Encounter Details Date Type Department Care Team (Late st Contact Info) Description 07/15/2024 Orders Only Outcomes Research Department [address] [place] [facility] [place] [address] Tanesha Davis [employer]RA [employer] Research Other*[id number] Allergies No known active allergiesdocumented as of this encounter (statuses as of 07/15/2024) Medications Medication Sig Dispensed Refills Start Date [...] as of this encounter (statuses as of 07/15/2024) Active Problems Problem Noted Date Diagnosed Date [...] as of this encounter (statuses as of 07/15/2024) Resolved Problems Problem Noted Date Diagnosed Date [...] as of this encounter (statuses as of 07/15/2024) Immunizations Name Administration Dates Next Due TDAP [...] Description 07/18/2024 1:00 PM EDT Office Visit Supervisor Production Managing Obstetrics Maternal Medicine, [address] [place] [address] Maurizio Seay, DO [address] [place] [facility] [place] [address] 07/18/2024 1:00 PM EDT Imaging Maternal Medicine Imaging, Ronald Jane [address] [place] [phone] 07/24/2024 1:45 PM EDT Office Visit Gynecology/Obstetrics Tan Richtergail Ryan [facility] [place] [address] BackerMiesha CRNP [address] [place] [address] 08/15/2024 1:00 PM EDT Imaging Maternal Medicine Imaging, Ronald SandersonCR[place] [phone] 09/12/2024 1:00 PM EST Imaging Maternal Medicine Imaging, Ronald RicheyCRIST[place] [phone] Scheduled Orders Name Type Priority Associated Diagnoses Orde r Schedule MYCODE SUBSEQUENT ADULT Lab Routine [employer] Other*[id number] Every 6 Months for 2 Occurrences starting 07/15/2024 until 08/04/2025 Health Maintenance Due Date Last Done Comments Hepatitis B Vaccine (1 of 3 - 19+ 3-dose series) 2005 Depression Screening 06/05/2020 06/05/2019 DTap/Tdap Vaccines (2 - Td or Tdap) 07/18/2023 07/18/2013 COVID-19 Vaccine ( season) 2024 Influenza Vaccine (FLU shot) (#1) 2024 GFR 07/11/2025 07/11/2024, 04/29, 03/18/2024, Additional [...] this encounter Visit Diagnoses Diagnosis [employer] Other*[id number] documented in this encounter Care Teams Store Administrator Relationship Specialty Start Date End Date Sanchez Pastor MD [address] [place] [address] PCP - General Family Medicine 05/04/18 documented as of this encounter
--- OUTSIDE RECORDS SUMMARY | 2024-09-18 05:22 | External Medical Summary | Summary of Care ---
Author Name Unknown Organization [facility] Address [address] [place] [address] Phone [phone] Care Team Providers Care Day Spa Manager Name Role Phone Sanchez Pastor MD Primary Care Provider [phone] Encounter Details Date Type Department Care Team (Late st Contact Info) Description 03/29/2024 Telephone Public Speaker Obstetrics Maternal Medicine, [place] [address] [place], [place] [phone] Ola, Nurse Public Speaker [facility] [address] [place], [place] [phone] Allergies No known active allergiesdocumented as of this encounter (statuses as of 06/28/2024) Medications Medication Sig Dispensed Refills Start Date End Date Status 28-0.8 MG Oral Tablet Take by mouth. Active documented as of this encounter (statuses [...] No 05/25/2024 Does the household have a unm hospitallar source of income? (Household - for [...] Telephone Encounter - Lauryn Chase OSA - 03/29/2024 2:15 PM EDT Spoke with Vandana. Appointment scheduled. Patient aware of date, time and location of Maternal Medicine appointment. * Telephone Encounter - Lauryn Chase OSA - 03/29/2024 2:10 PM EDT Called patient because she left a VM to call her back to reschedule her AIRCRAFT ARMORER video consult. The phonerang once and than it was silent and nobody answered. Sent MyG documented in this encounter Plan of Treatment Upcoming Encounters Date Type Department Care Team (Late st Contact Info) Description 07/08/2024 11:30 AM EDT Office Visit Gynecology/Obstetrics Tan Jane [address] [place] [address] Tamera Barrow PA-C [address] [place] [address] 07/08/2024 11:30 AM EDT [facility] [place] [phone] [facility] Ronald [place] [address] 07/18/2024 1:00 PM EDT Office Visit Public Speaker Obstetrics Maternal Medicine, Ronald [place]KE [place] [address] Bakari Sanchez MD [address] [place] [address] 07/18/2024 1:00 PM EDT Imaging Maternal Medicine Imaging, Ronald KovacsCR[place] [phone] 07/18/2024 1:45 PM EDT Office Visit Public Speaker Obstetrics Maternal Medicine, [place] [address] [place] [address] Maurizio Seay, [address] [place] [address] 07/18/2024 1:45 PM EDT Imaging Radiology [facility] [address] [place] [address] 08/15/2024 1:00 PM EDT Imaging Maternal Medicine Imaging, Ronald Davis [place] [phone] 09/12/2024 1:00 PM EST Imaging Maternal Medicine Imaging, Ronald Davis [place] [phone] Health Maintenance Due Date Last Done Comments Hepatitis B Vaccine (1 3 - 19+ 3-dose series) 2005 Depression [...] filedocumented as of this encounter Care Teams Day Spa Manager Relationship Specialty Start Date End Date Sanchez Pastor MD [address] [place] [address] PCP - General Family Medicine 05/04/18 documented as of this encounter
--- OUTSIDE RECORDS SUMMARY | 2024-09-18 05:22 | External Medical Summary ---
Author Name Unknown Address Unknown Organization K01:[place] [place] [address] [place] [address] Laboratory Report Ordering Provider Test Date Status DANY MOSSCARLOS 07/11/2024 14:34:44 Final Observation Date Value Abnormality Reference (Units ) Status Vitamin B12 07/11/2024 14:34:44 005 259-5179 (pg/mL) Final Performing Location LABORATORY [facility] - [address] [place] [address]
--- OUTSIDE RECORDS SUMMARY | 2024-09-18 05:22 | External Medical Summary ---
Author Name Unknown Address Unknown Organization K01:[facility] [place] [address] [place] [address] Laboratory Report Ordering Provider Test Date Status DU MOSS 07/11/2024 14:34:44 Final Observation Date Value Abnormality Reference (Units ) Status TSH 07/11/2024 14:34:44 1.61 0.27-4.20 (uIU/mL) Final Performing Location LABORATORY [facility] - [address] [place] [address]
--- OUTSIDE RECORDS SUMMARY | 2024-09-18 05:22 | External Medical Summary ---
Author Name Unknown Address Unknown Organization K01:LABORATORY [facility] [place] [facility] - [address] [place] [address] Laboratory Report Ordering Provider Test Date Status DU MOSS 07/11/2024 14:34:44 Final Observation Date Value Abnormality Reference (Units ) Status ABO 07/11/2024 14:34:44 O Final RH 07/11/2024 14:34:44 Negative Final RED BLOOD CELL ANTIBODY SCREEN 07/11/2024 14:34:44 Negative Final SPECIMEN EXPIRATION DATE 07/11/2024 14:34:44 07/14/2024 23:59 Final Performing Location LABORATORY [facility] - [address] [place] [address]
--- OUTSIDE RECORDS SUMMARY | 2024-09-18 05:22 | External Medical Summary | Summary of Care ---
Author Name Unknown Organization [facility] Address [address] [facility] [place] [address] Phone [phone] Care Team Providers Care Director Of Campus Recreation Name Role Phone Sanchez Pastor MD Primary Care Provider [phone] Reason for Visit * Reason Comments Return Visit Encounter Details Date Type Department Care Team (Late st Contact Info) Description 07/29/2024 10:15 AM EDT Office Visit Gynecology/Obstetric s Tan Jane [address] [place] [address] Caity Corcoran CRNP [address] [place] [address] Multigravida of advanced maternal age in third trimester*; High-risk in third trimester; Chronic hypertension in ; Rh negative, antepartum; Antepartum anemia complicating ; Need for prophylactic vaccination and inoculation against influenza; Need for prophylactic vaccination with combined skncostrvw-noooanc-np rtussis (DTP) vaccine Allergies No known active [...] antepartum 03/06/201305/30 Overview: Rhogam candidate- Given 07/05/2013 Suahs SINGH ICD-10 update of inactive term Supervision [...] 05/25/2024 Does the household have a lovelace medical centerlar source of income? (Household - [...] Sign Reading Time Taken Comments Blood Pressure 128/98 07/29/2024 10:22 AM EDT Pulse - - Temperature - [...] Tuckers [address] [place] [address] Rivka Powers PA-C [address] [place] [address] [place] [address] Jane, Non Stress Tests Ronald [address] [place] [address] 08/15/2024 1:00 PM EDT Imaging Maternal Medicine Imaging, Ronald Jane [address] [place] [phone] 08/19/2024 1:00 PM EDT Office Visit Gynecology/Obstetrics Tan Tuckers [address] [place] [address] Miesha Negro CRNP [address] [place] [address] Buck, Non Stress Tests Ronald [address] [place] [address] 08/22/2024 10:15 AM EDT Office Visit Gynecology/Obstetrics Tan Tuckers [address] [place] [address] Caity Corcoran CRNP [address] [place] [address] Jane, Non Stress Tests Ronald [address] [place] [address] 08/26/2024 1:15 PM EDT Office Visit Gynecology/Obstetrics Tan Tuckers [address] [place] [address] Miesha Negro CRNP [address] [place] [address] Buck Non Stress Tests Ronald [address] [place] [address] 08/29/2024 1:00 PM EDT Office Visit Gynecology/Obstetrics Angel's Jane [address] [place] [address] Caity Corcoran CRNP [address] [place] [address] Buck Non Stress Tests Ronald [address] [place] [address] 09/02/2024 2:30 PM EST Office Visit Gynecology/Obstetrics Tan Tuckers [address] [place] [address] Ole Cruz MD [address] [place] [address] Buck Non Stress Tests Ronald [address] [place] [address] 09/05/2024 10:15 AM EST Office Visit Gynecology/Obstetrics Tan Tuckers [address] [place] [address] Rivka Powers PA-C [address] [place] [address] [place] [address] Buck Non Stress Tests Ronald [address] [place] [address] 09/09/2024 1:00 PM EST Office Visit Gynecology/Obstetrics Angel's Jane [address] [place] [address] Miesha Negro CRNP [address] [place] [address] Jane, Non Stress Tests Ronald [address] [place] [address] 09/12/2024 10:15 AM EST Office Visit Gynecology/Obstetrics Angel's Jane [address] [place] [address] Caity Corcoran CRNP [address] [place] [address] Jane, Non Stress Tests Ronald [address] [place] [address] 09/12/2024 1:00 PM EST Imaging Maternal Medicine Imaging, Ronald Tuckers [address] [place] [address] 09/16/2024 1:00 PM EST Office Visit Gynecology/Obstetrics Angel's Jane [address] [place] [address] Miesha Negro CRNP [address] [place] [address] Jane, Non Stress Tests Ronald [address] [place] [address] 09/19/2024 10:15 AM EST Office Visit Gynecology/Obstetrics Angel's Jane [address] [place] [address] Caity Corcoran CRNP [address] [place] [address] Jane, Non Stress Tests Ronald [address] [place] [address] 09/23/2024 1:15 PM EST Office Visit Gynecology/Obstetrics [facility] Jane [address] [place] [address] Miesha Negro CRNP [address] [place] [address] Buck Non Stress Tests Ronald [address] [place] [address] 09/27/2024 11:00 AM EST Office Visit Gynecology/Obstetrics Ortizbull Tuckers [address] [place] [address] Miesha Negro CRNP [address] [place] [address] Xuan Jane Stress Tests Ronald [address] [place] [address] 09/30/2024 1:00 PM EST Office Visit Gynecology/Obstetrics Angelbull Buck [address] [place] [address] Miesha Negro CRNP [address] [place] [address] Xuan Jane Stress Tests Ronald [address] [place] [address] Health Maintenance Due Date Last Done Comments [...] influenza Need for prophylactic vaccination with combined zsowslhawj-hcnoyhe-qtsgeyfzv (DTP) vaccine documented in this encounter Administered [...] Left documented in this encounter Care Teams Director Of Campus Recreation Relationship Specialty Start Date End Date Sanchez Pastor MD [address] [place], [place] [phone] PCP - General Family Medicine 05/04/18 documented as of this encounter
--- OUTSIDE RECORDS SUMMARY | 2024-09-18 05:22 | External Medical Summary | Summary of Care ---
Author Name Unknown Organization [facility] Address [address] [place] [address] Phone [phone] Care Team Providers Care Emergency Veterinary Assistant Name Role Phone Sanchez Pastor MD Primary Care Provider [phone] Encounter Details Date Type Department Care Team (Late st Contact Info) Description 07/18/2024 1:00 PM EDT Office Visit Retail Loan Officer Obstetrics Maternal Medicine, [address] [place] [address] Maurizio Seay, DO [address] [place] [address] Chronic hypertension in *; Antepartum anemia complicating Allergies No known active allergiesdocumented as of this encounter (statuses as of 07/18/2024) Medications Medication Sig Dispensed Refills Start Date [...] as of this encounter (statuses as of 07/18/2024) Active Problems Problem Noted Date Diagnosed Date [...] as of this encounter (statuses as of 07/18/2024) Resolved Problems Problem Noted Date Diagnosed Date [...] as of this encounter (statuses as of 07/18/2024) Immunizations Name Administration Dates Next Due TDAP [...] as of this encounter Progress Notes * Maurizio Seay DO - 07/18/2024 2:02 PM EDT MATERNAL MEDICINE VISIT Vandana Ron presented today at 28w6d to [facility] for an ultrasound. She is being seen today by Maternal- Medicine for the following reasons: Problem List Items Addressed This Visit Chronic hypertension in - Primary She presents for follow-up of growth secondary to CHTN (on nifedipine) and AMA. Today's ultrasound notes the following: The estimated weight is appropriate for gestational age in the 16th percentile. The visualized anatomy is unremarkable in appearance. The YOLI is normal. Antepartum anemia complicating I reviewed the ultrasound images. Vandana Ron was given the opportunity to meet with me if she had any questions. Please refer to the ultrasound report for additional details about today's ultrasound examination. RECOMMENDATIONS: Recommend surveillance starting at 32 weeks secondary to CHTN on medications. Recommend follow up ultrasound with [facility] in 4 weeks for growth. Thank you for allowing us to participate in the care of this patient. Please call with any questions. Maurizio Seay DO 07/18/2024 2:03 PM documented in this encounter Miscellaneous Notes * Assessment & Plan Note - Maurizio Seay DO - 07/18/2024 1:22 PM EDT Associated Problem(s): Chronic hypertension in She presents for follow-up of growth secondary to CHTN (on nifedipine) and AMA. Today's ultrasound notes the following: The estimated weight is appropriate for gestational age in the 16th percentile. The visualized anatomy is unremarkable in appearance. The YOLI is normal. documented in this encounter Plan of Treatment Upcoming Encounters Date Type Department Care Team (Late st Contact Info) Description 07/24/2024 1:45 PM EDT Office Visit Gynecology/Obstetrics [facility] [address] [place] [address] [place], [place] Sanchez [address] [place] [address] 08/15/2024 1:00 PM EDT Imaging Maternal Medicine Imaging, [place] [address] [place] [address] 09/12/2024 1:00 PM EST Imaging Maternal Medicine Imaging, [place] [address] [place] [phone] Health Maintenance Due Date Last Done Comments Hepatitis B Vaccine (1 of 3 - 19+ 3-dose series) 2005 Depression Screening 06/05/2020 06/05/2019 DTap/Tdap Vaccines (2 - Td or Tdap) 07/18/2023 07/18/2013 COVID-19 Vaccine ( - season) 2024 Influenza Vaccine (FLU shot) (#1) [...] of care Antepartum anemia complicating Anemia, antepartum documented in this encounter Care Teams Emergency Veterinary Assistant Relationship Specialty Start Date End Date Sanchez Pastor MD [address] [place] [facility] [place] [address] PCP - General Family Medicine 05/04/18 documented as of this encounter
--- OUTSIDE RECORDS SUMMARY | 2024-09-18 05:22 | External Medical Summary | Summary of Care ---
Author Name Unknown Organization [facility] Address [address] [facility] [address] Phone [phone] Care Team Providers Care Final Inspector Truck Trailer Name Role Phone Sanchez Pastor MD Primary Care Provider [phone] Reason for Visit * Reason Comments Return Visit Encounter Details Date Type Department Care Team (Late st Contact Info) Description 07/11/2024 2:00 PM EDT Office Visit Gynecology/Obstetric s [facility] [address] [place] [address] Ole Cruz MD [address] [place] [address] Multigravida of advanced maternal age in third trimester*; High-risk in third trimester; Chronic hypertension in ; Rh negative status during in third trimester Allergies No known active [...] Sign Reading Time Taken Comments Blood Pressure 124/84 07/11/2024 2:02 PM EDT Pulse - - Temperature - - Respiratory Rate - - Oxygen Saturation - - Inhaled Oxygen Concentration - - Weight 89.4 kg (197 lb) 07/11/2024 2:02 PM EDT Height - - Body Mass Index 29.95 06/10/2024 2:02 PM EDT documented in this encounter Progress Notes * Ole Cruz MD - 07/11/2024 2:09 PM EDT Pt doing well No complaints today CHTN on Procardia 30 XL and Asprin 81 mg daily Seeing MFM Q monthly GTT pending * Nicky Mercer LPN - 07/11/2024 2:03 PM EDT 27w6d Denies vaginal bleeding/rom + movement Gtt today Declines tdap today documented in this encounter Plan of Treatment Upcoming Encounters Date Type Department Care Team (Late st Contact Info) Description 07/18/2024 1:00 PM EDT Office Visit Assistant Health Educator Obstetrics Maternal Medicine, [place] [address] [place] [address] Bakari Sanchez MD [address] [place] [address] 07/18/2024 1:00 PM EDT Imaging Maternal Medicine Imaging, [place] [address] [place] [phone] 07/24/2024 1:45 PM EDT Office Visit Gynecology/Obstetrics [place] [address] [place] [address] [place], [place]EXX Sanchez [address] [place] [address] 08/15/2024 1:00 PM EDT Imaging Maternal Medicine Imaging, [place] [address] [place] [phone] 09/12/2024 1:00 PM EST Imaging Maternal Medicine Imaging, [facility] [place] [address] [place] [address] Health Maintenance Due Date Last Done Comments Hepatitis B Vaccine (1 of 3 - 19+ 3-dose series) 2005 Depression Screening 06/05/2020 06/05/2019 DTap/Tdap Vaccines (2 - Td or Tdap) 07/18/2023 07/18/2013 COVID-19 Vaccine (1 - season) 2024 Influenza Vaccine (FLU shot) [...] Rh negative status during in third trimester documented in this encounter Care Teams Final Inspector Truck Trailer Relationship Specialty Start Date End Date Sanchez Pastor MD [address] [place] [address] PCP - General Family Medicine 05/04/18 documented as of this encounter
--- OUTSIDE RECORDS SUMMARY | 2024-09-18 05:22 | External Medical Summary ---
Author Name Unknown Address Unknown Organization [id number][place] [place] [facility] [address] [facility] [address] Laboratory Report Ordering Provider Test Date Status DU MOSS 07/11/2024 14:34:44 Final Observation Date Value Abnormality Reference (Units ) Status Retic, % (auto) 07/11/2024 14:34:44 2.46 Above high normal 0.80-1.90 (%) Final Reticulocytes, Absolute 07/11/2024 14:34:44 84.6 31.3-100.1 (K/uL) Final Reticulocyte fraction, immature 07/11/2024 14:34:44 12.5 2.5-20.6 (%) Final Reticulocyte HGB 07/11/2024 14:34:44 37.0 29.7-37.4 (pg) Final Performing Location [facility] [place] [facility] [place] [address]
--- OUTSIDE RECORDS SUMMARY | 2024-09-18 05:22 | External Medical Summary ---
Author Name Unknown Address Unknown Organization [id number]:[facility]ORY [facility] [place] - [address] [place] [address] Laboratory Report Ordering Provider Test Date Status DU MOSS 07/11/2024 14:34:44 Final Observation Date Value Abnormality Reference (Units ) Status Iron 07/11/2024 14:34:44 106 33-151 (ug /dL) Final Iron-binding capacity 07/11/2024 14:34:44 363 250-425 (ug/dL) Final Transferrin Sat % 07/11/2024 14:34:44 29 15 -55 (%) Final Performing Location [facility]ORY [facility] [place] - [address] [place] [address]
--- OUTSIDE RECORDS SUMMARY | 2024-09-18 05:22 | External Medical Summary ---
Author Name Unknown Address Unknown Organization [id number]:LABORATORY [facility] [place] - [address] [place] [address] Laboratory Report Ordering Provider Test Date Status DU MOSS 07/11/2024 14:34:44 Final Observation Date Value Abnormality Reference (Units ) Status Creatinine 07/11/2024 14:34:44 0.8 0.5-1.0 (mg/dL) Final Glomerular filtration rate/1.73 sq M.predicted [Volume Rate/Area] in Serum, Plasma or Blood by Creatinine-based formula (CKD-EPI) 07/11/2024 14:34:44 >90 >=60 (mL/min) Final eGFR is calculated based on the CKD-EPI 2020 equation. Performing Location LABORATORY [facility] [place] - [address] [place] [address]
--- OUTSIDE RECORDS SUMMARY | 2024-09-18 05:22 | External Medical Summary ---
Author Name Unknown Address Unknown Organization [id number] [address] [place] [address] Laboratory Report Ordering Provider Test Date Status DANY MOSSCARLOS 07/11/2024 14:34:44 Final Observation Date Value Abnormality Reference (Units ) Status Glucose [Moles/volume] in Serum or Plasma --1 hour post 50 g glucose PO 07/11/2024 14:34:44 119 70-129 (mg/dL) Final Performing Location [facility] - [address] [place] [address]
--- OUTSIDE RECORDS SUMMARY | 2024-09-18 05:22 | External Medical Summary ---
Author Name Unknown Address Unknown Organization [id number]:[facility]ORY [facility] [place] - [address] [facility] [address] Laboratory Report Ordering Provider Test Date Status DU MOSS 07/11/2024 14:34:44 Final Observation Date Value Abnormality Reference (Units ) Status WBC, Total 07/11/2024 14:34:44 12.58 Above high normal 4 .00-10.80 (K/uL) Final RBC 07/11/2024 14:34:44 3.41 3.85-5.15 (M/uL) Final Hemoglobin 07/11/2024 14:34:44 11.5 Below low normal 12 .0-15.3 (g/dL) Final Anemia reflex testing trigge rs on a HGB < 12.0 for Females and HGB < 13.0 for Males in accordance with the WHO Anemia Guidelines HCT 07/11/2024 14:34:44 33.4 Below low normal 36. 0-45.2 (%) Final MCV 07/11/2024 14:34:44 97.9 81.5-97.5 (fL) Final MCH 07/11/2024 14:34:44 33.7 27.0-34.0 (pg) Final MCHC 07/11/2024 14:34:44 34.4 32.0-36.0 (g/dL) Final RDW 07/11/2024 14:34:44 12.5 11.5-15.5 (%) Final Platelets 07/11/2024 14:34:44 153 140-400 (K /uL) Final MPV 07/11/2024 14:34:44 14.1 6.6-11.1 ( fL) Final Nucleated erythrocytes/100 leukocytes [Ratio] in Blood by Automated count 07/11/2024 14:34:44 0 <=0 (/100 WBCs) Final Performing Location LABORATORY [facility] [place] - [address] [place] [address]
--- OUTSIDE RECORDS SUMMARY | 2024-09-18 05:22 | External Medical Summary ---
Author Name Unknown Address Unknown Organization [id number][place] [place] [address] [place] [address] Laboratory Report Ordering Provider Test Date Status DU MOSS 07/11/2024 14:34:44 Final Observation Date Value Abnormality Reference (Units ) Status Folic Acid 07/11/2024 14:34:44 >20.0 >4.5 (ng/ mL) Final Performing Location LABORATORY C - [address] [place] [address]
--- OUTSIDE RECORDS SUMMARY | 2024-09-18 05:22 | External Medical Summary ---
Author Name Unknown Address Unknown Organization [id number][place] [place] [address] [facility] [address] Laboratory Report Ordering Provider Test Date Status DU MOSS 07/11/2024 14:34:44 Final Observation Date Value Abnormality Reference (Units ) Status Treponema pallidum Ab [Presence] in Serum by Immunoassay 07/11/2024 14:34:44 Nonreactive Nonreactive Final No serologic evidence of syp hilis. No additional testing clinicially indicated at this time. Consider repeat testing in 2-4 weeks if acute or primary syphilis is suspected. Performing Location [facility] [place] [address] [place] [address]
--- OUTSIDE RECORDS SUMMARY | 2024-09-18 05:22 | External Medical Summary | Summary of Care ---
Author Name Unknown Organization [facility] Address [address] [place] [address] Phone [phone] Care Team Providers Care Integration Manager Name Role Phone Sanchez Pastor MD Primary Care Provider [phone] Encounter Details Date Type Department Care Team (Late st Contact Info) Description 07/18/2024 1:00 PM EDT Office Visit Machine Set Up Technician Obstetrics Maternal Medicine, [address] [place] [address] Maurizio Seay, DO [address] [place] [address] Chronic hypertension in *; Antepartum anemia complicating Allergies No known active allergiesdocumented as of this encounter (statuses as of 07/19/2024) Medications Medication Sig Dispensed Refills Start Date [...] as of this encounter (statuses as of 07/19/2024) Active Problems Problem Noted Date Diagnosed Date [...] as of this encounter (statuses as of 07/19/2024) Resolved Problems Problem Noted Date Diagnosed Date Resolved Date Essential hypertension with goal blood pressure less than 140/90 01/12/2018 05/04/2018 Rh negative, antepartum 03/06/201305/30 Overview: Rhogam candidate- Given 07/05/2013 Suhas SINGH ICD-10 update of inactive term Supervision of normal first 02/28/2013 02/26/2016 Overview: Patient received flu vaccine. 07/18/2013 Swati oJsue RN 07/18/2013 Tdap Vaccine administered per clinic protocol. Pt given VIS(vaccine information sheet) Swati Josue RN documented as of this encounter (statuses as of 07/19/2024) Immunizations Name Administration Dates Next Due TDAP [...] Vandana Ron presented today at 28w6d to [facility] for an ultrasound. She is being [...] on medications. Recommend follow up ultrasound with [facility] in 4 weeks for growth. Thank [...] Gynecology/Obstetrics [facility] [place] [address] [place] [address] [place], [place] Sanchez [address] [place] [address] 08/15/2024 1:00 PM EDT Imaging Maternal Medicine Imaging, [place] [address] [place] [address] 09/12/2024 1:00 PM EST Imaging Maternal Medicine Imaging, [place] [address] [place] [address] Health Maintenance Due Date Last Done Comments [...] antepartum documented in this encounter Care Teams Integration Manager Relationship Specialty Start Date End Date Sanchez Pastor MD [address] [place] [facility] [facility] [place] [address] PCP - General Family Medicine 05/04/18 documented as of this encounter
--- OUTSIDE RECORDS SUMMARY | 2024-09-18 05:22 | External Medical Summary | Summary of Care ---
Author Name Unknown Organization [facility] Address [address] [place] [address] Phone [phone] Care Team Providers Care Mule Rider Name Role Phone Sanchez Pastor MD Primary Care Provider [phone] Encounter Details Date Type Department Care Team (Late st Contact Info) Description 06/20/2024 1:00 PM EDT Office Visit Test Specialist Obstetrics Maternal Medicine, [address] [place] [address] Jacqueline Fleming, DO [address] [place] [address] Chronic hypertension in *; Ultrasound [...] 07/08/2024 11:30 AM EDT Office Visit Gynecology/Obstetrics [facility] [address] [facility] [place] [address] Tamera Barrow PA-C [address] [facility] [place] [address] 07/08/2024 11:30 AM EDT Laboratory [facility], [facility] [address] [facility] [place] [phone] [facility] [address] [facility] [place] [address] 07/18/2024 1:00 PM EDT Office Visit Test Specialist Obstetrics Maternal Medicine, [facility] [address] [facility] [place] [address] Bakari Sanchez MD [address] [place], [place] [address] 07/18/2024 1:00 PM EDT Imaging Maternal Medicine Imaging, [facility] [address] [facility] [place] [phone] 07/18/2024 1:45 PM EDT Office Visit Test Specialist Obstetrics Maternal Medicine, [place] [address] [place] [address] Maurizio eSay, DO [address] [place] [address] 07/18/2024 1:45 PM EDT Imaging Radiology [facility] [address] [place] [address] 08/15/2024 1:00 PM EDT Imaging Maternal Medicine Imaging, [facility] [address] [facility] [place] [address] 09/12/2024 1:00 PM EST Imaging Maternal Medicine Imaging, [facility] [address] [place] [address] Health Maintenance Due Date [...] incidental documented in this encounter Care Teams Mule Rider Relationship Specialty Start Date End Date Sanchez Pastor MD [address] [place] [address] PCP - General Family Medicine 05/04/18 documented as of this encounter
--- OUTSIDE RECORDS SUMMARY | 2024-09-18 05:23 | External Medical Summary | Summary of Care ---
Author Name Unknown Organization [facility] Address [address] [facility] [place] [address] Phone [phone] Care Team Providers Care Powder And Primer Canning Leader Name Role Phone Sanchez Pastor MD Primary Care Provider [phone] Encounter Details Date Type Department Care Team (Late st Contact Info) Description 05/24/2024 Telephone Gynecology/Obstetrics [facility] [address] [place] [address] Eber Eduardo MD [address] [place] [address] Allergies No known active allergiesdocumented as of this encounter (statuses as of 05/24/2024) Medications Medication Sig Dispensed Refills Start Date [...] as of this encounter (statuses as of 05/24/2024) Active Problems Problem Noted Date Diagnosed Date [...] as of this encounter (statuses as of 05/24/2024) Resolved Problems Problem Noted Date Diagnosed Date [...] as of this encounter (statuses as of 05/24/2024) Immunizations Name Administration Dates Next Due TDAP [...] the money to buy more. Never true 05/23/20 24 Within the past 12 months, t he food you bought just didn't last and you didn't have money to get more. Never true 05/23/2024 Childcare Answer Date Recorded Do you feel overwhelmed with taking care of a child, family member or friend? No 05/23/2024 Does your family need help f inding childcare? (Household - for ages 0-17 years) Not on file 05/23/2024 Clothing Answer Date Recorded Have you been unable to get clothing when it was really needed? No 05/23/2024 Is your family able to get c lothes or diapers when needed? (Household - for ages 0-17 years) Not on file 05/23/2024 Personal Safety Answer Date Recorded Do you feel unsafe or have concerns for your saf ety? No 05/23/2024 Do you have concerns for you r family's safety? (Household - for ages 0-17 years) Not on file 05/23/2024 Utilities Answer Date Recorded Do you have trouble paying y our heating, water, or electric bill? No 05/23/2024 Is your family able to pay t he heat, water, or electric bill? (Household - for ages 0-17 years) Not on file 05/23/2024 Does your family have access to good internet? (Household - for ages 0-17 years) Not on file 05/23/2024 Employment Status Answer Date Recorded Are you unemployed or without regular income? No 05/23/2024 Does the household have a re lar source of income? (Household - for ages 0-17 years) Not on file 05/23/2024 Social Connections Answer Date Recorded How often do you feel lonely or isolated from th ose around you? Never 05/23/2024 Financial Resource Strain Answer Date R ecorded Do you have any trouble payi ng for your medications, or do you think you might in the future? No 05/23/2024 Does your family have troubl e paying for medicine? (Household - for ages 0-17 years) Not on file 05/23/2024 Transportation Needs Answer Date Record ed READ ONLY Do you have troubl e getting a ride to medical visits or work? Never True 05/23/2024 Does your family have a hard time getting a ride to doctors visits? (Household - for ages 0-17 years) Not on file 05/23/2024 Has lack of transportation k ept you from medical appointments, meetings, work, or from getting things needed for daily living? Check all that apply. No 05/23/2024 Do you (or your family) have trouble finding or paying for a ride (transportation)? (Household - for ages 0-17 years) Not on file 05/23/2024 Housing Stability Answer Date Recorded Do you currently live in a s helter or have no steady place to sleep at night? No 05/23/2024 READ ONLY Do you think you a re at risk of becoming homeless? No 05/23/2024 Does your family worry about paying for your home or becoming homeless? (Household - for ages 0-17 years) Not on file 0 05/23/2024 Are you homeless or worried that you might be in the future? No 05/23/2024 Are you (or your family) tamika eless or worried that you might be in the future? (Household - for ages 0-17 years) Not on file Food Insecurity Answer Date Recorded Do you need food for this week? Yes 05/23/2024 Are you able to get enough f ood for your family? (Household - for ages 0-17 years) Not on file 05/23/2024 Does your family need food t his week? (Household - for ages 0-17 years) Not on file 05/23/2024 Do you always have enough fo od for your family? (Household - for ages 0-17 years) Not on file 05/23/2024 Estimated Date of Delivery Comme nts Yes [...] encounter Miscellaneous Notes * Telephone Encounter - Michaela Bergman MED ASSIST - 05/24/2024 1:33 PM EDT LMOM for pt to call back and schedule 1 week BP check. * Telephone Encounter - Eber Eduardo MD - 05/24/2024 9:52 AM EDT Thank you Recommend to f/u in a week for BP * Telephone Encounter - Michaela Bergman MED ASSIST - 05/24/2024 9:23 AM EDT Patient presented to office today for BP check per [facility]. Pt had elevated BP at [facility] appointment and was transferred to L&D. Taking Nifedipine 30 mg daily. Denies headache or vision changes. BP today in office 120/82. documented in this encounter Plan of Treatment Upcoming Encounters Date Type Department Care Team (Late st Contact Info) Description 06/10/2024 2:15 PM EDT Office Visit Gynecology/Obstetrics [place] [address] [place] [address] Miesha Negro CRNP [address] [place] [address] 06/20/2024 1:00 PM EDT Imaging Maternal Medicine Imaging, [facility] [place] [address] [place] [phone] 07/18/2024 1:45 PM EDT Office Visit Tear Down Matcher Obstetrics Maternal Medicine, [place] [address] [place] [address] Maurizio Seay, [address] [place] [address] 07/18/2024 1:45 PM EDT Imaging [facility] [place] [address] [place] [address] 08/15/2024 1:00 PM EDT Imaging Maternal Medicine Imaging, [place] [address] [place] [address] 09/12/2024 1:00 PM EST Imaging Maternal Medicine Imaging, [place] [address] [place] [phone] Health Maintenance Due Date Last Done Comments Hepatitis B Vaccine (1 of 3 - 19+ 3-dose series) 2005 Depression Screening 06/05/2020 06/05/2019 COVID-19 Vaccine (1 - 2022-24 season) 2023 DTaP,Tdap,and Td Vaccines (2 - [...] filedocumented as of this encounter Care Teams Powder And Primer Canning Leader Relationship Specialty Start Date End Date Sanchez Pastor MD [address] [place] [address] PCP - General Family Medicine 05/04/18 documented as of this encounter
--- OUTSIDE RECORDS SUMMARY | 2024-09-18 05:23 | External Medical Summary | Summary of Care ---
Author Name Unknown Organization [facility] Address [address] [facility] [place] [address] Phone [phone] Care Team Providers Care Chocolate Coater Name Role Phone Sanchez Pastor MD Primary Care Provider [phone] Encounter Details Date Type Department Care Team (Late st Contact Info) Description 05/24/2024 Telephone Gynecology/Obstetrics [facility] [address] [place] [address] Eber Eduardo MD [address] [place] [address] Allergies No known active allergiesdocumented as of [...] encounter Miscellaneous Notes * Telephone Encounter - Eber Eduardo MD - 05/24/2024 9:52 AM EDT Thank you Recommend to f/u in a week for BP * Telephone Encounter - Michaela Bergman, MED ASSIST - 05/24/2024 9:23 AM EDT Patient presented to office today for BP check per [facility]. Pt had elevated BP at [facility] appointment and was transferred to L&D. Taking Nifedipine 30 mg daily. Denies headache or vision changes. BP today in office 120/82. documented in this encounter Plan of Treatment Upcoming Encounters Date Type Department Care Team (Late st Contact Info) Description 06/10/2024 2:15 PM EDT Office Visit Gynecology/Obstetrics [facility] [address] [place] [address] BackerMiesha CRNP [address] [place] [address] 06/20/2024 1:00 PM EDT Imaging Maternal Medicine Imaging, [place] [phone] 07/18/2024 1:45 PM EDT Office Visit Tape Recorder Mechanic Obstetrics Maternal Medicine, [place] [address] [place] [address] Maurizio Seay, [address] [place] [address] 07/18/2024 1:45 PM EDT Imaging Radiology [facility] [place], [place] [address] [place] [address] 08/15/2024 1:00 PM EDT Imaging Maternal Medicine Imaging, [place] [address] [place] [phone] 09/12/2024 1:00 PM EST Imaging Maternal Medicine Imaging, Ronald [place] [phone] Health Maintenance Due Date Last Done Comments Hepatitis B Vaccine (1 of 3 - 19+ 3-dose series) 2005 Depression Screening 06/05/2020 06/05/2019 COVID-19 Vaccine (2022-24 season) 2023 DTaP,Tdap,and Td Vaccines (2 - [...] filedocumented as of this encounter Care Teams Chocolate Coater Relationship Specialty Start Date End Date Sanchez Pastor MD [address] [place] [address] PCP - General Family Medicine 05/04/18 documented as of this encounter
--- OUTSIDE RECORDS SUMMARY | 2024-09-18 05:23 | External Medical Summary | Summary of Care ---
Author Name Unknown Organization [facility] Address [address] [facility] [place] [address] Phone [phone] Care Team Providers Care Justice Professor Name Role Phone Sanchez Pastor MD Primary Care Provider [phone] Encounter Details Date Type Department Care Team (Late st Contact Info) Description 05/24/2024 Telephone Gynecology/Obstetrics [facility] [address] [place] [address] Eber Eduardo MD [address] [place] [address] Allergies No known active allergiesdocumented as of [...] encounter Miscellaneous Notes * Telephone Encounter - Nicky Mercer LPN - 05/24/2024 1:39 PM EDT Pt calling back and appointment scheduled. * Telephone Encounter - Michaela Bergman MED [...] to office today for BP check per [facility]. Pt had elevated BP at [facility] appointment and was transferred to L&D. Taking Nifedipine 30 mg daily. Denies headache or vision changes. BP today in office 120/82. documented in this encounter Plan of Treatment Upcoming Encounters Date Type Department Care Team (Late st Contact Info) Description 05/30/2024 10:00 AM EDT Nurse Only Gynecology/Obstetrics [facility] [place] [address] [place] [address] Gw, Nurse Obgyn Injection [address] [place] [address] 06/10/2024 2:15 PM EDT Office Visit Gynecology/Obstetrics [facility] [place] [address] [place] [address] Backer, LEXX Sanchez [address] [place] [address] 06/20/2024 1:00 PM EDT Imaging Maternal Medicine Imaging, [place] [address] [place] [phone] 07/18/2024 1:45 PM EDT Office Visit Brand Activation Manager Obstetrics Maternal Medicine, [address] [place] [address] Maurizio Seay, DO [address] [place] [address] 07/18/2024 1:45 PM EDT Imaging Radiology [facility] [address] [place] [address] 08/15/2024 1:00 PM EDT Imaging Maternal Medicine Imaging, Ronald Jane [address] [place] [address] 09/12/2024 1:00 PM EST Imaging Maternal Medicine Imaging, [facility] [address] [place] [address] Health Maintenance Due Date Last Done [...] filedocumented as of this encounter Care Teams Justice Professor Relationship Specialty Start Date End Date Sanchez Pastor MD [address] [facility] [id number] PCP - General Family Medicine 05/04/18 documented as of this encounter
--- OUTSIDE RECORDS SUMMARY | 2024-09-18 05:23 | External Medical Summary | Summary of Care ---
Author Name Unknown Organization [facility] Address [address] [facility] [address] Phone [phone] Care Team Providers Care Nuclear Process Engineer Name Role Phone Sanchez Pastor MD Primary Care Provider [phone] Reason for Visit * Reason Comments Return Visit Encounter Details Date Type Department Care Team (Late st Contact Info) Description 06/10/2024 2:15 PM EDT Office Visit Gynecology/Obstetric s [facility] [address] [place] [address] BackMiesha gonzales CRNP [address] [place] [address] High-risk in second trimester*; Multigravida of advanced maternal age in second trimester; Chronic hypertension in ; Rh negative status during in second trimester Allergies No known active allergiesdocumented as of this encounter (statuses as of 06/10/2024) Medications Medication Sig Dispensed Refills Start Date [...] as of this encounter (statuses as of 06/10/2024) Active Problems Problem Noted Date Diagnosed Date [...] as of this encounter (statuses as of 06/10/2024) Resolved Problems Problem Noted Date Diagnosed Date [...] as of this encounter (statuses as of 06/10/2024) Immunizations Name Administration Dates Next Due TDAP [...] Sign Reading Time Taken Comments Blood Pressure 132/88 06/10/2024 2:02 PM EDT Pulse - - Temperature - - Respiratory Rate - - Oxygen Saturation - - Inhaled Oxygen Concentration - - Weight 85.7 kg (189 lb) 06/10/2024 2:02 PM EDT Height 172.7 cm (5' 8") 06/10/2024 2:02 PM EDT Body Mass Index 28.74 06/10/2024 2:02 PM EDT documented in this encounter Progress Notes * Miesha Negro CRNP - 06/10/2024 2:07 PM EDT 23w3d No concerns, baby moving. No pelvic pain or LOF/bleeding. Scheduled for growth scan with [facility] next week. BP stable on nifidepine. 3rd trimester labs with next visit. No new SANDERS, vision changes. She is regularly checking BP at home - call with persistent systolic >/=140, diastolic >/=90. 4 week return LEXX Hull documented in this encounter Nursing Notes * Loan Maharaj LPN - 06/10/2024 2:05 PM EDT 23w3d Denies concerns documented in this encounter Plan of Treatment Upcoming Encounters Date Type Department Care Team (Late st Contact Info) Description 06/20/2024 1:00 PM EDT Imaging Maternal Medicine Imaging, Ronald Jane [address] [place] [phone] 07/08/2024 11:30 AM EDT Office Visit Gynecology/Obstetrics [place] [address] [place] [address] Tamera Barrow PA-C [address] [place] [address] 07/08/2024 11:30 AM EDT [facility] [address] [place] [phone] Kennedy Jane [address] [place] [address] 07/18/2024 1:45 PM EDT Office Visit Customer Advisor Obstetrics Maternal Medicine, [place] [address] [place] [address] Maurizio Seay, [address] [place] [address] 07/18/2024 1:45 PM EDT Imaging [facility]iology [facility], [place] [address] [place] [address] 08/15/2024 1:00 PM EDT Imaging Maternal Medicine Imaging, [facility] [address] [place] [phone] 09/12/2024 1:00 PM EST Imaging Maternal Medicine Imaging, [facility] [address] [place] [phone] Scheduled Orders Name Type Priority Associated Diagnoses Orde r Schedule 50-G GESTATIONAL GLUCOSE, 1 HOUR Lab Routine High-risk in second trimester Expected: 07/11/2024 (Approximate), Expires: 06/10/2025 CBC WITH WBC DIFFERENTIAL AND ANEMIA REFLEX WORKUP Lab Routine High-risk in second trimester Expected: 07/11/2024 (Approximate), Expires: 06/10/2025 SYPHILIS ANTIBODY SCREEN WITH REFLEX TO RPR Lab Routine High-risk in second trimester Expected: 07/11/2024 (Approximate), Expires: 06/10/2025 TYPE AND SCREEN Lab Routine High-risk in second trimester Expected: 07/11/2024 (Approximate), Expires: 07/11/2025 URINALYSIS OBSTETRICS, POINT OF CARE Point of Care Testing - Unsolicited Results Routine High-risk in second trimester Chronic hypertension in Ordered: 06/10/2024 Health Maintenance Due Date Last Done Comments Hepatitis B Vaccine (1 of 3 - 19+ 3-dose series) 2005 Depression Screening 06/05/2020 06/05/2019 COVID-19 Vaccine (1 - 2022-24 season) 2023 DTaP,Tdap,and Td Vaccines (2 - Td or Tdap) 07/18/2023 07/18/2013 Influenza Vaccine (FLU shot) (#1) 2024 GFR 05/17/2025 05/17/2024, 02/28, 01/13/2018, Additional history exists Pap Smear 03/18/2027 03/18/2024, 0806/2021, 04/25/2017, Additional history exists Diabetes Screening 05/17/2027 [...] encounter Visit Diagnoses Diagnosis High-risk in second trimester- Primary Multigravida of advanced maternal age in second trimester Chronic hypertension in Benign essential hypertension complicating , childbirth, and the puerperium, unspecified as to episode of care Rh negative status during in second trimester documented in this encounter Care Teams Nuclear Process Engineer Relationship Specialty Start Date End Date Sanchez Pastor MD [address] [place] [address] PCP - General Family Medicine 05/04/18 documented as of this encounter
--- OUTSIDE RECORDS SUMMARY | 2024-09-18 05:23 | External Medical Summary | Summary of Care ---
Author Name Unknown Organization [facility] Address [address] [facility] [address] Phone [phone] Care Team Providers Care Senior Military Analyst Name Role Phone Sanchez Pastor MD Primary Care Provider [phone] Reason for Visit * Reason Comments Return Visit Encounter Details Date Type Department Care Team (Late st Contact Info) Description 06/10/2024 2:15 PM EDT Office Visit Gynecology/Obstetric s [facility] [address] [place] [address] BackMiesha gonzales CRNP [address] [place] [address] High-risk in second trimester*; Multigravida of advanced [...] or LOF/bleeding. Scheduled for growth scan with [facility] next week. BP stable on nifidepine. [...] Imaging, Ronald Jane [address] [place] [phone] 07/08/2024 11:30 AM EDT Office Visit Gynecology/Obstetrics [facility] [place] [address] [place] [address] Tamera Barrow PA-C [address] [place] [address] 07/08/2024 11:30 AM EDT [facility] [address] [place] [phone] Kennedy Jane [address] [place] [address] 07/18/2024 1:45 PM EDT Office Visit Pet House Sitter Obstetrics Maternal Medicine, [place] [address] [place] [address] Maurizio Seay, [address] [place] [address] 07/18/2024 1:45 PM EDT Imaging [facility]iology [facility], [place] [address] [place] [address] 08/15/2024 1:00 PM EDT Imaging Maternal Medicine Imaging, [facility] [address] [place] [phone] 09/12/2024 1:00 PM EST Imaging Maternal Medicine Imaging, [facility] [address] [place] [phone] Scheduled Orders Name Type Priority Associated Diagnoses [...] trimester documented in this encounter Care Teams Senior Military Analyst Relationship Specialty Start Date End Date Sanchez Pastor MD [address] [place] [address] PCP - General Family Medicine 05/04/18 documented as of this encounter
--- OUTSIDE RECORDS SUMMARY | 2024-09-18 05:23 | External Medical Summary | Summary of Care ---
Author Name Unknown Organization [facility] Address [address] [facility] [place] [address] Phone [phone] Care Team Providers Care Laborer Rags Name Role Phone Sanchez Pastor MD Primary Care Provider [phone] Encounter Details Date Type Department Care Team (Late st Contact Info) Description 05/30/2024 10:00 AM EDT Nurse Only Gynecology/Obstetrics [facility] [address] [facility] [place] [address] Gw, Nurse Obgyn Injection [address] [facility] [place] [address] Allergies No known active allergiesdocumented as of this encounter (statuses as of 05/30/2024) Medications Medication Sig Dispensed Refills Start Date [...] as of this encounter (statuses as of 05/30/2024) Active Problems Problem Noted Date Diagnosed Date [...] as of this encounter (statuses as of 05/30/2024) Resolved Problems Problem Noted Date Diagnosed Date [...] as of this encounter (statuses as of 05/30/2024) Immunizations Name Administration Dates Next Due TDAP [...] Sign Reading Time Taken Comments Blood Pressure 124/78 05/30/2024 9:55 AM EDT Pulse - - Temperature - - Respiratory Rate - - Oxygen Saturation - - Inhaled Oxygen Concentration - - Weight 83.5 kg (184 lb) 05/30/2024 9:55 AM EDT Height - - Body Mass Index 27.98 05/13/2024 3:17 PM EDT documented in this encounter Nursing Notes * Machelle Sharpe LPN - 05/30/2024 9:57 AM EDT Here for BP check. Feeling well, denies headaches or blurred vision. BP WNL. documented in this encounter Plan of Treatment Upcoming Encounters Date Type Department Care Team (Late st Contact Info) Description 06/10/2024 2:15 PM EDT Office Visit Gynecology/Obstetrics [facility] [place] [address] [place] [address] Backer, LEXX Sanchez [address] [place] [address] 06/20/2024 1:00 PM EDT Imaging Maternal Medicine Imaging, Ronald [place] [phone] 07/18/2024 1:45 PM EDT Office Visit Taker Away Obstetrics Maternal Medicine, [place] [address] [place] [address] Maurizio Seay, [address] [place] [address] 07/18/2024 1:45 PM EDT Imaging Radiology [facility] [place], [place] [address] [place] [address] 08/15/2024 1:00 PM EDT Imaging Maternal Medicine Imaging, Ronald Jane [address] [place] [phone] 09/12/2024 1:00 PM EST Imaging Maternal Medicine Imaging, Ronald [place] [phone] Health Maintenance Due Date Last Done Comments [...] as of this encounter Visit Diagnoses Diagnosis Elderly multigravida- Primary Elderly multigravida unspecified as to episode of care or not applicable High-risk Unspecified high-risk Chronic hypertension in Benign essential hypertension complicating , childbirth, and the puerperium, unspecified as to episode of care 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
--- OUTSIDE RECORDS SUMMARY | 2024-09-18 05:23 | External Medical Summary | Summary of Care ---
Author Name Unknown Organization [facility] Address [address] [facility] [place] [address] Phone [phone] Care Team Providers Care Pole Tester Name Role Phone Sanchez Pastor MD Primary Care Provider [phone] Encounter Details Date Type Department Care Team (Late st Contact Info) Description 05/24/2024 Telephone Gynecology/Obstetrics [facility] [address] [place] [address] Eber Eduardo MD [address] [place] [address] Allergies No known active allergiesdocumented as of [...] to office today for BP check per [facility]. Pt had elevated BP at [facility] appointment and was transferred to L&D. Taking Nifedipine 30 mg daily. Denies headache or vision changes. BP today in office 120/82. documented in this encounter Plan of Treatment Upcoming Encounters Date Type Department Care Team (Late st Contact Info) Description 06/10/2024 2:15 PM EDT Office Visit Gynecology/Obstetrics [facility] [place] [address] [place] [address] BackerMiesha CRNP [address] [place] [address] 06/20/2024 1:00 PM EDT Imaging Maternal Medicine Imaging, Ronald [place] [address] [place] [phone] 07/18/2024 1:45 PM EDT Office Visit Medical Front Desk Coordinator Obstetrics Maternal Medicine, [place] [address] [place] [address] Maurizio Seay [address] [place] [address] 07/18/2024 1:45 PM EDT Imaging Radiology [facility], [place] [address] [place] [address] 08/15/2024 1:00 PM EDT Imaging Maternal Medicine Imaging, Ronald Jane [address] [place] [phone] 09/12/2024 1:00 PM EST Imaging Maternal Medicine Imaging, Ronald Jane [address] [place] [phone] Health Maintenance Due Date Last Done Comments Hepatitis B Vaccine (1 of 3 - 19+ 3-dose series) 2005 Depression Screening 06/05/2020 06/05/2019 COVID-19 Vaccine (2022- season) 2023 DTaP,Tdap,and Td Vaccines (2 - Td or Tdap) 07/18/2023 07/18/2013 Influenza Vaccine (FLU shot) (#1) 2024 GFR 05/17/2025 05/17/2024, 05/, 01/13/2018, Additional history exists Pap Smear 03/18/2027 [...] filedocumented as of this encounter Care Teams Pole Tester Relationship Specialty Start Date End Date Sanchez Pastor MD [address] [place] [address] PCP - General Family Medicine 05/04/18 documented as of this encounter
--- OUTSIDE RECORDS SUMMARY | 2024-09-18 05:23 | External Medical Summary | Summary of Care ---
Author Name Unknown Organization [facility] Address [address] [facility] [place] [address] Phone [phone] Care Team Providers Care Residential Pest Control Technician Name Role Phone Sanchez Pastor MD Primary Care Provider [phone] Reason for Visit * Reason Comments Blood Pressure Check Encounter Details Date Type Department Care Team (Late st Contact Info) Description 05/24/2024 9:15 AM EDT Nurse Only Gynecology/Obstetrics [facility] [address] [place] [address] Gw, Nurse Obgyn Injection 132 [facility] [place] [address] Blood Pressure Check Allergies No known active allergiesdocumented as of [...] No 05/23/2024 Does the household have a [facility] hospital[facility] source of income? (Household - for [...] Sign Reading Time Taken Comments Blood Pressure 120/82 05/24/2024 9:19 AM EDT Pulse - - Temperature - - Respiratory Rate - - Oxygen Saturation - - Inhaled Oxygen Concentration - - Weight 83.5 kg (184 lb) 05/24/2024 9:19 AM EDT Height - - Body Mass Index 27.98 05/13/2024 3:17 PM EDT documented in this encounter Progress Notes * Michaela Bergman MED ASSIST - 05/24/2024 9:19 AM EDT Patient present for BP check today per L&D nifedipine 30mg daily Elevated BP 05/17/2024 documented in this encounter Nursing Notes * Michaela Bergman MED ASSIST - 05/24/2024 9:32 AM EDT Patient here for BP check per L&D BP 120/[address] Lechuga for review documented in this encounter Plan of Treatment Upcoming Encounters Date Type Department Care Team (Late st Contact Info) Description 06/10/2024 2:15 PM EDT Office Visit Gynecology/Obstetrics [place] [address] [place] [address] Miesha Negro CRNP [address] [place] [address] 06/20/2024 1:00 PM EDT Imaging Maternal Medicine Imaging, Ronald [place] [phone] 07/18/2024 1:45 PM EDT Office Visit Start Up Specialist Obstetrics Maternal Medicine, [place] [address] [place] [address] Maurizio Seay, [address] [place] [address] 07/18/2024 1:45 PM EDT Imaging Radiology [facility], [place] [address] [place] [address] 08/15/2024 1:00 PM EDT Imaging Maternal Medicine Imaging, Ronald Jane [address] [place] [phone] 09/12/2024 1:00 PM EST Imaging Maternal Medicine Imaging, Ronald Jane [address] [place] [address] Health Maintenance Due Date Last Done Comments [...] as of this encounter Visit Diagnoses Diagnosis BP check- Primary Screening for hypertension documented in this encounter Care Teams Residential Pest Control Technician Relationship Specialty Start Date End Date Sanchez Pastor MD [address] [facility] [place] [address] PCP - General Family Medicine 05/04/18 documented as of this encounter
--- OUTSIDE RECORDS SUMMARY | 2024-09-18 05:23 | External Medical Summary | Summary of Care ---
Author Name Unknown Organization [facility] Address [address] [facility] [place] [address] Phone [phone] Care Team Providers Care Buckle Attaching Machine Operator Name Role Phone Sanchez Pastor MD Primary Care Provider [phone] Encounter Details Date Type Department Care Team (Late st Contact Info) Description 05/30/2024 Telephone Gynecology/Obstetrics [facility] [address] [place] [address] Eber Eduardo MD [address] [place] [address] Allergies No known active allergiesdocumented as of [...] Telephone Encounter - Machelle Sharpe LPN - 05/30/2024 11:05 AM EDT Patient notified * Telephone Encounter - Eber Eduardo MD - 05/30/2024 10:41 AM EDT BP's have been normal Recommend f/u for next JANIA Thanks * Telephone Encounter - Machelle Sharpe LPN - 05/30/2024 10:01 AM EDT Pt is currently 21w6d with an Estimated Date of Delivery: 10/04/24 - Here for BP check. Feeling well. Denies headaches or blurred vision. Checks BP at home and has beennormal. BP today 124/78. Will have Dr. Lechuga review application packager and advise on any further follow up at this time. documented in this encounter Plan of Treatment Upcoming Encounters Date Type Department Care Team (Late st Contact Info) Description 06/10/2024 2:15 PM EDT Office Visit Gynecology/Obstetrics [place] [address] [place] [address] Miesha Negro CRNP [address] [place] [address] 06/20/2024 1:00 PM EDT Imaging Maternal Medicine Imaging, [place] [address] [place] [phone] 07/18/2024 1:45 PM EDT Office Visit Hadoop Infrastructure Architect Obstetrics Maternal Medicine, [place] [address] [place] [address] Maurizio Seay [address] [place] [address] 07/18/2024 1:45 PM EDT Imaging Radiology [facility] [place], [place] [address] [place] [address] 08/15/2024 1:00 PM EDT Imaging Maternal Medicine Imaging, Ronald Buck [address] [place] [phone] 09/12/2024 1:00 PM EST Imaging Maternal Medicine Imaging, [facility] [address] [place] [phone] Health Maintenance Due Date [...] filedocumented as of this encounter Care Teams Buckle Attaching Machine Operator Relationship Specialty Start Date End Date Sanchez Pastor MD [address] [facility] [place] [address] PCP - General Family Medicine 05/04/18 documented as of this encounter
--- OUTSIDE RECORDS SUMMARY | 2024-09-18 05:23 | External Medical Summary | Summary of Care ---
Author Name Unknown Organization [facility] Address [address] [address] Phone [phone] Care Team Providers Care Sock Examiner Name Role Phone Sanchez Pastor MD Primary Care Provider [phone] Reason for Visit * Reason Comments Return Visit Encounter Details Date Type Department Care Team (Late st Contact Info) Description 06/10/2024 2:15 PM EDT Office Visit Gynecology/Obstetric s [facility] [address] [place] [address] BackMiesha gonzales CRNP [address] [place] [address] High-risk in second trimester*; Multigravida of advanced [...] or LOF/bleeding. Scheduled for growth scan with MFM next week. BP stable on nifidepine. 3rd trimester labs with next visit. No new SANDERS, vision changes. She is regularly checking BP at home - call with persistent systolic >/=140, diastolic >/=90. 4 week return LEXX Hull documented in this encounter Nursing Notes * Yessenia Spann LPN - 06/10/2024 2:05 PM EDT 23w3d Denies concerns documented in this encounter Miscellaneous Notes * Addendum Note - Yessenia Spann LPN - 06/10/2024 2:46 PM EDT Addended by: YESSENIA SPANN on: 06/10/2024 02:46 PM Modules accepted: Orders documented in this encounter Plan of Treatment Upcoming Encounters Date Type Department Care Team (Late st Contact Info) Description 06/20/2024 1:00 PM EDT Imaging Maternal Medicine Imaging, [place] [facility] [address] [place] [phone] 07/08/2024 11:30 AM EDT Office Visit Gynecology/Obstetrics Rogerdavid Buck [address] [place] [address] Tamera Barrow PA-C [address] [place] [address] 07/08/2024 11:30 AM EDT Laboratory Laboratory, [facility] [address] [place] [phone] JaneKennedy Ronald [address] [place] [address] 07/18/2024 1:45 PM EDT Office Visit Sound Engineer Obstetrics Maternal Medicine, [place] [address] [place] [address] Maurizio Seay, [address] [place] [address] 07/18/2024 1:45 PM EDT Imaging Radiology [facility], [place] [address] [place] [address] 08/15/2024 1:00 PM EDT Imaging Maternal Medicine Imaging, [place] [phone] 09/12/2024 1:00 PM EST Imaging Maternal Medicine Imaging, [place] [id number] Scheduled Orders Name Type Priority Associated Diagnoses [...] Procedure Name Priority Date/Time Associated Diagnosis Comments URINALYSIS, POINT OF CARE (ENTER/EDIT) Routine 06/10/2024 Chronic hypertension in documented in this encounter Results * URINALYSIS, POINT OF CARE (ENTER/EDIT) (06/10/2024) Color, Urine Yellow Yellow or Light Yellow Clarity, Urine Clear Clear Glucose, Urine Negative Negative mg/dL Bilirubin, Urine Negative Negative Ketone, Urine Negative Negative mg/dL Specific [place], Urine 1.020 1.003 - 1.030 Blood, Urine Negative Negative pH, Urine 7.0 5.0 - 7.5 units Protein, Urine Negative Negative mg/dL Urobilinogen, Urine 0.2 0.2 - 1.0 mg/dL Nitrite, Urine Negative Negative Esterase, Urine Negative Negative Urine 06/10/2024 Miesha HALLMAN LAB POINT O F CARE TEST ENTER/EDIT ORDERABLES documented in this encounter Visit Diagnoses Diagnosis High-risk in second trimester- Primary Multigravida of advanced maternal age in second trimester Chronic hypertension in Benign essential hypertension complicating , childbirth, and the puerperium, unspecified as to episode of care Rh negative status during in second trimester documented in this encounter Care Teams Sock Examiner Relationship Specialty Start Date End Date Sanchez Pastor MD [address] [place] [address] PCP - General Family Medicine 05/04/18 documented as of this encounter
--- OUTSIDE RECORDS SUMMARY | 2024-09-18 05:24 | External Medical Summary | Summary of Care ---
Author Name Unknown Organization [facility] Address [address] [facility] [address] [address] Phone [phone] Care Team Providers Care Wet Process Miller Head Assistant Name Role Phone Sanchez Pastor MD Primary Care Provider [phone] Reason for Visit * Reason Comments Return Visit Encounter Details Date Type Department Care Team (Late st Contact Info) Description 05/13/2024 3:30 PM EDT Office Visit Gynecology/Obstetric s [facility] [address] [facility] [place] [address] Rivka Powers PA-C [address] [facility] [place] [address] High-risk in second trimester*; Multigravida of advanced maternal age in second trimester; Chronic hypertension in ; Rh negative status during in second trimester Allergies No known active allergiesdocumented as of this encounter (statuses as of 05/13/2024) Medications Medication Sig Dispensed Refills Start Date End Date Status 28-0.8 MG Oral Tablet Take by mouth. Active Aspirin 81 MG Oral Tablet ChewableIndications:Hi gh-risk in second trimester,Multigravida of advanced maternal age in second trimester,Chronic hypertension in Take 1 Tablet by mouth in the morning. 100 Tablet 3 04/15/2024 Active documented as of this encounter (statuses as of 05/13/2024) Active Problems Problem Noted Date Diagnosed Date Rh negative status during 04/15/2024 Elderly multigravida 04/10/2024 Overview: Ms. Ron will be 39 years-old by BART (10/04/24). She had low-risk genetic screening. Last Assessment & Plan: CONSIDERATIONS: We reviewed the most pertinent aspects [...] gestation. High-risk 04/10/2024 Chronic hypertension in 04/10/2024 Overview: [...] 03/18/2024 10:42 AM Last Assessment & Plan: Considerations: Women with chronic hypertension during are at significantly increased risk for morbidity. Signs and symptoms of superimposed pre-eclampsia were reviewed; instructed patient to contact primary OB care provider if these symptoms occur. Recommendations: Obtain baseline lab work GELACIO (if not already done) with assessment of proteinuria (24-hour urine protein or sapshja-sk-sbjjmnjmhn ratio) and CBC, serum AST/ALT/creatinine. If patient [...] Estimated Date of Delivery Comme nts Yes 10/06/2024 Based on Ultraso und documented as of this encounter (statuses as of 05/13/2024) Resolved Problems Problem Noted Date Diagnosed Date [...] as of this encounter (statuses as of 05/13/2024) Immunizations Name Administration Dates Next Due TDAP [...] the money to buy more. Never true 04/29/20 24 Within the past 12 months, t he food you bought just didn't last and you didn't have money to get more. Never true 04/29/2024 Childcare Answer Date Recorded Do you feel overwhelmed with taking care of a child, family member or friend? No 04/29/2024 Does your family need help f inding childcare? (Household - for ages 0-17 years) Not on file 04/29/2024 Clothing Answer Date Recorded Have you been unable to get clothing when it was really needed? No 04/29/2024 Is your family able to get c lothes or diapers when needed? (Household - for ages 0-17 years) Not on file 04/29/2024 Personal Safety Answer Date Recorded Do you feel unsafe or have concerns for your saf ety? No 04/29/2024 Do you have concerns for you r family's safety? (Household - for ages 0-17 years) Not on file 04/29/2024 Utilities Answer Date Recorded Do you have trouble paying y our heating, water, or electric bill? No 04/29/2024 Is your family able to pay t he heat, water, or electric bill? (Household - for ages 0-17 years) Not on file 04/29/2024 Does your family have access to good internet? (Household - for ages 0-17 years) Not on file 04/29/2024 Employment Status Answer Date Recorded Are you unemployed or without regular income? No 04/29/2024 Does the household have a re lar source of income? (Household - for ages 0-17 years) Not on file 04/29/2024 Social Connections Answer Date Recorded How often do you feel lonely or isolated from th ose around you? Rarely 04/29/2024 Financial Resource Strain Answer Date R ecorded Do you have any trouble payi ng for your medications, or do you think you might in the future? No 04/29/2024 Does your family have troubl e paying for medicine? (Household - for ages 0-17 years) Not on file 04/29/2024 Transportation Needs Answer Date Record ed READ ONLY Do you have troubl e getting a ride to medical visits or work? Never True 04/29/2024 Does your family have a hard time getting a ride to doctors visits? (Household - for ages 0-17 years) Not on file 04/29/2024 Has lack of transportation k ept you from medical appointments, meetings, work, or from getting things needed for daily living? Check all that apply. No 04/29/2024 Do you (or your family) have trouble finding or paying for a ride (transportation)? (Household - for ages 0-17 years) Not on file 04/29/2024 Housing Stability Answer Date Recorded Do you currently live in a s helter or have no steady place to sleep at night? No 04/29/2024 READ ONLY Do you think you a re at risk of becoming homeless? No 04/29/2024 Does your family worry about paying for your home or becoming homeless? (Household - for ages 0-17 years) Not on file 0 04/29/2024 Are you homeless or worried that you might be in the future? No 04/29/2024 Are you (or your family) tamika eless or worried that you might be in the future? (Household - for ages 0-17 years) Not on file Food Insecurity Answer Date Recorded Do you need food for this week? No 04/29/2024 Are you able to get enough f ood for your family? (Household - for ages 0-17 years) Not on file 04/29/2024 Does your family need food t his week? (Household - for ages 0-17 years) Not on file 04/29/2024 Do you always have enough fo od for your family? (Household - for ages 0-17 years) Not on file 04/29/2024 Estimated Date of Delivery Comme nts Yes 10/06/2024 Based on Ultraso und Sex and Gender [...] Sign Reading Time Taken Comments Blood Pressure 132/96 05/13/2024 3:17 PM EDT rec heck 124/94 Pulse - - Temperature - - Respiratory Rate - - Oxygen Saturation - - Inhaled Oxygen Concentration - - Weight 81.6 kg (180 lb) 05/13/2024 3:17 PM EDT Height 172.7 cm (5' 8") 05/13/2024 3:17 PM EDT Body Mass Index 27.37 05/13/2024 3:17 PM EDT documented in this encounter Progress Notes * Rivka Powers PA-C - 05/13/2024 3:45 PM EDT Vandana Ron is a 39 year old female here for her routine OB appointment at 19w1d Her Estimated Date of Delivery: 10/06/24 She has no concerns at this time. REVIEW OF SYSTEMS She affirms movement. Denies vaginal bleeding, LOF, contractions, N/V, headaches, vision changes, chest pain. PHYSICAL EXAM Filed Vitals: 05/13/24 1517 BP: 132/96 Weight: 81.6 kg (180 lb) Height: 1.727 m (5' 8") BP today elevated at 132/96. This is the first elevated pressure she has had yet this . Denies any symptoms to include new or worsening headaches, vision changes, abdominal pain. POC urine negative for protein. She does mention she went to the gym today prior to her appointment. Will send PCR. Baseline PEC labs completed February 2024 and WNL. +FHT 140s ASSESSMENT/PLAN High-risk in second trimester (Primary) Multigravida of advanced maternal age in second trimester Chronic hypertension in - URINALYSIS, POINT OF CARE (ENTER/EDIT) - PROTEIN/ CREATININE RATIO, URINE - Will return for BP check Monday. If BP continues to be elevated, may need to consider medication for regulation. Rh negative status during in second trimester Supervision of - has anatomy U/S scheduled with [facility] 05/17. - encouraged rest and hydration. RTO Thursday 05/17 for Nurse Visit - BP check, and in 4 weeks for JANIA. Rivka Powers PA-C 05/13/2024 documented in this encounter Nursing Notes * Loan Maharaj LPN - 05/13/2024 3:17 PM EDT 19w1d Has anatomy US with [facility] 05/17/24. documented in this encounter Plan of Treatment Upcoming Encounters Date Type Department Care Team (Late st Contact Info) Description 05/17/2024 9:30 AM EDT Office Visit Registered Health Nurse Obstetrics Maternal Medicine, [place] [address] [place] [address] Maurizio Seay, DO [address] [place] [address] 05/17/2024 9:30 AM EDT [facility] [address] [place] [place] [address] 05/17/2024 3:00 PM EDT Nurse Only Gynecology/Obstetrics [facility] [address] [facility] [place] [address] Gw, Nurse Obgyn Injection [address] [place] [address] 06/10/2024 2:15 PM EDT Office Visit Gynecology/Obstetrics [facility] [address] [facility] [place] [address] [place], LEXX Sanchez [address] [facility] [place] [address] Pending Results Name Type Priority Associated Diagnoses Date /Time PROTEIN/ CREATININE RATIO, URINE Lab Routine Chronic hypertension in 05/13/2024 3:52 PM EDT Health Maintenance Due Date Last Done Comments Hepatitis B Vaccine (1 of 3 - 19+ 3-dose series) 2005 Depression Screening 06/05/2020 06/05/2019 COVID-19 Vaccine ( - 2022- season) 2023 DTaP,Tdap,and Td Vaccines (2 - Td or Tdap) 07/18/2023 07/18/2013 Influenza Vaccine (FLU shot) (#1) 2024 GFR 03/18/2025 03/18/2024, 12/28, 01/10/2018, Additional history exists Diabetes Screening 03/18/2027 03/18/2024, 0 01/13/2018, 01/10/2018, Additional history exists Pap Smear 03/18/2027 03/18/2024, 05/30, 04/25/2017, Additional history exists Cervical Cancer Screening 03/18/2029 [...] Comments URINALYSIS, POINT OF CARE (ENTER/EDIT) Routine 05/13/2024 Chronic hypertension in documented in this encounter Results * URINALYSIS, POINT OF CARE (ENTER/EDIT) (05/13/2024) Color, Urine Yellow Yellow or Light Yellow Clarity, Urine Clear Clear Glucose, Urine Negative Negative mg/dL Bilirubin, Urine Negative Negative Ketone, Urine Negative Negative mg/dL Specific [place], Urine 1.015 1.003 - 1.030 Blood, Urine Negative Negative pH, Urine 7.0 5.0 - 7.5 units Protein, Urine Negative Negative mg/dL Urobilinogen, Urine 0.2 0.2 - 1.0 mg/dL Nitrite, Urine Negative Negative Esterase, Urine Negative Negative Urine 05/13/2024 Rivka Powers PA-C LAB POINT OF CARE TEST ENTER/EDIT ORDERABLES documented in this encounter Visit Diagnoses Diagnosis High-risk in second trimester- Primary Multigravida of advanced maternal age in second trimester Chronic hypertension in Benign essential hypertension complicating , childbirth, and the puerperium, unspecified as to episode of care Rh negative status during in second trimester documented in this encounter Care Teams Wet Process Miller Head Assistant Relationship Specialty Start Date End Date Sanchez Pastor MD [address] [facility] [place] [address] PCP - General Family Medicine 05/04/18 documented as of this encounter
--- OUTSIDE RECORDS SUMMARY | 2024-09-18 05:24 | External Medical Summary | Summary of Care ---
Author Name Unknown Organization [facility] Address [address] [place] [address] Phone [phone] Care Team Providers Care Electrician Aircraft Name Role Phone Sanchez Pastor MD Primary Care Provider [phone] Reason for Visit * Reason Onset Date Comments Referral 03/18/2024 Encounter Details Date Type Department Care Team (Late st Contact Info) Description 03/18/2024 Telephone Test Operator Obstetrics Maternal Medicine, [place] [address] [place], [place] [phone] [place], Nurse Test Operator [facility] [address] [place], [place] [phone] Referral Allergies No known active allergiesdocumented as of this encounter (statuses as of 04/01/2024) Medications Medication Sig Dispensed Refills Start Date End Date Status 28-0.8 MG Oral Tablet Take by mouth. Active documented as of this encounter (statuses as of 04/01/2024) Active Problems Problem Noted Date Diagnosed Date HTN, goal below 130/80 05/04/2018 Family history of thyroid disease 01/12/2018 Estimated Date of Delivery Comme nts Yes 10/06/2024 Based on Ultraso und documented as of this encounter (statuses as of 04/01/2024) Resolved Problems Problem Noted Date Diagnosed Date Resolved Date Essential hypertension with goal blood pressure less than 140/90 01/12/2018 05/04/2018 Rh negative, antepartum 03/06/201305/301 Overview: Rhogam candidate- Given 07/05/2013 Suhas SINGH ICD-10 update of inactive term Supervision of normal first 02/28/2013 02/26/2016 Overview: Patient received flu vaccine. 07/18/2013 Swati Josue RN 07/18/2013 Tdap Vaccine administered per clinic protocol. Pt given VIS(vaccine information sheet) Swati Josue RN documented as of this encounter (statuses as of 04/01/2024) Immunizations Name Administration Dates Next Due TDAP [...] the money to buy more. Never true 02/20/20 24 Within the past 12 months, t he food you bought just didn't last and you didn't have money to get more. Never true 02/20/2024 Estimated Date of Delivery Comme nts Yes [...] encounter Miscellaneous Notes * Telephone Encounter - Aletha Alonso OSA - 04/01/2024 8:40 AM EDT Phone call to patient. Left message on [facility]'s voice mail. Encouraged patient to return call to [facility] to assist with scheduling. * Telephone Encounter - Aletha Alonso OSA - 03/29/2024 11:22 AM EDT Phone call to patient. Left message on [facility]'s voice mail. Encouraged patient to return call to [facility] to assist with scheduling. * Telephone Encounter - Regina Shay CCMA - 03/29/2024 11:12 AM EDT Patient cancelled SPA MANAGER consult 03/29/24, please contact to reschedule. * Telephone Encounter - Aletha Alonso OSA - 03/20/2024 9:10 AM EDT Spoke with Vandana. Appointment scheduled. Patient aware of date, time and location of Maternal Medicine appointment. * Telephone Encounter - Lauryn Chase OSA - 03/20/2024 8:28 AM EDT Phone call to patient. Left message on voice mail. Encouraged patient to return call to [facility] to assist with scheduling. * Telephone Encounter - Aletha Alonso OSA - 03/18/2024 1:09 PM EDT Phone call to patient. Left message on Vandana's voice mail. Encouraged patient to return call to [facility] to assist with scheduling. Also sent MyG message. * Telephone Encounter - Regina Shay CCMA - 03/18/2024 12:51 PM EDT Estimated Date of Delivery: 10/04/24 Please schedule for 45 MINUTE CONSULT SIMPLE MEDICAL WITH SPA MANAGER, in time frame of next available or atpatient's earliest convenience at location [facility] with the indication of AMA (38), HTN. Please schedule anatomy between 19-21 weeks (05/11/24-05/25/24). Referring Provider: Kaela Salcido CNM documented in this encounter Plan of Treatment Upcoming Encounters Date Type Department Care Team (Late st Contact Info) Description 04/10/2024 2:00 PM EDT Telemedicine Test Operator Obstetric [facility] [place] [address] [place] [address] Lydia Horvath CRNP [address] [place] [address] 04/15/2024 1:30 PM EDT Office Visit Gynecology/Obstetrics [facility] [address] [place] [address] Meisha Negro CRNP [address] [facility] [place] [address] 05/17/2024 9:30 AM EDT Office Visit Test Operator Obstetrics Maternal Medicine, [place] [address] [place] [address] Maruizio Seay DO [address] [place] [address] 05/17/2024 9:30 AM EDT Imaging Radiology [facility], [place] [address] [place] [address] Health Maintenance Due Date Last Done Comments Hepatitis B (1 of 3 - 19+ 3-dose series) 2005 HPV/Co-Test 01/20/2016 Depression Screening 06/05/2020 06/05/2019 COVID-19 Vaccine (1 - 2022-24 season) 2023 DTaP,Tdap,and Td Vaccines (2 - Td or Tdap) 07/18/2023 07/18/2013 Cervical Cancer Screening 06/17/2024 Pap Smear 06/17/2024 06/17/2021, 03/31, 04/08/2015, Additional history exists Influenza Vaccine (FLU shot) (Season Ended) 2024 GFR 03/18/2025 03/18/2024, 12/28, 01/10/2018, Additional history exists Diabetes Screening 03/18/2027 03/18/2024, 0 01/13/2018, 01/10/2018, Additional history exists GARDASIL-HPV IMMUNIZATION SERIES Aged Out No longer eligible based on [...] filedocumented as of this encounter Care Teams Electrician Aircraft Relationship Specialty Start Date End Date Sanchez Pastor MD [address] [place] [address] PCP - General Family Medicine 05/04/18 documented as of this encounter
--- OUTSIDE RECORDS SUMMARY | 2024-09-18 05:24 | External Medical Summary | Summary of Care ---
Author Name Unknown Organization [facility] Address [address] [place] [address] Phone [phone] Care Team Providers Care Financial Coordinator Name Role Phone Sanchez Pastor MD Primary Care Provider [phone] Reason for Visit * Auth/Cert Specialty Diagnoses / Procedures Referred By Mary marin Referred To Contact Lizeth Nuno DO [address] [place] [address] [facility] [address] [place] [address] Referral ID Status Reason Start Date Expiration Date Visits Re quested Visits Authorized [id number] Encounter Details Date Type Department Care Team (Latest Contact Info) Description 05/17/2024 12:13 PM EDT - 05/17/2024 1:53 PM EDT Hospital Encounter [facility], OB Triage, Women's Lower Level 1st Floor [address], [place] [id number] Lizeth Nuno DO [address] [place] [address] Discharge Disposition: Home - Self Care Allergies No known active allergiesdocumented as of this encounter (statuses as of 05/18/2024) Medications Medication Sig Dispensed Refills Start Date [...] as of this encounter (statuses as of 05/18/2024) Active Problems Problem Noted Date Diagnosed Date [...] as of this encounter (statuses as of 05/18/2024) Resolved Problems Problem Noted Date Diagnosed Date [...] as of this encounter (statuses as of 05/18/2024) Immunizations Name Administration Dates Next Due TDAP [...] the money to buy more. Never true 05/14/20 24 Within the past 12 months, t he food you bought just didn't last and you didn't have money to get more. Never true 05/14/2024 Childcare Answer Date Recorded Do you feel overwhelmed with taking care of a child, family member or friend? No 05/14/2024 Does your family need help f inding childcare? (Household - for ages 0-17 years) Not on file 05/14/2024 Clothing Answer Date Recorded Have you been unable to get clothing when it was really needed? No 05/14/2024 Is your family able to get c lothes or diapers when needed? (Household - for ages 0-17 years) Not on file 05/14/2024 Personal Safety Answer Date Recorded Do you feel unsafe or have concerns for your saf ety? No 05/14/2024 Do you have concerns for you r family's safety? (Household - for ages 0-17 years) Not on file 05/14/2024 Utilities Answer Date Recorded Do you have trouble paying y our heating, water, or electric bill? No 05/14/2024 Is your family able to pay t he heat, water, or electric bill? (Household - for ages 0-17 years) Not on file 05/14/2024 Does your family have access to good internet? (Household - for ages 0-17 years) Not on file 05/14/2024 Employment Status Answer Date Recorded Are you unemployed or without regular income? No 05/14/2024 Does the household have a re gular source of income? (Household - for ages 0-17 years) Not on file 05/14/2024 Social Connections Answer Date Recorded How often do you feel lonely or isolated from th ose around you? Never 05/14/2024 Financial Resource Strain Answer Date R ecorded Do you have any trouble payi ng for your medications, or do you think you might in the future? No 05/14/2024 Does your family have troubl e paying for medicine? (Household - for ages 0-17 years) Not on file 05/14/2024 Transportation Needs Answer Date Record ed READ ONLY Do you have troubl e getting a ride to medical visits or work? Never True 05/14/2024 Does your family have a hard time getting a ride to doctors visits? (Household - for ages 0-17 years) Not on file 05/14/2024 Has lack of transportation k ept you from medical appointments, meetings, work, or from getting things needed for daily living? Check all that apply. No 05/14/2024 Do you (or your family) have trouble finding or paying for a ride (transportation)? (Household - for ages 0-17 years) Not on file 05/14/2024 Housing Stability Answer Date Recorded Do you currently live in a s helter or have no steady place to sleep at night? No 05/14/2024 READ ONLY Do you think you a re at risk of becoming homeless? No 05/14/2024 Does your family worry about paying for your home or becoming homeless? (Household - for ages 0-17 years) Not on file 0 05/14/2024 Are you homeless or worried that you might be in the future? No 05/14/2024 Are you (or your family) tamika eless or worried that you might be in the future? (Household - for ages 0-17 years) Not on file Food Insecurity Answer Date Recorded Do you need food for this week? Yes 05/14/2024 Are you able to get enough f ood for your family? (Household - for ages 0-17 years) Not on file 05/14/2024 Does your family need food t his week? (Household - for ages 0-17 years) Not on file 05/14/2024 Do you always have enough fo od for your family? (Household - for ages 0-17 years) Not on file 05/14/2024 Estimated Date of Delivery Comme nts Yes [...] Sign Reading Time Taken Comments Blood Pressure 122/77 05/17/2024 1:44 PM EDT Pulse 97 05/17/2024 1:44 PM EDT Temperature 37.3 C (99.1 F) 05/17/2024 12:30 PM E DT Respiratory Rate 16 05/17/2024 12:30 PM EDT Oxygen Saturation - - Inhaled Oxygen Concentration - - Weight - - Height - - Body Mass Index - - documented in this encounter Discharge Instructions * Discharge Instr - AVS* Leilani Smith, DO - 05/17/2024 1:34 PM EDT Discharge Date: 05/17/2024 You may call the department of Obstetrics and Gynecology during business hours for any questions ortest results. [facility] - [phone] After hours, you may call the number above and follow the prompts for more information on the next steps in your care. For acute concerns, you may also call the hospital directly and have the nitroglycerin nitrator operator batch page the REPLACER physician tree surgeon helper. The information below provides you with the instructions and the list of medications you need to betaking following discharge from the hospital. If you have any questions, please ask before leaving.Please carry this letter with you when you see your doctor in the clinic. If you have questions, you can reach us at the numbers above. Chief Complaint You came to triage for elevated blood pressures, with chronic hypertension Diagnosis Your primary diagnosis at discharge was 20w0d gestation with chronic hypertension Treatment Your treatment included BP checks and initiation of blood pressure medication Diet Normal diet Activity As tolerated Return to Work or School You may return to work or school tomorrow. Return Precautions Return to triage if you have painful contractions (greater than 6 to 8 per hour), severe abdominal pain, vaginal bleeding, leaking of fluid, or decreased movement (fewer than 10 movements in a 2 hour period). Special Instructions Hypertensive Disorders During , women can develop high blood pressure at 20 weeks gestation or later. If high blood pressure exists prior to 20 weeks, this is called chronic hypertension. As the progresses, the risk of developing blood pressure issues increases. In a woman with elevated blood pressure, it is recommended to deliver the baby prior to 40 weeks. The exact date of delivery is determined based on blood pressure severity. The reason for this is to help prevent progression to pre-eclampsia. Preeclampsia is a serious condition that develops only during . This condition causes highblood pressure along with other symptoms, such as swelling and headaches. These symptoms may develop as the condition gets worse. Preeclampsia may occur at 20 weeks of or later. Diagnosing and treating preeclampsia early is very important. If not treated early, it can cause serious problems for you and your baby. One problem it can lead to is eclampsia, which is a condition that causes seizures in the mother. Delivering your baby is the best treatment for preeclampsia or eclampsia. Preeclampsia and eclampsia symptoms usually go away after your baby is born. Cause - The cause of preeclampsia is not known. Risk Factors - The following risk factors make you more likely to develop preeclampsia: Being for the first time Having had preeclampsia during a past Having a family history of preeclampsia Having high blood pressure Being with twins or triplets Being 35 or older Being -[place] Having kidney disease or diabetes Having medical conditions such as lupus or blood diseases Being very overweight Signs and Symptoms - The earliest signs of preeclampsia are: High blood pressure Increased protein in your urine. Your health care provider will check for this if they suspect you have pre-eclampsia. Other symptoms that may develop as the condition gets worse include: Severe headaches Sudden weight gain Swelling of the hands, face, legs, and feet Nausea and vomiting Vision problems, such as blurred or double vision Urinating less than usual Slurred speech Abdominal pain, especially upper abdominal pain Convulsions or seizures Symptoms generally go away after giving . Diagnosis - There are no direct screening tests for preeclampsia. Your health care provider will ask you about symptoms and check for signs of preeclampsia during your visits. We do monitor labs, urine, and the baby for signs of progression of preeclampsias effects on the . Youmay undergo regular tests that include: Urine tests Blood tests Checking your blood pressure Monitoring your babys heart rate Ultrasound Treatment - You and your health care provider will determine the treatment approach that is best for you. Treatment may include: Having more frequent exams to check for signs of preeclampsia, if you have an increased risk for preeclampsia. Medicine to lower your blood pressure. If your condition is severe, you will need to stay in the hospital. There, treatment will focus on controlling your blood pressure and the amount of fluids in your body. You may need to take medicine (magnesium sulfate) to prevent seizures. This medicine may be given as an injection or through an IV. If your condition worsens, you may need to deliver your baby early. You may have your labor startedwith medicine or you may have a delivery. If you have questions about your condition, we encourage you to have regular conversations with your provider. Eating and drinking Drink enough water to keep your urine clear or pale yellow. Eat a healthy diet that is low in sodium.?Salt in the diet can contribute to worsening swelling andblood pressure. Avoid excess caffeine. Lifestyle Do not use any products that contain nicotine or tobacco, such as cigarettes and e-cigarettes. If you need help quitting, ask your health care provider. Do not use alcohol or drugs. General instructions You may take ftrm-guf-gjrwcej and prescription medicines only as told by your health care provider. When sitting or lying down, raise (elevate) your feet. Try putting some pillows underneath your lower legs. Exercise regularly. Ask your health care provider what kinds of exercise are best for you. Keep all follow-up and visits as told by your health care provider. This is important. To prevent preeclampsia or eclampsia from developing during another : Get proper medical care during . Your health care provider may not always be able to prevent preeclampsia, but it can be diagnosed and treated early. Your health care provider may have you take a low-dose aspirin during your next . You may have tests of your blood pressure and kidney function after giving . Maintain a healthy weight. Ask your health care provider for help managing weight gain during . Work with your health care provider to manage any long-term health conditions you have, such as diabetes or kidney problems. Contact a health care provider if: You gain more weight than expected. You have persistent headaches not relieved with hydration, rest, or zcbu-aik-rkrbqma medication. You have nausea or vomiting. You have abdominal pain. You feel dizzy or light-headed. Get help right away if: You develop sudden or severe swelling anywhere in your body. This usually happens in the legs. You gain 5 lbs (2.3 kg) or more during one week. You have severe: Abdominal pain. Headaches. Dizziness. Vision problems. Confusion. Nausea or vomiting. You have a seizure. You have trouble moving any part of your body. You develop numbness in any part of your body. You have trouble speaking. You have any abnormal bleeding. You pass out. This information is not intended to replace advice given to you by your health care provider. Make sure you discuss any questions you have with your health care provider. documented in this encounter Progress Notes * Arlen Ramires MD - 05/17/2024 12:24 PM EDT Obstetrics - Triage Note CHIEF COMPLAINT: My blood pressure was high HISTORY OF PRESENT ILLNESS: Vandana Ron is a 39 year old at 20w0d by 1st trimester US (performed 03/11/24 at 10w3d), which suggests Estimated Date of Delivery: 10/04/24. Patient presents today from [facility] US due to elevated BP's noted in clinic. BP noted to be 141/107 then 161/102. Today she denies any SANDERS, vision changes, CP, SOB, RUQ pain. She denies contractions, LOF, VB. Endorses FM. While in triage, her BP was 144/94. Last took BP medications about 8 years ago with lisinopril. Patient denies any change in vaginal discharge, dysuria, CP/SOB, palpitations, headaches, lightheadedness, cough, nausea, vomiting, diarrhea, constipation, fever, or chills. ROS as above, otherwise negative. RISK FACTORS: 1. CHTN 2. AMA Past Medical History: Diagnosis Date Chlamydia infection 01/2017 tx with azithromycin Dysplasia of cervix, low grade (LARRY 1) 04/2017 HTN, goal below 130/80 05/04/2018 Past Surgical History: Procedure Laterality Date COLPOSCOPY OF CERVIX W/BIOPSY 04/2017 Social History Socioeconomic History Marital status: Spouse name: Raj Number of children: 1 Years of education: Not on file Highest education level: Not on file Occupational History Occupation: Tile Installer Tobacco Use Smoking status: Never Smokeless tobacco: Never Vaping Use Vaping status: Never Used Substance and Sexual Activity Alcohol use: Not Currently Comment: 1-2 drinks per week Drug use: Not Currently Comment: caffeine daily Sexual activity: Yes Partners: Male Comment: no problems Other Topics Concern Not on file Social History Narrative job: technician's helper employer: [employer] education: bachelors service: no hobbies/interests: Reading, cooking transfusions: no exercise: yes diet: no religious/oriental orthodox: faith marital status: 2012 children: 1 gc: 0 ggc: 0 pets: no exposure to violence/threats/abuse: no things to improve: no Social Determinants of Health Financial Resource Strain: Low Risk (05/14/2024) Financial Resource Strain Do you have any trouble paying for your medications, or do you think you might in the future? (Adult - for ages 18 years and over): No Does your family have trouble paying for medicine? (Household - for ages 0-17 years): Not on file Food Insecurity: Food Insecurity Present (05/14/2024) Food Insecurity Do you need food for this week? (Adult - for ages 18 years and over): Yes Are you able to get enough food for your family? (Household - for ages 0-17 years): Not on file Does your family need food this week? (Household - for ages 0-17 years): Not on file Do you always have enough food for your family? (Household - for ages 0-17 years): Not on file Transportation Needs: No Transportation Needs (05/14/2024) Transportation Needs Do you have trouble getting a ride to medical visits or work? (Adult - for ages 18 years and over):Never True Does your family have a hard time getting a ride to doctors visits? (Household - for ages 0-17 years): Not on file Has lack of transportation kept you from medical appointments, meetings, work, or from getting things needed for daily living? Check all that apply. (Adult - for ages 18 years and over): No Do you (or your family) have trouble finding or paying for a ride (transportation)? (Household - for ages 0-17 years): Not on file Social Connections: Socially Integrated (05/14/2024) Social Connections How often do you feel lonely or isolated from those around you? (Adult - for ages 18 years and over): Never Housing Stability: Low Risk (05/14/2024) Housing Stability Do you currently live in a correction or have no steady place to sleep at night? (Adult - for ages 18 years and over): No Do you think you are at risk of becoming homeless? (Adult - for ages 18 years and over): No Does your family worry about paying for your home or becoming homeless? (Household - for ages 0-17 years): Not on file Are you homeless or worried that you might be in the future? (Adult - for ages 18 years and over): No Are you (or your family) homeless or worried that you might be in the future? (Household - for ages0-17 years): Not on file Patient has no known allergies. LABS: HGB (g/dL) Date Value 05/17/2024 11.8 (L) HCT (%) Date Value 05/17/2024 34.9 (L) PLT (K/uL) Date Value 05/17/2024 151 ABO (no units) Date Value 03/18/2024 O Rh (no units) Date Value 03/18/2024 Negative Rubella IgG Antibody (no units) Date Value 03/18/2024 Positive (A) HIV Antigen & Antibody (no units) Date Value 03/18/2024 Negative Hepatitis B Surface Antigen (no units) Date Value 03/18/2024 Negative Hepatitis C Antibody (no units) Date Value 03/18/2024 Negative Syphilis Screen Interpretation (no units) Date Value 03/18/2024 Nonreactive Chlamydia Trachomatis Result (no units) Date Value 03/18/2024 Negative Neisseria Gonorrhoeae Result (no units) Date Value 03/18/2024 Negative PHYSICAL EXAM: BP 144/94 | Pulse 62 | Temp 37.3 C (99.1 F) (Tympanic) | Resp 16 | LMP 01/08/2024 (Approximate) General: NAD, AAO x 3, pleasant Heart: RRR Lungs: Nonlabored breathing on room air NST Review FHTs: 150s Labs: Hgb 11.8 Plt 151 Cr 0.8 AST 20 ALT 27 ASSESSMENT Vandana Ron is a 39 year old at 20w0d with CHTN, here for BP observation and labs. PEC labs are normal. Patient asymptomatic. Patient started on nifedipine 30mg daily for CHTN control. She is stable for discharge home. PLAN 1. CHTN - Started on nifedipine 30mg daily - BP check next week - Patient instructed on comfort measures in - RPN scheduled and patient encouraged to keep this appointment. - Discharge to home --- Given return precautions: return to triage if painful contractions >6-8/hr, severe abdominal pain, vaginal bleeding, LOF, or decreased movement (fewer than 10 movements in 2hr period). This patient's history, physical exam, assessment and plan of care were reviewed and discussed withthe OB team. Associated attestation - Lizeth Nuno DO - 05/17/2024 3:19 PM EDT OBGYN Attending: I saw and evaluated the patient today. I have reviewed the resident/fellow physician note and agree. A diagnostic bedside service was provided. I reviewed the interpretation of the diagnostic study. I agree with the resident/fellow physician note. Dr. Lizeth Nuno MS, DO, OBGYN, FACOG, FACG [facility] [place] documented in this encounter Nursing Notes * Tyra Christopher RN - 05/17/2024 12:40 PM EDT 1230- Pt here for elevated BP in clinic appointment. Denies s/s or complaints. Dr Smith and Dr Ramires in to see patient. documented in this encounter Plan of Treatment Upcoming Encounters Date Type Department Care Team (Late st Contact Info) Description 05/24/2024 9:15 AM EDT Nurse Only Gynecology/Obstetrics [facility] [address] [place] [id number] Gw, Nurse Papier Mache' Molder [facility] [address] [place] [phone] 06/10/2024 2:15 PM EDT Office Visit Gynecology/Obstetrics [place] [address] [place] [phone] [place], LEXX Sanchez [address] [place] [phone] 08/01/2024 11:00 AM EDT Imaging [facility] Imaging, [facility] [address] [facility] [place] [phone] Health Maintenance Due Date Last Done [...] Date/Time Associated Diagnosis Comments COMPREHENSIVE METABOLIC PANEL STAT 05/17/2024 12:50 PM EDT CBC STAT 05/17/2024 12:50 PM EDT documented in this encounter Results * (ABNORMAL) COMPREHENSIVE METABOLIC PANEL (05/17/2024 12:50 PM EDT) BUN 11 6 - 20 mg/dL 05/17/2024 1:24 PM EDT [facility] Creatinine 0.8 0.5 - 1.0 mg/dL 05/17/2024 1:24 PM EDT [facility] Estimated Glomerular Filtration Rate >90 >=60 mL/min 05/17/2024 1:24 PM EDT [facility] Comment:eGFR is calculated b ased on the CKD-EPI 2020 equation. Sodium 138 135 - 146 mmol/L 05/17/2024 1:24 PM EDT [facility] Potassium 3.9 3.5 - 5.1 mmol/L 05/17/2024 1:24 PM EDT [facility] Chloride 105 98 - 107 mmol/L 05/17/2024 1:24 PM EDT [facility] CO2 24 22 - 32 mmol/L 05/17/2024 1:24 PM EDT [facility] Anion Gap 9 7 - 15 mmol/L 05/17/2024 1:24 PM EDT [facility] Glucose 81 70 - 120 mg/dL 05/17/2024 1:24 PM EDT [facility] Albumin 3.6(L) 3.8 - 5.0 g/dL 05/17/2024 1:24 PM EDT [facility] AST 20 10 - 35 U/L 05/17/2024 1:24 PM EDT [facility] Alkaline Phosphatase 68 35 - 130 U/L 05/17/2024 1:24 PM EDT [facility] Bilirubin, Total 0.2 <=1.2 mg/dL 05/17/2024 1:24 PM EDT [facility] Calcium 9.0 8.4 - 10.2 mg/dL 05/17/2024 1:24 PM EDT [facility] Protein 6.3 6.0 - 8.3 g/dL 05/17/2024 1:24 PM EDT [facility] ALT 27 10 - 35 U/L 05/17/2024 1:24 PM EDT [facility] Blood Venous blood specimen / Unknown Venipuncture / Unknown 05/17/2024 12:50 PM EDT 05/17/2024 12:54 PM EDT Leilani Smith DO LAB BLOOD L[facility] Organization Address City/State/ZIP Co de Phone Number LABORATORY C [address] [place] [address] * (ABNORMAL) CBC (05/17/2024 12:50 PM EDT) WBC 9.62 4.00 - 10.80 K/uL 05/17/2024 1:06 PM EDT [facility] RBC 3.61 3.85 - 5.15 M/uL 05/17/2024 1:06 PM EDT [facility] HGB 11.8(L) 12.0 - 15.3 g/dL 05/17/2024 1:06 PM EDT [facility] HCT 34.9(L) 36.0 - 45.2 % 05/17/2024 1:06 PM EDT [facility] MCV 96.7 81.5 - 97.5 fL 05/17/2024 1:06 PM EDT [facility] MCH 32.7 27.0 - 34.0 pg 05/17/2024 1:06 PM EDT [facility] MCHC 33.8 32.0 - 36.0 g/dL 05/17/2024 1:06 PM EDT [facility] RDW 12.2 11.5 - 15.5 % 05/17/2024 1:06 PM EDT [facility] PLT 151 140 - 400 K/uL 05/17/2024 1:06 PM EDT [facility] MPV 12.7 6.6 - 11.1 fL 05/17/2024 1:06 PM EDT [facility] nRBCs 0 <=0 /100 WBCs 05/17/2024 1:06 PM EDT LABORATORY GM Blood Venous blood specimen / Unknown Venipuncture / Unknown 05/17/2024 12:50 PM EDT 05/17/2024 12:54 PM EDT Leilani Smith DO LAB BLOOD OR[facility] Organization Address City/State/ZIP Co de Phone Number LABORATORY [facility] [address] [place] [address] documented in this encounter Administered Medications Inactive Administered Medications - up to 3 most recent administrations Medication Order MAR Action Action Date Dose Rate Site NIFEdipine ER (Adalat CC) tab 30 mg 30 mg, Oral, Daily(AM), First dose on 7/19/24 at 1315, Until Discontinued, Hold for HR less than 60 or SBP below 100 and notify service if dose is held This med should NOT be Crushed or Chewed. Take on an empty stomach ! Given 05/17/2024 12:44 PM EDT 30 mg documented in this encounter Active and Recently Administered Medications Times are shown in EDT. Scheduled Medication Order 05/15/2024 05/16/2024 05/17/2024 NIFEdipine ER (Adalat CC) tab 30 mg 30 mg, Oral, Daily(AM), First dose on Mon05/17/24 at 1315, Until Discontinued, Hold for HR less than 60 or SBP below 100 and notify service if dose is held This med should NOT be Crushed or Chewed. Take on an empty stomach ! 1244 (Given - Provid er: Tyra Christopher RN) documented in this encounter Care Teams Financial Coordinator Relationship Specialty Start Date End Date Sanchez Pastor MD [address] [place] [address] PCP - General Family Medicine 05/04/18 documented as of this encounter"
--- OUTSIDE RECORDS SUMMARY | 2024-09-18 05:24 | External Medical Summary | Summary of Care ---
Author Name Unknown Organization [facility] Address [address] [place] [address] Phone [phone] Care Team Providers Care Package Dye Stand Loader Name Role Phone Sanchez Pastor MD Primary Care Provider [phone] Encounter Details Date Type Department Care Team (Late st Contact Info) Description 05/23/2024 Telephone Regional Forester Obstetrics Maternal Medicine, [place] [address], [place] [id number] [place], Nurse Regional Forester [facility] [address] [place] [address] Allergies No known active allergiesdocumented as of this encounter (statuses as of 05/23/2024) Medications Medication Sig Dispensed Refills Start Date [...] as of this encounter (statuses as of 05/23/2024) Active Problems Problem Noted Date Diagnosed Date [...] as of this encounter (statuses as of 05/23/2024) Resolved Problems Problem Noted Date Diagnosed Date [...] as of this encounter (statuses as of 05/23/2024) Immunizations Name Administration Dates Next Due TDAP [...] the money to buy more. Never true 05/18/20 24 Within the past 12 months, t he food you bought just didn't last and you didn't have money to get more. Never true 05/18/2024 Childcare Answer Date Recorded Do you feel overwhelmed with taking care of a child, family member or friend? No 05/18/2024 Does your family need help f inding childcare? (Household - for ages 0-17 years) Not on file 05/18/2024 Clothing Answer Date Recorded Have you been unable to get clothing when it was really needed? No 05/18/2024 Is your family able to get c lothes or diapers when needed? (Household - for ages 0-17 years) Not on file 05/18/2024 Personal Safety Answer Date Recorded Do you feel unsafe or have concerns for your saf ety? No 05/18/2024 Do you have concerns for you r family's safety? (Household - for ages 0-17 years) Not on file 05/18/2024 Utilities Answer Date Recorded Do you have trouble paying y our heating, water, or electric bill? No 05/18/2024 Is your family able to pay t he heat, water, or electric bill? (Household - for ages 0-17 years) Not on file 05/18/2024 Does your family have access to good internet? (Household - for ages 0-17 years) Not on file 05/18/2024 Employment Status Answer Date Recorded Are you unemployed or without regular income? No 05/18/2024 Does the household have a [facility] source of income? (Household - for ages 0-17 years) Not on file 05/18/2024 Social Connections Answer Date Recorded How often do you feel lonely or isolated from th ose around you? Never 05/18/2024 Financial Resource Strain Answer Date R ecorded Do you have any trouble payi ng for your medications, or do you think you might in the future? No 05/18/2024 Does your family have troubl e paying for medicine? (Household - for ages 0-17 years) Not on file 05/18/2024 Transportation Needs Answer Date Record ed READ ONLY Do you have troubl e getting a ride to medical visits or work? Never True 05/18/2024 Does your family have a hard time getting a ride to doctors visits? (Household - for ages 0-17 years) Not on file 05/18/2024 Has lack of transportation k ept you from medical appointments, meetings, work, or from getting things needed for daily living? Check all that apply. No 05/18/2024 Do you (or your family) have trouble finding or paying for a ride (transportation)? (Household - for ages 0-17 years) Not on file 05/18/2024 Housing Stability Answer Date Recorded Do you currently live in a s helter or have no steady place to sleep at night? No 05/18/2024 READ ONLY Do you think you a re at risk of becoming homeless? No 05/18/2024 Does your family worry about paying for your home or becoming homeless? (Household - for ages 0-17 years) Not on file 0 05/18/2024 Are you homeless or worried that you might be in the future? No 05/18/2024 Are you (or your family) tamika eless or worried that you might be in the future? (Household - for ages 0-17 years) Not on file Food Insecurity Answer Date Recorded Do you need food for this week? Yes 05/18/2024 Are you able to get enough f ood for your family? (Household - for ages 0-17 years) Not on file 05/18/2024 Does your family need food t his week? (Household - for ages 0-17 years) Not on file 05/18/2024 Do you always have enough fo od for your family? (Household - for ages 0-17 years) Not on file 05/18/2024 Estimated Date of Delivery Comme nts Yes [...] Telephone Encounter - Aletha Alonso OSA - 05/23/2024 8:58 AM EDT Pt. Returned call to get follow up US scheduled per Dr. Seay. Spoke with Vandana. Appointment scheduled. Patient aware of date, time and location of Maternal Medicine appointment. documented in this encounter Plan of Treatment Upcoming Encounters Date Type Department Care Team (Late st Contact Info) Description 05/24/2024 9:15 AM EDT Nurse Only Gynecology/Obstetrics [place] [address] [place], Nurse Obgyn Injection [address] [place] [address] 06/10/2024 2:15 PM EDT Office Visit Gynecology/Obstetrics [place] [address] [place], LEXX Sanchez [address] [place] [address] 06/20/2024 1:00 PM EDT Imaging Maternal Medicine Imaging, Ronald Shahid [place] [phone] 07/18/2024 1:45 PM EDT Office Visit Regional Forester Obstetrics Maternal Medicine, [place] [address] [place] [address] Maurizio Seay, [address] [place] [address] 07/18/2024 1:45 PM EDT Imaging [facility] [place], [place] [address] [place] [address] 08/15/2024 1:00 PM EDT Imaging Maternal Medicine Imaging, Ronald [address] [place] [phone] 09/12/2024 1:00 PM EST Imaging Maternal Medicine Imaging, Ronald Shahid [place] [phone] Health Maintenance Due Date Last Done Comments [...] filedocumented as of this encounter Care Teams Package Dye Stand Loader Relationship Specialty Start Date End Date Sanchez Pastor MD [address] [place] [address] PCP - General Family Medicine 05/04/18 documented as of this encounter
--- OUTSIDE RECORDS SUMMARY | 2024-09-18 05:24 | External Medical Summary ---
Author Name Unknown Address Unknown Organization [id number]:LABORATORY [facility] [place] - [address] [place] [address] Laboratory Report Ordering Provider Test Date Status CALVINMARY KAY 05/13/2024 15:52:48 Final Normal: <150 mg/ g creatinine
High: 150-500 mg/g creatinine
Very High: >500 mg/g creatinine
Nephrotic: >3000 mg/g creatinine Observation Date Value Abnormality Reference (Units) Status Protein, Urine 05/13/2024 15:52:48 <4 (mg/dL) Final Creatinine, Urine 05/13/2024 15:52:48 22 (mg/dL) Final PROTEIN/CREATININE RATIO, HIDE 05/13/2024 15:52:48 Uninterpretable Protein/Creatinine ratio due to very low protein and creatinine values. (mg/g) Final Performing Location LABORATORY [facility] [place] - [address] [place] [address]
--- OUTSIDE RECORDS SUMMARY | 2024-09-18 05:24 | External Medical Summary | Summary of Care ---
Author Name Unknown Organization [facility] Address [address] [place] [address] Phone [phone] Care Team Providers Care Employee Communications Manager Name Role Phone Sanchez Pastor MD Primary Care Provider [phone] Reason for Visit * Reason Onset Date Comments Referral 03/18/2024 Encounter Details Date Type Department Care Team (Late st Contact Info) Description 03/18/2024 Telephone Revenue Inspector Obstetrics Maternal Medicine, [place] [address] [place], [place] [id number] [place], Nurse Revenue Inspector [facility] [address] [place] [address] Referral Allergies No known active allergiesdocumented as of this encounter (statuses as of 03/29/2024) Medications Medication Sig Dispensed Refills Start Date End Date Status 28-0.8 MG Oral Tablet Take by mouth. Active documented as of this encounter (statuses as of 03/29/2024) Active Problems Problem Noted Date Diagnosed Date HTN, goal below 130/80 05/04/2018 Family history of thyroid disease 01/12/2018 Estimated Date of Delivery Comme nts Yes 10/06/2024 Based on Ultraso und documented as of this encounter (statuses as of 03/29/2024) Resolved Problems Problem Noted Date Diagnosed Date [...] as of this encounter (statuses as of 03/29/2024) Immunizations Name Administration Dates Next Due TDAP [...] encounter Miscellaneous Notes * Telephone Encounter - Regina Shay CCMA - 03/29/2024 11:12 AM EDT Patient cancelled EMAIL MARKETING SPECIALIST consult 03/29/24, please contact to reschedule. * Telephone Encounter - Aletha Alonso OSA - 03/20/2024 9:10 AM EDT Spoke with Vandana. Appointment scheduled. Patient aware of date, time and location of Maternal Medicine appointment. * Telephone Encounter - Lauryn Chase OSA - 03/20/2024 8:28 AM EDT Phone call to patient. Left message on voice mail. Encouraged patient to return call to [facility] to assist with scheduling. * Telephone Encounter - Aletha Alonso OSA - 03/18/2024 1:09 PM EDT Phone call to patient. Left message on Vandana's voice mail. Encouraged patient to return call to [facility] to assist with scheduling. Also sent [employer] message. * Telephone Encounter - Regina Shay CCMA - 03/18/2024 12:51 PM EDT Estimated Date of Delivery: 10/04/24 Please schedule for 45 MINUTE CONSULT SIMPLE MEDICAL WITH EMAIL MARKETING SPECIALIST, in time frame of next available or atpatient's earliest convenience at location [facility] with the indication of AMA (38), HTN. Please schedule anatomy between 19-21 weeks (05/11/24-05/25/24). Referring Provider: Kaela Salcido CNM documented in this encounter Plan of Treatment Upcoming Encounters Date Type Department Care Team (Late st Contact Info) Description 04/15/2024 1:30 PM EDT Office Visit Gynecology/Obstetrics [place] [address] [place] [address] [place], LEXX Sanchez [address] [place] [address] 05/17/2024 9:30 AM EDT Office Visit Revenue Inspector Obstetrics Maternal Medicine, [place] [address] [place] [address] Maurizio Seay, [address] [place] [address] 05/17/2024 9:30 AM EDT Imaging [facility], [place] [address] [place] [address] Health Maintenance Due Date Last Done Comments Hepatitis B (1 of 3 - 19+ 3-dose series) 2005 HPV/Co-Test 01/20/2016 Depression Screening 06/05/2020 06/05/2019 COVID-19 Vaccine ( season) 2023 DTaP,Tdap,and Td Vaccines (2 - [...] filedocumented as of this encounter Care Teams Employee Communications Manager Relationship Specialty Start Date End Date Sanchez Pastor MD [address] [place] [address] PCP - General Family Medicine 05/04/18 documented as of this encounter
--- OUTSIDE RECORDS SUMMARY | 2024-09-18 05:24 | External Medical Summary ---
Author Name Unknown Address Unknown Organization K01:LABORATORY [facility] [place] - [address] [facility] [place] [address] Laboratory Report Ordering Provider Test Date Status LIDA OWEN 05/17/2024 12:50:00 Final Observation Date Value Abnormality Reference (Units ) Status BUN 05/17/2024 12:50:00 11 6-20 (mg/dL) Final Creatinine 05/17/2024 12:50:00 0.8 0.5-1.0 (mg/dL) Final Glomerular filtration rate/1.73 sq M.predicted [Volume Rate/Area] in Serum, Plasma or Blood by Creatinine-based formula (CKD-EPI) 05/17/2024 12:50:00 >90 >=60 (mL/min) Final eGFR is calculated based on the CKD-EPI 2020 equation. Sodium 05/17/2024 12:50:00 138 135-146 (m mol/L) Final Potassium 05/17/2024 12:50:00 3.9 3.5-5.1 (m mol/L) Final Cl 05/17/2024 12:50:00 105 98-107 (mm ol/L) Final CO2 05/17/2024 12:50:00 24 22-32 (mmo l/L) Final Anion gap 05/17/2024 12:50:00 9 7-15 (mmol /L) Final Glucose 05/17/2024 12:50:00 81 70-120 (mg /dL) Final Albumin 05/17/2024 12:50:00 3.6 Below low normal 3.8 -5.0 (g/dL) Final AST (Aspartate aminotransferase) 05/17/2024 12:50:00 20 10-35 (U/L) Fin al Alk Phos 05/17/2024 12:50:00 68 35-130 (U/ L) Final Bilirubin, Total 05/17/2024 12:50:00 0.2 <=1 .2 (mg/dL) Final Calcium 05/17/2024 12:50:00 9.0 8.4-10.2 ( mg/dL) Final Protein 05/17/2024 12:50:00 6.3 6.0-8.3 (g /dL) Final ALT (Alanine aminotransferase) 05/17/2024 12:50:00 27 10-35 (U/L) Nghia brunre Performing Location LABORATORY [facility] - [facility] [address] [facility] [address]
--- OUTSIDE RECORDS SUMMARY | 2024-09-18 05:24 | External Medical Summary | Summary of Care ---
Author Name Unknown Organization [facility] Address [address] [place] [address] Phone [phone] Care Team Providers Care Hat Binder Name Role Phone Sanchez Pastor MD Primary Care Provider [phone] Encounter Details Date Type Department Care Team (Late st Contact Info) Description 05/17/2024 9:30 AM EDT Office Visit Teaching Music Lessons Obstetrics Maternal Medicine, [place] [address] [place] [address] Maurizio Seay, [address] [place] [address] Chronic hypertension in *; Multigravida of advanced maternal age in second trimester; High-risk in second trimester; 20 weeks gestation of ; Encounter for anatomic survey Allergies No known active allergiesdocumented as of this encounter (statuses as of 05/17/2024) Medications Medication Sig Dispensed Refills Start Date End Date Status 28-0.8 MG Oral Tablet Take by mouth. Suspended Aspirin 81 MG Oral Tablet ChewableIndication s:High-risk in second trimester,Multigra silke of advanced maternal age in second trimester,Chronic hypertension in Take 1 Tablet by mouth in the morning. 100 Tablet 3 04/15/2024 Suspended Additional Information documented as of this encounter (statuses as of 05/17/2024) Active Problems Problem Noted Date Diagnosed Date [...] as of this encounter (statuses as of 05/17/2024) Resolved Problems Problem Noted Date Diagnosed Date [...] as of this encounter (statuses as of 05/17/2024) Immunizations Name Administration Dates Next Due TDAP [...] No 05/14/2024 Does the household have a [employer] source of income? (Household - for ages [...] Sign Reading Time Taken Comments Blood Pressure 161/102 05/17/2024 11:25 AM EDT Pulse 126 05/17/2024 11:25 AM EDT Temperature - - Respiratory Rate - - Oxygen Saturation - - Inhaled Oxygen Concentration - - Weight - - Height - - Body Mass Index - - documented in this encounter Progress Notes * Venkatesh Colón MD - 05/17/2024 11:09 AM EDT MATERNAL MEDICINE VISIT Vandana Ron, 39 year old is at 20w0d who presents to [facility] for an ultrasound and follow-up of her high risk . REVIEW OF SYSTEMS: nausea/vomitting: denies reports movement: yes abdominal pain/tenderness/cramping/contractions: no vaginal bleeding: no vaginal leaking of fluid: no PHYSICAL EXAM: BP 161/102 (BP Site: Left Arm, BP Position: Sitting, BP Cuff Size: Large) | Pulse 126 | LMP 01/08/2024 (Approximate) General: pleasant, alert and oriented Neuro: mood and affect normal, alert and oriented, no acute distress She is being seen today by Maternal- Medicine for the following reasons: Problem List Items Addressed This Visit Circulatory Chronic hypertension in - Primary BP Readings from Last 5 Encounters: 05/17/24 [...] 140/90 or greater on at least two occasionsat least 4 hours apart and refer patient [...] Between 37 0/7 and 39 6/7 weeks Other Elderly multigravida -low risk cffDNA High-risk Other Visit Diagnoses 20 weeks gestation of Encounter for anatomic survey Ultrasound Report Summary anatomy appears normal for visualized structures. size is normal for gestational age, EFW at 22 %, AC 20%. Amniotic Fluid is normal The ultrasound report for today's visit will be scanned into the [facility] records. Please see separate report for details. We reviewed today's ultrasound findings. (For full report, please refer to ultrasound report provided separately). Ms. Ron's questions were answered to her satisfaction. Cell free DNA screening:low risk result RECOMMENDATIONS: Evaluation on L&D Initiation of PO anti-HTN today Serial growth scans and surveillance starting at 32 weeks Thank you for allowing us to participate in the care of this patient. Please call with any questions. The patient's history, examination and plan of care were discussed with Dr. Seay, who saw her with me. Venkatesh Colón MD 05/17/2024 11:10 AM I have discussed the patient's management with the medical trainee and agree with the note. Please refer to the documented findings and plan of care. This patient's visit today consisted of an evaluation. I was present and confirmed the findings of the history and exam. Maurizio Seay DO documented in this encounter Miscellaneous Notes * Assessment & Plan Note - Venkatesh Colón MD - 05/17/2024 11:28 AM EDTAssociated Problem(s): Chronic hypertension in BP Readings from Last 5 Encounters: 05/17/24 [...] 140/90 or greater on at least two occasionsat least 4 hours apart and refer patient [...] Between 37 0/7 and 39 6/7 weeks * Assessment & Plan Note - Venkatesh Colón MD - 05/17/2024 10:41 AM EDTAssociated Problem(s): Elderly multigravida -low risk cffDNA documented in this encounter Plan of Treatment Upcoming Encounters Date Type Department Care Team (Late st Contact Info) Description 06/10/2024 2:15 PM EDT Office Visit Gynecology/Obstetrics [place] [address] [place] [address] BackerMiesha CRNP [address] [place] [address] 08/01/2024 11:00 AM EDT Imaging Maternal Medicine Imaging, Ronald [address] [place] [phone] Scheduled Orders Name Type Priority Associated Diagnoses Orde r Schedule MFM US PREG FOLLOW UP EACH FETUS Medical Imaging Routine Chronic hypertension in Multigravida of advanced maternal age in second trimester 6 Occurrences starting 05/17/2024 until 11/17/2024 Health Maintenance Due Date Last Done Comments Hepatitis B Vaccine (1 of 3 - 19+ 3-dose series) 2005 Depression Screening 06/05/2020 06/05/2019 COVID-19 Vaccine ( - 2022-24 season) 2023 DTaP,Tdap,and Td Vaccines [...] of state, incidental Encounter for anatomic survey documented in this encounter Care Teams Hat Binder Relationship Specialty Start Date End Date Sanchez Pastor MD [address] [place] [address] PCP - General Family Medicine 05/04/18 documented as of this encounter"
--- OUTSIDE RECORDS SUMMARY | 2024-09-18 05:24 | External Medical Summary | Summary of Care ---
Author Name Unknown Organization [facility] Address [address] [facility] [place] [address] Phone [phone] Care Team Providers Care Public Health Clinical Nurse Specialist Name Role Phone Sanchez Pastor MD Primary Care Provider [phone] Reason for Visit * Reason Comments Return Visit Encounter Details Date Type Department Care Team (Late st Contact Info) Description 04/15/2024 1:30 PM EDT Office Visit Gynecology/Obstetric s [place] [address] [place] [address] BackMiesha gonzales CRNP [address] [place] [address] High-risk in second trimester*; Multigravida of advanced maternal age in second trimester; Chronic hypertension in ; Rh negative status during in second trimester Allergies No known active allergiesdocumented as of this encounter (statuses as of 04/15/2024) Medications Medication Sig Dispensed Refills Start Date End Date Status 28-0.8 MG Oral Tablet Take by mouth. Active Aspirin 81 MG Oral Tablet ChewableIndications:Hi gh-risk in second trimester,Multigravida of advanced maternal age in second trimester,Chronic hypertension in Take 1 Tablet by mouth in the morning. 100 Tablet 3 04/15/2024 Active documented as of this encounter (statuses as of 04/15/2024) Active Problems Problem Noted Date Diagnosed Date [...] assessment of proteinuria (24-hour urine protein or ydmlcgm-yn-qpczkcrdzf ratio) and CBC, serum AST/ALT/creatinine. If patient [...] as of this encounter (statuses as of 04/15/2024) Resolved Problems Problem Noted Date Diagnosed Date [...] as of this encounter (statuses as of 04/15/2024) Immunizations Name Administration Dates Next Due TDAP [...] Sign Reading Time Taken Comments Blood Pressure 128/76 04/15/2024 1:25 PM EDT Pulse - - Temperature - - Respiratory Rate - - Oxygen Saturation - - Inhaled Oxygen Concentration - - Weight 78.3 kg (172 lb 9.6 oz) 04/15/2024 1:25 P M EDT Height - - Body Mass Index 26.24 03/05/2024 1:00 PM EDT documented in this encounter Progress Notes * Nicky Mercer LPN - 04/15/2024 1:27 PM EDT 15w1d Denies vaginal bleeding/rom Absent movement No new concerns * Miesha Negro CRNP - 04/15/2024 1:25 PM EDT 15w1d No bleeding or cramping. Not feeling baby move yet. Still w/nausea in evening - recommend B6 TID. BP stable off medication. Rx sent for ASA, pt aware. She is checking BP at home - advised to call the office with systolic >/=140, diastolic >/=90. Discussed MSAFP and role in screening for ONTD; she will consider this. Aware to complete before 23weeks. 4 week return, anatomy scan scheduled w/MFM. LEXX Hull documented in this encounter Plan of Treatment Upcoming Encounters Date Type Department Care Team (Late st Contact Info) Description 05/13/2024 3:30 PM EDT Office Visit Gynecology/Obstetrics [facility] [address] [facility] [place] [address] Rivka Powers PA-C [address] [place] [address] 05/17/2024 9:30 AM EDT Office Visit O And M Supervisor Obstetrics Maternal Medicine, [address] [place] [address] [place] Maurizio Sanchez, [address] [place] [address] 05/17/2024 9:30 AM EDT Imaging Radiology [facility] [place] [address] [place] [address] Health Maintenance Due Date Last Done Comments Hepatitis B (1 of 3 - 19+ 3-dose series) 2005 Depression Screening 06/05/2020 06/05/2019 COVID-19 Vaccine ( - 2022- season) 2023 DTaP,Tdap,and Td Vaccines (2 - Td or Tdap) 07/18/2023 07/18/2013 Influenza Vaccine (FLU shot) (Season Ended) 2024 GFR 03/18/2025 03/18/2024, 12/28, 01/10/2018, Additional history exists Diabetes Screening 03/18/2027 03/18/2024, 0 01/13/2018, 01/10/2018, Additional history exists Pap Smear 03/18/2027 03/18/2024, 05/30, 04/25/2017, Additional history exists Cervical Cancer Screening 03/18/2029 HPV/Co-Test 03/18/2029 03/18/2024 GARDASIL-HPV IMMUNIZATION SERIES Aged Out No longer [...] trimester documented in this encounter Care Teams Public Health Clinical Nurse Specialist Relationship Specialty Start Date End Date Sanchez Pastor MD [address] [place] [address] PCP - General Family Medicine 05/04/18 documented as of this encounter
--- OUTSIDE RECORDS SUMMARY | 2024-09-18 05:24 | External Medical Summary ---
Author Name Unknown Address Unknown Organization K01:LABORATORY [address] [address] Laboratory Report Ordering Provider Test Date Status LIDA OWEN 05/17/2024 12:50:00 Final Observation Date Value Abnormality Reference (Units ) Status WBC, Total 05/17/2024 12:50:00 9.62 4.00-10.80 (K/uL) Final RBC 05/17/2024 12:50:00 3.61 3.85-5.15 (M/uL) Final Hemoglobin 05/17/2024 12:50:00 11.8 Below low normal 12.0-15.3 (g/dL) Final HCT 05/17/2024 12:50:00 34.9 Below low normal 36.0-45.2 (%) Final MCV 05/17/2024 12:50:00 96.7 81.5-97.5 (fL) Final MCH 05/17/2024 12:50:00 32.7 27.0-34.0 (pg) Final MCHC 05/17/2024 12:50:00 33.8 32.0-36.0 (g/dL) Final RDW 05/17/2024 12:50:00 12.2 11.5-15.5 (%) Final Platelets 05/17/2024 12:50:00 151 140-400 (K/uL) Final MPV 05/17/2024 12:50:00 12.7 6.6-11.1 (fL) Final Nucleated erythrocytes/100 leukocytes [Ratio] in Blood by Automated count 05/17/2024 12:50:00 0 <=0 (/100 WBCs) Final Performing Location [facility] [place] [address] [facility] [address]
--- OUTSIDE RECORDS SUMMARY | 2024-09-18 05:24 | External Medical Summary | Summary of Care ---
Author Name Unknown Organization [facility] Address [address] [place] [address] Phone [phone] Care Team Providers Care Food Safety Specialist Name Role Phone Sanchez Pastor MD Primary Care Provider [phone] Reason for Visit * Reason Onset Date Comments Referral 03/18/2024 Encounter Details Date Type Department Care Team (Late st Contact Info) Description 03/18/2024 Telephone [facility] Obstetrics Maternal Medicine, [facility] [address], [place] [id number] [facility], Nurse Green Chain Puller [facility] [address] [place] [address] Referral Allergies No known active [...] Phone call to patient. Left message on Grav[facility]'s voice mail. Encouraged patient to return call to [facility] to assist with scheduling. * Telephone Encounter - Regina Shay CCMA - 03/29/2024 11:12 AM EDT Patient cancelled SHEEP HERDER consult 03/29/24, please contact to reschedule. * Telephone Encounter - Aletha Alonso OSA - 03/20/2024 9:10 AM EDT Spoke with Vandana. Appointment scheduled. Patient aware of date, time and location of Maternal Medicine appointment. * Telephone Encounter - Lauryn Chase OSA - 03/20/2024 8:28 AM EDT Phone call to patient. Left message on voice mail. Encouraged patient to return call to [facility] to assist with scheduling. * Telephone Encounter - Aletha Alonso OSA - 03/18/2024 1:09 PM EDT Phone call to patient. Left message on Vandana's voice mail. Encouraged patient to return call to [facility] to assist with scheduling. Also sent MyG message. * Telephone Encounter - Regina Shay CCMA - 03/18/2024 12:51 PM EDT Estimated Date of Delivery: 10/04/24 Please schedule for 45 MINUTE CONSULT SIMPLE MEDICAL WITH SHEEP HERDER, in time frame of next available or atpatient's earliest convenience at [facility] with the indication of AMA (38), HTN. Please schedule anatomy between 19-21 weeks (05/11/24-05/25/24). Referring Provider: Kaela Salcido CNM documented in this encounter Plan of Treatment Upcoming Encounters Date Type Department Care Team (Late st Contact Info) Description 04/15/2024 1:30 PM EDT Office Visit Gynecology/Obstetrics [facility] [address] [place] [id number] Miesha Negro CRNP [address] [place] [id number] 05/17/2024 9:30 AM EDT Office Visit [facility]er Obstetrics Maternal Medicine, [place] [address] [place] [address] Maurizio Seay, [address] [place] [address] 05/17/2024 9:30 AM EDT Imaging Radiology [facility], [place] [address], [place] [id number] Health Maintenance Due Date Last Done Comments [...] filedocumented as of this encounter Care Teams Food Safety Specialist Relationship Specialty Start Date End Date Sanchez Pastor MD [address] [place] [id number] PCP - General Family Medicine 05/04/18 documented as of this encounter
--- OUTSIDE RECORDS SUMMARY | 2024-09-18 05:24 | External Medical Summary ---
Author Name Unknown Address Unknown Organization K01:[facility] - [facility] [address] [place] [id number] Laboratory Report Ordering Provider Test Date Status CODY ALVARADO 04/15/2024 13:32:57 Final Normal: <150 mg/ g creatinine
High: 150-500 mg/g creatinine
Very High: >500 mg/g creatinine
Nephrotic: >3000 mg/g creatinine Observation Date Value Abnormality Reference (Units ) Status Protein/Creatinine [Ratio] in Urine 04/15/2024 13:32:57 51 <150 (mg/g ) Final Protein, Urine 04/15/2024 13:32:57 9 (mg/dL) Final Creatinine, Urine 04/15/2024 13:32:57 177 (mg/dL) Final Performing Location [facility] - [address] [place] [address]
[2024-09-18 06:11] LABS: Albumin Globulin Ratio 1.1 (0.9-2); Albumin Level 3.1 gm/dl (3.4-5.0); BUN Creatinine Ratio 20.5 (10-20); Bilirubin,Total 0.4 mg/dl (0.2-1.0); Calcium 8.5 mg/dl (8.6-10.3); Creatinine Clr Calc Pharmacy 117.7 ml/min; Globulin 2.8 gm/dl (2.5-4.0); Potassium 3.9 mmol/L (3.5-5.1); Total Protein 5.9 gm/dl (6.0-8.3)
[2024-09-18 06:19] LABS: Hematocrit (blood only) 34.4 % (37.0-47.0); Hemoglobin 12.3 g/dl (12.0-16.0); Mean Corpuscular Hemoglobin 33.7 pg (25.0-34.0); Mean Corpuscular Hgb Conc 35.8 g/dL (32.0-36.0); Mean Corpuscular Volume 94.2 fL (80.0-100.0); Mean Platelet Volume 13.8 fL (9.4-12.4); Platelet Count 109 K/uL (130-400); RDW Coefficient of Variation 12.9 % (11.5-14.5); RDW Standard Deviation 44.5 fL (36.4-46.3); Red Blood Count 3.65 M/uL (4.20-5.40); White Blood Count 11.61 K/ul (4.8-10.8)
[2024-09-18 06:26] LABS: Basophils # (auto) 0.04 K/uL (0.00-0.20); Basophils % (auto) 0.3 %; Eosinophils # (auto) 0.11 K/uL (0.00-0.50); Eosinophils % (auto) 0.9 %; Immature Granulocytes # (auto) 0.09 K/uL (0.01-0.20); Immature Granulocytes % (auto) 0.8 %; Lymphocytes # (auto) 1.43 K/uL (1.20-3.40); Lymphocytes % (auto) 12.3 %; Monocytes # (auto) 0.76 K/uL (0.11-0.59); Monocytes % (auto) 6.5 %; Neutrophils # (auto) 9.18 K/uL (1.40-6.50); Neutrophils % (auto) 79.2 %
[2024-09-18 06:27] LABS: INR 0.9 (0.9-1.1); Partial Thromboplastin Time 27 Seconds (21-31); Prothrombin Time 9.8 Seconds (9.0-12.0)
[2024-09-18 06:33] LABS: Fibrinogen 450 mg/dl (184-400)
[2024-09-18] MEDS: hydrALAZINE HCL 20 MG/ML VIAL IV ONE (06:50)
--- NOTE | 2024-09-18 06:54 | Obstetrical Progress Note ---
Date of Service September 18, 2024 Assessment & Plan Admission and Anticipated Discharge Date Admission Date: September 17, 2024 OB Progress Note Discussed giving additional doses of hydralazine with pharmacy and anesthesia. Discussed management of this case with OB department at [place]. Planned induction with Cytotec along with continued management of elevated blood pressure including additional doses of hydralazine. Results & Data Vital Signs (Past 12 Hours) Vital Signs Temp Pulse Resp BP 09/18/24 06:44 73 162/86 H 09/18/24 06:39 75 182/91 H 09/18/24 06:33 78 176/90 H 09/18/24 05:32 71 144/90 H 09/18/24 04:35 71 151/77 H 09/18/24 04:34 76 163/83 H 09/18/24 03:32 71 139/82 09/18/24 02:32 72 137/84 09/18/24 02:31 18 09/18/24 02:31 36.8 C 18 09/18/24 01:34 76 143/84 H 09/18/24 00:10 75 137/76 09/17/24 22:19 16 09/17/24 22:19 36.6 C 16 09/17/24 22:19 83 09/17/24 22:19 137/82 09/17/24 21:03 78 09/17/24 21:03 136/82 09/17/24 20:52 82 09/17/24 20:52 146/93 H 09/17/24 20:48 76 09/17/24 20:48 141/91 H 09/17/24 20:32 90 09/17/24 20:32 146/90 H 09/17/24 20:24 86 09/17/24 20:24 157/90 H 09/17/24 20:12 88 09/17/24 20:12 135/82 09/17/24 20:02 86 09/17/24 20:02 157/87 H 09/17/24 19:52 92 H 09/17/24 19:52 175/114 H 09/17/24 19:49 85 09/17/24 19:49 173/113 H 09/17/24 19:42 86 09/17/24 19:42 167/112 H 09/17/24 19:33 81 09/17/24 19:33 172/116 H 09/17/24 19:21 84 09/17/24 19:21 165/110 H 09/17/24 19:15 36.7 C 18
[2024-09-18] MEDS: NIFEdipine EXTENDED REL 30 MG TABCR PO SCH (07:41)
--- NOTE | 2024-09-18 08:33 | Obstetrical Progress Note ---
Date of Service September 18, 2024 Assessment & Plan Admission and Anticipated Discharge Date Admission Date: September 17, 2024 Subjective Patient seen and examined. I got the sign out from Dr. Bourgeois who admitted her yesterday for elevated blood pressure, in the severe range and headache. she has a history of chronic hypertension for 8 years, was on lisinopril before and was switched to p.o. labetalol and Procardia during this . As time progressed she needed higher dose of antihypertensives. When she came here yesterday she had headache with severe range elevated blood pressures which required multiple dose of IV labetalol and hydralazine. Final her blood pressures came down and headache got better. She was started on p.o. Cytotec for induction of labor. her has been complicated by, 1. AMA, low risk NIPT, 2. IUGR, recommended induction of labor on September 20 by [facility], 3. Chronic hypertension with superimposed preeclampsia with severe features, 4. Gestation thrombocytopenia, has been over 100K but less than 150K GBS negative she has received 3 doses of p.o. Cytotec since yesterday, feels mild cramps but no pain. heart rate had been category 1, no contractions on the monitor. I checked her cervix and it is 1 cm dilated thick, 0% effaced, head is high, -3, bedside ultrasound confirmed vertex presentation. her labs have been normal except mild thrombocytopenia, normal creatinine, LFTs, no protein in urine. Discussed the findings with the patient and her and recommended start IV magnesium due to severe range her blood pressure requiring IV and oral antihypertensives, and induction of labor with Olguin balloon insertion and IV oxytocin together. Patient agrees with the plan, all questions were answered. plan to start IV magnesium bolus and then 2 g/h and then place Olguin balloon and start oxytocin per protocol, repeat labs this evening, Continue to monitor closely. Results & Data Vital Signs (Past 12 Hours) Vital Signs Temp Pulse Resp BP 09/18/24 07:49 68 138/87 09/18/24 07:47 67 204/84 H 09/18/24 07:44 36.8 C 16 09/18/24 07:14 71 152/86 H 09/18/24 07:09 72 158/87 H 09/18/24 07:04 71 148/81 H 09/18/24 06:59 71 151/81 H 09/18/24 06:54 71 155/81 H 09/18/24 06:51 71 181/111 H 09/18/24 06:44 73 162/86 H 09/18/24 06:39 75 182/91 H 09/18/24 06:33 78 176/90 H 09/18/24 05:32 71 144/90 H 09/18/24 04:35 71 151/77 H 09/18/24 04:34 76 163/83 H 09/18/24 03:32 71 139/82 09/18/24 02:32 72 137/84 09/18/24 02:31 18 09/18/24 02:31 36.8 C 18 09/18/24 01:34 76 143/84 H 09/18/24 00:10 75 137/76 09/17/24 22:19 16 09/17/24 22:19 36.6 C 16 09/17/24 22:19 83 09/17/24 22:19 137/82 09/17/24 21:03 78 09/17/24 21:03 136/82 09/17/24 20:52 82 09/17/24 20:52 146/93 H 09/17/24 20:48 76 09/17/24 20:48 141/91 H 09/17/24 20:32 90 09/17/24 20:32 146/90 H
[2024-09-18] MEDS: MAG SULFATE 4GM BOLUS FROM BAG IV ONE (08:41)
[2024-09-18] MEDS: MAGNESIUM SULFATE / WTR 40 GM/1,000 ML BAG IV SCH (08:41)
--- NOTE | 2024-09-18 09:29 | Obstetrical Progress Note ---
Date of Service September 18, 2024 Assessment & Plan Admission and Anticipated Discharge Date Admission Date: September 17, 2024 Subjective patient is placed in dorsolithotomy position. Speculum was placed in the vagina, cervix was visualized and cleaned with with a 9, Olguin catheter was inserted under direct visualization, inflated with 40 mL of sterile water. Attached to her medial thigh with minimal tension. Another Olguin catheter was inserted into the bladder to drain. heart rate reassuring, Continue to monitor closely. Results & Data Vital Signs (Past 12 Hours) Vital Signs Temp Pulse Resp BP Pulse Ox 09/18/24 09:26 83 98 09/18/24 09:21 78 96 09/18/24 09:16 79 97 09/18/24 09:15 81 165/98 H 09/18/24 09:11 84 97 09/18/24 09:06 83 98 09/18/24 09:02 81 157/111 H 09/18/24 09:01 96 09/18/24 09:01 83 09/18/24 09:01 77 171/107 H 09/18/24 08:56 81 97 09/18/24 08:51 79 97 09/18/24 08:45 18 09/18/24 08:44 71 164/115 H 09/18/24 07:49 68 138/87 09/18/24 07:47 67 204/84 H 09/18/24 07:44 36.8 C 16 09/18/24 07:14 71 152/86 H 09/18/24 07:09 72 158/87 H 09/18/24 07:04 71 148/81 H 09/18/24 06:59 71 151/81 H 09/18/24 06:54 71 155/81 H 09/18/24 06:51 71 181/111 H 09/18/24 06:44 73 162/86 H 09/18/24 06:39 75 182/91 H 09/18/24 06:33 78 176/90 H 09/18/24 05:32 71 144/90 H 09/18/24 04:35 71 151/77 H 09/18/24 04:34 76 163/83 H 09/18/24 03:32 71 139/82 09/18/24 02:32 72 137/84 09/18/24 02:31 18 11/20/24 02:31 36.8 C 18 09/18/24 01:34 76 143/84 H 09/18/24 00:10 75 137/76 09/17/24 22:19 16 09/17/24 22:19 36.6 C 16 09/17/24 22:19 83 09/17/24 22:19 137/82
[2024-09-18] MEDS: OXYTOCIN 30 UNITS/NSS 30 UNITS/500 ML BAG IV PRN (09:35)
[2024-09-18] MEDS: TERBUTALINE SULFATE 1 MG/ML VIAL SQ ONE (13:01)
--- NOTE | 2024-09-18 13:13 | Obstetrical Progress Note ---
Date of Service September 18, 2024 Assessment & Plan Admission and Anticipated Discharge Date Admission Date: September 17, 2024 Subjective Patient is reevaluated FHR had been having early decels with some contractions, Oxytocin was stopped around 11:30, could not restart VE: lozada bulb was removed, cervix is 3-4 cm/ 30%/ -3, ballotable head, scalp stimulation increased FHR about 10 bpm with increased variability, then had another contraction followed by late deceleration Categ II strip, IUGR, remote from delivery Recommended Csection Patient understands C section is a major surgery, with risks including but not limited to bleeding , infection, injury to surrounding organs like bowels, bladder, ureters, adhesions, scarring, wound infection, blood cloths in legs/ lungs, longer recovery. All questions were answered. She signed an informed consent. Results & Data Vital Signs (Past 12 Hours) Vital Signs Temp Pulse Resp BP Pulse Ox 09/18/24 13:06 78 100 09/18/24 13:01 76 100 09/18/24 12:56 71 99 09/18/24 12:51 75 100 09/18/24 12:49 72 117/71 09/18/24 12:46 71 100 09/18/24 12:43 72 93 09/18/24 12:41 76 97 09/18/24 12:36 80 96 09/18/24 12:31 78 96 09/18/24 12:28 77 94 09/18/24 12:26 84 96 09/18/24 12:21 77 96 09/18/24 12:16 75 96 09/18/24 12:11 78 95 09/18/24 12:10 36.7 C 09/18/24 12:06 85 97 09/18/24 12:01 71 96 09/18/24 11:56 74 96 09/18/24 11:51 74 122/72 96 09/18/24 11:46 76 98 09/18/24 11:45 18 09/18/24 11:41 71 100 09/18/24 11:36 72 100 09/18/24 11:31 69 100 09/18/24 11:26 72 96 09/18/24 11:21 76 95 09/18/24 11:16 79 95 09/18/24 11:11 79 95 09/18/24 11:06 78 96 09/18/24 11:01 80 96 09/18/24 10:59 81 94 09/18/24 10:56 78 95 09/18/24 10:51 82 97 09/18/24 10:49 82 131/83 09/18/24 10:46 85 98 09/18/24 10:45 20 09/18/24 10:41 86 96 09/18/24 10:36 78 96 09/18/24 10:31 76 96 09/18/24 10:26 77 96 09/18/24 10:21 73 96 09/18/24 10:16 73 96 09/18/24 10:11 74 96 09/18/24 10:06 73 96 09/18/24 10:01 74 97 09/18/24 09:56 78 97 09/18/24 09:51 76 96 09/18/24 09:46 77 96 09/18/24 09:45 20 09/18/24 09:45 76 132/82 09/18/24 09:41 77 96 09/18/24 09:36 76 97 09/18/24 09:31 98 09/18/24 09:31 81 09/18/24 09:31 76 140/83 09/18/24 09:26 83 98 09/18/24 09:21 78 96 09/18/24 09:16 79 97 09/18/24 09:15 81 165/98 H 09/18/24 09:11 84 97 09/18/24 09:06 83 98 09/18/24 09:02 81 157/111 H 09/18/24 09:01 96 09/18/24 09:01 83 09/18/24 09:01 77 171/107 H 09/18/24 08:56 81 97 09/18/24 08:51 79 97 09/18/24 08:45 18 09/18/24 08:44 71 164/115 H 09/18/24 07:49 68 138/87 09/18/24 07:47 67 204/84 H 09/18/24 07:44 36.8 C 16 09/18/24 07:14 71 152/86 H 09/18/24 07:09 72 158/87 H 09/18/24 07:04 71 148/81 H 09/18/24 06:59 71 151/81 H 09/18/24 06:54 71 155/81 H 09/18/24 06:51 71 181/111 H 09/18/24 06:44 73 162/86 H 09/18/24 06:39 75 182/91 H 09/18/24 06:33 78 176/90 H 09/18/24 05:32 71 144/90 H 09/18/24 04:35 71 151/77 H 09/18/24 04:34 76 163/83 H 09/18/24 03:32 71 139/82 09/18/24 02:32 72 137/84 09/18/24 02:31 18 09/18/24 02:31 36.8 C 18 09/18/24 01:34 76 143/84 H
[2024-09-18] MEDS ORDERED: DEXAMETHASONE SOD INJ 4 MG/ML VIAL ONE (13:15)
[2024-09-18] MEDS ORDERED: KETOROLAC 30 MG/ML VIAL ONE (13:15)
[2024-09-18] MEDS ORDERED: OXYTOCIN 10 UNITS/ML VIAL ONE (13:15)
[2024-09-18] MEDS ORDERED: MoRPHine SULFATE PF 1 MG/ML 10 ML AMP/VIAL ONE (13:16)
[2024-09-18] MEDS ORDERED: fentaNYL citrate PF 100 MCG/2 ML VIAL ONE (13:16)
[2024-09-18] MEDS ORDERED: PHENYLEPHRINE HCL 25 MG/250 ML NSS IV ONE (13:16)
[2024-09-18] MEDS ORDERED: OXYTOCIN 20 UNITS/1002ML LR IV ONE (13:16)
[2024-09-18] MEDS ORDERED: ONDANSETRON INJ 2 MG/ML 2 ML VIAL ONE (13:16)
--- NOTE | 2024-09-18 13:29 | History & Physical Bridge Note ---
Date of Service September 18, 2024 History & Physical Bridge Note I have examined the patient, reviewed the History & Physical and in the interval since the performance of the History & Physical I have noted the following changes of clinical significance: no changes noted
--- NOTE | 2024-09-18 13:32 | Anesthesiology Consultation ---
Date of Service September 18, 2024 Assessment & Plan (1) Encounter for pre-operative examination: Chart Review Chart Review: Acceptable Risk for Surgery and Patient NOT seen in Pre Admission Testing Consults Requested none History Surgery Operation Date: 09/18/24 13:45 Proposed Procedures p Section in LD(Bilateral) - Eber Storey MD Height/Weight Height: 5 ft 8 in Weight: 94.801 kg Allergies Allergy/AdvReac Type Severity Reaction Status Date / Time No Known Allergies Allergy Verified 09/17/24 12:46 Medications Home Medications Medication Instructions Recorded Confirmed Last Taken Multivit/Min/Iron/Fol Ac/Pren 1 tab PO DAILY #0 tabs 09/28/13 09/17/24 09/16/24 15:00 ( Vitamin) FERROUS SULFATE 325 mg PO DAILY #60 tabs 10/01/13 09/17/24 09/16/24 08:00 aspirin 81 mg chewable tablet 81 mg PO DAILY 09/17/24 09/17/24 09/16/24 08:00 labetalol 100 mg tablet 100 mg PO BID 09/17/24 09/17/24 09/17/24 08:00 nifedipine 60 mg tablet,extended 60 mg PO DAILY 09/17/24 09/17/24 09/17/24 08:00 release Active Medications Generic Name Dose Route Start Last Admin Trade Name Gurjit PRN Reason Stop Dose Admin Acetaminophen 650 mg 09/17/24 13:10 09/18/24 03:32 Acetaminophen 325 Mg Tab PO 10/17/24 13:09 650 mg Q6H PRN Administration Pain Magnesium Sulfate 40 gm in 1,000 mls @ 50 mls/hr 09/18/24 08:15 09/18/24 09:11 Magnesium Sulfate / Wtr IV 10/18/24 08:14 50 mls/hr .Q20H ERNESTO Infusion Oxytocin 30 units in 500 mls @ 0 mls/hr 09/18/24 08:33 09/18/24 12:35 Pitocin 30 Units/Nss IV 09/20/24 08:32 0 units/hr .Q0M PRN 0 mls/hr Labor Induction/Augmentation Titration Protocol 0 UNITS/HR Labetalol HCl 200 mg 09/17/24 21:00 09/18/24 08:53 Labetalol Hcl 200 Mg Tab PO 10/17/24 20:59 200 mg TID ERNESTO Administration Nifedipine 60 mg 09/18/24 08:00 09/18/24 09:45 Nifedipine Extended Rel 30 Mg Tabcr PO 10/18/24 07:59 Not Given QAM ERNESTO Ondansetron HCl 4 mg 09/17/24 17:06 09/18/24 09:12 Ondansetron Inj 2 Mg/Ml 2 Ml Vial IV 10/17/24 17:05 4 mg Q4H PRN Administration Nausea NPO Date Last Intake of Fluids: 09/18/24 Time Last Intake of Fluids: 11:00 Date Last Intake of Solids: 09/18/24 Time Last Intake of Solids: 11:00 Past Surgical History Surgical History No history of previous surgery Social History Smoking Status: Never smoker Hx Alcohol Use: No Hx Substance Use: No Physical Exam Vital Signs Last Vital Signs Temp 98.1 F 09/18/24 12:10 Pulse 84 09/18/24 13:27 Resp 18 09/18/24 11:45 BP 117/71 09/18/24 12:49 Pulse Ox 98 09/18/24 13:27 Testing Laboratory Results 09/18/24 05:38 09/18/24 05:38 PT 9.8 Seconds (9.0-12.0) 09/18/24 05:38 INR 0.9 (0.9-1.1) 09/18/24 05:38 APTT 27 Seconds (21-31) 09/18/24 05:38
[2024-09-18] MEDS: CITRIC ACID/SODIUM CITRATE 15 ML UDC ONE (13:35)
[2024-09-18] MEDS: AZITHROMYCIN 500 MG in SODIUM CHLORIDE 0.9% 250 ML IV SCH (13:36)
[2024-09-18] MEDS ORDERED: ceFAZolin 330 MG/ML 1 GM VIAL ONE (13:57)
[2024-09-18] MEDS ORDERED: PROMETHAZINE HCL INJ 25 MG/ML 1 ML VIAL ONE (13:57)
[2024-09-18] MEDS ORDERED: PHENYLEPHRINE 100MCG/ML 5ML SYR ONE (13:57)
[2024-09-18] MEDS ORDERED: ePHEDrine sulfate 50 MG/5 ML SYR ONE (13:57)
[2024-09-18] MEDS ORDERED: HYDROmorphone INJ 0.5 MG/0.5 ML SYR IV PRN ×2 (13:58→20:00)
[2024-09-18] MEDS ORDERED: diphenhydrAMINE 50 MG/ML VIAL IV PRN (13:58)
[2024-09-18] MEDS ORDERED: ACETAMINOPHEN 1,000 MG/100 ML VIAL IV PRN (13:58)
[2024-09-18] MEDS ORDERED: PROMETHAZINE 6.25 MG/50.25 ML BAG IV PRN (13:58)
[2024-09-18] MEDS ORDERED: NALBUPHINE HCL INJ 10 MG/ML AMP IV PRN (13:58)
[2024-09-18] MEDS ORDERED: NALOXONE HCL 1 MG in SODIUM CHLORIDE 0.9% 1,000 ML IV PRN (13:58)
[2024-09-18] MEDS ORDERED: ePHEDrine sulfate 50 MG/ML AMP IV PRN (13:58)
[2024-09-18] MEDS ORDERED: NALOXONE HCL 0.4 MG/1 ML VIAL/CARP IV PRN (13:58)
[2024-09-18] MEDS ORDERED: NALOXONE HCL 0.08 MG in SYRINGE 1.8 ML IV PRN (13:58)
[2024-09-18] MEDS ORDERED: NO NARCOTICS OR SEDATIVES SCH (14:00)
[2024-09-18] MEDS ORDERED: DC INTRASPINAL MORPHINE SCH (14:00)
[2024-09-18] MEDS ORDERED: BENZOCAINE 20% SPRY 85 APPLN/85 GM CAN EXT PRN (14:45)
[2024-09-18] MEDS ORDERED: HYDROCORTISONE ACETATE 25 MG SUPP PR PRN (14:45)
[2024-09-18] MEDS ORDERED: OXYTOCIN 20 UNITS/LR 1,002 ML IV SCH (14:45)
[2024-09-18] MEDS ORDERED: MAGNESIUM HYDROXIDE SUSP 30 ML UDC PO PRN (14:45)
[2024-09-18] MEDS ORDERED: CALCIUM CARBONATE 500 MG CHEWABLE TAB PO PRN (14:45)
[2024-09-18] MEDS ORDERED: LACTATED RINGER'S 1,000 ML IV SCH (14:45)
[2024-09-18] MEDS ORDERED: SENNA 8.6 MG TAB PO PRN (14:45)
[2024-09-18] MEDS: KETOROLAC 30 MG/ML VIAL IV SCH (15:00)
--- NOTE | 2024-09-18 15:11 | Operative Report ---
Post Operative Report Pre & Post Diagnosis Operation Date: 09/18/24 13:45 Pre-Op Diagnosis: Category Two Tracing with Late Decelerations;IUGR;Remote from Delivery Post-Op Diagnosis: Same; delivery of a live female child at 1403. I identified the patient and participated in the time-out.: Yes Procedure Operation Date: 09/18/24 13:45 Actual Procedures p Section in LD(Bilateral) - Eber Storey MD Surgeon Eber Storey MD Scale Tester Dr Nunez Quantitative Blood Loss (QBL) 376 ml Findings Consistent with Post-Op Diagnosis Viable Female delivered encephali presentation at 1403 p.m., Apgars 7/9, weight 247 0 g maternal findings; normal uterus, fallopian tubes and ovaries Fluids 1000 ML LR Specimens placenta and cord Drains Olguin catheter: 200 ml clear urine Anesthesia Type Spinal Complications none Disposition Accompanied Patient To Recovery: Yes Indications patient is a 39-year-old -0-0-1 at 37 weeks and 2 days of gestation who was admitted on September 17 for chronic hypertension, superimposed with preeclampsia with severe features and IUGR. She was started for induction of labor with p.o. Cytotec's, and this morning continued with Olguin bulb mechanical dilatation at the same time with IV oxytocin. IV Magnesium was also started for seizure prophylaxis. The heart rate had been category 1 until after regular contractions have started, then recurrent late decelerations started after contractions, category 2 strip remote from delivery. Recommended delivery with section. Patient understands C section is a major surgery, with risks including but not limited to bleeding , infection, injury to surrounding organs like bowels, bladder, ureters, adhesions, scarring, wound infection, blood cloths in legs/ lungs, longer recovery. All questions were answered. She signed an informed consent. Description of Procedure Patient was taken to operating room where a spinal anesthesia was given without difficulty. She was placed in dorsal supine position with a leftward tilt. She was prepared and draped in usual sterile fashion. A financial skin incision was made and carried through to the underlying layer of fascia with the Bovie. Fascia was incised in the midline and incision was extended laterally with the help of Leigh scissors. Then the upper aspect of the fascial incision was grasped with 2 Naina clamps elevated the underlying rectus muscles were dissected off sharply with Leigh scissors. Same thing was done on the lower incision. Then the muscles were in the midline, peritoneum was identified grasped with 2 pickups and entered sharply with Metzenbaum scissors. Peritoneal incision was extended superior and inferiorly with good visualization of the bladder. The bladder blade was inserted. Vesicouterine peritoneum was identified, grasped with pickups and entered sharply with Metzenbaum scissors, bladder flap was created digitally and bladder blade was reinserted. Uterus was incised in transverse fashion, incision was extended laterally, membranes were ruptured and clear fluid was obtained. Baby's head was delivered without difficulty, followed by shoulders and body with minimal traction without faculty. Nuchal cordx1, reduced. Mouth and nose were suctioned there was dried on the field he was vigorously crying and moving. The cord was clamped x2 and cut and then the was handed off to the pediatric team. Then the placenta was delivered manually as intact and complete. Unable to externalize the uterus, it was kept inside and cleared of all clots and debris. Uterine incision was repaired with 0 Vicryl in a running locked fashion, second umbricating layer was placed with the same suture in running locked fashion. Excellent hemostasis achieved. The pelvis was irrigated with warm normal saline and suctioned. Incision was checked to be hemostatic again. The parietal peritoneum was reapproximated with 3-0 Vicryl in a running fashion and the muscles were reapproximated in the same suture in a running fashion. All of the fascia and rectus muscles were hemostatic. Rectus fascia was reapproximated with 0 Vicryl starting from both columns meeting in the midline. Subcuticular fat tissue was brought together with 2-0 Vicryl in a running fashion, skin was closed with 4-0 Monocryl in a subcuticular cuticular fashion. The mom and baby tolerated procedure well. Sponge needle instrument count was correct x3. she was given 2 g of cefazolin and 500 mg of Azithromycin before surgery. No complications happened, I was present during whole procedure. My fish hatchery assistant was needed for retraction, hemostasis and aid during delivery of I attest to the content of the Intraoperative Record and any orders documented therein. Any exceptions are noted below.
[2024-09-18 16:50] LABS: Basophils # (auto) 0.05 K/uL (0.00-0.20); Basophils % (auto) 0.3 %; Eosinophils # (auto) 0.03 K/uL (0.00-0.50); Eosinophils % (auto) 0.2 %; Hematocrit (blood only) 33.9 % (37.0-47.0); Hemoglobin 12.1 g/dl (12.0-16.0); Immature Granulocytes # (auto) 0.18 K/uL (0.01-0.20); Immature Granulocytes % (auto) 1.2 %; Lymphocytes # (auto) 0.86 K/uL (1.20-3.40); Lymphocytes % (auto) 5.7 %; Mean Corpuscular Hemoglobin 33.7 pg (25.0-34.0); Mean Corpuscular Hgb Conc 35.7 g/dL (32.0-36.0); Mean Corpuscular Volume 94.4 fL (80.0-100.0); Mean Platelet Volume 13.5 fL (9.4-12.4); Monocytes # (auto) 0.47 K/uL (0.11-0.59); Monocytes % (auto) 3.1 %; Neutrophils # (auto) 13.63 K/uL (1.40-6.50); Neutrophils % (auto) 89.5 %; Platelet Count 123 K/uL (130-400); RDW Coefficient of Variation 12.9 % (11.5-14.5); RDW Standard Deviation 44.4 fL (36.4-46.3); Red Blood Count 3.59 M/uL (4.20-5.40); White Blood Count 15.22 K/ul (4.8-10.8)
[2024-09-18] MEDS: SIMETHICONE 80 MG CHEW PO SCH (17:00)
[2024-09-18 17:14] LABS: Calcium 8.1 mg/dl (8.6-10.3); Potassium 4.2 mmol/L (3.5-5.1)
[2024-09-18 17:20] LABS: BUN Creatinine Ratio 13.9 (10-20); Creatinine Clr Calc Pharmacy 79.9 ml/min
[2024-09-18 17:23] LABS: Albumin Globulin Ratio 1.1 (0.9-2); Albumin Level 3.1 gm/dl (3.4-5.0); Bilirubin,Total 0.3 mg/dl (0.2-1.0); Globulin 2.9 gm/dl (2.5-4.0); Magnesium 5.6 mg/dl (1.7-2.4)
[2024-09-18] MEDS: ACETAMINOPHEN 500 MG TAB PO SCH (17:53)
[2024-09-18] MEDS: ceFAZolin 2000MG 2,000 MG/15 ML SYR IV SCH (17:54)
[2024-09-18] MEDS: CITRIC ACID/SODIUM CITRATE 15 ML UDC PO SCH (17:55)
[2024-09-18] MEDS: LACTATED RINGER'S 1,000 ML IV SCH ×2 (18:27→19:00)
[2024-09-18] MEDS: MEASLES, MUMPS & RUBELLA VIRUS VACCINE (MMR) 0.5ML VIAL SQ ONE (18:29)
[2024-09-18] MEDS: DIPHTHER/TETAN/PERTUS Vaccine (Tdap, Adol/Adult) 0.5mL IM ONE (18:29)
--- NOTE | 2024-09-18 19:21 | Obstetrical Progress Note ---
Date of Service September 18, 2024 Assessment & Plan Admission and Anticipated Discharge Date Admission Date: September 17, 2024 Subjective 09/18/24 09/18/24 09/18/24 Range/Units 18:08 16:14 05:38 WBC 15.22 H 11.61 H (4.8-10.8) K/ul RBC 3.59 L 3.65 L (4.20-5.40) M/uL Hgb 12.1 12.3 (12.0-16.0) g/dl Hct 33.9 L 34.4 L (37.0-47.0) % MCV 94.4 94.2 (80.0-100.0) fL MCH 33.7 33.7 (25.0-34.0) pg MCHC 35.7 35.8 (32.0-36.0) g/dL RDW Std Deviation 44.4 44.5 (36.4-46.3) fL RDW Coeff of Santana 12.9 12.9 (11.5-14.5) % Plt Count 123 L 109 L (130-400) K/uL MPV 13.5 H 13.8 H (9.4-12.4) fL Immature Gran % (Auto) 1.2 0.8 % Neut % (Auto) 89.5 79.2 % Lymph % (Auto) 5.7 12.3 % Ramsey % (Auto) 3.1 6.5 % Eos % (Auto) 0.2 0.9 % Baso % (Auto) 0.3 0.3 % Neut # (Auto) 13.63 H 9.18 H (1.40-6.50) K/uL Lymph # (Auto) 0.86 L 1.43 (1.20-3.40) K/uL Ramsey # (Auto) 0.47 0.76 H (0.11-0.59) K/uL Eos # (Auto) 0.03 0.11 (0.00-0.50) K/uL Baso # (Auto) 0.05 0.04 (0.00-0.20) K/uL Immature Gran # (Auto) 0.18 0.09 (0.01-0.20) K/uL PT 9.8 (9.0-12.0) Seconds INR 0.9 (0.9-1.1) APTT 27 (21-31) Seconds PTT Ratio 1.0 Fibrinogen 450 H (184-400) mg/dl Sodium 131 L 131 L (136-145) mmol/L Potassium 4.2 3.9 (3.5-5.1) mmol/L Chloride 102 103 (98-107) mmol/L Carbon Dioxide 20 L 20 L (21-32) mmol/L Anion Gap 9 8 (3-11) BUN 16 16 (6-23) mg/dl Creatinine 1.15 D 0.78 (0.6-1.2) mg/dl Est Cr Clr Drug Dosing 79.9 117.7 ml/min eGFR 62.53 99.64 BUN/Creatinine Ratio 13.9 20.5 H (10-20) Glucose 97 73 (70-99(Fasting)) mg/dl Calcium 8.1 L 8.5 L (8.6-10.3) mg/dl Magnesium 5.6 H* (1.7-2.4) mg/dl Total Bilirubin 0.3 0.4 (0.2-1.0) mg/dl AST 30 30 (13-39) U/L ALT 29 30 (7-52) U/L Alkaline Phosphatase 161 H 161 H (34-104) U/L Total Protein 6.0 5.9 L (6.0-8.3) gm/dl Albumin 3.1 L 3.1 L (3.4-5.0) gm/dl Globulin 2.9 2.8 (2.5-4.0) gm/dl Albumin/Globulin Ratio 1.1 1.1 (0.9-2) Ur Random Creatinine Pending U Random Total Protein Pending Protein/Creatinin Ratio Pending Blood Type Antibody Screen 09/17/24 Range/Units 14:22 WBC (4.8-10.8) K/ul RBC (4.20-5.40) M/uL Hgb (12.0-16.0) g/dl Hct (37.0-47.0) % MCV (80.0-100.0) fL MCH (25.0-34.0) pg MCHC (32.0-36.0) g/dL RDW Std Deviation (36.4-46.3) fL RDW Coeff of Santana (11.5-14.5) % Plt Count (130-400) K/uL MPV (9.4-12.4) fL Immature Gran % (Auto) % Neut % (Auto) % Lymph % (Auto) % Ramsey % (Auto) % Eos % (Auto) % Baso % (Auto) % Neut # (Auto) (1.40-6.50) K/uL Lymph # (Auto) (1.20-3.40) K/uL Ramsey # (Auto) (0.11-0.59) K/uL Eos # (Auto) (0.00-0.50) K/uL Baso # (Auto) (0.00-0.20) K/uL Immature Gran # (Auto) (0.01-0.20) K/uL PT (9.0-12.0) Seconds INR (0.9-1.1) APTT (21-31) Seconds PTT Ratio Fibrinogen (184-400) mg/dl Sodium (136-145) mmol/L Potassium (3.5-5.1) mmol/L Chloride (98-107) mmol/L Carbon Dioxide (21-32) mmol/L Anion Gap (3-11) BUN (6-23) mg/dl Creatinine (0.6-1.2) mg/dl Est Cr Clr Drug Dosing ml/min eGFR BUN/Creatinine Ratio (10-20) Glucose (70-99(Fasting)) mg/dl Calcium (8.6-10.3) mg/dl Magnesium (1.7-2.4) mg/dl Total Bilirubin (0.2-1.0) mg/dl AST (13-39) U/L ALT (7-52) U/L Alkaline Phosphatase (34-104) U/L Total Protein (6.0-8.3) gm/dl Albumin (3.4-5.0) gm/dl Globulin (2.5-4.0) gm/dl Albumin/Globulin Ratio (0.9-2) Ur Random Creatinine U Random Total Protein Protein/Creatinin Ratio Blood Type O Negative Antibody Screen NEGATIVE Repeat Labs with increasing Creatinine from 0.78 to 1.15 Ma.6 BP's stable UOP Adequate Plan to decrease IV magnesium to 1 gr/ hour hold on Toradol and Motrin Repeat labs in am D/W Nephrology, Dr Jaweed Results & Data Vital Signs (Past 12 Hours) Vital Signs Temp Pulse Resp BP Pulse Ox 09/18/24 19:16 75 97 09/18/24 19:11 74 96 09/18/24 19:01 84 96 09/18/24 18:56 96 09/18/24 18:56 84 09/18/24 18:56 73 94 09/18/24 18:51 79 95 09/18/24 18:50 80 92 09/18/24 18:46 74 93 09/18/24 18:42 73 94 09/18/24 18:41 78 97 09/18/24 18:36 72 96 09/18/24 18:33 77 92 09/18/24 18:31 77 95 09/18/24 18:26 73 97 09/18/24 18:23 77 94 09/18/24 18:21 79 93 09/18/24 18:18 77 94 09/18/24 18:16 81 96 09/18/24 18:11 69 94 09/18/24 18:08 72 94 09/18/24 18:06 69 94 09/18/24 18:02 71 94 09/18/24 18:01 70 94 09/18/24 17:57 68 94 09/18/24 17:56 67 94 09/18/24 17:51 95 09/18/24 17:51 73 09/18/24 17:51 70 94 09/18/24 17:50 20 09/18/24 17:50 20 09/18/24 17:50 20 09/18/24 17:49 71 128/82 09/18/24 17:46 75 97 09/18/24 17:41 78 96 09/18/24 17:36 78 96 09/18/24 17:31 76 96 09/18/24 17:26 79 97 09/18/24 17:25 77 130/77 09/18/24 17:21 75 96 09/18/24 17:16 77 97 09/18/24 17:11 76 96 09/18/24 17:06 75 97 09/18/24 17:01 68 96 09/18/24 16:56 71 96 09/18/24 16:52 77 128/88 09/18/24 16:51 76 97 09/18/24 16:46 84 97 09/18/24 16:41 79 97 09/18/24 16:36 75 97 09/18/24 16:31 80 97 09/18/24 16:26 78 96 09/18/24 16:22 67 113/69 09/18/24 16:21 73 97 09/18/24 16:20 20 09/18/24 16:16 76 97 09/18/24 16:11 86 98 09/18/24 16:06 80 97 09/18/24 16:01 80 97 09/18/24 16:00 76 94 09/18/24 15:56 72 96 09/18/24 15:51 75 107/63 97 09/18/24 15:50 20 09/18/24 15:46 79 96 09/18/24 15:41 81 110/64 98 09/18/24 15:40 20 09/18/24 15:36 76 97 09/18/24 15:31 78 108/59 L 96 09/18/24 15:30 18 09/18/24 15:26 76 97 09/18/24 15:22 75 122/59 L 09/18/24 15:21 75 97 09/18/24 15:20 20 09/18/24 15:16 79 97 09/18/24 15:11 72 99/58 L 95 09/18/24 15:08 80 94 09/18/24 15:06 75 96 09/18/24 15:03 72 93 09/18/24 15:01 76 94/54 L 97 09/18/24 15:00 20 09/18/24 15:00 20 09/18/24 14:56 74 97 09/18/24 14:52 67 90/52 L 93 09/18/24 14:51 70 96 09/18/24 14:50 36.8 C 18 09/18/24 13:32 86 97 09/18/24 13:27 84 98 09/18/24 13:22 81 98 09/18/24 13:17 81 100 09/18/24 13:11 81 100 09/18/24 13:06 78 100 09/18/24 13:01 76 100 09/18/24 12:56 71 99 09/18/24 12:51 75 100 09/18/24 12:49 72 117/71 09/18/24 12:46 71 100 09/18/24 12:45 20 09/18/24 12:43 72 93 09/18/24 12:41 76 97 09/18/24 12:36 80 96 09/18/24 12:31 78 96 09/18/24 12:28 77 94 09/18/24 12:26 84 96 09/18/24 12:21 77 96 09/18/24 12:16 75 96 09/18/24 12:11 78 95 09/18/24 12:10 36.7 C 09/18/24 12:06 85 97 09/18/24 12:01 71 96 09/18/24 11:56 74 96 09/18/24 11:51 74 122/72 96 09/18/24 11:46 76 98 09/18/24 11:45 18 09/18/24 11:41 71 100 09/18/24 11:36 72 100 09/18/24 11:31 69 100 09/18/24 11:26 72 96 09/18/24 11:21 76 95 09/18/24 11:16 79 95 09/18/24 11:11 79 95 09/18/24 11:06 78 96 09/18/24 11:01 80 96 09/18/24 10:59 81 94 09/18/24 10:56 78 95 09/18/24 10:51 82 97 09/18/24 10:49 82 131/83 09/18/24 10:46 85 98 09/18/24 10:45 20 09/18/24 10:41 86 96 09/18/24 10:36 78 96 09/18/24 10:31 76 96 09/18/24 10:26 77 96 09/18/24 10:21 73 96 09/18/24 10:16 73 96 09/18/24 10:11 74 96 09/18/24 10:06 73 96 09/18/24 10:01 74 97 09/18/24 09:56 78 97 09/18/24 09:51 76 96 09/18/24 09:46 77 96 09/18/24 09:45 20 09/18/24 09:45 76 132/82 09/18/24 09:41 77 96 09/18/24 09:36 76 97 09/18/24 09:31 98 09/18/24 09:31 81 09/18/24 09:31 76 140/83 09/18/24 09:26 83 98 09/18/24 09:21 78 96 09/18/24 09:16 79 97 09/18/24 09:15 81 165/98 H 09/18/24 09:11 84 97 09/18/24 09:06 83 98 09/18/24 09:02 81 157/111 H 09/18/24 09:01 96 09/18/24 09:01 83 09/18/24 09:01 77 171/107 H 09/18/24 08:56 81 97 09/18/24 08:51 79 97 09/18/24 08:45 18 09/18/24 08:44 71 164/115 H 09/18/24 07:49 68 138/87 09/18/24 07:47 67 204/84 H 09/18/24 07:44 36.8 C 16
[2024-09-18] MEDS: ACETAMINOPHEN 325 MG TAB PO SCH (21:00)
[2024-09-18] MEDS: DOCUSATE SODIUM 100 MG CAP PO SCH (22:12)
[2024-09-19 06:21] LABS: Albumin Globulin Ratio 1.1 (0.9-2); Albumin Level 2.7 gm/dl (3.4-5.0); BUN Creatinine Ratio 20.4 (10-20); Bilirubin,Total 0.3 mg/dl (0.2-1.0); Calcium 7.1 mg/dl (8.6-10.3); Creatinine Clr Calc Pharmacy 93.7 ml/min; Globulin 2.4 gm/dl (2.5-4.0); Magnesium 4.6 mg/dl (1.7-2.4); Potassium 3.9 mmol/L (3.5-5.1); Total Protein 5.1 gm/dl (6.0-8.3)
[2024-09-19 06:52] LABS: Basophils # (auto) 0.01 K/uL (0.00-0.20); Basophils % (auto) 0.1 %; Eosinophils # (auto) 0.03 K/uL (0.00-0.50); Eosinophils % (auto) 0.2 %; Hemoglobin 9.7 g/dl (12.0-16.0); Immature Granulocytes # (auto) 0.09 K/uL (0.01-0.20); Immature Granulocytes % (auto) 0.7 %; Lymphocytes # (auto) 1.25 K/uL (1.20-3.40); Lymphocytes % (auto) 10.2 %; Mean Corpuscular Hemoglobin 33.9 pg (25.0-34.0); Mean Corpuscular Hgb Conc 35.9 g/dL (32.0-36.0); Mean Corpuscular Volume 94.4 fL (80.0-100.0); Mean Platelet Volume 13.6 fL (9.4-12.4); Monocytes # (auto) 0.64 K/uL (0.11-0.59); Monocytes % (auto) 5.2 %; Neutrophils % (auto) 83.6 %; Platelet Count 95 K/uL (130-400); Platelet Estimate Decreased (Normal); Polychromasia 1+; RDW Coefficient of Variation 12.7 % (11.5-14.5); RDW Standard Deviation 43.9 fL (36.4-46.3); Red Blood Count 2.86 M/uL (4.20-5.40); White Blood Count 12.22 K/ul (4.8-10.8)
[2024-09-19] MEDS: oxyCODONE HCL IR 5 MG TAB (IMMEDIATE RELEASE) PO PRN (07:21)
--- NOTE | 2024-09-19 07:35 | Anesthesiology Progress Note ---
Date of Service September 19, 2024 Anesthesia Post Procedure Vital Signs Vital Signs: Temp Pulse Resp BP Pulse Ox 09/19/24 07:29 86 97 09/19/24 07:14 81 97 09/19/24 07:04 75 121/74 09/19/24 06:59 78 96 09/19/24 06:44 79 96 09/19/24 06:29 81 96 09/19/24 06:14 79 97 09/19/24 06:00 18 94 09/19/24 06:00 18 09/19/24 05:59 79 96 09/19/24 05:56 76 94 09/19/24 05:46 82 94 09/19/24 05:44 77 94 09/19/24 05:39 77 94 09/19/24 05:29 78 94 09/19/24 05:14 76 94 09/19/24 05:00 18 94 09/19/24 05:00 18 09/19/24 04:59 77 94 09/19/24 04:45 75 94 09/19/24 04:44 87 94 09/19/24 04:38 76 94 09/19/24 04:29 76 94 09/19/24 04:21 75 94 09/19/24 04:16 76 94 09/19/24 04:14 75 94 09/19/24 04:07 78 94 09/19/24 04:00 18 95 09/19/24 04:00 18 09/19/24 03:59 77 94 09/19/24 03:54 75 94 09/19/24 03:44 80 96 09/19/24 03:29 80 96 09/19/24 03:14 74 97 09/19/24 03:00 18 95 09/19/24 03:00 18 09/19/24 02:59 79 97 09/19/24 02:44 77 97 09/19/24 02:32 77 130/81 09/19/24 02:29 78 97 09/19/24 02:21 75 94 09/19/24 02:14 76 94 09/19/24 02:09 79 94 09/19/24 02:00 18 95 09/19/24 02:00 18 09/19/24 01:59 76 94 09/19/24 01:46 78 94 09/19/24 01:44 77 94 09/19/24 01:31 78 94 09/19/24 01:29 83 94 09/19/24 01:15 76 94 09/19/24 01:14 84 97 09/19/24 01:05 78 94 09/19/24 01:00 16 96 09/19/24 01:00 16 09/19/24 01:00 76 94 09/19/24 00:59 76 95 09/19/24 00:53 75 94 09/19/24 00:44 77 97 09/19/24 00:29 80 96 09/19/24 00:14 82 96 09/19/24 00:00 18 95 09/19/24 00:00 18 09/19/24 00:00 16 96 09/19/24 00:00 16 09/18/24 23:59 82 97 09/18/24 23:44 80 95 09/18/24 23:41 77 94 09/18/24 23:29 76 94 09/18/24 23:16 73 93 09/18/24 23:14 80 95 09/18/24 23:08 80 94 09/18/24 23:06 73 131/77 09/18/24 23:01 76 94 09/18/24 23:00 18 95 09/18/24 23:00 98.1 F 18 09/18/24 23:00 18 09/18/24 22:59 76 94 09/18/24 22:49 74 94 09/18/24 22:44 94 09/18/24 22:44 74 09/18/24 22:44 73 94 09/18/24 22:36 72 94 09/18/24 22:29 75 98 09/18/24 22:14 76 97 09/18/24 22:00 16 96 09/18/24 22:00 16 09/18/24 21:59 74 97 09/18/24 21:57 78 90 09/18/24 21:44 78 98 09/18/24 21:29 72 98 09/18/24 21:14 70 97 09/18/24 21:08 69 94 09/18/24 21:00 18 96 09/18/24 21:00 18 09/18/24 20:59 93 H 100 09/18/24 20:53 69 94 09/18/24 20:44 69 93 09/18/24 20:43 68 94 09/18/24 20:29 76 95 09/18/24 20:27 70 94 09/18/24 20:22 71 94 09/18/24 20:16 72 94 09/18/24 20:14 72 93 09/18/24 20:10 72 94 09/18/24 20:00 16 95 09/18/24 19:59 73 93 09/18/24 19:57 75 94 09/18/24 19:44 70 92 09/18/24 19:35 71 93 09/18/24 19:29 73 94 09/18/24 19:26 71 96 09/18/24 19:23 16 96 09/18/24 19:23 97.5 F L 16 09/18/24 19:21 73 96 09/18/24 19:20 71 134/84 09/18/24 19:16 75 97 09/18/24 19:11 74 96 09/18/24 19:01 84 96 09/18/24 18:56 96 09/18/24 18:56 84 09/18/24 18:56 73 94 09/18/24 18:51 79 95 09/18/24 18:50 80 92 09/18/24 18:46 74 93 09/18/24 18:42 73 94 09/18/24 18:41 78 97 09/18/24 18:36 72 96 09/18/24 18:33 77 92 09/18/24 18:31 77 95 09/18/24 18:26 73 97 09/18/24 18:23 77 94 09/18/24 18:21 79 93 09/18/24 18:18 77 94 09/18/24 18:16 81 96 09/18/24 18:11 69 94 09/18/24 18:08 72 94 09/18/24 18:06 69 94 09/18/24 18:02 71 94 09/18/24 18:01 70 94 09/18/24 17:57 68 94 09/18/24 17:56 67 94 09/18/24 17:51 95 09/18/24 17:51 73 09/18/24 17:51 70 94 09/18/24 17:50 20 09/18/24 17:50 20 09/18/24 17:50 20 09/18/24 17:49 71 128/82 09/18/24 17:46 75 97 09/18/24 17:41 78 96 09/18/24 17:36 78 96 09/18/24 17:31 76 96 09/18/24 17:26 79 97 09/18/24 17:25 77 130/77 09/18/24 17:21 75 96 09/18/24 17:16 77 97 09/18/24 17:11 76 96 09/18/24 17:06 75 97 09/18/24 17:01 68 96 09/18/24 16:56 71 96 09/18/24 16:52 77 128/88 09/18/24 16:51 76 97 09/18/24 16:46 84 97 09/18/24 16:41 79 97 09/18/24 16:36 75 97 09/18/24 16:31 80 97 09/18/24 16:26 78 96 09/18/24 16:22 67 113/69 09/18/24 16:21 73 97 09/18/24 16:20 20 09/18/24 16:16 76 97 09/18/24 16:11 86 98 09/18/24 16:06 80 97 09/18/24 16:01 80 97 09/18/24 16:00 76 94 09/18/24 15:56 72 96 09/18/24 15:51 75 107/63 97 09/18/24 15:50 20 09/18/24 15:46 79 96 09/18/24 15:41 81 110/64 98 09/18/24 15:40 20 09/18/24 15:36 76 97 09/18/24 15:31 78 108/59 L 96 09/18/24 15:30 18 09/18/24 15:26 76 97 09/18/24 15:22 75 122/59 L 09/18/24 15:21 75 97 09/18/24 15:20 20 09/18/24 15:16 79 97 09/18/24 15:11 72 99/58 L 95 09/18/24 15:08 80 94 09/18/24 15:06 75 96 09/18/24 15:03 72 93 09/18/24 15:01 76 94/54 L 97 09/18/24 15:00 20 09/18/24 15:00 20 09/18/24 14:56 74 97 09/18/24 14:52 67 90/52 L 93 09/18/24 14:51 70 96 09/18/24 14:50 98.2 F 18 09/18/24 13:32 86 97 09/18/24 13:27 84 98 09/18/24 13:22 81 98 09/18/24 13:17 81 100 09/18/24 13:11 81 100 09/18/24 13:06 78 100 09/18/24 13:01 76 100 09/18/24 12:56 71 99 09/18/24 12:51 75 100 09/18/24 12:49 72 117/71 09/18/24 12:46 71 100 09/18/24 12:45 20 09/18/24 12:43 72 93 09/18/24 12:41 76 97 09/18/24 12:36 80 96 09/18/24 12:31 78 96 09/18/24 12:28 77 94 09/18/24 12:26 84 96 09/18/24 12:21 77 96 09/18/24 12:16 75 96 09/18/24 12:11 78 95 09/18/24 12:10 98.1 F 09/18/24 12:06 85 97 09/18/24 12:01 71 96 09/18/24 11:56 74 96 09/18/24 11:51 74 122/72 96 09/18/24 11:46 76 98 09/18/24 11:45 18 09/18/24 11:41 71 100 09/18/24 11:36 72 100 09/18/24 11:31 69 100 09/18/24 11:26 72 96 09/18/24 11:21 76 95 09/18/24 11:16 79 95 09/18/24 11:11 79 95 09/18/24 11:06 78 96 09/18/24 11:01 80 96 09/18/24 10:59 81 94 09/18/24 10:56 78 95 09/18/24 10:51 82 97 09/18/24 10:49 82 131/83 09/18/24 10:46 85 98 09/18/24 10:45 20 09/18/24 10:41 86 96 09/18/24 10:36 78 96 09/18/24 10:31 76 96 09/18/24 10:26 77 96 09/18/24 10:21 73 96 09/18/24 10:16 73 96 09/18/24 10:11 74 96 09/18/24 10:06 73 96 09/18/24 10:01 74 97 09/18/24 09:56 78 97 09/18/24 09:51 76 96 09/18/24 09:46 77 96 09/18/24 09:45 20 09/18/24 09:45 76 132/82 09/18/24 09:41 77 96 09/18/24 09:36 76 97 09/18/24 09:31 98 09/18/24 09:31 81 09/18/24 09:31 76 140/83 09/18/24 09:26 83 98 09/18/24 09:21 78 96 09/18/24 09:16 79 97 09/18/24 09:15 81 165/98 H 09/18/24 09:11 84 97 09/18/24 09:06 83 98 09/18/24 09:02 81 157/111 H 09/18/24 09:01 96 09/18/24 09:01 83 09/18/24 09:01 77 171/107 H 09/18/24 08:56 81 97 09/18/24 08:51 79 97 09/18/24 08:45 18 09/18/24 08:44 71 164/115 H 09/18/24 07:49 68 138/87 09/18/24 07:47 67 204/84 H 09/18/24 07:44 98.2 F 16 Pain Intensity Lower Abdomen: Pain Intensity: 4 Transfer of Care Handoff Completed per policy Notes Mental Status: alert / awake / arousable and participated in evaluation Patient Amnestic to Procedure: Yes Nausea / Vomiting: adequately controlled Pain: adequately controlled Airway Patency, RR, SpO2: stable & adequate BP & HR: stable & adequate Hydration State: stable & adequate Neuraxial Anesthesia: was administered and sensory block is resolving Anesthetic Complications: no major complications apparent and Pt Satisfied with anesthetic care
[2024-09-19] MEDS ORDERED: HYDROmorphone INJ 0.5 MG/0.5 ML SYR IV PRN (07:58)
[2024-09-19] MEDS ORDERED: diphenhydrAMINE 50 MG/ML VIAL IV PRN (07:58)
[2024-09-19] MEDS ORDERED: diphenhydrAMINE Capsule 25 MG CAP PO PRN (07:58)
[2024-09-19] MEDS ORDERED: ONDANSETRON INJ 2 MG/ML 2 ML VIAL IV PRN (07:58)
[2024-09-19] MEDS ORDERED: PROMETHAZINE 12.5 MG/50.5 ML BAG IV PRN (07:58)
[2024-09-19] MEDS ORDERED: Nursing to Pharmacy Communication SCH (08:00)
[2024-09-19] MEDS: PRENATAL VITAMIN 1 TAB PO SCH (08:15)
[2024-09-19] MEDS: FERROUS SULFATE 325 MG TAB PO SCH (08:16)
--- NOTE | 2024-09-19 13:34 | Obstetrical Progress Note ---
Date of Service September 19, 2024 Subjective Ambulation: limited ambulation Voiding: lozada catheter in place Passing Gas:: Yes Diet Tolerance:: clear liquids Lochia:: Small Feeding Type:: breast feeding doing well post op Mag now off urine output good Physical Exam Constitutional WD/WN, vitals as above Gastrointestinal (Abdomen) Inspection/Auscultation: abdomen normal to inspection incision c/d/ abdomen soft and non-tender fundus firm below U. Musculoskeletal Extremities: extremities normal to inspection Skin no rashes, warm and dry Neurologic patellar DTR's 2+ bilat, sensation intact Psychiatric A+Ox3, euthymic affect Results & Data Vital Signs (Past 12 Hours) Vital Signs Temp Pulse Resp BP Pulse Ox 09/19/24 13:29 97 H 96 09/19/24 13:28 96 H 130/77 09/19/24 13:14 92 H 96 09/19/24 12:59 106 H 96 09/19/24 12:44 89 94 09/19/24 12:31 85 94 09/19/24 12:29 89 95 09/19/24 12:25 86 94 09/19/24 12:20 87 94 09/19/24 12:14 87 96 09/19/24 12:00 20 96 09/19/24 12:00 20 09/19/24 11:59 86 97 09/19/24 11:44 83 97 09/19/24 11:29 84 98 09/19/24 11:14 87 97 09/19/24 11:00 20 97 09/19/24 11:00 20 09/19/24 10:59 85 139/84 96 09/19/24 10:54 80 94 09/19/24 10:47 79 94 09/19/24 10:44 78 94 09/19/24 10:42 80 94 09/19/24 10:35 82 94 09/19/24 10:29 81 94 09/19/24 10:16 77 94 09/19/24 10:14 77 94 09/19/24 10:00 18 95 09/19/24 10:00 18 09/19/24 09:59 78 94 09/19/24 09:53 78 94 09/19/24 09:44 80 94 09/19/24 09:29 80 94 09/19/24 09:15 78 94 09/19/24 09:14 77 95 09/19/24 09:09 78 94 09/19/24 09:03 79 94 09/19/24 09:00 18 96 09/19/24 09:00 18 09/19/24 08:59 80 95 09/19/24 08:51 82 128/76 09/19/24 08:44 79 97 09/19/24 08:29 83 97 09/19/24 08:14 74 96 09/19/24 08:00 20 97 09/19/24 08:00 20 09/19/24 07:59 75 97 09/19/24 07:44 79 98 09/19/24 07:29 86 97 09/19/24 07:14 81 97 09/19/24 07:04 20 97 09/19/24 07:04 36.8 C 20 09/19/24 07:04 20 09/19/24 07:04 75 121/74 09/19/24 06:59 78 96 09/19/24 06:44 79 96 09/19/24 06:29 81 96 09/19/24 06:14 79 97 09/19/24 06:00 18 94 09/19/24 06:00 18 09/19/24 05:59 79 96 09/19/24 05:56 76 94 09/19/24 05:46 82 94 09/19/24 05:44 77 94 09/19/24 05:39 77 94 09/19/24 05:29 78 94 09/19/24 05:14 76 94 09/19/24 05:00 18 94 09/19/24 05:00 18 09/19/24 04:59 77 94 09/19/24 04:45 75 94 09/19/24 04:44 87 94 09/19/24 04:38 76 94 09/19/24 04:29 76 94 09/19/24 04:21 75 94 09/19/24 04:16 76 94 09/19/24 04:14 75 94 09/19/24 04:07 78 94 09/19/24 04:00 18 95 09/19/24 04:00 18 09/19/24 03:59 77 94 09/19/24 03:54 75 94 09/19/24 03:44 80 96 09/19/24 03:29 80 96 09/19/24 03:14 74 97 09/19/24 03:00 18 95 09/19/24 03:00 18 09/19/24 02:59 79 97 09/19/24 02:44 77 97 09/19/24 02:32 77 130/81 09/19/24 02:29 78 97 09/19/24 02:21 75 94 09/19/24 02:14 76 94 09/19/24 02:09 79 94 09/19/24 02:00 18 95 09/19/24 02:00 18 09/19/24 01:59 76 94 09/19/24 01:46 78 94 09/19/24 01:44 77 94 Laboratory Results 09/17/24 09/17/24 09/18/24 12:50 14:22 05:38 WBC 11.34 H 11.61 H RBC 3.73 L 3.65 L Hgb 12.7 12.3 Hct 34.8 L 34.4 L MCV 93.3 94.2 MCH 34.0 33.7 MCHC 36.5 H 35.8 RDW Std Deviation 44.3 44.5 RDW Coeff of Santana 12.9 12.9 Plt Count 116 L 109 L MPV 13.7 H 13.8 H Immature Gran % (Auto) 0.8 Neut % (Auto) 79.2 Lymph % (Auto) 12.3 [place] % (Auto) 6.5 Eos % (Auto) 0.9 Baso % (Auto) 0.3 Neut # (Auto) 9.18 H Lymph # (Auto) 1.43 [place] # (Auto) 0.76 H Eos # (Auto) 0.11 Baso # (Auto) 0.04 Immature Gran # (Auto) 0.09 Platelet Estimate Polychromasia PT 9.8 INR 0.9 APTT 27 PTT Ratio 1.0 Fibrinogen 450 H Sodium 135 L 131 L Potassium 4.1 3.9 Chloride 106 103 Carbon Dioxide 19 L 20 L Anion Gap 10 8 BUN 18 16 Creatinine 0.87 0.78 Est Cr Clr Drug Dosing 105.6 117.7 eGFR 87.40 99.64 BUN/Creatinine Ratio 20.7 H 20.5 H Glucose 84 73 Calcium 8.9 8.5 L Magnesium Total Bilirubin 0.3 0.4 AST 29 30 ALT 32 30 Alkaline Phosphatase 182 H 161 H Total Protein 6.5 5.9 L Albumin 3.5 3.1 L Globulin 3.0 2.8 Albumin/Globulin Ratio 1.2 1.1 Ur Random Creatinine 42.4 U Random Total Protein 9.3 Protein/Creatinin Ratio 0.2 Treponema pallidum Ab Negative Blood Type O Negative Antibody Screen NEGATIVE 09/18/24 09/19/24 09/19/24 16:14 05:47 18:08 WBC 15.22 H 12.22 H RBC 3.59 L 2.86 L Hgb 12.1 9.7 L Hct 33.9 L 27.0 L MCV 94.4 94.4 MCH 33.7 33.9 MCHC 35.7 35.9 RDW Std Deviation 44.4 43.9 RDW Coeff of Santana 12.9 12.7 Plt Count 123 L 95 L MPV 13.5 H 13.6 H Immature Gran % (Auto) 1.2 0.7 Neut % (Auto) 89.5 83.6 Lymph % (Auto) 5.7 10.2 [place] % (Auto) 3.1 5.2 Eos % (Auto) 0.2 0.2 Baso % (Auto) 0.3 0.1 Neut # (Auto) 13.63 H 10.20 H Lymph # (Auto) 0.86 L 1.25 [place] # (Auto) 0.47 0.64 H Eos # (Auto) 0.03 0.03 Baso # (Auto) 0.05 0.01 Immature Gran # (Auto) 0.18 0.09 Platelet Estimate Decreased L Polychromasia 1+ PT INR APTT PTT Ratio Fibrinogen Sodium 131 L 128 L Potassium 4.2 3.9 Chloride 102 101 Carbon Dioxide 20 L 23 Anion Gap 9 4 BUN 16 20 Creatinine 1.15 D 0.98 Est Cr Clr Drug Dosing 79.9 93.7 eGFR 62.53 75.77 BUN/Creatinine Ratio 13.9 20.4 H Glucose 97 111 H Calcium 8.1 L 7.1 L Magnesium 5.6 H* 4.6 H Total Bilirubin 0.3 0.3 AST 30 26 ALT 29 23 Alkaline Phosphatase 161 H 126 H Total Protein 6.0 5.1 L Albumin 3.1 L 2.7 L Globulin 2.9 2.4 L Albumin/Globulin Ratio 1.1 1.1 Ur Random Creatinine Cancelled U Random Total Protein Cancelled Protein/Creatinin Ratio Cancelled Treponema pallidum Ab Blood Type Antibody Screen
[2024-09-19] MEDS: MoRPHine SULFATE PF 1 MG/ML 10 ML AMP/VIAL INT SPINAL ONE (13:54)
[2024-09-19] MEDS ORDERED: KETOROLAC 30 MG/ML VIAL IV PRN (15:00)
[2024-09-19] MEDS ORDERED: IBUPROFEN 600 MG TAB PO SCH (15:00)
[2024-09-19] MEDS: bisacodyL 5 MG TABEC PO SCH (20:01)
[2024-09-19] MEDS: IBUPROFEN 600 MG TAB PO PRN (22:18)
[2024-09-20 06:24] LABS: Albumin Level 2.8 gm/dl (3.4-5.0); BUN Creatinine Ratio 20.3 (10-20); Bilirubin Direct 0.1 mg/dl (0-0.2); Bilirubin,Total 0.3 mg/dl (0.2-1.0); Calcium 7.7 mg/dl (8.6-10.3); Creatinine Clr Calc Pharmacy 116.2 ml/min; Globulin 2.7 gm/dl (2.5-4.0); Potassium 4.2 mmol/L (3.5-5.1); Total Protein 5.5 gm/dl (6.0-8.3); Uric Acid 6.1 mg/dl (2.6-7.2)
[2024-09-20 06:31] LABS: Hematocrit (blood only) 28.7 % (37.0-47.0); Mean Corpuscular Hemoglobin 33.7 pg (25.0-34.0); Mean Corpuscular Hgb Conc 34.8 g/dL (32.0-36.0); Mean Corpuscular Volume 96.6 fL (80.0-100.0); Mean Platelet Volume 12.5 fL (9.4-12.4); Platelet Count 107 K/uL (130-400); RDW Coefficient of Variation 13.6 % (11.5-14.5); RDW Standard Deviation 47.9 fL (36.4-46.3); Red Blood Count 2.97 M/uL (4.20-5.40)
[2024-09-20 06:40] LABS: Basophils # (auto) 0.04 K/uL (0.00-0.20); Basophils % (auto) 0.4 %; Eosinophils # (auto) 0.07 K/uL (0.00-0.50); Eosinophils % (auto) 0.6 %; Immature Granulocytes # (auto) 0.14 K/uL (0.01-0.20); Immature Granulocytes % (auto) 1.3 %; Lymphocytes # (auto) 1.56 K/uL (1.20-3.40); Lymphocytes % (auto) 14.3 %; Monocytes # (auto) 0.75 K/uL (0.11-0.59); Monocytes % (auto) 6.9 %; Neutrophils # (auto) 8.34 K/uL (1.40-6.50); Neutrophils % (auto) 76.5 %; Polychromasia 1+
--- NOTE | 2024-09-20 10:05 | Obstetrical Progress Note ---
Date of Service September 20, 2024 Assessment & Plan Admission and Anticipated Discharge Date Admission Date: September 17, 2024 Subjective Patient is seen and examined. She feels well, no complaints. Pain is under control with oral meds. Ambulating without dizziness. Voiding without difficulty Tolerating regular diet with out N&V Flatus + BM neg Bleeding is minimal No fever/ chills/ CP/ SOB/ N&V/ Leg pain Breast feeding without problems Vital Signs Temp Pulse Pulse Resp BP BP BP 09/20/24 02:43 127/72 09/19/24 23:02 37.1 C 97 H 18 133/81 09/19/24 21:26 89 131/82 09/19/24 19:35 103 H 167/112 H 09/19/24 19:09 37 C 18 09/19/24 14:45 104 H 09/19/24 14:45 37.1 C 18 146/92 H 09/19/24 14:40 09/19/24 13:44 101 H 09/19/24 13:29 97 H 09/19/24 13:28 96 H 130/77 09/19/24 13:14 92 H 09/19/24 12:59 106 H 09/19/24 12:44 89 09/19/24 12:31 85 09/19/24 12:29 89 09/19/24 12:25 86 09/19/24 12:20 87 09/19/24 12:14 87 09/19/24 12:00 20 09/19/24 12:00 20 09/19/24 11:59 86 09/19/24 11:44 83 09/19/24 11:29 84 09/19/24 11:14 87 09/19/24 11:00 20 09/19/24 11:00 20 09/19/24 10:59 85 139/84 09/19/24 10:54 80 09/19/24 10:47 79 09/19/24 10:44 78 09/19/24 10:42 80 09/19/24 10:35 82 09/19/24 10:29 81 09/19/24 10:16 77 09/19/24 10:14 77 Pulse Ox O2 Del Method 09/20/24 02:43 09/19/24 23:02 96 Room Air 09/19/24 21:26 09/19/24 19:35 09/19/24 19:09 95 Room Air 09/19/24 14:45 09/19/24 14:45 95 Room Air 09/19/24 14:40 Room Air 09/19/24 13:44 96 09/19/24 13:29 96 09/19/24 13:28 09/19/24 13:14 96 09/19/24 12:59 96 09/19/24 12:44 94 09/19/24 12:31 94 09/19/24 12:29 95 09/19/24 12:25 94 09/19/24 12:20 94 09/19/24 12:14 96 09/19/24 12:00 96 09/19/24 12:00 09/19/24 11:59 97 09/19/24 11:44 97 09/19/24 11:29 98 09/19/24 11:14 97 09/19/24 11:00 97 09/19/24 11:00 09/19/24 10:59 96 09/19/24 10:54 94 09/19/24 10:47 94 09/19/24 10:44 94 09/19/24 10:42 94 09/19/24 10:35 94 09/19/24 10:29 94 09/19/24 10:16 94 09/19/24 10:14 94 Lab Results 09/17/24 09/17/24 09/18/24 Range/Units 12:50 14:22 05:38 WBC 11.34 H 11.61 H (4.8-10.8) K/ul RBC 3.73 L 3.65 L (4.20-5.40) M/uL Hgb 12.7 12.3 (12.0-16.0) g/dl Hct 34.8 L 34.4 L (37.0-47.0) % MCV 93.3 94.2 (80.0-100.0) fL MCH 34.0 33.7 (25.0-34.0) pg MCHC 36.5 H 35.8 (32.0-36.0) g/dL RDW Std Deviation 44.3 44.5 (36.4-46.3) fL RDW Coeff of Santana 12.9 12.9 (11.5-14.5) % Plt Count 116 L 109 L (130-400) K/uL MPV 13.7 H 13.8 H (9.4-12.4) fL Immature Gran % (Auto) 0.8 % Neut % (Auto) 79.2 % Lymph % (Auto) 12.3 % [place] % (Auto) 6.5 % Eos % (Auto) 0.9 % Baso % (Auto) 0.3 % Neut # (Auto) 9.18 H (1.40-6.50) K/uL Lymph # (Auto) 1.43 (1.20-3.40) K/uL [place] # (Auto) 0.76 H (0.11-0.59) K/uL Eos # (Auto) 0.11 (0.00-0.50) K/uL Baso # (Auto) 0.04 (0.00-0.20) K/uL Immature Gran # (Auto) 0.09 (0.01-0.20) K/uL Platelet Estimate (Normal) Polychromasia PT 9.8 (9.0-12.0) Seconds INR 0.9 (0.9-1.1) APTT 27 (21-31) Seconds PTT Ratio 1.0 Fibrinogen 450 H (184-400) mg/dl Sodium 135 L 131 L (136-145) mmol/L Potassium 4.1 3.9 (3.5-5.1) mmol/L Chloride 106 103 (98-107) mmol/L Carbon Dioxide 19 L 20 L (21-32) mmol/L Anion Gap 10 8 (3-11) BUN 18 16 (6-23) mg/dl Creatinine 0.87 0.78 (0.6-1.2) mg/dl Est Cr Clr Drug Dosing 105.6 117.7 ml/min eGFR 87.40 99.64 BUN/Creatinine Ratio 20.7 H 20.5 H (10-20) Glucose 84 73 (70-99(Fasting)) mg/dl Uric Acid (2.6-7.2) mg/dl Calcium 8.9 8.5 L (8.6-10.3) mg/dl Magnesium (1.7-2.4) mg/dl Total Bilirubin 0.3 0.4 (0.2-1.0) mg/dl Direct Bilirubin (0-0.2) mg/dl AST 29 30 (13-39) U/L ALT 32 30 (7-52) U/L Alkaline Phosphatase 182 H 161 H (34-104) U/L Lactate Dehydrogenase (86-244) U/L Total Protein 6.5 5.9 L (6.0-8.3) gm/dl Albumin 3.5 3.1 L (3.4-5.0) gm/dl Globulin 3.0 2.8 (2.5-4.0) gm/dl Albumin/Globulin Ratio 1.2 1.1 (0.9-2) Ur Random Creatinine 42.4 mg/dl U Random Total Protein 9.3 (0-11.9) mg/dl Protein/Creatinin Ratio 0.2 (0-0.2) Treponema pallidum Ab Negative (Negative) Blood Type O Negative Antibody Screen NEGATIVE Screen (Negative) 09/18/24 09/19/24 09/19/24 Range/Units 16:14 05:47 18:08 WBC 15.22 H 12.22 H (4.8-10.8) K/ul RBC 3.59 L 2.86 L (4.20-5.40) M/uL Hgb 12.1 9.7 L (12.0-16.0) g/dl Hct 33.9 L 27.0 L (37.0-47.0) % MCV 94.4 94.4 (80.0-100.0) fL MCH 33.7 33.9 (25.0-34.0) pg MCHC 35.7 35.9 (32.0-36.0) g/dL RDW Std Deviation 44.4 43.9 (36.4-46.3) fL RDW Coeff of Santana 12.9 12.7 (11.5-14.5) % Plt Count 123 L 95 L (130-400) K/uL MPV 13.5 H 13.6 H (9.4-12.4) fL Immature Gran % (Auto) 1.2 0.7 % Neut % (Auto) 89.5 83.6 % Lymph % (Auto) 5.7 10.2 % [place] % (Auto) 3.1 5.2 % Eos % (Auto) 0.2 0.2 % Baso % (Auto) 0.3 0.1 % Neut # (Auto) 13.63 H 10.20 H (1.40-6.50) K/uL Lymph # (Auto) 0.86 L 1.25 (1.20-3.40) K/uL [place] # (Auto) 0.47 0.64 H (0.11-0.59) K/uL Eos # (Auto) 0.03 0.03 (0.00-0.50) K/uL Baso # (Auto) 0.05 0.01 (0.00-0.20) K/uL Immature Gran # (Auto) 0.18 0.09 (0.01-0.20) K/uL Platelet Estimate Decreased L (Normal) Polychromasia 1+ PT (9.0-12.0) Seconds INR (0.9-1.1) APTT (21-31) Seconds PTT Ratio Fibrinogen (184-400) mg/dl Sodium 131 L 128 L (136-145) mmol/L Potassium 4.2 3.9 (3.5-5.1) mmol/L Chloride 102 101 (98-107) mmol/L Carbon Dioxide 20 L 23 (21-32) mmol/L Anion Gap 9 4 (3-11) BUN 16 20 (6-23) mg/dl Creatinine 1.15 D 0.98 (0.6-1.2) mg/dl Est Cr Clr Drug Dosing 79.9 93.7 ml/min eGFR 62.53 75.77 BUN/Creatinine Ratio 13.9 20.4 H (10-20) Glucose 97 111 H (70-99(Fasting)) mg/dl Uric Acid (2.6-7.2) mg/dl Calcium 8.1 L 7.1 L (8.6-10.3) mg/dl Magnesium 5.6 H* 4.6 H (1.7-2.4) mg/dl Total Bilirubin 0.3 0.3 (0.2-1.0) mg/dl Direct Bilirubin (0-0.2) mg/dl AST 30 26 (13-39) U/L ALT 29 23 (7-52) U/L Alkaline Phosphatase 161 H 126 H (34-104) U/L Lactate Dehydrogenase (86-244) U/L Total Protein 6.0 5.1 L (6.0-8.3) gm/dl Albumin 3.1 L 2.7 L (3.4-5.0) gm/dl Globulin 2.9 2.4 L (2.5-4.0) gm/dl Albumin/Globulin Ratio 1.1 1.1 (0.9-2) Ur Random Creatinine Cancelled mg/dl U Random Total Protein Cancelled (0-11.9) mg/dl Protein/Creatinin Ratio Cancelled (0-0.2) Treponema pallidum Ab (Negative) Blood Type Antibody Screen Screen (Negative) 09/20/24 Range/Units 05:48 WBC 10.90 H (4.8-10.8) K/ul RBC 2.97 L (4.20-5.40) M/uL Hgb 10.0 L (12.0-16.0) g/dl Hct 28.7 L (37.0-47.0) % MCV 96.6 (80.0-100.0) fL MCH 33.7 (25.0-34.0) pg MCHC 34.8 (32.0-36.0) g/dL RDW Std Deviation 47.9 H (36.4-46.3) fL RDW Coeff of Santana 13.6 (11.5-14.5) % Plt Count 107 L (130-400) K/uL MPV 12.5 H (9.4-12.4) fL Immature Gran % (Auto) 1.3 % Neut % (Auto) 76.5 % Lymph % (Auto) 14.3 % [place] % (Auto) 6.9 % Eos % (Auto) 0.6 % Baso % (Auto) 0.4 % Neut # (Auto) 8.34 H (1.40-6.50) K/uL Lymph # (Auto) 1.56 (1.20-3.40) K/uL [place] # (Auto) 0.75 H (0.11-0.59) K/uL Eos # (Auto) 0.07 (0.00-0.50) K/uL Baso # (Auto) 0.04 (0.00-0.20) K/uL Immature Gran # (Auto) 0.14 (0.01-0.20) K/uL Platelet Estimate (Normal) Polychromasia 1+ PT (9.0-12.0) Seconds INR (0.9-1.1) APTT (21-31) Seconds PTT Ratio Fibrinogen (184-400) mg/dl Sodium 140 D (136-145) mmol/L Potassium 4.2 (3.5-5.1) mmol/L Chloride 111 H (98-107) mmol/L Carbon Dioxide 25 (21-32) mmol/L Anion Gap 4 (3-11) BUN 16 (6-23) mg/dl Creatinine 0.79 (0.6-1.2) mg/dl Est Cr Clr Drug Dosing 116.2 ml/min eGFR 98.13 BUN/Creatinine Ratio 20.3 H (10-20) Glucose 77 (70-99(Fasting)) mg/dl Uric Acid 6.1 (2.6-7.2) mg/dl Calcium 7.7 L (8.6-10.3) mg/dl Magnesium (1.7-2.4) mg/dl Total Bilirubin 0.3 (0.2-1.0) mg/dl Direct Bilirubin 0.1 (0-0.2) mg/dl AST 21 (13-39) U/L ALT 21 (7-52) U/L Alkaline Phosphatase 111 H (34-104) U/L Lactate Dehydrogenase 192 (86-244) U/L Total Protein 5.5 L (6.0-8.3) gm/dl Albumin 2.8 L (3.4-5.0) gm/dl Globulin 2.7 (2.5-4.0) gm/dl Albumin/Globulin Ratio 1.0 (0.9-2) Ur Random Creatinine mg/dl U Random Total Protein (0-11.9) mg/dl Protein/Creatinin Ratio (0-0.2) Treponema pallidum Ab (Negative) Blood Type O Negative Antibody Screen Cancelled Screen Negative (Negative) PE: General: Alert, orientedx3, NAD CVS: S1S2 RRR Lungs; CTAB Abd: soft, NT, ND, BS+, fundus firm, below Umbilicus Incision: Clean, dry, intact Perineum intact, Lochia rubra minimal Ext; NT, no edema AP: 39 yo s/p C Section, pod# 2, s/p IV magnesium for seizure prophylaxis VSS Afebrile doing well BP stable on Labetalol and Procardia Creatinine normalized Continue routine postop care Encourage ambulation, PO intake All questions were answered D/C home tomorrow Results & Data Vital Signs (Past 12 Hours) Vital Signs Temp Pulse Resp BP Pulse Ox O2 Del Method 09/20/24 02:43 127/72 09/19/24 23:02 37.1 C 97 H 18 133/81 96 Room Air
[2024-09-20] MEDS: LABETALOL HCL 200 MG TAB PO SCH (14:08)
[2024-09-20] MEDS ORDERED: bisacodyL 10 MG SUPP PR PRN (14:45)
[2024-09-20] MEDS ORDERED: IBUPROFEN 600 MG TAB PO PRN (15:00)
[2024-09-20] MEDS ORDERED: ACETAMINOPHEN 325 MG TAB PO PRN (20:45)
[2024-09-21 06:33] LABS: Albumin Level 2.8 gm/dl (3.4-5.0); Bilirubin,Total 0.2 mg/dl (0.2-1.0); Creatinine Clr Calc Pharmacy 109.3 ml/min; Total Protein 5.5 gm/dl (6.0-8.3)
[2024-09-21 07:38] VITALS: RESP 16; TEMP 97.9; O2SAT 97
[2024-09-21 12:05] VITALS: BP 156/95
--- NOTE | 2024-09-21 12:32 | Obstetrical Progress Note ---
Date of Service September 21, 2024 Assessment & Plan (1) Postop check: POD #2 preeclampsia Pt doing well No complaints Plan f/u for office Bp check Subjective Ambulation: ambulating normally Voiding: no voiding problems Passing Gas:: Yes Diet Tolerance:: clear liquids Lochia:: Small Feeding Type:: breast feeding Review of Systems All systems reviewed & are unremarkable except as noted in HPI & below Physical Exam Constitutional WD/WN, vitals as above well developed and well nourished Eyes PERRL, conjunctivae normal, anicteric sclerae ENMT external ear and nose normal, oropharynx normal Neck trachea midline, no thyromegaly Respiratory normal respiratory effort, lungs clear to auscultation Cardiovascular RRR, no murmur, no edema Chest (Breasts) normal inspection/palpation of breasts Gastrointestinal (Abdomen) normal bowel sounds, soft, nontender, no hepatosplenomegaly Musculoskeletal no cyanosis or clubbing, extremities motor strength 5/5 Skin no rashes, warm and dry + incision (Clean,dry and intact) Neurologic patellar DTR's 2+ bilat, sensation intact Psychiatric A+Ox3, euthymic affect Genitourinary normal external appearance Lymphatic no cervical or axillary lymphadenopathy Results & Data Vital Signs (Past 12 Hours) Vital Signs Temp Pulse Resp BP BP Pulse Ox O2 Del Method 09/21/24 11:30 156/95 H 09/21/24 07:23 36.6 C 80 16 145/93 H 97 Room Air 09/21/24 03:32 137/90
[2024-09-21 15:16] VITALS: PULSE 72
== END 2024-09-21 14:45 | disposition home health service (06) | DRG 787 ==
LOC: 4S1 12:21 → 4E2 09-19 14:20